=== PATIENT | male | born 1935 | race Caucasian/White ===

== ENCOUNTER → 2016-10-04 | Outpatient (CLI) | payer MEDICARE ==
[~2016-10-04] MED LIST: ALBUAER3 INH; ASPI325T PO; BYST5TAB2 PO; CYAN1000P IM; ISOS30TA3 PO; MOME17I EACH NARE; NEXI20CA PO; NITR1SUB3 SL; OCUVTAB4 PO; PRIM50TA5 PO; RANE1000 PO; ROPI0.5T PO; ROSU20 PO; SYSTSOL EACH EYE; TERA1CAP3 PO; VITA100064 PO
--- NOTE | 2016-10-06 09:20 | RSPPFT ---
DATE OF PROCEDURE: 10/04/16 COMMENTS: VOLUMES DYNAMIC: FVC and FEV1 mildly reduced. STATIC: TLC, RV and FRC normal. FLOWS: FEV1% moderately reduced; FEF 25-75 severely reduced. DIFFUSION: Moderately reduced. FLOW VOLUME LOOP: Pattern of variable intrathoracic airways obstruction. IMPRESSION: Moderately severe obstructive ventilatory defect with reduction in diffusion consistent with emphysema. No significant hyperinflation. Airways resistance is increased. There is minimal change post-bronchodilator.
== END ==
LOC: PHRSP 07:27
PROVIDERS: ATTEND Internal Medicine
DX: J44.9 Chronic obstructive pulmonary disease, unspecified (principal)
CPT/HCPCS: 94060; 94620; 94726; 94729

== ENCOUNTER 2017-02-28 10:17 | Emergency (ER) | payer MEDICARE ==
[~2017-02-28] VITALS: Ht 170.2 cm; Wt 100.0 kg
[~2017-02-28 10:17] MED LIST changes: +UMEC1AER INH
[2017-02-28 10:18] VITALS: BP 171/74; PULSE 87; RESP 12; TEMP 98.4; O2SAT 98
[2017-02-28] MEDS ORDERED: DIPHTH/TETANUS/ACEL PERTUSSIS (BOOSTER) 0.5 ML VIAL/PFS IM ONE (11:00)
--- NOTE | 2017-02-28 11:16 | RADRPT ---
EXAM DATE/TIME: 02/28/2017 11:08 [facility] COMPARISON: CT BRAIN W/O CONTRAST, December 16, 2010, 14:48. INDICATIONS : Trauma. Fall. Head laceration. RADIATION DOSE: 36.42 CTDIvol (mGy) MEDICAL HISTORY : Cardiovascular disease. SURGICAL HISTORY : Pacemaker. Coronary artery stent. ENCOUNTER: Initial ACUITY: 1 day PAIN SCALE: 4/10 LOCATION: cranial TECHNIQUE: Multiple contiguous axial images were obtained of the head. Using automated exposure control and adj ustment of the mA and/or kV according to patient size, radiation dose was kept as low as reasonably a chievable to obtain optimal diagnostic quality images. DICOM format image data is available electro nically for review and comparison. FINDINGS: There is mild line loss. No fractures are seen. Internal carotid artery calcifications and vertebral artery calcifications are noted. No hemorrhage, acute infarct, or mass. 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 CONCLUSION: No acute disease. Chidi Geronimo MD on February 28, 2017 at 11:14 Board Certified Radiologist. This report was verified electronically.
--- NOTE | 2017-02-28 11:19 | PD ---
HPI Chief Complaint: Fall Time Seen by Provider: 11:16 Travel History International Travel<30 days: No Contact w/Intl Traveler<30days: No Traveled to known affect area: No History of Present Illness HPI 81 yo M had a fall, which he attributes to neuropathy. bleeding from occipital scalp on right resolved with bandaging t home. he struggled to get to this feet but denies hip, chest, back and neck pain. no loc, sob, weakness or dizziness. onset sudden. timing resolved. does not rmemeber last tetanus. PFSH Past Medical History Anemia: Yes Arthritis: No Asthma: No Atrial Fibrillation: Yes Heart Rhythm Problems: Yes (PT HAS A DEMAND PACEMAKER) Cardiac Catheterization: Yes Cardiovascular Problems: Yes High Cholesterol: No Chest Pain: Yes Congestive Heart Failure: No COPD: Yes Cerebrovascular Accident: No Genitourinary: No Hypertension: Yes Kidney Stones: No Musculoskeletal: No Neurologic: Yes (NEUROPATHY) Respiratory: No Renal Failure: No ?: Not Past Surgical History Cardiac Surgery: Yes (ON DEMAND PACEMAKER) Pacemaker: Yes Social History Alcohol Use: Yes (1 DRINK DAILY) Tobacco Use: Yes (1 PK Q 2 WEEKS) Substance Use: No Allergies-Medications (Allergen,Severity, Reaction): Coded Allergies: penicillin G (Verified Allergy, Severe, 02/28/17) Reported Meds & Prescriptions Reported Meds & Active Scripts Active Bystolic (Nebivolol) 5 Mg Tab 5 Mg PO DAILY Reported Ranexa ER 12 HR (Ranolazine) 1,000 Mg Tab 1,000 Mg PO DAILY Anoro Ellipta Inh (Umeclidinium/Vilanterol) 62.5-25 Mcg/Act Aero 1 Puff INH DAILY Ranexa ER 12 HR (Ranolazine) 1,000 Mg Tab 1,000 Mg PO BID Ropinirole 0.5 Mg Tab 0.5 Mg PO HS Preservision Areds (Multiple Vitamins W/ Minerals) 1 Tab 1 Tab PO DAILY Systane Opth Drops (Polyethylene Glycol-Propylene Glycol Opth Drp) 0.4-0.3% Soln 1-2 Drop EACH EYE PRN PRN Nitroglycerin SL (Nitroglycerin) 0.4 Mg Subl 0.4 Mg SL DIRECTED PRN ONE TABLET UNDER THE TONGUE NEEDED FOR CHEST PAIN, MAY REPEAT EVERY FIVE MINUTES FOR A TOTAL OF 3 DOSES OR CALL 911 IF NO RELIEF Nasonex Nasal [place] (Mometasone Furoate) 50 Mcg/Act Naspr 2 [place] EACH NARE DAILY Cyanocobalamin Inj (Cyanocobalamin) 1,000 Mcg/Ml Inj 1,000 Mcg IM ONCE PRN Proair Hfa 8.5 GM Inh (Albuterol Sulfate) 90 Mcg/Act Aer 2 Puff INH Q4-6H PRN 108 mcg/actuation Terazosin (Terazosin HCl) 1 Mg Cap 1 Mg PO HS Primidone 50 Mg Tab 50 Mg PO DAILY PRN Nexium (Esomeprazole DR) 20 Mg Capdr 20 Mg PO DAILY Isosorbide Mononitrate ER (Isosorbide Mononitrate) 30 Mg Perfecto 15 Mg PO DAILY Crestor (Rosuvastatin Calcium) 20 Mg Tab 20 Mg PO DAILY Aspirin 325 Mg Tab 325 Mg PO DAILY Vitamin D3 (Cholecalciferol) 1,000 Unit Tab 2,000 Units PO DAILY 90 Days Review of Systems Except as stated in HPI: all other systems reviewed are Neg General / Constitutional: No: Fever Eyes: No: Visual changes Physical Exam Narrative GENERAL: 81 yo M, WNWD, no acute distress SKIN: Warm and dry. HEAD: Atraumatic. Normocephalic. R occipital scalp contusion of approx 3cm x 5cm somewhat oblong with trace abrasion. EYES: Pupils equal and round. No scleral icterus. No injection or drainage. ENT: No nasal bleeding or discharge. Mucous membranes pink and moist. NECK: Trachea midline. No JVD. CARDIOVASCULAR: Regular rate and rhythm. RESPIRATORY: No accessory muscle use. Clear to auscultation. Breath sounds equal bilaterally. GASTROINTESTINAL: Abdomen soft, non-tender, nondistended. Hepatic and splenic margins not palpable. MUSCULOSKELETAL: Extremities without clubbing, cyanosis, or edema. No obvious deformities. NEUROLOGICAL: Awake and alert. No obvious cranial nerve deficits. Motor grossly within normal limits. Five out of 5 muscle strength in the arms and legs. Normal speech. Pt is ambulatory with a cane, PSYCHIATRIC: Appropriate mood and affect; insight and judgment normal. Data Data Last Documented VS Vital Signs Date Time Temp Pulse Resp B/P (MAP) Pulse Ox O2 Delivery O2 Flow Rate FiO2 02/28/17 12:00 02/28/17 10:18 98.4 87 12 98 VS reviewed, 171/74 is bp Orders Orders Ct Brain W/O Iv Contrast(Rout) (02/28/17 ) Yjoz-Esa-Amhwsw (Booster) Inj (Boostrix (02/28/17 11:00) Electrocardiogram (02/28/17 10:33) MDM Medical Decision Making Medical Screen Exam Complete: Yes Emergency Medical Condition: Yes Medical Record Reviewed: Yes Differential Diagnosis ich, scalp contusion, scalp abrasion, skull fracture Narrative Course Last Impressions Head CT 02/28/17 0000 Signed Impressions: Service Date/Time: Tuesday, February 28, 2017 11:08 - CONCLUSION: No acute disease. Chidi Geronimo MD tetanus given return precautions discussed Diagnosis Primary Impression: Fall Qualified Codes: W19.XXXA - Unspecified fall, initial encounter Additional Impressions: Scalp contusion Qualified Codes: S00.03XA - Contusion of scalp, initial encounter Scalp abrasion Qualified Codes: S00.01XA - Abrasion of scalp, initial encounter Referrals: Primary Care Physician 2 days Med/Other Pt SpecificInfo: No Change to Meds Disposition: 01 DISCHARGE HOME Condition: Stable Amrik Wheeler MD Feb 28, 2017 11:19
--- NOTE | 2017-02-28 13:47 | EKG ---
Date Performed: 02/28/2017 Time Performed: 10:33:41 PTAGE: 81 years EKG: Normal Sinus rhythm Low limb lead voltage Ventricular premature complex Atrial and ventricular demand pacing ABNORMAL RH [facility] ECG PREVIOUS TRACING : 12/16/2010 14.03 Besides pacing, no major change from prior tracing. DOCTOR: Brad Sullivan Interpretating Date/Time 02/28/2017 13:52:57
== END 2017-02-28 12:23 | disposition home or self-care (01) ==
LOC: NEPC 10:17
DX: S00.03XA Contusion of scalp, initial encounter (principal); S00.01XA Abrasion of scalp, initial encounter; W19.XXXA Unspecified fall, initial encounter; I48.91 Unspecified atrial fibrillation; I10 Essential (primary) hypertension; J44.9 Chronic obstructive pulmonary disease, unspecified
CPT/HCPCS: 70450; 90715; 93005; 96372

== ENCOUNTER → 2017-03-07 | Outpatient (CLI) | payer MEDICARE ==
[2017-03-07 13:15] LABS: AUTOMATED NEUTROPHIL # 8.3 TH/MM3 (1.8-7.7); BASOPHIL # 0.1 TH/MM3 (0-0.2); BASOPHIL % 0.6 % (0.0-2.0); EOSINOPHIL # 0.2 TH/MM3 (0-0.4); EOSINOPHIL % 1.8 % (0.0-4.0); HEMATOCRIT 42.2 % (39.0-51.0); HEMO FLAGS DIFF FINAL; LYMPH % 20.3 % (9.0-44.0); LYMPHOCYTE # 2.5 TH/MM3 (1.0-4.8); MEAN CELL VOLUME 91.4 FL (80.0-100.0); MEAN CORPUSCULAR HEMOGLOBIN 29.9 PG (27.0-34.0); MEAN CORPUSCULAR HGB CONC 32.7 % (32.0-36.0); MONO % 9.3 % (0.0-8.0); PLATELET COUNT 215 TH/MM3 (150-450); RED BLOOD COUNT 4.62 MIL/MM3 (4.50-5.90); RED CELL DISTRIBUTION WIDTH 14.2 % (11.6-17.2); WHITE BLOOD COUNT 12.2 TH/MM3 (4.0-11.0)
[2017-03-07 13:15] LABS: BACTERIA, URINE RARE /hpf; BLOOD, URINE NEG (NEG); COMMENT (UR) CULT NOT INDICATED; CULTURE IF INDICATED CULT NOT INDICATED; GLUCOSE,URINE NEG (NEG); KETONE, URINE NEG (NEG); NITRITE,URINE NEG (NEG); PH, URINE 5.5 (5.0-8.5); URINE COLOR YELLOW (YELLW/STRAW)
[2017-03-07 13:28] LABS: ANION GAP 8 MEQ/L (5-15); AST (GOT) 20 U/L (15-37); BICARBONATE 26.4 MEQ/L (21.0-32.0); BLOOD UREA NITROGEN 24 MG/DL (7-18); CHLORIDE 104 MEQ/L (98-107); GLOMERULAR FILTRATION RATE 46 ML/MIN (>89); GLUCOSE,FASTING 88 MG/DL (74-99); POTASSIUM 4.8 MEQ/L (3.5-5.1); SODIUM (NA) 138 MEQ/L (136-145)
[2017-03-07 13:29] LABS: ALT (GPT) 28 U/L (12-78)
[2017-03-07 13:32] LABS: ALKALINE PHOSPHATASE 81 U/L (45-117); TOTAL BILIRUBIN ADULT 0.4 MG/DL (0.2-1.0)
== END ==
LOC: PLAB 10:35
PROVIDERS: ATTEND Physician Assistant Medical
DX: R42 Dizziness and giddiness (principal)
CPT/HCPCS: 80053; 81001; 85025

== ENCOUNTER → 2017-07-25 | Outpatient (CLI) | payer MEDICARE ==
[~2017-07-25] MED LIST changes: +ASPI-183 PO; -ASPI325T PO; -BYST5TAB2 PO; +METO25TA3 PO
== END ==
LOC: PLAB 15:26
PROVIDERS: ATTEND Nurse Practitioner Family
DX: R06.09 Other forms of dyspnea (principal)
CPT/HCPCS: 36415; 83880

== ENCOUNTER 2017-07-28 11:30 | Inpatient (IN) | payer MEDICARE ==
[~2017-07-28] VITALS: Ht 170.2 cm; Wt 102.5 kg
[2017-07-28 11:32] VITALS: BP 166/112; PULSE 78; RESP 18; TEMP 97.7; O2SAT 94
[2017-07-28 13:20] VITALS: BP 150/69; PULSE 75; RESP 23; O2SAT 100
--- NOTE | 2017-07-28 13:35 | PD ---
HPI Chief Complaint: Fever Time Seen by Provider: 13:15 Travel History International Travel<30 days: No Contact w/Intl Traveler<30days: No Traveled to known affect area: No History of Present Illness HPI 81-year-old male presents to the emergency department for evaluation of generalized weakness and fever. Patient states he has not been feeling well all week. However, symptoms worsened yesterday morning. He reports generalized weakness since yesterday morning. He states the last night he ran a fever of 101. His states that he did not take anything to bring down his fever, but it came down on its own. He went to see his primary care provider today who did an influenza test which was negative and instruct him to come the emergency department for further evaluation. Patient denies any headache. No sore throat. No shortness of breath or chest pain. He denies any abdominal pain. He does report nausea and states he has not eaten since yesterday morning. He states he has not eaten because he is scared he will vomit. Patient's past mental history of CAD, pacemaker, brought in strums macroglobulinemia, peripheral neuropathy, COPD on O2 at night, stage III kidney disease, BPH, hyperlipidemia, hypertension, CHF. Patient states he has body aches, 7/10, aching without radiation. Moderate severity. PFSH Past Medical History Anemia: Yes Arthritis: No Asthma: No Atrial Fibrillation: Yes Heart Rhythm Problems: Yes (PT HAS A DEMAND PACEMAKER) Cardiac Catheterization: Yes Cardiovascular Problems: Yes High Cholesterol: No Chest Pain: Yes Congestive Heart Failure: No COPD: Yes Cerebrovascular Accident: No Genitourinary: No Hypertension: Yes Kidney Stones: No Musculoskeletal: No Neurologic: Yes (NEUROPATHY) Respiratory: Yes Renal Failure: No Past Surgical History Cardiac Surgery: Yes (ON DEMAND PACEMAKER) Pacemaker: Yes Social History Alcohol Use: Yes (1 DRINK DAILY) Tobacco Use: Yes (1 PK Q 2 WEEKS) Substance Use: No Allergies-Medications (Allergen,Severity, Reaction): Coded Allergies: penicillin G (Verified Allergy, Severe, 06/28/17) Reported Meds & Prescriptions Reported Meds & Active Scripts Active Reported Metoprolol Tartrate 25 Mg Tab 25 Mg PO BID Ranexa ER 12 HR (Ranolazine) 1,000 Mg Tab 1,000 Mg PO DAILY Anoro Ellipta Inh (Umeclidinium/Vilanterol) 62.5-25 Mcg/Act Aero 1 Puff INH DAILY Ranexa ER 12 HR (Ranolazine) 1,000 Mg Tab 1,000 Mg PO BID Ropinirole 0.5 Mg Tab 0.5 Mg PO HS Preservision Areds (Multiple Vitamins W/ Minerals) 1 Tab 1 Tab PO DAILY Systane Opth Drops (Polyethylene Glycol-Propylene Glycol Opth Drp) 0.4-0.3% Soln 1-2 Drop EACH EYE PRN PRN Nitroglycerin SL (Nitroglycerin) 0.4 Mg Subl 0.4 Mg SL DIRECTED PRN ONE TABLET UNDER THE TONGUE NEEDED FOR CHEST PAIN, MAY REPEAT EVERY FIVE MINUTES FOR A TOTAL OF 3 DOSES OR CALL 911 IF NO RELIEF Nasonex Nasal [place] (Mometasone Furoate) 50 Mcg/Act Naspr 2 [place] EACH NARE DAILY Cyanocobalamin Inj (Cyanocobalamin) 1,000 Mcg/Ml Inj 1,000 Mcg IM ONCE PRN Proair Hfa 8.5 GM Inh (Albuterol Sulfate) 90 Mcg/Act Aer 2 Puff INH Q4-6H PRN 108 mcg/actuation Terazosin (Terazosin HCl) 1 Mg Cap 1 Mg PO HS Primidone 50 Mg Tab 50 Mg PO DAILY PRN Nexium (Esomeprazole DR) 20 Mg Capdr 20 Mg PO DAILY Isosorbide Mononitrate ER (Isosorbide Mononitrate) 30 Mg Perfecto 15 Mg PO DAILY Crestor (Rosuvastatin Calcium) 20 Mg Tab 20 Mg PO DAILY Aspirin 325 Mg Tab 325 Mg PO DAILY Vitamin D3 (Cholecalciferol) 1,000 Unit Tab 2,000 Units PO DAILY 90 Days Review of Systems Except as stated in HPI: all other systems reviewed are Neg Physical Exam Narrative GENERAL: Well-nourished, well-developed male patient, afebrile. SKIN: Focused skin assessment warm/dry. HEAD: Normocephalic. Atraumatic. ENT: Mucosa pink and moist. No erythema or exudates. No uvular edema. No uvular , palatal, or tonsillar deviation. Airway patent. Nasal turbinates appear normal without nasal blood, purulent drainage or septal hematoma. EYES: No scleral icterus. No injection or drainage. NECK: Supple, trachea midline. No JVD or lymphadenopathy. CARDIOVASCULAR: Regular rate and rhythm without murmurs, gallops, or rubs. Radial and pedal pulses are 2+. RESPIRATORY: Breath sounds equal bilaterally. No accessory muscle use. Lungs sounds with fine crackles noted in the bases GASTROINTESTINAL: Abdomen soft, non-tender, nondistended. MUSCULOSKELETAL: No cyanosis, or edema. BACK: Nontender without obvious deformity. No CVA tenderness. Data Data Last Documented VS Vital Signs Date Time Temp Pulse Resp B/P (MAP) Pulse Ox O2 Delivery O2 Flow Rate FiO2 07/28/17 17:30 70 15 149/67 (94) 94 Room Air 07/28/17 11:32 97.7 Orders Orders Sepsis Workup Initiated (07/28/17 ) Complete Blood Count With Diff (07/28/17 11:39) Comprehensive Metabolic Panel (07/28/17 11:39) Lactic Acid Sepsis Protocol (07/28/17 11:39) Blood Culture (07/28/17 11:39) Iv Access Insert/Monitor (07/28/17 11:39) Oxygen Administration (07/28/17 11:39) Oximetry (07/28/17 11:39) Blood Glucose (07/28/17 11:39) B-Type Natriuretic Peptide (07/28/17 13:24) Act Partial Throm Time (Ptt) (07/28/17 13:24) Prothrombin Time / Inr (Pt) (07/28/17 13:24) Urinalysis - C+S If Indicated (07/28/17 13:24) Chest, Single Ap (07/28/17 ) Influenzae A/B Antigen (07/28/17 13:24) Electrocardiogram (07/28/17 ) Ondansetron Inj (Zofran Inj) (07/28/17 13:45) Creatine Kinase (Cpk) (07/28/17 13:40) Troponin I (07/28/17 13:40) Sodium Chlor 0.9% 1000 Ml Inj (Ns 1000 M (07/28/17 14:30) Cath For Specimen (07/28/17 14:45) Vancomycin Inj (Vancomycin Inj) (07/28/17 14:45) Aztreonam Inj (Azactam Inj) (07/28/17 14:45) Metronidazole 500 Mg Inj (Flagyl 500 Mg (07/28/17 14:45) Ct Abd/Pel W/O Iv Contrast (07/28/17 ) Admit Order (Ed Use Only) (07/28/17 17:49) Labs Laboratory Tests Test 07/28/17 13:40 07/28/17 15:15 07/28/17 17:08 White Blood Count 12.8 TH/MM3 Red Blood Count 4.61 MIL/MM3 Hemoglobin 14.1 GM/DL Hematocrit 41.3 % Mean Corpuscular Volume 89.5 FL Mean Corpuscular Hemoglobin 30.5 PG Mean Corpuscular Hemoglobin Concent 34.1 % Red Cell Distribution Width 14.2 % Platelet Count 196 TH/MM3 Mean Platelet Volume 7.1 FL Neutrophils (%) (Auto) 86.4 % Lymphocytes (%) (Auto) 5.9 % Monocytes (%) (Auto) 7.3 % Eosinophils (%) (Auto) 0.1 % Basophils (%) (Auto) 0.3 % Neutrophils # (Auto) 11.1 TH/MM3 Lymphocytes # (Auto) 0.8 TH/MM3 Monocytes # (Auto) 0.9 TH/MM3 Eosinophils # (Auto) 0.0 TH/MM3 Basophils # (Auto) 0.0 TH/MM3 CBC Comment DIFF FINAL Differential Comment Prothrombin Time 10.9 SEC Prothromb Time International Ratio 1.1 RATIO Activated Partial Thromboplast Time 22.6 SEC Blood Urea Nitrogen 20 MG/DL Creatinine 1.73 MG/DL Random Glucose 109 MG/DL Total Protein 7.6 GM/DL Albumin 3.5 GM/DL Calcium Level 8.7 MG/DL Alkaline Phosphatase 84 U/L Aspartate Amino Transf (AST/SGOT) 23 U/L Alanine Aminotransferase (ALT/SGPT) 29 U/L Total Bilirubin 0.4 MG/DL Sodium Level 132 MEQ/L Potassium Level 4.5 MEQ/L Chloride Level 99 MEQ/L Carbon Dioxide Level 22.8 MEQ/L Anion Gap 10 MEQ/L Estimat Glomerular Filtration Rate 38 ML/MIN Lactic Acid Level 2.3 mmol/L 1.2 mmol/L Total Creatine Kinase 149 U/L Troponin I LESS THAN 0.02 NG/ML B-Type Natriuretic Peptide 179 PG/ML Urine Color YELLOW Urine Turbidity CLEAR Urine pH 5.5 Urine Specific [place] 1.022 Urine Protein 30 mg/dL Urine Glucose (UA) NEG mg/dL Urine Ketones TRACE mg/dL Urine Occult Blood NEG Urine Nitrite NEG Urine Bilirubin NEG Urine Urobilinogen 2.0 MG/DL Urine Leukocyte Esterase TRACE Urine RBC 1 /hpf Urine WBC 3 /hpf Urine Squamous Epithelial Cells <1 /hpf Urine Hyaline Casts 8 /lpf Urine Mucus FEW /lpf Microscopic Urinalysis Comment CULT NOT INDICATED MDM Medical Decision Making Medical Screen Exam Complete: Yes Emergency Medical Condition: Yes Medical Record Reviewed: Yes Differential Diagnosis Influenza versus viral syndrome versus pneumonia versus UTI versus sepsis versus electrolyte abnormality versus ACS Narrative Course 81-year-old male presents to the emergency department for evaluation of generalized weakness and fever. IV access obtained. EKG, CBC, CMP, lactic acid , CK, troponin, BNP, blood cultures 2, PTT, PT/INR, UA, and influenza are ordered and pending. Chest x-ray is ordered and pending. Patient is given Zofran 4 mg IV for nausea. EKG shows paced rhythm. CBC shows leukocytosis 12.8, neutrophil percentage 86.4. CMP shows elevated BUN 20, creatinine 1.73. Lactic acid is 2.3. BNP is 179. CK is 149. Troponin is less than 0.02. Coags show no acute abnormality. Influenza is negative. UA shows trace leukocyte esterase. Chest x-ray shows patchy infiltrates at the left lung base and possible left pleural effusion. My attending physician, Dr. Mitchell, ordered vancomycin 1 g IV, Azactam 2 g IV, Flagyl 500 mg IV, normal saline 1 L IV bolus. [facility] is paged for admission. Dr. Galarza accepted admission. Sepsis Criteria SIRS Criteria (2 or more): WBC > 93999, < 4000 or > 10% bands Diagnosis Primary Impression: Pneumonia Qualified Codes: J18.1 - Lobar pneumonia, unspecified organism Additional Impression: Lactic acidosis Admitting Information Admitting Physician Requests: Admit Sonia Flynn Jul 28, 2017 13:35
[2017-07-28] MEDS ORDERED: ONDANSETRON HCL 4 MG/2 ML VIAL IV PUSH ONE (13:45)
[2017-07-28 14:01] LABS: AUTOMATED NEUTROPHIL # 11.1 TH/MM3 (1.8-7.7); BASOPHIL % 0.3 % (0.0-2.0); EOSINOPHIL % 0.1 % (0.0-4.0); HEMATOCRIT 41.3 % (39.0-51.0); HEMOGLOBIN 14.1 GM/DL (13.0-17.0); LYMPH % 5.9 % (9.0-44.0); LYMPHOCYTE # 0.8 TH/MM3 (1.0-4.8); MEAN CELL VOLUME 89.5 FL (80.0-100.0); MEAN CORPUSCULAR HEMOGLOBIN 30.5 PG (27.0-34.0); MEAN CORPUSCULAR HGB CONC 34.1 % (32.0-36.0); MEAN PLATELET VOLUME 7.1 FL (7.0-11.0); MONO % 7.3 % (0.0-8.0); MONOCYTE # 0.9 TH/MM3 (0-0.9); NEUT % 86.4 % (16.0-70.0); PLATELET COUNT 196 TH/MM3 (150-450); RED BLOOD COUNT 4.61 MIL/MM3 (4.50-5.90); RED CELL DISTRIBUTION WIDTH 14.2 % (11.6-17.2); WHITE BLOOD COUNT 12.8 TH/MM3 (4.0-11.0)
[2017-07-28 14:13] LABS: INTERNATIONAL NORMALIZED RATIO 1.1 RATIO; PROTHROMBIN TIME - PATIENT 10.9 SEC (9.8-11.6)
[2017-07-28 14:18] LABS: ALBUMIN 3.5 GM/DL (3.4-5.0); ALT (GPT) 29 U/L (12-78); AST (GOT) 23 U/L (15-37); BICARBONATE 22.8 MEQ/L (21.0-32.0); BLOOD UREA NITROGEN 20 MG/DL (7-18); CALCIUM 8.7 MG/DL (8.5-10.1); CHLORIDE 99 MEQ/L (98-107); CREATININE 1.73 MG/DL (0.60-1.30); GLOMERULAR FILTRATION RATE 38 ML/MIN (>89); GLUCOSE,RANDOM 109 MG/DL (74-106); SODIUM (NA) 132 MEQ/L (136-145)
[2017-07-28 14:20] LABS: LACTIC ACID SEPSIS PROTOCOL 2.3 mmol/L (0.4-2.0)
[2017-07-28 14:22] LABS: ALKALINE PHOSPHATASE 84 U/L (45-117); TOTAL BILIRUBIN ADULT 0.4 MG/DL (0.2-1.0); TOTAL PROTEIN 7.6 GM/DL (6.4-8.2)
[2017-07-28 14:25] LABS: TROPONIN I LESS THAN 0.02 NG/ML (0.02-0.05)
[2017-07-28] MEDS ORDERED: SODIUM CHLOR 0.9% 1000 ML INJ 1,000 ML IV ONE (14:30)
[2017-07-28] MEDS ORDERED: VANCOMYCIN INJ 1,000 MG in SODIUM CHLOR 0.9% 250 ML INJ 250 ML IV STA (14:45)
[2017-07-28] MEDS ORDERED: AZTREONAM INJ 2,000 MG in SODIUM CHLORIDE 0.9% INJ 100 ML IV STA (14:45)
[2017-07-28] MEDS ORDERED: metroNIDAZOLE 500 MG INJ 100 ML IV STA (14:45)
--- NOTE | 2017-07-28 14:52 | RADRPT ---
EXAM DATE/TIME: 07/28/2017 14:16 [facility] COMPARISON: No previous studies available for comparison. INDICATIONS : Fever. MEDICAL HISTORY : Cardiovascular disease. Congestive heart failure. 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 SURGICAL HISTORY : Coronary artery stent. Pacemaker. chemotherapy ENCOUNTER: Initial ACUITY: 1 day PAIN SCORE: 0/10 LOCATION: Bilateral chest FINDINGS: There are patchy areas of consolidative infiltrate in the medial left lower lung. Focal opacity with out air bronchograms causing loss of delineation of the left costophrenic angle with meniscal interfa ce. The right lung is clear. The heart is normal in size. Cardiac pacer leads in place. CONCLUSION: Patchy infiltrates at the left lung base and possible left pleural effusion. Live King MD on July 28, 2017 at 14:49 Board Certified Radiologist. This report was verified electronically.
[2017-07-28 15:44] LABS: BILIRUBIN, URINE NEG (NEG); BLOOD, URINE NEG (NEG); GLUCOSE,URINE NEG (NEG); HYALINE CAST, URINE 8 /lpf (RARE); KETONE, URINE TRACE mg/dL (NEG); MUCUS URINE FEW /lpf (OCC); NITRITE,URINE NEG (NEG); PH, URINE 5.5 (5.0-8.5); SQUAMOUS EPITHELIAL CELL URINE <1 /hpf (0-5); URINE COLOR YELLOW (YELLW/STRAW); URINE LEUKOCYTE ESTERASE TRACE (NEG)
--- NOTE | 2017-07-28 16:37 | RADRPT ---
EXAM DATE/TIME: 07/28/2017 16:08 [facility] COMPARISON: No previous studies available for comparison. INDICATIONS : Patient complains of abdominal pain and weakness. Fever. ORAL CONTRAST: No oral contrast ingested. RADIATION DOSE: 16.49 CTDIvol (mGy) MEDICAL HISTORY : Cardiovascular disease. Hypertension. Afib SURGICAL HISTORY : None. ENCOUNTER: Initial ACUITY: 1 day PAIN SCALE: 5/10 LOCATION: Bilateral middle abdomen TECHNIQUE: Volumetric scanning of the abdomen and pelvis was performed. Using automated exposure control and ad justment of the mA and/or kV according to patient size, radiation dose was kept as low as reasonably achievable to obtain optimal diagnostic quality images. DICOM format image data is available electro nically for review and comparison. FINDINGS: LOWER LUNGS: Reticular interstitial thickening in the lung bases. LIVER: Homogeneous density without lesion. There is no dilation of the biliary tree. No calcified gallston es. SPLEEN: Normal size without lesion. PANCREAS: Within normal limits. KIDNEYS: Small exophytic cyst arising from the posterior lower pole cortex of the right kidney. Tiny cyst levi ing in the lateral midpole on the left. No evidence of hydronephrosis. ADRENAL GLANDS: Within normal limits. VASCULAR: There is no aortic aneurysm. BOWEL/MESENTERY: The stomach, small bowel, and colon demonstrate no acute abnormality. There is no free intraperitone al air or fluid. ABDOMINAL WALL: Within normal limits. RETROPERITONEUM: There is no lymphadenopathy. BLADDER: No wall thickening or mass. REPRODUCTIVE: Within normal limits. INGUINAL: Bilateral inguinal hernias are present, on the right containing fat. On the left hernia contains a lo op of sigmoid colon. There is no evidence of incarceration or obstruction. MUSCULOSKELETAL: Within normal limits for patient age. CONCLUSION: Bilateral inguinal hernias. Left hernia contains a loop of sigmoid colon without definite evidence of incarceration or obstruction. Tiny renal cysts. Hipolito Talavera MD on July 28, 2017 at 16:30 Board Certified Radiologist. This report was verified electronically.
[2017-07-28 17:30] VITALS: BP 149/67; PULSE 70; RESP 15; O2SAT 94
--- NOTE | 2017-07-28 18:12 | PD ---
Physical Exam Narrative GENERAL: 81-year-old male who appears in no apparent distress SKIN: Focused skin assessment warm/dry. HEAD: Atraumatic. Normocephalic. EYES: No scleral icterus. No injection or drainage. ENT: No nasal bleeding or discharge. Mucous membranes pink and moist. NECK: Trachea midline. No JVD. CARDIOVASCULAR: Regular rate and rhythm. RESPIRATORY: No accessory muscle use. No increased effort MUSCULOSKELETAL: No obvious deformities. NEUROLOGICAL: Awake and alert. Moves all extremities. Normal speech. PSYCHIATRIC: Appropriate mood and affect; insight and judgment normal. Data Data Last Documented VS Vital Signs Date Time Temp Pulse Resp B/P (MAP) Pulse Ox O2 Delivery O2 Flow Rate FiO2 07/28/17 13:20 75 23 150/69 (96) 100 Room Air 07/28/17 11:32 97.7 Orders Orders Sepsis Workup Initiated (07/28/17 ) Complete Blood Count With Diff (07/28/17 11:39) Comprehensive Metabolic Panel (07/28/17 11:39) Lactic Acid Sepsis Protocol (07/28/17 11:39) Blood Culture (07/28/17 11:39) Iv Access Insert/Monitor (07/28/17 11:39) Oxygen Administration (07/28/17 11:39) Oximetry (07/28/17 11:39) Blood Glucose (07/28/17 11:39) B-Type Natriuretic Peptide (07/28/17 13:24) Act Partial Throm Time (Ptt) (07/28/17 13:24) Prothrombin Time / Inr (Pt) (07/28/17 13:24) Urinalysis - C+S If Indicated (07/28/17 13:24) Chest, Single Ap (07/28/17 ) Influenzae A/B Antigen (07/28/17 13:24) Electrocardiogram (07/28/17 ) Ondansetron Inj (Zofran Inj) (07/28/17 13:45) Creatine Kinase (Cpk) (07/28/17 13:40) Troponin I (07/28/17 13:40) Sodium Chlor 0.9% 1000 Ml Inj (Ns 1000 M (07/28/17 14:30) Cath For Specimen (07/28/17 14:45) Vancomycin Inj (Vancomycin Inj) (07/28/17 14:45) Aztreonam Inj (Azactam Inj) (07/28/17 14:45) Metronidazole 500 Mg Inj (Flagyl 500 Mg (07/28/17 14:45) Ct Abd/Pel W/O Iv Contrast (07/28/17 ) Admit Order (Ed Use Only) (07/28/17 17:49) Labs Laboratory Tests Test 07/28/17 13:40 07/28/17 15:15 07/28/17 17:08 White Blood Count 12.8 TH/MM3 Red Blood Count 4.61 MIL/MM3 Hemoglobin 14.1 GM/DL Hematocrit 41.3 % Mean Corpuscular Volume 89.5 FL Mean Corpuscular Hemoglobin 30.5 PG Mean Corpuscular Hemoglobin Concent 34.1 % Red Cell Distribution Width 14.2 % Platelet Count 196 TH/MM3 Mean Platelet Volume 7.1 FL Neutrophils (%) (Auto) 86.4 % Lymphocytes (%) (Auto) 5.9 % Monocytes (%) (Auto) 7.3 % Eosinophils (%) (Auto) 0.1 % Basophils (%) (Auto) 0.3 % Neutrophils # (Auto) 11.1 TH/MM3 Lymphocytes # (Auto) 0.8 TH/MM3 Monocytes # (Auto) 0.9 TH/MM3 Eosinophils # (Auto) 0.0 TH/MM3 Basophils # (Auto) 0.0 TH/MM3 CBC Comment DIFF FINAL Differential Comment Prothrombin Time 10.9 SEC Prothromb Time International Ratio 1.1 RATIO Activated Partial Thromboplast Time 22.6 SEC Blood Urea Nitrogen 20 MG/DL Creatinine 1.73 MG/DL Random Glucose 109 MG/DL Total Protein 7.6 GM/DL Albumin 3.5 GM/DL Calcium Level 8.7 MG/DL Alkaline Phosphatase 84 U/L Aspartate Amino Transf (AST/SGOT) 23 U/L Alanine Aminotransferase (ALT/SGPT) 29 U/L Total Bilirubin 0.4 MG/DL Sodium Level 132 MEQ/L Potassium Level 4.5 MEQ/L Chloride Level 99 MEQ/L Carbon Dioxide Level 22.8 MEQ/L Anion Gap 10 MEQ/L Estimat Glomerular Filtration Rate 38 ML/MIN Lactic Acid Level 2.3 mmol/L 1.2 mmol/L Total Creatine Kinase 149 U/L Troponin I LESS THAN 0.02 NG/ML B-Type Natriuretic Peptide 179 PG/ML Urine Color YELLOW Urine Turbidity CLEAR Urine pH 5.5 Urine Specific [place] 1.022 Urine Protein 30 mg/dL Urine Glucose (UA) NEG mg/dL Urine Ketones TRACE mg/dL Urine Occult Blood NEG Urine Nitrite NEG Urine Bilirubin NEG Urine Urobilinogen 2.0 MG/DL Urine Leukocyte Esterase TRACE Urine RBC 1 /hpf Urine WBC 3 /hpf Urine Squamous Epithelial Cells <1 /hpf Urine Hyaline Casts 8 /lpf Urine Mucus FEW /lpf Microscopic Urinalysis Comment CULT NOT INDICATED MDM Supervised Visit with RACHELLE: Yes Interpretation(s) CBC & BMP Diagram 07/28/17 13:40 Total Protein 7.6, Albumin 3.5, Calcium Level 8.7, Alkaline Phosphatase 84, Aspartate Amino Transf (AST/SGOT) 23, Alanine Aminotransferase (ALT/SGPT) 29, Total Bilirubin 0.4 Last 24 hours Impressions Chest X-Ray 07/28/17 0000 Signed Impressions: Service Date/Time: Friday, July 28, 2017 14:16 - CONCLUSION: Patchy infiltrates at the left lung base and possible left pleural effusion. Live King MD Abdomen/Pelvis CT 07/28/17 0000 Signed Impressions: Service Date/Time: Friday, July 28, 2017 16:08 - CONCLUSION: Bilateral inguinal hernias. Left hernia contains a loop of sigmoid colon without definite evidence of incarceration or obstruction. Tiny renal cysts. Hipolito Talavera MD Narrative Course I, Dr. mitchell, have reviewed the advance practice practitioner's documentation and am in agreement, met with the patient face to face, made the diagnosis, and the medical decision making was done by me. *My assessment and Findings: 81-year-old male who presents with fever. Chest x- ray shows pneumonia. He was given broad-spectrum coverage. Given elevated lactate and comorbidities he will be admitted to the hospital for further care Sepsis Criteria SIRS Criteria (2 or more): RR > 20 or PaCO2 < 32, WBC > 65427, < 4000 or > 10 % bands Sepsis Criteria (SIRS+source): Infect source susp/known Severe Sepsis (+one): Lactate >2 Criteria Outcome: Meets severe sepsis criteria Diagnosis Primary Impression: Pneumonia Qualified Codes: J18.1 - Lobar pneumonia, unspecified organism Additional Impression: Lactic acidosis Admitting Information Admitting Physician Requests: Admit Елена Mitchell MD Jul 28, 2017 18:12
[2017-07-28] MEDS ORDERED: ACETAMINOPHEN/HYDROcodone 325 MG/5 MG TAB PO PRN (18:15)
[2017-07-28] MEDS ORDERED: ACETAMINOPHEN/HYDROcodone 325 MG/10 MG TAB PO PRN (18:15)
[2017-07-28] MEDS ORDERED: SODIUM CHLORIDE 0.9% FLUSH 10 ML FLUSH IV FLUSH PRN (18:15)
[2017-07-28] MEDS ORDERED: MAGNESIUM HYDROXIDE SUSP 30 ML CUP PO PRN (18:15)
[2017-07-28] MEDS ORDERED: ONDANSETRON HCL 4 MG/2 ML VIAL IVP PRN (18:15)
[2017-07-28] MEDS ORDERED: NALOXONE HCL 0.4 MG/ML AMP IV PUSH PRN (18:15)
[2017-07-28] MEDS ORDERED: Vancomycin Consult Pharmacy 1 EA OTHER SCH (18:30)
[2017-07-28] MEDS ORDERED: VANCOMYCIN INJ 1,000 MG in SODIUM CHLOR 0.9% 250 ML INJ 250 ML IV ONE (20:00)
[2017-07-28] MEDS: SODIUM CHLORIDE 0.9% FLUSH 10 ML FLUSH IV FLUSH SCH (21:00)
[2017-07-28] MEDS: SODIUM CHLOR 0.9% 1000 ML INJ 1,000 ML IV SCH (21:49)
--- NOTE | 2017-07-28 21:53 | HHI.HP ---
HPI Service [facility]ician SHEILA Cisneros Admission Diagnosis pneumonia, sepsis Diagnoses: (1) Sepsis Diagnosis: Principal (2) PNA (pneumonia) Diagnosis: Principal (3) Renal insufficiency Diagnosis: Principal Travel History International Travel<30 Days: No Contact w/Intl Traveler <30 Da: No Traveled to Known Affected Are: No History of Present Illness This is an 81-year-old male with a PMH of A. fib, HTN, Hyperlipidemia, COPD and Peripheral Neuropathy who presented to the ER with complaints of generalized weakness x1wk. States had fever of 101.0 today at home. Seen by PCP and had flu test which was negative, but referred to ER for further evaluation due to fever. Denies nausea, vomiting, chest pain, cough or sick contacts. Also notes myalgias/generalized aches, pain intermittent, 6/10, moderate severity, non-radiating. On arrival, BP 166/112, HR 78, O2 sat 94% on RA, Afebrile. WBC 12.8. Previously 1.47 06/12/17. Lactic Acid 2.3. Troponin negative. INR 1.1. UA negative. Flu negative. CXR patchy infiltrate left lung base, possible left pleural effusion. CT Abdomen/Pelvis bilateral inguinal hernia, left containing loop of sigmoid colon, no incarceration. S/p Vanc/Azactam/Flagyl in ER. Review of Systems Except as stated in HPI: all other systems reviewed are Neg ROS: 14 point review of systems otherwise negative. Past Family Social History Past Medical History PMH: A. fib, HTN, Hyperlipidemia, COPD and Peripheral Neuropathy Past Surgical History PAST SURGICAL HISTORY: Pacemaker Allergies: Coded Allergies: penicillin G (Verified Allergy, Severe, 06/28/17) Family History PAST FAMILY HISTORY: Reviewed. No h/o DM or CAD Social History PAST SOCIAL HISTORY: One drink daily. Occasional tobacco. Negative for drugs. Physical Exam Vital Signs Vital Signs Date Time Temp Pulse Resp B/P (MAP) Pulse Ox O2 Delivery O2 Flow Rate FiO2 07/28/17 17:30 70 15 149/67 (94) 94 Room Air 2/23/18 13:20 75 23 150/69 (96) 100 Room Air 07/28/17 11:32 97.7 78 18 166/112 (130) 94 Room Air Physical Exam PE: GENERAL: Pleasant elderly white male in no acute distress. HEENT: PERRLA, EOMI. No scleral icterus or conjunctival pallor. No lid lag or facial droop. CARDIOVASCULAR: Regular rate and rhythm. No obvious murmurs to auscultation. No chest tenderness to palpation. RESPIRATORY: No obvious rhonchi or wheezing. Clear to auscultation. Breath sounds equal bilaterally. GASTROINTESTINAL: Abdomen soft, non-tender, nondistended. BS normal. MUSCULOSKELETAL: Extremities without clubbing, cyanosis, or edema. No obvious deformities. NEUROLOGICAL: Awake, alert and oriented x4. No focal neurologic deficits. Moving both upper and lower extremities spontaneously. Laboratory Laboratory Tests Test 07/28/17 13:40 07/28/17 15:15 07/28/17 17:08 White Blood Count 12.8 Red Blood Count 4.61 Hemoglobin 14.1 Hematocrit 41.3 Mean Corpuscular Volume 89.5 Mean Corpuscular Hemoglobin 30.5 Mean Corpuscular Hemoglobin Concent 34.1 Red Cell Distribution Width 14.2 Platelet Count 196 Mean Platelet Volume 7.1 Neutrophils (%) (Auto) 86.4 Lymphocytes (%) (Auto) 5.9 Monocytes (%) (Auto) 7.3 Eosinophils (%) (Auto) 0.1 Basophils (%) (Auto) 0.3 Neutrophils # (Auto) 11.1 Lymphocytes # (Auto) 0.8 Monocytes # (Auto) 0.9 Eosinophils # (Auto) 0.0 Basophils # (Auto) 0.0 CBC Comment DIFF FINAL Differential Comment Prothrombin Time 10.9 Prothromb Time International Ratio 1.1 Activated Partial Thromboplast Time 22.6 Blood Urea Nitrogen 20 Creatinine 1.73 Random Glucose 109 Total Protein 7.6 Albumin 3.5 Calcium Level 8.7 Alkaline Phosphatase 84 Aspartate Amino Transf (AST/SGOT) 23 Alanine Aminotransferase (ALT/SGPT) 29 Total Bilirubin 0.4 Sodium Level 132 Potassium Level 4.5 Chloride Level 99 Carbon Dioxide Level 22.8 Anion Gap 10 Estimat Glomerular Filtration Rate 38 Lactic Acid Level 2.3 1.2 Total Creatine Kinase 149 Troponin I LESS THAN 0.02 B-Type Natriuretic Peptide 179 Urine Color YELLOW Urine Turbidity CLEAR Urine pH 5.5 Urine Specific [place] 1.022 Urine Protein 30 Urine Glucose (UA) NEG Urine Ketones TRACE Urine Occult Blood NEG Urine Nitrite NEG Urine Bilirubin NEG Urine Urobilinogen 2.0 Urine Leukocyte Esterase TRACE Urine RBC 1 Urine WBC 3 Urine Squamous Epithelial Cells <1 Urine Hyaline Casts 8 Urine Mucus FEW Microscopic Urinalysis Comment CULT NOT INDICATED Date/Time Source Procedure Growth Status 07/28/17 13:40 Blood Peripheral Aerobic Blood Culture Pending Received 07/28/17 13:40 Blood Peripheral Anaerobic Blood Culture Pending Received 07/28/17 13:40 Nasal Aspirate Influenza Types A,B Antigen (ROLO) - Final NEGATIVE FOR FLU A AND B ANTIGEN.... Complete Result Diagram: 07/28/17 1340 07/28/17 1340 Caprini VTE Risk Assessment Caprini VTE Risk Assessment: No/Low Risk (score <= 1) Caprini Risk Assessment Model Point Value = 1 Point Value = 2 Point Value = 3 Point Value = 5 Age 41-60 Minor surgery BMI > 25 kg/m2 Swollen legs Varicose veins or History of unexplained or recurrent spontaneous Oral contraceptives or hormone replacement Sepsis (< 1 month) Serious lung disease, including pneumonia (< 1 month) Abnormal pulmonary function Acute myocardial infarction Congestive heart failure (< 1 month) History of inflammatory bowel disease Medical patient at bed rest Age 61-74 Arthroscopic surgery Major open surgery (> 45 min) Laparoscopic surgery (> 45 min) Malignancy Confined to bed (> 72 hours) Immobilizing plaster cast Central venous access Age >= 75 History of VTE Family history of VTE Factor V Leiden Prothrombin [id number] Lupus anticoagulant Anticardiolipin antibodies Elevated serum homocysteine Heparin-induced thrombocytopenia Other congenital or acquired thrombophilia Stroke (< 1 month) Elective arthroplasty Hip, pelvis, or leg fracture Acute spinal cord injury (< 1 month) Prophylaxis Regimen Total Risk Factor Score Risk Level Prophylaxis Regimen 0-1 Low Early ambulation 2 Moderate Order ONE of the following: *Sequential Compression Device (SCD) *Heparin 5000 units SQ BID 3-4 Higher Order ONE of the following medications: *Heparin 5000 units SQ TID *Enoxaparin/Lovenox 40 mg SQ daily (WT < 150 kg, CrCl > 30 mL/min) *Enoxaparin/Lovenox 30 mg SQ daily (WT < 150 kg, CrCl > 10-29 mL/min) *Enoxaparin/Lovenox 30 mg SQ BID (WT < 150 kg, CrCl > 30 mL/min) AND/OR *Sequential Compression Device (SCD) 5 or more Highest Order ONE of the following medications: *Heparin 5000 units SQ TID (Preferred with Epidurals) *Enoxaparin/Lovenox 40 mg SQ daily (WT < 150 kg, CrCl > 30 mL/min) *Enoxaparin/Lovenox 30 mg SQ daily (WT < 150 kg, CrCl > 10-29 mL/min) *Enoxaparin/Lovenox 30 mg SQ BID (WT < 150 kg, CrCl > 30 mL/min) AND *Sequential Compression Device (SCD) Assessment and Plan Problem List: (1) Sepsis ICD Code: A41.9 - Sepsis, unspecified organism (2) PNA (pneumonia) ICD Code: J18.9 - Pneumonia, unspecified organism (3) Renal insufficiency ICD Code: N28.9 - Disorder of kidney and ureter, unspecified Assessment and Plan A/P: 1. Sepsis: Temp 101 at home, WBC 12, Lactic Acid 2.3, Source-PNA. S/p Blood Cultures, Vanc/Azactam/Flagyl in ER. Continue IVF-caution w/ h/o CHF. Continue w/ IV Abx. U/a negative for UTI. CT Abd/Pelvis w/ bilateral inguinal hernias, no incarceration, images reviewed by me. 2. PNA: CXR w/ patchy infiltrates left lung base, possible left pleural effusion. Continue IV Abx as above, check Sputum culture, start Mucinex bid, DuoNeb prn. 3. Renal Insufficiency: Acute on Chronic. Creatinine 1.73, previously 1.47 on 06/12/17. U/a negative, IVF-caution w/ h/o CHF as above. Monitor I/O. Repeat labs in am. 4. DVT Prophylaxis: SCD/Teds. 5. Social work for d/c planning as needed. 6. Case discussed w/ ER physician at length, labs/records/imaging reviewed by me. Physician Certification 2 Midnight Certification Type: Admission for Inpatient Services Order for Inpatient Services The services are ordered in accordance with Medicare regulations or non- Medicare payer requirements, as applicable. In the case of services not specified as inpatient-only, they are appropriately provided as inpatient services in accordance with the 2-midnight benchmark. Estimated LOS (days): 2 days is the estimated time the patient will need to remain in the hospital, assuming treatment plan goals are met and no additional complications. Post-Hospital Plan: Not yet determined Margaret Ramirez MD Jul 28, 2017 21:53
[2017-07-28 22:00] VITALS: BP 154/69; PULSE 73; RESP 20; TEMP 97.7; O2SAT 93
[2017-07-28] MEDS ORDERED: PRIMIDONE 50 MG TAB PO PRN (22:15)
[2017-07-28 23:00] VITALS: BP 151/69; PULSE 73; RESP 20; TEMP 98; O2SAT 94
--- NOTE | 2017-07-28 23:17 | EKG ---
Date Performed: 07/28/2017 Time Performed: 15:13:32 PTAGE: 81 years EKG: ELECTRONIC ATRIAL PACEMAKER RIGHT BUNDLE BRANCH BLOCK ABNORMAL ECG PREVIOUS TRACING : 02/28/2017 10.33 Compared to previous tracing, rhythm is now predominantly a trial paced, ventricular demand pacing is no longer evident. DOCTOR: Brian Crews Interpretating Date/Time 07/28/2017 23:16:26
[2017-07-28] MEDS: metroNIDAZOLE 500 MG INJ 100 ML IV SCH (23:28)
[2017-07-29] VITALS (9 sets, daily range): BP systolic 131–159; BP diastolic 65–73; PULSE 69–86; RESP 17–20; TEMP 97.2–98.6; O2SAT 90–98
[2017-07-29] MEDS: AZTREONAM INJ 2,000 MG in SODIUM CHLORIDE 0.9% INJ 100 ML IV SCH ×2 (05:42→16:57)
[2017-07-29] MEDS: SODIUM CHLOR 0.9% 1000 ML INJ 1,000 ML IV SCH ×2 (06:00→16:42)
[2017-07-29] MEDS: metroNIDAZOLE 500 MG INJ 100 ML IV SCH ×3 (06:32→23:08)
[2017-07-29 08:38] LABS: BASOPHIL # 0.1 TH/MM3 (0-0.2); BASOPHIL % 0.5 % (0.0-2.0); EOSINOPHIL # 0.1 TH/MM3 (0-0.4); EOSINOPHIL % 0.7 % (0.0-4.0); HEMATOCRIT 40.4 % (39.0-51.0); HEMOGLOBIN 13.7 GM/DL (13.0-17.0); LYMPH % 12.1 % (9.0-44.0); LYMPHOCYTE # 1.1 TH/MM3 (1.0-4.8); MEAN CELL VOLUME 90.4 FL (80.0-100.0); MEAN CORPUSCULAR HEMOGLOBIN 30.7 PG (27.0-34.0); MEAN CORPUSCULAR HGB CONC 33.9 % (32.0-36.0); MEAN PLATELET VOLUME 7.2 FL (7.0-11.0); MONO % 12.8 % (0.0-8.0); MONOCYTE # 1.2 TH/MM3 (0-0.9); NEUT % 73.9 % (16.0-70.0); PLATELET COUNT 186 TH/MM3 (150-450); RED BLOOD COUNT 4.47 MIL/MM3 (4.50-5.90); RED CELL DISTRIBUTION WIDTH 14.3 % (11.6-17.2); WHITE BLOOD COUNT 9.5 TH/MM3 (4.0-11.0)
[2017-07-29 08:45] LABS: ALT (GPT) 32 U/L (12-78); AST (GOT) 32 U/L (15-37); BICARBONATE 20.8 MEQ/L (21.0-32.0); BLOOD UREA NITROGEN 22 MG/DL (7-18); CHLORIDE 106 MEQ/L (98-107); CREATININE 1.48 MG/DL (0.60-1.30); GLOMERULAR FILTRATION RATE 46 ML/MIN (>89); GLUCOSE,RANDOM 100 MG/DL (74-106); SODIUM (NA) 136 MEQ/L (136-145)
[2017-07-29 08:47] LABS: ALKALINE PHOSPHATASE 69 U/L (45-117); TOTAL BILIRUBIN ADULT 0.3 MG/DL (0.2-1.0); TOTAL PROTEIN 6.6 GM/DL (6.4-8.2)
[2017-07-29] MEDS ORDERED: ASPIRIN 325 MG TAB PO SCH (09:00)
[2017-07-29] MEDS: SODIUM CHLORIDE 0.9% FLUSH 10 ML FLUSH IV FLUSH SCH ×2 (09:00→21:05)
[2017-07-29] MEDS: UMECLIDINIUM 62.5 MCG/VILANTEROL 25 MCG INHALER INH SCH (09:00)
--- NOTE | 2017-07-29 09:41 | HHI.PR ---
Subjective Remarks Follow up for pneumonia, GPC bacteremia. Patient is currently doing well. He denies any chest pain, shortness of breath, fever, chills. Later, I discussed with patient and his again and all questions were answered about his current conditions, kidney condition and our plan. Objective Vitals Vital Signs Date Time Temp Pulse Resp B/P (MAP) Pulse Ox O2 Delivery O2 Flow Rate FiO2 07/29/17 08:00 97.9 74 20 159/72 (101) 93 07/29/17 04:43 98.5 70 20 131/65 (87) 94 07/29/17 03:47 70 07/29/17 00:00 Nasal Cannula 2.00 07/28/17 23:00 98.0 73 20 151/69 (96) 94 07/28/17 22:00 97.7 73 20 154/69 (97) 93 07/28/17 17:30 70 15 149/67 (94) 94 Room Air 07/28/17 13:20 75 23 150/69 (96) 100 Room Air 07/28/17 11:32 97.7 78 18 166/112 (130) 94 Room Air I/O 07/28/17 07/28/17 07/28/17 07/29/17 07/29/17 07/29/17 07:00 15:00 23:00 07:00 15:00 23:00 Intake Total 120 ml Output Total 400 ml Balance -280 ml Intake Oral 120 ml Output Urine Total 400 ml # Bowel Movements 0 Result Diagram: 07/29/17 0730 07/29/17 0730 Imaging Last Impressions Chest X-Ray 07/28/17 0000 Signed Impressions: Service Date/Time: Friday, July 28, 2017 14:16 - CONCLUSION: Patchy infiltrates at the left lung base and possible left pleural effusion. Live King MD Abdomen/Pelvis CT 07/28/17 0000 Signed Impressions: Service Date/Time: Friday, July 28, 2017 16:08 - CONCLUSION: Bilateral inguinal hernias. Left hernia contains a loop of sigmoid colon without definite evidence of incarceration or obstruction. Tiny renal cysts. Hipolito Talavera MD Objective Remarks GENERAL: Alert, Oriented x 3, NAD. SKIN: Warm and dry. HEAD: Normocephalic. EYES: No scleral icterus. No injection or drainage. NECK: Supple, trachea midline. No JVD or lymphadenopathy. CARDIOVASCULAR: Regular rate and rhythm without murmurs, gallops, or rubs. RESPIRATORY: Breath sounds equal bilaterally. No accessory muscle use. GASTROINTESTINAL: Abdomen soft, non-tender, nondistended. MUSCULOSKELETAL: No cyanosis, or edema. BACK: Nontender without obvious deformity. No CVA tenderness. Procedures None A/P Problem List: (1) Sepsis ICD Code: A41.9 - Sepsis, unspecified organism (2) PNA (pneumonia) ICD Code: J18.9 - Pneumonia, unspecified organism (3) Renal insufficiency ICD Code: N28.9 - Disorder of kidney and ureter, unspecified Assessment and Plan This is an 81-year-old male with a PMH of A. fib, HTN, Hyperlipidemia, COPD and Peripheral Neuropathy who presented to the ER with complaints of generalized weakness x1wk. On arrival, BP 166/112, HR 78, O2 sat 94% on RA, Afebrile. WBC 12.8. Previously 1.47 06/12/17. Lactic Acid 2.3. Troponin negative. INR 1.1. UA negative. Flu negative. CXR patchy infiltrate left lung base, possible left pleural effusion. CT Abdomen/Pelvis bilateral inguinal hernia, left containing loop of sigmoid colon, no incarceration. S/p Vanc/Azactam/Flagyl in ER. Sepsis - Temp 101 at home, WBC 12, Lactic Acid 2.3, Source-PNA. S/p Blood Cultures, Vanc/Azactam/Flagyl in ER. Pneumonia CXR w/ patchy infiltrates left lung base, possible left pleural effusion. Currently on Aztreonam and Vancomycin. Will d/c Flagyl. Bacteremia - Cx growing E. Faecalis and GPC. Repeat cx ordered today and pending. Will continue Vancomycin and Aztreonam. Patient is allergic to PCN - Will obtain transthoracic echocardiogram. - Patient may need 1-2 weeks of abx. Short term Linezolid could be an option if bacteremia is transient. - Will obtain an ID consult. Acute kidney injury Chronic Kidney disease stage III - Creatinine 1.73, previously 1.47 on 06/12/17. U/a negative. Will d/c IV fluid. - Creatinine improved to 1.48. Full code. SCDmarcellus. Olayinka Lei DO Jul 29, 2017 09:41
[2017-07-29] MEDS: guaiFENesin E.R. 600 MG TAB PO SCH ×2 (11:31→21:04)
[2017-07-29] MEDS: ATORVASTATIN 40 MG TAB PO SCH (11:32)
[2017-07-29] MEDS: PRIMIDONE 50 MG TAB PO SCH (11:43)
[2017-07-29] MEDS ORDERED: VANCOMYCIN 1,500 MG/NS 500 ML IV ONE ×2 (12:00)
[2017-07-29] MEDS: TERAZOSIN HCL 1 MG CAP PO SCH (21:05)
[2017-07-29] MEDS: RANOLAZINE 500 MG EXTENDED RELEASE TAB PO SCH (21:05)
[2017-07-30] VITALS: BP 158/73; PULSE 73; RESP 17; TEMP 98.1; O2SAT 96
[2017-07-30 04:00] VITALS: BP 154/86; PULSE 53; PULSE 73; RESP 16; TEMP 97.8; O2SAT 95
[2017-07-30] MEDS: AZTREONAM INJ 2,000 MG in SODIUM CHLORIDE 0.9% INJ 100 ML IV SCH ×2 (05:02→17:00)
[2017-07-30 08:00] VITALS: BP 156/69; PULSE 74; PULSE 77; RESP 20; TEMP 97.5; O2SAT 94
[2017-07-30] MEDS: RESP: ALBUTEROL 2.5 MG/IPRATROPIUM 0.5 MG NEB (PRN) NEB (10:07)
[2017-07-30 10:11] VITALS: O2SAT 91
[2017-07-30] MEDS: UMECLIDINIUM 62.5 MCG/VILANTEROL 25 MCG INHALER INH SCH (11:51)
[2017-07-30] MEDS: guaiFENesin E.R. 600 MG TAB PO SCH ×2 (11:51→20:42)
[2017-07-30] MEDS: ASPIRIN 81 MG CHEW TAB PO SCH (11:51)
[2017-07-30] MEDS: ATORVASTATIN 40 MG TAB PO SCH (11:51)
[2017-07-30] MEDS: SODIUM CHLORIDE 0.9% FLUSH 10 ML FLUSH IV FLUSH SCH ×2 (11:51→20:43)
[2017-07-30] MEDS: PRIMIDONE 50 MG TAB PO SCH (11:52)
[2017-07-30] MEDS: RANOLAZINE 500 MG EXTENDED RELEASE TAB PO SCH ×2 (11:52→20:42)
[2017-07-30 12:00] VITALS: BP 182/76; PULSE 71; PULSE 75; RESP 20; TEMP 97.5; O2SAT 96
--- NOTE | 2017-07-30 13:55 | MB ---
cc: ALEXANDER LARRY MD DATE OF CONSULTATION: 07/30/2017 REASON FOR CONSULTATION: Bacteremia. REQUESTING PHYSICIAN Dr. Lei HISTORY OF PRESENT ILLNESS This is an 82 year-old white male who presented to the emergency department with fever on 07/28. The patient's is in the room and she was able to volunteer information on the patient since he started feeling ill. The patient has been weak for a long time but in the past couple of weeks he started feeling even weaker. The reports that two days before he was brought to the emergency department he had some difficulty ambulating because of the weakness. She states the at she took his temperature two days ago and it was 101. He was taken to see his primary care provider, who did an influenza test which was negative and referred him to the emergency department here to be evaluated. The patient states that he was having difficulty urinating. He was having frequent urination and then urinary hesitancy over the past four days. He was also having achiness. He denies chills, nausea or vomiting, abdominal pain or diarrhea. He has multiple medical problems and has had a pacemaker implantation 9 years ago. He noted that he had a cough but no sputum production and also postnasal drip as well. In the emergency department his temperature was normal. His white blood cell count was mildly elevated. Lactic acid was elevated. Urinalysis was performed and it showed three white cells and culture was not taken. Blood cultures were taken on admission and now has Enterococcus faecalis in three of four bottles, and the fourth bottle has yet to be identified. The patient receives monthly B12 injections and he last received that injection five days ago. The patient has been afebrile. CTA chest x-ray was performed and it showed patchy infiltrates in the left lung base and possible left pleural effusion. The patient denies chest pain. PAST MEDICAL HISTORY 1. Non-Hodgkin's lymphoma and Waldenstrom's macroglobulinemia. The patient reported to be in remission. 2. Atrial fibrillation. 3. Hypertension. 4. Hyperlipidemia. 5. COPD. The patient uses oxygen at night at home. 6. Peripheral neuropathy. 7. Pacemaker implantation. 8. Bilateral inguinal hernias. 9. BPH. ALLERGIES PENICILLIN. MEDICATIONS: 1. Vancomycin. 2. Aztreonam. 3. Lopressor. 4. Aspirin 5. Requip. 6. Hytrin. 7. Ranexa. 8. Mucinex. 9. Lipitor. 10. Primidone. 11. Albuterol. SOCIAL HISTORY: The patient is for 59 years. He lives with his . Positive tobacco use. Daily alcohol use, one drink a day. No illicit drug use. FAMILY HISTORY: Noncontributory. REVIEW OF SYSTEMS: Constitutional: Significant for fever. HEAD, EYES, EARS, NOSE, AND THROAT: No visual blurring or diplopia. No nasal bleeding. The patient reports postnasal drip. No difficulty swallowing. No soreness of the throat. No swelling or pain. CARDIOVASCULAR: Denies palpitations or chest pain. RESPIRATORY: Chronic cough. Denies sputum production. Denies shortness of breath. GENITOURINARY: Significant for hesitancy and frequency. MUSCULOSKELETAL: Positive for muscle aches and pains. INTEGUMENT: Denies skin rash. No chronic itching or undisclosed mucositis. NEUROLOGIC: Significant for weakness. PSYCHIATRIC: Denies mood changes. PHYSICAL EXAMINATION This is a moderately obese male who is in no acute distress. She is awake and alert and oriented. Vital signs: Temperature 97.5, BP 156/69, respirations 20, heart rate 77. HEENT: Head is atraumatic. The patient has multiple keratoses on the face. Extraocular movements grossly intact, pupils reactive to light. No icterus. Oropharynx moist mucosa without lesions. Neck: Supple without adenopathy. Lungs: Clear breath sounds without wheezing. Breath sounds are slightly diminished. Heart: Regular S1-S2. No audible murmur. Abdomen: Bowel sounds present, soft, obese, nontender. Rectal: Not performed. Extremities: No clubbing, cyanosis or edema. Skin: Multiple keratoses of the skin on the back and chest. Neck: No diffuse rash. Neuro: No gross focal findings. Psychiatric: The patient is pleasant, calm and cooperative. LABORATORY DATA WBC 9.5, platelets 186, 73% neutrophils, 12% lymphocytes, hemoglobin 13.7, creatinine 1.48, BUN 22, estimated GFR 46, sodium 136. Liver function tests normal. Repeat blood cultures from 07/29 is negative in one day. IMPRESSION 1. Enterococcus faecalis bacteremia. Questionable etiology. The patient has had urinary frequency and hesitancy and possibly could have had a urinary tract infection. Urinalysis which was performed two days ago showed three white cells but the culture was not performed since it was felt not to be indicated. Other source of would be the GI tract but the patient has no symptoms suggesting diverticulitis. 2. Leukocytosis secondary to bacteremia. The patient really does not exhibit much in the way of sepsis signs except for increased lactic acid. 3. Chronic kidney disease, stage III. 4. History of pacemaker implantation. RECOMMENDATIONS 1. Continue vancomycin for Enterococcal bacteremia because of his ALLERGY TO PENICILLIN. 2. Continue aztreonam and follow up the chest x-ray to assess for response of the lung infiltrate. 3. Monitor echocardiogram. We need to make sure he does not have any heart valve lesions. He may need a CINDY to further investigate for valvular involvement. 4. Monitor repeat blood cultures. 5. Monitor clinical response. The patient is known to Dr. Ramos in cardiology and should be followed up as well by cardiology. Thank you this consultation. The patient's progress will be monitored and further recommendations will be given on followup. Alexander Larry MD FD/DEZ /12:40 PM /1:19 PM
[2017-07-30] MEDS ORDERED: VANCOMYCIN INJ 1,750 MG in SODIUM CHLORID 0.9% 500 ML INJ 500 ML IV ONE (14:00)
--- NOTE | 2017-07-30 14:02 | HHI.PR ---
Subjective Remarks Follow up for pneumonia, GPC bacteremia. Patient is currently doing well. No acute concerns. is at bedside. No fever or chills. Objective Vitals Vital Signs Date Time Temp Pulse Resp B/P (MAP) Pulse Ox O2 Delivery O2 Flow Rate FiO2 07/30/17 10:11 91 07/30/17 08:00 77 07/30/17 08:00 97.5 74 20 156/69 (98) 94 07/30/17 04:00 Nasal Cannula 2.00 07/30/17 04:00 53 07/30/17 04:00 97.8 73 16 154/86 (108) 95 07/30/17 00:00 73 07/30/17 00:00 Nasal Cannula 2.00 07/30/17 00:00 98.1 73 17 158/73 (101) 96 07/29/17 21:04 98 Nasal Cannula 2.00 07/29/17 20:00 97.2 86 17 159/69 (99) 97 07/29/17 20:00 75 07/29/17 20:00 Nasal Cannula 2.00 07/29/17 16:25 95 Nasal Cannula 2.00 07/29/17 16:00 69 07/29/17 16:00 98.4 72 20 151/73 (99) 90 07/29/17 16:00 Nasal Cannula 2.00 I/O 07/29/17 07/29/17 07/29/17 07/30/17 07/30/17 07/30/17 07:00 15:00 23:00 07:00 15:00 23:00 Intake Total 120 ml 600 ml 1820 ml Output Total 400 ml 625 ml 1200 ml Balance -280 ml -25 ml 620 ml Intake Oral 120 ml 600 ml 720 ml IV Total 1100 ml Output Urine Total 400 ml 625 ml 1200 ml # Bowel Movements 0 1 Result Diagram: 07/29/17 0730 07/29/17 0730 Objective Remarks GENERAL: Alert, Oriented x 3, NAD. SKIN: Warm and dry. HEAD: Normocephalic. EYES: No scleral icterus. No injection or drainage. NECK: Supple, trachea midline. No JVD or lymphadenopathy. CARDIOVASCULAR: Regular rate and rhythm without murmurs, gallops, or rubs. RESPIRATORY: Breath sounds equal bilaterally. No accessory muscle use. GASTROINTESTINAL: Abdomen soft, non-tender, nondistended. MUSCULOSKELETAL: No cyanosis, or edema. BACK: Nontender without obvious deformity. No CVA tenderness. Procedures None A/P Problem List: (1) Sepsis ICD Code: A41.9 - Sepsis, unspecified organism (2) PNA (pneumonia) ICD Code: J18.9 - Pneumonia, unspecified organism (3) Renal insufficiency ICD Code: N28.9 - Disorder of kidney and ureter, unspecified Assessment and Plan This is an 81-year-old male with a PMH of A. fib, HTN, Hyperlipidemia, COPD and Peripheral Neuropathy who presented to the ER with complaints of generalized weakness x1wk. On arrival, BP 166/112, HR 78, O2 sat 94% on RA, Afebrile. WBC 12.8. Previously 1.47 06/12/17. Lactic Acid 2.3. Troponin negative. INR 1.1. UA negative. Flu negative. CXR patchy infiltrate left lung base, possible left pleural effusion. CT Abdomen/Pelvis bilateral inguinal hernia, left containing loop of sigmoid colon, no incarceration. S/p Vanc/Azactam/Flagyl in ER. Sepsis - Temp 101 at home, WBC 12, Lactic Acid 2.3, Source-PNA. S/p Blood Cultures, Vanc/Azactam/Flagyl in ER. Pneumonia CXR w/ patchy infiltrates left lung base, possible left pleural effusion. Currently on Aztreonam and Vancomycin. Bacteremia - Cx growing E. Faecalis. Repeat culture from 07/29/2017 negative so far. - Will continue Vancomycin and Aztreonam. Patient is allergic to PCN. Infectious disease consulted. - Transthoracic echocardiogram pending today. - Patient has a pacemaker which was placed in 2008. - If TTE is negative, patient may need a CINDY. - We'll consult patient's grocery checker Dr. Ramos regarding possible need for CINDY in near future. Acute kidney injury Chronic Kidney disease stage III - Creatinine 1.73, previously 1.47 on 06/12/17. U/a negative. Will d/c IV fluid. - Creatinine improved to 1.48. Full code. SCDs. Discussed with Dr. Dia (ID). Olayinka Lei DO Jul 30, 2017 14:02
[2017-07-30 20:00] VITALS: BP 170/74; PULSE 74; PULSE 90; RESP 19; TEMP 97.1; O2SAT 96
[2017-07-30] MEDS: TERAZOSIN HCL 1 MG CAP PO SCH (20:42)
[2017-07-30] MEDS: METOPROLOL TARTRATE 25 MG TAB PO SCH (20:42)
[2017-07-31] VITALS (12 sets, daily range): BP systolic 121–169; BP diastolic 61–75; PULSE 65–88; RESP 18–22; TEMP 97.2–98.4; O2SAT 93–98
[2017-07-31] MEDS: AZTREONAM INJ 2,000 MG in SODIUM CHLORIDE 0.9% INJ 100 ML IV SCH ×2 (05:43→17:34)
[2017-07-31] MEDS: RESP: ALBUTEROL 2.5 MG/IPRATROPIUM 0.5 MG NEB (PRN) NEB (06:20)
[2017-07-31] MEDS: UMECLIDINIUM 62.5 MCG/VILANTEROL 25 MCG INHALER INH SCH ×2 (09:00→09:20)
[2017-07-31] MEDS: ATORVASTATIN 40 MG TAB PO SCH (09:19)
[2017-07-31] MEDS: RANOLAZINE 500 MG EXTENDED RELEASE TAB PO SCH ×2 (09:19→21:06)
[2017-07-31] MEDS: METOPROLOL TARTRATE 25 MG TAB PO SCH ×2 (09:19→21:06)
[2017-07-31] MEDS: ASPIRIN 81 MG CHEW TAB PO SCH (09:19)
[2017-07-31] MEDS: SODIUM CHLORIDE 0.9% FLUSH 10 ML FLUSH IV FLUSH SCH ×2 (09:20→21:06)
[2017-07-31] MEDS: guaiFENesin E.R. 600 MG TAB PO SCH ×2 (09:20→21:06)
[2017-07-31] MEDS: PRIMIDONE 50 MG TAB PO SCH (09:20)
[2017-07-31] MEDS ORDERED: VANCOMYCIN INJ 1,500 MG in SODIUM CHLORID 0.9% 500 ML INJ 500 ML IV ONE (13:00)
--- NOTE | 2017-07-31 13:16 | HHI.PR ---
Subjective Remarks Follow up for pneumonia, GPC bacteremia. Patient is currently doing well. No chest pain, shortness of breath, fever or chills. Objective Vitals Vital Signs Date Time Temp Pulse Resp B/P (MAP) Pulse Ox O2 Delivery O2 Flow Rate FiO2 07/31/17 12:02 97.4 72 22 124/61 (82) 95 07/31/17 10:45 95 Nasal Cannula 2.00 07/31/17 08:02 97.9 71 22 158/68 (98) 98 07/31/17 06:27 95 Nasal Cannula 2.00 07/31/17 04:00 Nasal Cannula 2.00 07/31/17 04:00 73 07/31/17 04:00 97.2 75 19 169/75 (106) 95 07/31/17 00:00 97.9 88 21 154/67 (96) 97 07/31/17 00:00 65 07/31/17 00:00 Nasal Cannula 2.00 07/30/17 20:00 97.1 90 19 170/74 (106) 96 07/30/17 20:00 74 07/30/17 20:00 Nasal Cannula 2.00 07/30/17 16:00 Nasal Cannula 2.00 I/O 07/30/17 07/30/17 07/30/17 07/31/17 07/31/17 07/31/17 07:00 15:00 23:00 07:00 15:00 23:00 Intake Total 1820 ml 850 ml 750 ml Output Total 1200 ml 400 ml 675 ml Balance 620 ml 450 ml 75 ml Intake Oral 720 ml 850 ml 750 ml IV Total 1100 ml Output Urine Total 1200 ml 400 ml 675 ml # Bowel Movements 0 0 Result Diagram: 07/29/1730 07/29/17 0730 Imaging Last Impressions Chest X-Ray 07/28/17 0000 Signed Impressions: Service Date/Time: Friday, July 28, 2017 14:16 - CONCLUSION: Patchy infiltrates at the left lung base and possible left pleural effusion. Live King MD Abdomen/Pelvis CT 07/28/17 0000 Signed Impressions: Service Date/Time: Friday, July 28, 2017 16:08 - CONCLUSION: Bilateral inguinal hernias. Left hernia contains a loop of sigmoid colon without definite evidence of incarceration or obstruction. Tiny renal cysts. Hipolito Talavera MD Objective Remarks GENERAL: Alert, Oriented x 3, NAD. SKIN: Warm and dry. HEAD: Normocephalic. EYES: No scleral icterus. No injection or drainage. NECK: Supple, trachea midline. No JVD or lymphadenopathy. CARDIOVASCULAR: Regular rate and rhythm without murmurs, gallops, or rubs. RESPIRATORY: Breath sounds equal bilaterally. No accessory muscle use. GASTROINTESTINAL: Abdomen soft, non-tender, nondistended. MUSCULOSKELETAL: No cyanosis, or edema. BACK: Nontender without obvious deformity. No CVA tenderness. Procedures None A/P Problem List: (1) Sepsis ICD Code: A41.9 - Sepsis, unspecified organism (2) PNA (pneumonia) ICD Code: J18.9 - Pneumonia, unspecified organism (3) Renal insufficiency ICD Code: N28.9 - Disorder of kidney and ureter, unspecified Assessment and Plan This is an 81-year-old male with a PMH of A. fib, HTN, Hyperlipidemia, COPD and Peripheral Neuropathy who presented to the ER with complaints of generalized weakness x1wk. On arrival, BP 166/112, HR 78, O2 sat 94% on RA, Afebrile. WBC 12.8. Previously 1.47 06/12/17. Lactic Acid 2.3. Troponin negative. INR 1.1. UA negative. Flu negative. CXR patchy infiltrate left lung base, possible left pleural effusion. CT Abdomen/Pelvis bilateral inguinal hernia, left containing loop of sigmoid colon, no incarceration. S/p Vanc/Azactam/Flagyl in ER. Sepsis - Temp 101 at home, WBC 12, Lactic Acid 2.3, Source-PNA. S/p Blood Cultures, Vanc/Azactam/Flagyl in ER. Pneumonia CXR w/ patchy infiltrates left lung base, possible left pleural effusion. Currently on Aztreonam and Vancomycin. Bacteremia with E. Faecalis - Cx growing E. Faecalis. Repeat culture from 07/29/2017 negative so far. - Will continue Vancomycin and Aztreonam. Patient is allergic to PCN. Infectious disease following. - Patient has a pacemaker which was placed in 2008. - Apparently echocardiogram was completed. However report is not available on EMR. - If TTE is negative, patient may need a CINDY. - Cardiology consult pending Acute kidney injury Chronic Kidney disease stage III - Creatinine 1.73, previously 1.47 on 06/12/17. U/a negative. - Creatinine improved to 1.48. Full code. SCDs. Discussed with patient's . Olayinka Lei DO Jul 31, 2017 13:16
--- NOTE | 2017-07-31 14:30 | HHI.IDPN ---
Note Infectious Disease Note Patient feels better. Afebrile. No chills. Still feels weak. 82 year-old white male who presented to the emergency department with fever on 07/28. The reports that two days before he was brought to the emergency department he had some difficulty ambulating because weakness. The patient states that he was having difficulty urinating. He was having frequent urination and then urinary hesitancy over the past four days. He was also having achiness. PAST MEDICAL HISTORY 1. Non-Hodgkin's lymphoma and Waldenstrom's macroglobulinemia. The patient reported to be in remission. 2. Atrial fibrillation. 3. Hypertension. 4. Hyperlipidemia. 5. COPD. The patient uses oxygen at night at home. 6. Peripheral neuropathy. 7. Pacemaker implantation. 8. Bilateral inguinal hernias. 9. BPH. ALLERGIES PENICILLIN. ANTIBIOTICS: 1. Vancomycin. 2. Aztreonam. Vital Signs Date Time Temp Pulse Resp B/P (MAP) Pulse Ox O2 Delivery O2 Flow Rate FiO2 07/31/17 12:02 97.4 72 22 124/61 (82) 95 07/31/17 10:45 95 Nasal Cannula 2.00 07/31/17 08:02 97.9 71 22 158/68 (98) 98 07/31/17 06:27 95 Nasal Cannula 2.00 07/31/17 04:00 Nasal Cannula 2.00 07/31/17 04:00 73 07/31/17 04:00 97.2 75 19 169/75 (106) 95 07/31/17 00:00 97.9 88 21 154/67 (96) 97 07/31/17 00:00 65 07/31/17 00:00 Nasal Cannula 2.00 07/30/17 20:00 97.1 90 19 170/74 (106) 96 07/30/17 20:00 74 07/30/17 20:00 Nasal Cannula 2.00 07/30/17 16:00 Nasal Cannula 2.00 Microbiology Date/Time Source Procedure Growth Status 07/29/17 12:55 Blood Peripheral Aerobic Blood Culture - Preliminary NO GROWTH IN 2 DAYS Resulted 07/29/17 12:55 Blood Peripheral Anaerobic Blood Culture - Preliminary NO GROWTH IN 2 DAYS Resulted 07/29/17 12:45 Blood Peripheral Aerobic Blood Culture - Preliminary NO GROWTH IN 2 DAYS Resulted 07/29/17 12:45 Blood Peripheral Anaerobic Blood Culture - Preliminary NO GROWTH IN 2 DAYS Resulted PHYSICAL EXAMINATION GENERAL: No acute distress. She is awake and alert and oriented. HEENT: Extraocular movements grossly intact, pupils reactive to light. No icterus. Oropharynx moist mucosa without lesions. Neck: Supple without adenopathy. Lungs: Decreased breath sounds. Heart: Regular S1-S2. No audible murmur. Abdomen: Bowel sounds present, soft, obese, nontender. Extremities: No clubbing, cyanosis or edema. Skin: Multiple keratoses of the skin on the back and chest. Neck: No diffuse rash. Neuro: No gross focal findings. Psychiatric: Pleasant, calm and cooperative. IMPRESSION 1. Enterococcus faecalis bacteremia. Questionable etiology. 2. Leukocytosis secondary to bacteremia. The patient really does not exhibit much in the way of sepsis signs except for increased lactic acid. 3. Chronic kidney disease, stage III. 4. History of pacemaker implantation. Clinically improving. RECOMMENDATIONS 1. Continue vancomycin for Enterococcal bacteremia because of his ALLERGY TO PENICILLIN. 2. Continue aztreonam and follow up the chest x-ray to assess for response of the lung infiltrate. 3. Repeat CXR in Am. 4. Discussed with Dr Ramos - plans for CINDY to further investigate for valvular involvement. 4. Monitor repeat blood cultures. 5. Monitor clinical response. Alexander Dia MD Jul 31, 2017 14:30
--- NOTE | 2017-07-31 15:49 | PD.CONS ---
HPI Service Cardiology Consult Requested By Reason for Consult Bacteremia, AVR/PPM Primary Care Physician SHEILA Cisneros History of Present Illness The patient is an 81 year old male known to our practice with a cardiac history of a bioprosthetic AV, second degree HB s/p PPM, ASHD and HLD. Other notable history non-hodskins lymphoma. The patient presented at the recommendation of his primary care provider for fevers and concern for critical illness. The patient had progressive generalized weakness, SOB and fever. Work up revealed PNA and enterococcus bacteremia. Since admission, the patient is feeling better with IV antibiotics. Pending transthoracic echocardiogram. Discussed with ZOYA MEDINA , concern for endocarditis. Requesting CINDY (Alana Hall) Review of Systems Consitutional: COMPLAINS OF: Fatigue, Fever, DENIES: Chills, Weight gain, Weight loss Eyes: DENIES: Amaurosis Fugax, Change in vision HEENT: DENIES: Lightheadedness, Change in hearing Respiratory: COMPLAINS OF: Shortness of breath, DENIES: See HPI, Cough, Snoring , Wheezing, Sputum production Cardiovascular: DENIES: See HPI, Chest pain, Palpitations, Syncope, Tachycardia Gastrointestinal: DENIES: Nausea, Vomiting, Change in bowel habits, Reflux, Bloody stools, Melena Genitourinary: DENIES: Urinary incontinence, Difficulty voiding Integumentary: DENIES: Rash Neurologic: DENIES: Tingling or numbness, Memory problems, Poor Balance, Stroke symptoms Musculoskeletal: DENIES: Joint pain, Muscle pain, Limited range of motion, Back pain Psychiatric: DENIES: Anxiety, Depression, Sleep disturbances Hematologic: DENIES: Bruising tendencies, Bleeding tendencies Endocrine: DENIES: Weight gain, Weight loss, Thyroid disease (Alana Hall ) Past Family Social History Allergies: Coded Allergies: penicillin G (Verified Allergy, Severe, 06/28/17) Past Medical History See HPI Past Surgical History Heart cath 2013 PPM 2008 Reported Medications Reported Meds & Active Scripts Active Reported Metoprolol Tartrate 25 Mg Tab 25 Mg PO BID Ranexa ER 12 HR (Ranolazine) 1,000 Mg Tab 1,000 Mg PO DAILY Anoro Ellipta Inh (Umeclidinium/Vilanterol) 62.5-25 Mcg/Act Aero 1 Puff INH DAILY Ranexa ER 12 HR (Ranolazine) 1,000 Mg Tab 1,000 Mg PO BID Ropinirole 0.5 Mg Tab 0.5 Mg PO HS Preservision Areds (Multiple Vitamins W/ Minerals) 1 Tab 1 Tab PO DAILY Systane Opth Drops (Polyethylene Glycol-Propylene Glycol Opth Drp) 0.4-0.3% Soln 1-2 Drop EACH EYE PRN PRN Nitroglycerin SL (Nitroglycerin) 0.4 Mg Subl 0.4 Mg SL DIRECTED PRN ONE TABLET UNDER THE TONGUE NEEDED FOR CHEST PAIN, MAY REPEAT EVERY FIVE MINUTES FOR A TOTAL OF 3 DOSES OR CALL 911 IF NO RELIEF Nasonex Nasal Crystal (Mometasone Furoate) 50 Mcg/Act Naspr 2 Crystal EACH NARE DAILY Cyanocobalamin Inj (Cyanocobalamin) 1,000 Mcg/Ml Inj 1,000 Mcg IM ONCE PRN Proair Hfa 8.5 GM Inh (Albuterol Sulfate) 90 Mcg/Act Aer 2 Puff INH Q4-6H PRN 108 mcg/actuation Terazosin (Terazosin HCl) 1 Mg Cap 1 Mg PO HS Primidone 50 Mg Tab 50 Mg PO DAILY PRN Nexium (Esomeprazole DR) 20 Mg Capdr 20 Mg PO DAILY Isosorbide Mononitrate ER (Isosorbide Mononitrate) 30 Mg Perfecto 15 Mg PO DAILY Crestor (Rosuvastatin Calcium) 20 Mg Tab 20 Mg PO DAILY Aspirin 325 Mg Tab 325 Mg PO DAILY Vitamin D3 (Cholecalciferol) 1,000 Unit Tab 2,000 Units PO DAILY 90 Days Active Ordered Medications Current Medications Medications (Trade) Dose Ordered Sig/Eduardo Route Start Time Stop Time Status Last Admin (NS Flush) 2 ml UNSCH PRN IV FLUSH 07/28/17 18:15 (NS Flush) 2 ml BID IV FLUSH 07/28/17 21:00 07/31/17 09:20 (Zofran Inj) 4 mg Q6H PRN IVP 07/28/17 18:15 ([place] 5-325 Mg) 1 tab Q4H PRN PO 07/28/17 18:15 ([place] 10-325 Mg) 1 tab Q4H PRN PO 07/28/17 18:15 (Narcan Inj) 0.4 mg UNSCH PRN IV PUSH 07/28/17 18:15 (Milk Of Magnesia Liq) 30 ml Q12H PRN PO 07/28/17 18:15 Pharmacy Profile Note 0 ml @ 0 mls/hr UNSCH OTHER 07/28/17 18:30 Aztreonam 2000 mg/ Sodium Chloride 100 ml @ 200 mls/hr Q12H IV 07/29/17 05:00 07/31/17 05:43 (Mucinex Er) 1,200 mg BID PO 07/29/17 09:00 07/31/17 09:20 (Duoneb Neb) 1 ampule Q4HR NEB PRN NEB 07/28/17 22:00 07/31/17 06:20 (Requip) 0.5 mg HS PO 07/29/17 21:00 07/30/17 20:42 (Hytrin) 1 mg HS PO 07/29/17 21:00 07/30/17 20:42 (Lipitor) 40 mg DAILY PO 07/29/17 09:00 07/31/17 09:19 (Mysoline) 50 mg DAILY PO 07/29/17 09:00 07/31/17 09:20 (Ranexa) 1,000 mg Q12HR PO 07/29/17 21:00 07/31/17 09:19 (Aspirin Chew) 81 mg DAILY PO 07/30/17 09:00 07/31/17 09:19 (Lopressor) 25 mg Q12HR PO 07/30/17 21:00 07/31/17 09:19 Family History non contributory Social History , lives with , ETOH +, non smoker (Alana Hall) Physical Exam Vital Signs Vital Signs Date Time Temp Pulse Resp B/P (MAP) Pulse Ox O2 Delivery O2 Flow Rate FiO2 07/31/17 12:02 97.4 72 22 124/61 (82) 95 07/31/17 10:45 95 Nasal Cannula 2.00 07/31/17 08:02 97.9 71 22 158/68 (98) 98 07/31/17 06:27 95 Nasal Cannula 2.00 07/31/17 04:00 Nasal Cannula 2.00 07/31/17 04:00 73 07/31/17 04:00 97.2 75 19 169/75 (106) 95 07/31/17 00:00 97.9 88 21 154/67 (96) 97 07/31/17 00:00 65 07/31/17 00:00 Nasal Cannula 2.00 07/30/17 20:00 97.1 90 19 170/74 (106) 96 07/30/17 20:00 74 07/30/17 20:00 Nasal Cannula 2.00 07/30/17 16:00 Nasal Cannula 2.00 Physical Exam GENERAL: Elderly male, attentive bedside, NAD SKIN: Warm and dry. HEAD: Atraumatic. Normocephalic. EYES: Pupils equal and round. No scleral icterus. No injection or drainage. ENT: No nasal bleeding or discharge. NECK: Trachea midline. CARDIOVASCULAR: Regular rate and rhythm. PPM RESPIRATORY: No accessory muscle use. Breath sounds equal bilaterally. GASTROINTESTINAL: Abdomen soft, non-tender, nondistended. MUSCULOSKELETAL: Extremities without clubbing, cyanosis, or edema. NEUROLOGICAL: Awake and alert. Normal speech. PSYCHIATRIC: Appropriate mood and affect; insight and judgment normal. Laboratory Laboratory Tests Test 07/31/17 04:30 Random Vancomycin Level 13.8 Date/Time Source Procedure Growth Status 07/29/17 12:55 Blood Peripheral Aerobic Blood Culture - Preliminary NO GROWTH IN 2 DAYS Resulted 07/29/17 12:55 Blood Peripheral Anaerobic Blood Culture - Preliminary NO GROWTH IN 2 DAYS Resulted 07/28/17 13:40 Nasal Aspirate Influenza Types A,B Antigen (ROLO) - Final NEGATIVE FOR FLU A AND B ANTIGEN.... Complete (Alana Hall) Result Diagram: 07/29/17 0730 07/29/17 0730 Assessment and Plan Assessment and Plan Sepsis Enterococcus Bacteremia in a patient with a bioprosthetic aortic valve and pacemaker Pneumonia ASHD NSVT Syncope Lacunar infarcts PLAN: Discussed with Dr Dia. We will complete CINDY on Monday at 1300. Hold NPO Monday night. Check to see if the patient is pacemaker dependent Continue IV ABX The patient was seen and evaluated by Dr Ramos who completed face to face encounter and physical exam and participated in evaluation and management. (Alana Hall) Assessment and Plan The exam, history, and the medical decision-making described in the above note were completed with the assistance of the mid-level provider. I reviewed and agree with the findings presented. I attest that I had a [id number] encounter with the patient on the same day, and personally performed and documented my assessment and findings in the medical record. Will exclude obvious pacemaker lead endocarditis with CINDY, discussed with Dr Jenkins (Alejandro Ramos MD) Alana Hall Jul 31, 2017 15:49 Alejandro Ramos MD Jul 31, 2017 18:46
--- NOTE | 2017-07-31 18:04 | ECHRPT ---
Indication: POSS SEPSIS, ENDOCARDITIS CONCLUSIONS Technically difficult study The left ventricular systolic function is rgmnovjn-is-[id number] reduced with an estimated ejection fra ction in the range of 35-40%. Moderate concentric left ventricular hypertrophy. There is global left ventricular dysfunction. Trace mitral valve regurgitation. Mild aortic valve regurgitation. There is mild tricuspid valve regurgitation. BP: 124 / 61 HR: 72 Rhythm: Sinus MEASUREMENTS (Male / Female) Normal Values Technical Quality:Technically difficult study 2D ECHO LV Diastolic Diameter PLAX 5.5 cm 4.2 - 5.9 / 3.9 - 5.3 cm LV Systolic Diameter PLAX 5.0 cm IVS Diastolic Thickness 1.3 cm 0.6 - 1.0 / 0.6 - 0.9 cm LVPW Diastolic Thickness 1.3 cm 0.6 - 1.0 / 0.6 - 0.9 cm LV Relative Wall Thickness 0.5 RV Internal Dim ED PLAX 2.4 cm LVOT Diameter 1.8 cm Aortic Root Diameter 3.2 cm LA Systolic Diameter LX 3.2 cm 3.0 - 4.0 / 2.7 - 3.8 cm DOPPLER AV Peak Velocity 119.0 cm/s AV Peak Gradient 5.7 mmHg AV Mean Gradient 4.0 mmHg AV Velocity Time Integral 24.5 cm LVOT Peak Velocity 97.0 cm/s LVOT Peak Gradient 3.8 mmHg LVOT Velocity Time Integral 18.8 cm AV Area Cont Eq vti 2.0 cm AV Area Cont Eq pk 2.1 cm Mitral E Point Velocity 83.9 cm/s Mitral A Point Velocity 77.5 cm/s Mitral E to A Ratio 1.1 LV E' Lateral Velocity 9.0 cm/s Mitral E to LV E' Lateral Ratio 9.4 LV E' Septal Velocity 5.3 cm/s Mitral E to LV E' Septal Ratio 16.0 TR Peak Velocity 304.0 cm/s TR Peak Gradient 37.0 mmHg Right Atrial Pressure 10.0 mmHg Pulmonary Artery Systolic Pressu 47.0 mmHg Right Ventricular Systolic Press 47.0 mmHg PV Peak Velocity 60.9 cm/s PV Peak Gradient 1.5 mmHg FINDINGS LEFT VENTRICLE Normal left ventricular size. Moderate concentric left ventricular hypertrophy. The left ventricular systolic function is gxznrzng-[id number]-yiapeld reduced with an estimated ejection fra ction in the range of 35-40%. There is global left ventricular dysfunction. There is abnormal septal motion consistent with an intraventricular conduction delay. RIGHT VENTRICLE Normal right ventricular size LEFT ATRIUM The left atrial size is uavi-in-yllyxdlmrm dilated. RIGHT ATRIUM The right atrial size is mildly dilated. ATRIAL SEPTUM The interatrial septum not well visualized. AORTA The aortic root and proximal ascending aorta are not well visualized. MITRAL VALVE Grossly normal mitral valve No mitral valve stenosis. Trace mitral valve regurgitation. AORTIC VALVE Aortic valve sclerosis is present. Mild aortic valve regurgitation. TRICUSPID VALVE Grossly normal tricuspid valve. There is mild tricuspid valve regurgitation. The estimated pulmonary arterial pressure is 47 mmHg. PULMONARY VALVE No pulmonary valve regurgitation or stenosis. VESSELS The inferior vena cava is normal in size. PERICARDIUM No pericardial effusion. Bairon Wheeler DO (Electronically Signed) Final Date:31 July 2017 18:03
[2017-07-31] MEDS: TERAZOSIN HCL 1 MG CAP PO SCH (21:06)
[2017-08-01] VITALS (15 sets, daily range): BP systolic 117–187; BP diastolic 50–81; PULSE 70–78; RESP 16–20; TEMP 97.1–98.4; O2SAT 93–98
[2017-08-01] MEDS: AZTREONAM INJ 2,000 MG in SODIUM CHLORIDE 0.9% INJ 100 ML IV SCH ×2 (04:35→16:38)
[2017-08-01 05:29] LABS: CREATININE 1.26 MG/DL (0.60-1.30)
[2017-08-01 05:31] LABS: RANDOM VANCOMYCIN 14.5 COMMENT
--- NOTE | 2017-08-01 06:50 | RADRPT ---
EXAM DATE/TIME: 08/01/2017 05:52 [facility] COMPARISON: CT ABDOMEN & PELVIS W/O CONTRAST, July 28, 2017, 16:08. CHEST SINGLE AP, July 28, 2017, 14:1 6. INDICATIONS : Short of breath, evaluate pneumonia MEDICAL HISTORY : Congestive heart failure. Cardiovascular disease. Non-Hodgkins lymphoma SURGICAL HISTORY : Pacemaker. Coronary artery stent. ENCOUNTER: Subsequent ACUITY: 4 - 6 days PAIN SCORE: 0/10 LOCATION: Bilateral chest FINDINGS: Minimal patchy left lung base airspace disease. No new focal pleural-parenchymal opacities. Cardiomed iastinal contours are stable. Remainder of the exam is unchanged. CONCLUSION: 1. Stable minimal left lung base patchy airspace disease. 2. No significant interval change. Landon Leyva MD on August 01, 2017 at 6:47 Board Certified Radiologist. This report was verified electronically.
[2017-08-01] MEDS: SODIUM CHLORIDE 0.9% FLUSH 10 ML FLUSH IV FLUSH SCH ×2 (07:26→21:00)
[2017-08-01] MEDS: ATORVASTATIN 40 MG TAB PO SCH (08:05)
[2017-08-01] MEDS: guaiFENesin E.R. 600 MG TAB PO SCH ×2 (08:05→20:59)
[2017-08-01] MEDS: ASPIRIN 81 MG CHEW TAB PO SCH (08:05)
[2017-08-01] MEDS: PRIMIDONE 50 MG TAB PO SCH (08:05)
[2017-08-01] MEDS: RANOLAZINE 500 MG EXTENDED RELEASE TAB PO SCH ×2 (08:05→20:59)
[2017-08-01] MEDS: METOPROLOL TARTRATE 25 MG TAB PO SCH ×2 (08:06→20:59)
[2017-08-01] MEDS: UMECLIDINIUM 62.5 MCG/VILANTEROL 25 MCG INHALER INH SCH (08:06)
[2017-08-01] MEDS: amLODIPine BESYLATE 5 MG TAB PO SCH (10:00)
--- NOTE | 2017-08-01 10:47 | PD.CARD.PN ---
Subjective Subjective Remarks Denies CP, SOB, edema or palpitations. Some cough. (Alana Hall) Objective Medications Current Medications Medications (Trade) Dose Ordered Sig/Eduardo Route Start Time Stop Time Status Last Admin (NS Flush) 2 ml UNSCH PRN IV FLUSH 07/28/17 18:15 (NS Flush) 2 ml BID IV FLUSH 07/28/17 21:00 08/01/17 07:26 (Zofran Inj) 4 mg Q6H PRN IVP 07/28/17 18:15 ([place] 5-325 Mg) 1 tab Q4H PRN PO 07/28/17 18:15 ([place] 10-325 Mg) 1 tab Q4H PRN PO 07/28/17 18:15 (Narcan Inj) 0.4 mg UNSCH PRN IV PUSH 07/28/17 18:15 (Milk Of Magnesia Liq) 30 ml Q12H PRN PO 07/28/17 18:15 Pharmacy Profile Note 0 ml @ 0 mls/hr UNSCH OTHER 07/28/17 18:30 Aztreonam 2000 mg/ Sodium Chloride 100 ml @ 200 mls/hr Q12H IV 07/29/17 05:00 08/01/17 04:35 (Mucinex Er) 1,200 mg BID PO 07/29/17 09:00 08/01/17 08:05 (Duoneb Neb) 1 ampule Q4HR NEB PRN NEB 07/28/17 22:00 07/31/17 06:20 (Requip) 0.5 mg HS PO 07/29/17 21:00 07/31/17 21:06 (Hytrin) 1 mg HS PO 07/29/17 21:00 07/31/17 21:06 (Lipitor) 40 mg DAILY PO 07/29/17 09:00 08/01/17 08:05 (Mysoline) 50 mg DAILY PO 07/29/17 09:00 08/01/17 08:05 (Ranexa) 1,000 mg Q12HR PO 07/29/17 21:00 08/01/17 08:05 (Aspirin Chew) 81 mg DAILY PO 07/30/17 09:00 08/01/17 08:05 (Lopressor) 25 mg Q12HR PO 07/30/17 21:00 08/01/17 08:06 (Norvasc) 5 mg DAILY PO 08/01/17 09:00 08/01/17 10:00 Vital Signs / I&O Vital Signs Date Time Temp Pulse Resp B/P (MAP) Pulse Ox O2 Delivery O2 Flow Rate FiO2 08/01/17 08:00 97.5 74 20 187/79 (115) 95 08/01/17 04:00 97.4 72 16 158/76 (103) 95 08/01/17 04:00 Nasal Cannula 2.00 08/01/17 03:48 72 08/01/17 00:00 Nasal Cannula 2.00 08/01/17 00:00 98.4 72 16 152/81 (104) 93 07/31/17 23:49 73 07/31/17 21:05 Nasal Cannula 2.00 07/31/17 20:20 74 07/31/17 20:00 97.4 76 18 148/67 (94) 95 07/31/17 16:02 98.4 70 20 121/65 (83) 93 07/31/17 16:00 74 07/31/17 12:02 97.4 72 22 124/61 (82) 95 07/31/17 10:45 95 Nasal Cannula 2.00 I/O 07/31/17 07/31/17 07/31/17 08/01/17 08/01/17 08/01/17 06:59 14:59 22:59 06:59 14:59 22:59 Intake Total 750 ml 380 ml 100 ml Output Total 675 ml 2000 ml 400 ml 625 ml Balance 75 ml -1620 ml -300 ml -625 ml Intake Oral 750 ml 380 ml IV Total 100 ml Output Urine Total 675 ml 2000 ml 400 ml 625 ml # Bowel Movements 0 0 Physical Exam GENERAL: Elderly male sitting up in the chair. SKIN: Warm and dry. HEAD: Normocephalic. EYES: No scleral icterus. No injection or drainage. NECK: Supple, trachea midline. CARDIOVASCULAR: Regular rate and rhythm RESPIRATORY: Breath sounds equal bilaterally. No accessory muscle use. GASTROINTESTINAL: Abdomen soft, non-tender, nondistended. MUSCULOSKELETAL: No cyanosis, or edema. BACK: Nontender without obvious deformity. Laboratory Laboratory Tests Test 08/01/17 04:15 Creatinine 1.26 MG/DL Estimat Glomerular Filtration Rate 55 ML/MIN Random Vancomycin Level 14.5 COMMENT Imaging Last 24 hours Impressions Chest X-Ray 08/01/17 0600 Signed Impressions: Service Date/Time: Tuesday, August 01, 2017 05:52 - CONCLUSION: 1. Stable minimal left lung base patchy airspace disease. 2. No significant interval change. 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 Hold NPO Tonight Check to see if the patient is pacemaker dependent Continue IV ABX The patient will need ischemic work up outpatient on basis of decreased LV function The patient was seen and evaluated by Dr Ramos who completed face to face encounter and physical exam and participated in evaluation and management. (Alana Hall) Assessment and Plan The exam, history, and the medical decision-making described in the above note were completed with the assistance of the mid-level provider. I reviewed and agree with the findings presented. I attest that I had a [id number] encounter with the patient on the same day, and personally performed and documented my assessment and findings in the medical record. will do CINDY tomorrow, risks reviewed in detail with pt and (Alejandro Ramos MD) Alana Hall Aug 01, 2017 10:47 Alejandro Ramos MD Aug 01, 2017 14:20
[2017-08-01] MEDS: RESP: ALBUTEROL 2.5 MG/IPRATROPIUM 0.5 MG NEB (PRN) NEB (11:53)
--- NOTE | 2017-08-01 13:38 | HHI.IDPN ---
Note Infectious Disease Note Patient feels tired and weak. Afebrile. No chills. Denies SOB. Repeat blood culture has no growth. 2D ECHO without vegetations. 82 year-old white male who presented to the emergency department with fever on 07/28. The reports that two days before he was brought to the emergency department he had some difficulty ambulating because weakness. PAST MEDICAL HISTORY 1. Non-Hodgkin's lymphoma and Waldenstrom's macroglobulinemia. The patient reported to be in remission. 2. Atrial fibrillation. 3. Hypertension. 4. Hyperlipidemia. 5. COPD. The patient uses oxygen at night at home. 6. Peripheral neuropathy. 7. Pacemaker implantation. 8. Bilateral inguinal hernias. 9. BPH. ALLERGIES PENICILLIN. ANTIBIOTICS: 1. Vancomycin. 2. Aztreonam. OBJECTIVE: Vital Signs Date Time Temp Pulse Resp B/P (MAP) Pulse Ox O2 Delivery O2 Flow Rate FiO2 08/01/17 12:08 97.5 72 20 147/56 (86) 93 08/01/17 11:53 98 Nasal Cannula 2.00 08/01/17 08:00 97.5 74 20 187/79 (115) 95 08/01/17 04:00 97.4 72 16 158/76 (103) 95 08/01/17 04:00 Nasal Cannula 2.00 08/01/17 03:48 72 08/01/17 00:00 Nasal Cannula 2.00 08/01/17 00:00 98.4 72 16 152/81 (104) 93 07/31/17 23:49 73 07/31/17 21:05 Nasal Cannula 2.00 07/31/17 20:20 74 07/31/17 20:00 97.4 76 18 148/67 (94) 95 07/31/17 16:02 98.4 70 20 121/65 (83) 93 07/31/17 16:00 74 Laboratory Tests Test 08/01/17 04:15 Creatinine 1.26 MG/DL Estimat Glomerular Filtration Rate 55 ML/MIN PHYSICAL EXAMINATION GENERAL: No acute distress. She is awake and alert and oriented. HEENT: Extraocular movements grossly intact, pupils reactive to light. No icterus. Oropharynx moist mucosa without lesions. Neck: Supple without adenopathy. Lungs: Decreased breath sounds throughout. Heart: Regular S1-S2. No audible murmur. No wheezing. Abdomen: Bowel sounds present, soft, obese, nontender. Extremities: No clubbing, cyanosis or edema. Skin: Multiple keratoses of the skin on the back and chest. Neck: No diffuse rash. Neuro: No gross focal findings. Psychiatric: Pleasant, calm and cooperative. IMPRESSION 1. Enterococcus faecalis bacteremia. Questionable etiology. 2. Leukocytosis secondary to bacteremia. 3. Chronic kidney disease, stage III. 4. History of pacemaker implantation. Clinically improving. RECOMMENDATIONS 1. Continue vancomycin for Enterococcal bacteremia because of his ALLERGY TO PENICILLIN. 2. Continue Aztreonam for pneumonia. 3. CINDY to further investigate for valvular lesion and pacemaker lead thrombi. 4. Monitor clinical response. 5. Repeat CXR on . If the CINDY shows lesion - pacemaker or cardiac, he will need to be treated for 6 weeks. If no lesions he will need 2 weeks of IV antibiotics outpatient. Alexander Dia MD Aug 01, 2017 13:38
[2017-08-01] MEDS: VANCOMYCIN INJ 1,500 MG in SODIUM CHLORID 0.9% 500 ML INJ 500 ML IV SCH (17:01)
--- NOTE | 2017-08-01 18:26 | HHI.PR ---
Subjective Remarks Follow up for pneumonia, Enterococcus faecalis bacteremia. Patient is currently doing well, on room air. No acute concerns. Denies any chest pain, shortness of breath, fever or chills. Objective Vitals Vital Signs Date Time Temp Pulse Resp B/P (MAP) Pulse Ox O2 Delivery O2 Flow Rate FiO2 08/01/17 17:21 97 Nasal Cannula 2.00 08/01/17 16:30 97.3 78 17 117/56 (76) 97 08/01/17 16:00 98.1 75 18 154/60 (91) 94 08/01/17 12:08 97.5 72 20 147/56 (86) 93 08/01/17 11:53 98 Nasal Cannula 2.00 08/01/17 08:00 97.5 74 20 187/79 (115) 95 08/01/17 04:00 97.4 72 16 158/76 (103) 95 08/01/17 04:00 Nasal Cannula 2.00 08/01/17 03:48 72 08/01/17 00:00 Nasal Cannula 2.00 08/01/17 00:00 98.4 72 16 152/81 (104) 93 07/31/17 23:49 73 07/31/17 21:05 Nasal Cannula 2.00 07/31/17 20:20 74 07/31/17 20:00 97.4 76 18 148/67 (94) 95 I/O 07/31/17 07/31/17 07/31/17 08/01/17 08/01/17 08/01/17 07:00 15:00 23:00 07:00 15:00 23:00 Intake Total 750 ml 380 ml 100 ml 480 ml Output Total 675 ml 2000 ml 400 ml 975 ml 800 ml Balance 75 ml -1620 ml -300 ml -495 ml -800 ml Intake Oral 750 ml 380 ml 480 ml IV Total 100 ml Output Urine Total 675 ml 2000 ml 400 ml 975 ml 800 ml # Voids 1 # Bowel Movements 0 0 Result Diagram: 07/29/17 0730 08/01/17 0415 Imaging Last Impressions Chest X-Ray 08/01/17 0600 Signed Impressions: Service Date/Time: Tuesday, August 01, 2017 05:52 - CONCLUSION: 1. Stable minimal left lung base patchy airspace disease. 2. No significant interval change. Landon Leyva MD Abdomen/Pelvis CT 07/28/17 0000 Signed Impressions: Service Date/Time: Friday, July 28, 2017 16:08 - CONCLUSION: Bilateral inguinal hernias. Left hernia contains a loop of sigmoid colon without definite evidence of incarceration or obstruction. Tiny renal cysts. Hipolito Talavera MD Objective Remarks GENERAL: Alert, Oriented x 3, NAD. SKIN: Warm and dry. HEAD: Normocephalic. EYES: No scleral icterus. No injection or drainage. NECK: Supple, trachea midline. No JVD or lymphadenopathy. CARDIOVASCULAR: Regular rate and rhythm without murmurs, gallops, or rubs. RESPIRATORY: Breath sounds equal bilaterally. No accessory muscle use. GASTROINTESTINAL: Abdomen soft, non-tender, nondistended. MUSCULOSKELETAL: No cyanosis, or edema. BACK: Nontender without obvious deformity. No CVA tenderness. Procedures Transthoracic echocardiogram 07/31/2017 CONCLUSIONS Technically difficult study The left ventricular systolic function is qmoktsvt-si-gznpklv reduced with an estimated ejection fraction in the range of 35-40%. Moderate concentric left ventricular hypertrophy. There is global left ventricular dysfunction. Trace mitral valve regurgitation. Mild aortic valve regurgitation. There is mild tricuspid valve regurgitation. A/P Problem List: (1) Sepsis ICD Code: A41.9 - Sepsis, unspecified organism (2) PNA (pneumonia) ICD Code: J18.9 - Pneumonia, unspecified organism (3) Renal insufficiency ICD Code: N28.9 - Disorder of kidney and ureter, unspecified Assessment and Plan This is an 81-year-old male with a PMH of A. fib, HTN, Hyperlipidemia, COPD and Peripheral Neuropathy who presented to the ER with complaints of generalized weakness x1wk. On arrival, BP 166/112, HR 78, O2 sat 94% on RA, Afebrile. WBC 12.8. Previously 1.47 06/12/17. Lactic Acid 2.3. Troponin negative. INR 1.1. UA negative. Flu negative. CXR patchy infiltrate left lung base, possible left pleural effusion. CT Abdomen/Pelvis bilateral inguinal hernia, left containing loop of sigmoid colon, no incarceration. S/p Vanc/Azactam/Flagyl in ER. Sepsis - Temp 101 at home, WBC 12, Lactic Acid 2.3, Source-PNA. S/p Blood Cultures, Vanc/Azactam/Flagyl in ER. Pneumonia CXR w/ patchy infiltrates left lung base, possible left pleural effusion. Currently on Aztreonam and Vancomycin. Bacteremia with E. Faecalis - Patient has pacemaker as well as bioprosthetic aortic valve - Cx growing E. Faecalis. Repeat culture from 07/29/2017 negative so far. - Will continue Vancomycin and Aztreonam. Patient is allergic to PCN. Infectious disease following. -Transthoracic echo did not show any vegetation. CINDY is scheduled for 2017. -If CINDY is negative, will place a PICC line and likely discharge patient home on 2 weeks of vancomycin. Acute kidney injury Chronic Kidney disease stage III - Creatinine 1.73, previously 1.47 on 06/12/17. U/a negative. - Creatinine improved to 1.48. Full code. SCDs. Discussed with patient's . Olayinka Lei DO Aug 01, 2017 6:26 pm
[2017-08-01] MEDS: TERAZOSIN HCL 1 MG CAP PO SCH (20:59)
[2017-08-02] VITALS (14 sets, daily range): BP systolic 127–167; BP diastolic 65–83; PULSE 16–77; RESP 16–20; TEMP 97.3–98.2; O2SAT 90–95
[2017-08-02] MEDS: AZTREONAM INJ 2,000 MG in SODIUM CHLORIDE 0.9% INJ 100 ML IV SCH (04:16)
[2017-08-02] MEDS: SODIUM CHLORIDE 0.9% FLUSH 10 ML FLUSH IV FLUSH SCH ×2 (07:07→21:44)
[2017-08-02] MEDS: METOPROLOL TARTRATE 25 MG TAB PO SCH ×2 (08:00→21:41)
[2017-08-02] MEDS: RANOLAZINE 500 MG EXTENDED RELEASE TAB PO SCH ×2 (08:00→21:41)
[2017-08-02] MEDS: guaiFENesin E.R. 600 MG TAB PO SCH ×2 (08:00→21:41)
[2017-08-02] MEDS: PRIMIDONE 50 MG TAB PO SCH (08:00)
[2017-08-02] MEDS: ASPIRIN 81 MG CHEW TAB PO SCH (08:01)
[2017-08-02] MEDS: amLODIPine BESYLATE 5 MG TAB PO SCH (08:01)
[2017-08-02] MEDS: ATORVASTATIN 40 MG TAB PO SCH (08:01)
[2017-08-02] MEDS: UMECLIDINIUM 62.5 MCG/VILANTEROL 25 MCG INHALER INH SCH (08:01)
--- NOTE | 2017-08-02 15:06 | HHI.PR ---
Subjective Remarks Follow up for pneumonia, Enterococcus faecalis bacteremia. Patient is currently doing well. He reports difficulty controlling urination. He has had this problem before but ever since he started taking terazosin, he usually experiences no problem. Patient is scheduled for CINDY today. Objective Vitals Vital Signs Date Time Temp Pulse Resp B/P (MAP) Pulse Ox O2 Delivery O2 Flow Rate FiO2 08/02/17 12:16 97.3 16 16 145/65 (91) 90 08/02/17 11:21 Nasal Cannula 2.00 08/02/17 09:35 Nasal Cannula 2.00 08/02/17 08:00 97.8 70 18 167/80 (109) 95 08/02/17 07:42 73 08/02/17 04:00 98.2 73 16 142/68 (92) 93 08/02/17 03:54 Nasal Cannula 2.00 08/02/17 03:51 74 08/02/17 00:30 138/72 (94) 08/02/17 00:00 65 08/02/17 00:00 98.0 77 18 158/83 (108) 95 08/02/17 00:00 Nasal Cannula 2.00 08/01/17 20:01 98.4 70 17 162/70 (100) 94 08/01/17 20:00 97.1 73 18 164/59 (94) 94 08/01/17 20:00 72 08/01/17 20:00 Nasal Cannula 2.00 08/01/17 17:21 97 Nasal Cannula 2.00 08/01/17 16:00 98.1 75 18 154/60 (91) 94 08/01/17 15:38 73 I/O 08/01/17 08/01/17 08/01/17 08/02/17 08/02/17 08/02/17 07:00 15:00 23:00 07:00 15:00 23:00 Intake Total 100 ml 480 ml Output Total 400 ml 975 ml 800 ml 1200 ml Balance -300 ml -495 ml -800 ml -1200 ml Intake Oral 480 ml IV Total 100 ml Output Urine Total 400 ml 975 ml 800 ml 1200 ml # Voids 1 Result Diagram: 07/29/17 0730 08/01/17 0415 Objective Remarks GENERAL: Alert, Oriented x 3, NAD. SKIN: Warm and dry. HEAD: Normocephalic. EYES: No scleral icterus. No injection or drainage. NECK: Supple, trachea midline. No JVD or lymphadenopathy. CARDIOVASCULAR: Regular rate and rhythm without murmurs, gallops, or rubs. RESPIRATORY: Breath sounds equal bilaterally. No accessory muscle use. GASTROINTESTINAL: Abdomen soft, non-tender, nondistended. MUSCULOSKELETAL: No cyanosis, or edema. BACK: Nontender without obvious deformity. No CVA tenderness. Procedures Transthoracic echocardiogram 07/31/2017 CONCLUSIONS Technically difficult study The left ventricular systolic function is cpnhjack-ci-qyspjit reduced with an estimated ejection fraction in the range of 35-40%. Moderate concentric left ventricular hypertrophy. There is global left ventricular dysfunction. Trace mitral valve regurgitation. Mild aortic valve regurgitation. There is mild tricuspid valve regurgitation. A/P Problem List: (1) Sepsis ICD Code: A41.9 - Sepsis, unspecified organism (2) PNA (pneumonia) ICD Code: J18.9 - Pneumonia, unspecified organism (3) Renal insufficiency ICD Code: N28.9 - Disorder of kidney and ureter, unspecified Assessment and Plan This is an 81-year-old male with a PMH of A. fib, HTN, Hyperlipidemia, COPD and Peripheral Neuropathy who presented to the ER with complaints of generalized weakness x1wk. On arrival, BP 166/112, HR 78, O2 sat 94% on RA, Afebrile. WBC 12.8. Previously 1.47 06/12/17. Lactic Acid 2.3. Troponin negative. INR 1.1. UA negative. Flu negative. CXR patchy infiltrate left lung base, possible left pleural effusion. CT Abdomen/Pelvis bilateral inguinal hernia, left containing loop of sigmoid colon, no incarceration. S/p Vanc/Azactam/Flagyl in ER. Sepsis - Temp 101 at home, WBC 12, Lactic Acid 2.3, Source-PNA. S/p Blood Cultures, Vanc/Azactam/Flagyl in ER. Pneumonia CXR w/ patchy infiltrates left lung base, possible left pleural effusion. Currently on Aztreonam and Vancomycin. Bacteremia with E. Faecalis - Patient has pacemaker as well as bioprosthetic aortic valve - Cx growing E. Faecalis. Repeat culture from 07/29/2017 negative so far. - Will continue Vancomycin and Aztreonam. Patient is allergic to PCN. Infectious disease following. -Transthoracic echo did not show any vegetation. CINDY is scheduled for 2/28/ 2018. -If CINDY is negative, will place a PICC line and likely discharge patient home on 2 weeks of vancomycin. Acute kidney injury Chronic Kidney disease stage III - Creatinine 1.73, previously 1.47 on 06/12/17. U/a negative. - Creatinine improved to 1.48. Urinary incontinence -Continue terazosin. will place external catheter. -If continues to be a problem, we can either get in-patient or outpatient Urology eval. Full code. SCDs. Olayinka Lei DO Aug 02, 2017 15:06
--- NOTE | 2017-08-02 16:13 | MP ---
cc: Alejandro Ramos MD, Shahabuddin 0 Alexander Mena MD DATE OF OPERATION: PROCEDURE: Transesophageal echocardiogram. INDICATION: Rule out endocarditis. CONSENT: Full informed consent was obtained for the procedure. Risks of , bleeding, perforation, aspiration, unforeseen complications were reviewed. The patient fully appeared to understand as did the patient's . They wish to proceed. PROCEDURE: The patient was prepped and draped in the usual manner. Anesthesia was given as per the anesthesia department. A full CINDY was performed. FINDINGS: The left atrial appendage is free of thrombus, ejection fraction appeared to be in the 40-45% range. The mitral valve was mildly thickened. There was evidence of a calcification in the septal leaflet in the region of the chordae. 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 The atrial and ventricular leads of the pacemaker were well identified and there was no obvious vegetation seen on them. CONCLUSION: 1. Well preserved ejection fraction. 2. Tricuspid valve free of vegetations. 3. Probable vegetation on the aortic valve. 4. Possible vegetation on the chordae. 5. No obvious vegetations on the atrial or ventricular leads. PLAN: As per Dr. Dia. Discussed with him. 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 Alejandro Ramos MD HAJ/TI , 02:38 PM , 04:11 PM
--- NOTE | 2017-08-02 16:17 | HHI.IDPN ---
Note Infectious Disease Note Patient just came back from CINDY. Findings were discussed with Dr. Ramos. The aortic valve appeared thickened. No definitive vegetation was noted. The pacemaker appeared intact. Afebrile. No chills. She is hungry. Awake and alert. Notes that his throat feels a little sore. Repeat blood culture has no growth. 2D ECHO without vegetations. 82 year-old white male who presented to the emergency department with fever on 07/28. The reports that two days before he was brought to the emergency department he had some difficulty ambulating because weakness. PAST MEDICAL HISTORY 1. Non-Hodgkin's lymphoma and Waldenstrom's macroglobulinemia. The patient reported to be in remission. 2. Atrial fibrillation. 3. Hypertension. 4. Hyperlipidemia. 5. COPD. The patient uses oxygen at night at home. 6. Peripheral neuropathy. 7. Pacemaker implantation. 8. Bilateral inguinal hernias. 9. BPH. ALLERGIES PENICILLIN. ANTIBIOTICS: 1. Vancomycin. 2. Aztreonam. OBJECTIVE: Vital Signs Date Time Temp Pulse Resp B/P (MAP) Pulse Ox O2 Delivery O2 Flow Rate FiO2 08/02/17 12:16 97.3 16 16 145/65 (91) 90 08/02/17 11:21 Nasal Cannula 2.00 08/02/17 09:35 Nasal Cannula 2.00 08/02/17 08:00 97.8 70 18 167/80 (109) 95 08/02/17 07:42 73 08/02/17 04:00 98.2 73 16 142/68 (92) 93 08/02/17 03:54 Nasal Cannula 2.00 08/02/17 03:51 74 08/02/17 00:30 138/72 (94) 08/02/17 00:00 65 08/02/17 00:00 98.0 77 18 158/83 (108) 95 08/02/17 00:00 Nasal Cannula 2.00 08/01/17 20:01 98.4 70 17 162/70 (100) 94 08/01/17 20:00 97.1 73 18 164/59 (94) 94 08/01/17 20:00 72 08/01/17 20:00 Nasal Cannula 2.00 08/01/17 17:21 97 Nasal Cannula 2.00 Laboratory Tests Test 08/01/17 04:15 Creatinine 1.26 MG/DL Estimat Glomerular Filtration Rate 55 ML/MIN IMAGING: Chest X-Ray 08/01/17 0600 Signed Impressions: Service Date/Time: Tuesday, August 01, 2017 05:52 - CONCLUSION: 1. Stable minimal left lung base patchy airspace disease. 2. No significant interval change. Landon Leyva MD Abdomen/Pelvis CT 07/28/17 0000 Signed Impressions: Service Date/Time: Friday, July 28, 2017 16:08 - CONCLUSION: Bilateral inguinal hernias. Left hernia contains a loop of sigmoid colon without definite evidence of incarceration or obstruction. Tiny renal cysts. Hipolito Talavera MD PHYSICAL EXAMINATION GENERAL: No acute distress. Awake and alert and oriented. HEENT: Extraocular movements grossly intact, pupils reactive to light. No icterus. Oropharynx moist mucosa without lesions. Neck: Supple without adenopathy. Lungs: Decreased breath sounds. Heart: Distant S1-S2. No audible murmur. No wheezing. Abdomen: Bowel sounds present, soft, obese, nontender. Extremities: No clubbing, cyanosis or edema. Skin: Multiple keratoses of the skin on the back and chest. Neck: No diffuse rash. Neuro: No gross focal findings. Psychiatric: Pleasant, calm and cooperative. IMPRESSION 1. Enterococcus faecalis bacteremia. Questionable etiology. Thickened mitral valve noted on CINDY. 2. Leukocytosis secondary to bacteremia. 3. Chronic kidney disease, stage III. Appears stable. 4. History of pacemaker implantation. Clinically improving. RECOMMENDATIONS 1. Continue vancomycin plus ceftriaxone 1 g IV every 12 hours for Enterococcal bacteremia because of his ALLERGY TO PENICILLIN. Treatment plan for 6 weeks duration until September 08. 2. Stop Aztreonam. 3. PICC line for intravenous antibiotics outpatient. 4. Monitor clinical response. The plan has been discussed extensively with the patient's . Arrangements for antibiotics to be made by case management. Follow-up arrangements for infectious disease will be made for patient to follow -up with Dr. Torres. Alexander Dia MD Aug 02, 2017 16:17
--- NOTE | 2017-08-02 16:31 | HHI.FF ---
Infusion Therapy Location of Infusion Therapy: Home [facility] IV Infusion Order Patient Information Patient Weight 105.1 kg Diagnosis: (1) Sepsis Diagnosis Aortic valve thickening. Possible endocarditis. Coded Allergies: penicillin G (Verified Allergy, Severe, 06/28/17) Administer Medication Vancomycin 1.5 grams IV q 24 hours Stop Treatment: Sep 08, 2017 Administer Medication Ceftriaxone 1 gram IV q 12 hours Stop Treatment: Sep 08, 2017 Additional Information Venous access: PICC Line Additional Instructions [x] Peripheral flush and dressing changes per protocol [x] Implanted port and central online community manager: * Implanted port: 10 ml Normal Saline followed by 5 ml Heparin 100 units/ml Heparin flush after each use and monthly to maintain. [] May leave port accessed during therapy. [] May leave peripheral site accessed for duration of therapy. [x] If patient has SOB or respiratory distress, check oxygen saturation. If less than 90% or clinical signs of respiratory distress, administer oxygen at 2 L/min. via nasal cannula and notify physician. [x] Anaphylaxis/Reaction orders: * Stop infusion. * Keep IV line open with saline flush. * Notify physician. * Monitor vital signs every 15 minutes until symptoms resolve. * Check Oxygen saturation; Oxygen at 2 L/min. via nasal cannula if less than 90% or clinical signs of respiratory distress. * Administer diphenhydramine (Benadryl) 25 mg IV STAT, (unless patient has received as pre-med). May repeat once, if necessary. * Solu-Cortef 250 mg IVP over 30-60 seconds, use 100 mg vials for each dissolution. * Epinephrine (1mg/1 ml) 0.3 mg subcutaneously or IVP now with any signs of respiratory distress. * Check with physician for new additional pre-med orders if patient is re- challenged or re-treated. [x] May remove PICC line when treatment complete, after confirming with Physician. [x] If the patient is admitted to the hospital, the ED, or transferred via [facility] , complete transfer form including medication reconciliation order sheet. Laboratory Tests Weekly Labs: Vancomycin Trough Additional Information BMP every 3 days while on vancomycin. Call with vancomycin level greater than 20 or creatinine greater than 2.0 Hold vancomycin if creatinine greater than 2.[address] Dia [phone]. Fax number [phone]. Follow up with Dr. Torres in 1 week. Alexander Dia MD Aug 02, 2017 16:31
[2017-08-02] MEDS: VANCOMYCIN INJ 1,500 MG in SODIUM CHLORID 0.9% 500 ML INJ 500 ML IV SCH (18:36)
--- NOTE | 2017-08-02 18:49 | RADRPT ---
EXAM DATE/TIME: 08/02/2017 17:47 [facility] COMPARISON: CHEST SINGLE AP, August 01, 2017, 5:52. INDICATIONS : PICC line placement. MEDICAL HISTORY : Cardiovascular disease. SURGICAL HISTORY : Pacemaker. Coronary artery stent. ENCOUNTER: Subsequent ACUITY: 1 day PAIN SCORE: 0/10 LOCATION: Right chest FINDINGS: The heart is stable. Right-sided PICC line has its tip in the right atrium. Left-sided pacer is stabl e in position. No pulmonary edema is noted. No focal infiltrate is noted CONCLUSION: Right-sided PICC line has its tip in the right atrium in good position. Virgilio Johnson MD on August 02, 2017 at 18:46 Board Certified Radiologist. This report was verified electronically.
[2017-08-02] MEDS: cefTRIAXone INJ 1,000 MG in SODIUM CHLORIDE 0.9% INJ 100 ML IV SCH (19:02)
[2017-08-02] MEDS ORDERED: SODIUM CHLORIDE 0.9% FLUSH 10 ML FLUSH IV FLUSH PRN (21:00)
[2017-08-02] MEDS: TERAZOSIN HCL 1 MG CAP PO SCH (21:42)
[2017-08-03] VITALS (9 sets, daily range): BP systolic 128–157; BP diastolic 60–86; PULSE 71–75; RESP 18–20; TEMP 97.4–98.2; O2SAT 90–96
[2017-08-03] MEDS: cefTRIAXone INJ 1,000 MG in SODIUM CHLORIDE 0.9% INJ 100 ML IV SCH (05:15)
[2017-08-03 06:05] LABS: CREATININE 1.3 MG/DL (0.60-1.30)
[2017-08-03] MEDS: UMECLIDINIUM 62.5 MCG/VILANTEROL 25 MCG INHALER INH SCH (09:00)
[2017-08-03] MEDS ORDERED: SODIUM CHLORIDE 0.9% FLUSH 10 ML FLUSH IV FLUSH SCH (09:00)
[2017-08-03] MEDS: ASPIRIN 81 MG CHEW TAB PO SCH (09:24)
[2017-08-03] MEDS: RANOLAZINE 500 MG EXTENDED RELEASE TAB PO SCH (09:24)
[2017-08-03] MEDS: ATORVASTATIN 40 MG TAB PO SCH (09:25)
[2017-08-03] MEDS: METOPROLOL TARTRATE 25 MG TAB PO SCH (09:25)
[2017-08-03] MEDS: guaiFENesin E.R. 600 MG TAB PO SCH (09:25)
[2017-08-03] MEDS: PRIMIDONE 50 MG TAB PO SCH (09:25)
[2017-08-03] MEDS: amLODIPine BESYLATE 5 MG TAB PO SCH (09:25)
[2017-08-03] MEDS: SODIUM CHLORIDE 0.9% FLUSH 10 ML FLUSH IV FLUSH SCH (09:29)
--- NOTE | 2017-08-03 09:57 | PD.CARD.PN ---
Subjective Subjective Remarks Denies chest pain, SOB or fever Objective Medications Current Medications Medications (Trade) Dose Ordered Sig/Eduardo Route Start Time Stop Time Status Last Admin (NS Flush) 2 ml UNSCH PRN IV FLUSH 07/28/17 18:15 (NS Flush) 2 ml BID IV FLUSH 07/28/17 21:00 08/03/17 09:29 (Zofran Inj) 4 mg Q6H PRN IVP 07/28/17 18:15 ([place] 5-325 Mg) 1 tab Q4H PRN PO 07/28/17 18:15 ([place] 10-325 Mg) 1 tab Q4H PRN PO 07/28/17 18:15 (Narcan Inj) 0.4 mg UNSCH PRN IV PUSH 07/28/17 18:15 (Milk Of Magnesia Liq) 30 ml Q12H PRN PO 07/28/17 18:15 Pharmacy Profile Note 0 ml @ 0 mls/hr UNSCH OTHER 07/28/17 18:30 (Mucinex Er) 1,200 mg BID PO 07/29/17 09:00 08/03/17 09:25 (Duoneb Neb) 1 ampule Q4HR NEB PRN NEB 07/28/17 22:00 08/01/17 11:53 (Requip) 0.5 mg HS PO 07/29/17 21:00 08/02/17 21:45 (Hytrin) 1 mg HS PO 07/29/17 21:00 08/02/17 21:42 (Lipitor) 40 mg DAILY PO 07/29/17 09:00 08/03/17 09:25 (Mysoline) 50 mg DAILY PO 07/29/17 09:00 08/03/17 09:25 (Ranexa) 1,000 mg Q12HR PO 07/29/17 21:00 08/03/17 09:24 (Aspirin Chew) 81 mg DAILY PO 07/30/17 09:00 08/03/17 09:24 (Lopressor) 25 mg Q12HR PO 07/30/17 21:00 08/03/17 09:25 (Norvasc) 5 mg DAILY PO 08/01/17 09:00 08/03/17 09:25 Vancomycin HCl 1500 mg/Sodium Chloride 515 ml @ 257.5 mls/ hr Q24H IV 08/01/17 17:00 08/02/17 18:36 Miscellaneous Information SPECIFIC LAB TO BE DRAWN: VANCO TROUGH DATE... ONCE ONCE .XX 08/04/17 16:45 08/04/17 16:46 Ceftriaxone Sodium 1000 mg/ Sodium Chloride 100 ml @ 200 mls/hr Q12H IV 08/02/17 18:00 08/03/17 05:15 (NS Flush) See Protocol DAILY IV FLUSH 08/03/17 09:00 08/03/17 09:29 (NS Flush) See Protocol UNSCH PRN IV FLUSH 08/02/17 21:00 (Heparin Central Flush) See Protocol DAILY IV FLUSH 08/03/17 09:00 (Heparin Central Flush) See Protocol UNSCH PRN IV FLUSH 08/02/17 21:00 (NS Flush) UNSCH PRN IV FLUSH 08/02/17 21:00 Vital Signs / I&O Vital Signs Date Time Temp Pulse Resp B/P (MAP) Pulse Ox O2 Delivery O2 Flow Rate FiO2 08/03/17 08:15 Nasal Cannula 2.00 08/03/17 08:02 72 08/03/17 04:37 72 08/03/17 04:00 98.2 71 20 142/77 (98) 93 Manual Cuff/Auscultation Automatic Cuff 08/03/17 00:00 74 08/02/17 23:55 97.6 73 18 157/76 (103) 94 08/02/17 23:55 Nasal Cannula 2.00 08/02/17 23:05 Nasal Cannula 2.00 08/02/17 20:59 94 Nasal Cannula 2.00 08/02/17 20:15 97.7 72 20 159/69 (99) 93 08/02/17 20:01 73 08/02/17 20:00 Nasal Cannula 2.00 08/02/17 16:45 97.3 72 20 90 08/02/17 16:00 97.5 70 20 127/74 (91) 93 08/02/17 15:45 70 08/02/17 12:16 97.3 16 16 145/65 (91) 90 08/02/17 11:21 Nasal Cannula 2.00 I/O 08/02/17 08/02/17 08/02/17 08/03/17 08/03/1708/03/18 07:00 15:00 23:00 07:00 15:00 23:00 Intake Total 120 ml Output Total 1200 ml 350 ml 275 ml Balance -1200 ml -350 ml -155 ml Intake Oral 120 ml Output Urine Total 1200 ml 350 ml 275 ml # Voids 1 # Bowel Movements 0 Physical Exam Physical Exam GENERAL: Elderly male sitting on side of bed. SKIN: Warm and dry. HEAD: Normocephalic. EYES: No scleral icterus. No injection or drainage. NECK: Supple, trachea midline. CARDIOVASCULAR: Regular rate and rhythm RESPIRATORY: Breath sounds equal bilaterally. No accessory muscle use. GASTROINTESTINAL: Abdomen soft, non-tender, nondistended. MUSCULOSKELETAL: No cyanosis, or edema. BACK: Nontender without obvious deformity. 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 Will continue IV ABTs. Follow up in office in 3 weeks. The patient was seen and evaluated by Dr Ramos who completed face to face encounter and physical exam and participated in evaluation and management. Assessment and Plan The exam, history, and the medical decision-making described in the above note were completed with the assistance of the mid-level provider. I reviewed and agree with the findings presented. I attest that I had a [id number] encounter with the patient on the same day, and personally performed and documented my assessment and findings in the medical record. will do CINDY tomorrow, risks reviewed in detail with pt and Beth,Ayla URRUTIAP Aug 03, 2017 09:57
[2017-08-03] MEDS ORDERED: TORS10TA2 PO (11:30)
[2017-08-03] MEDS ORDERED: ASPI81 PO (11:30)
--- NOTE | 2017-08-03 11:55 | HHI.FF ---
Face to Face Verification Diagnosis: (1) Endocarditis (2) PNA (pneumonia) (3) Sepsis (4) CKD (chronic kidney disease) Physical Therapy Order: Evaluate and Treat, Improve ambulation, Strength and gait training Home Health Nursing Order: Medical education Signs/symptoms of disease process Oxygen administration education Medication education-adverse effect Nursing assessment with vital signs I have seen patient Live Bae, III on 08/03/17. My clinical findings support the need for the requested home health care services because: Ltd mobility - disease progression Patient has SOB Deconditioned w/ increased weakness Limited ability to care for self Need for psychosocial assistance Impaired cognition/judgement High risk of falls Infection w/ risk of complications I certify that my clinical findings support that this patient is homebound because: Unsteady gait/balance Unsafe to leave home unassisted Need for psychosocial assistance Unable to use public transportation Olayinka Lei DO Aug 03, 2017 11:55
--- NOTE | 2017-08-03 14:54 | HHI.DS ---
Discharge Summary Admission Date Jul 28, 2017 at 5:50 pm Discharge Date: Aug 03, 2017 Admitting Diagnosis pneumonia, sepsis (1) Sepsis ICD Code: A41.9 - Sepsis, unspecified organism (2) PNA (pneumonia) ICD Code: J18.9 - Pneumonia, unspecified organism (3) Renal insufficiency ICD Code: N28.9 - Disorder of kidney and ureter, unspecified Procedures Transthoracic echocardiogram 07/31/2017 CONCLUSIONS Technically difficult study The left ventricular systolic function is [id number] reduced with an estimated ejection fraction in the range of 35-40%. Moderate concentric left ventricular hypertrophy. There is global left ventricular dysfunction. Trace mitral valve regurgitation. Mild aortic valve regurgitation. There is mild tricuspid valve regurgitation. CINDY 08/02/2017 CONCLUSION: 1. Well preserved ejection fraction. 2. Tricuspid valve free of vegetations. 3. Probable vegetation on the aortic valve. 4. Possible vegetation on the chordae. 5. No obvious vegetations on the atrial or ventricular leads. Brief History - From Admission This is an 81-year-old male with a PMH of A. fib, HTN, Hyperlipidemia, COPD and Peripheral Neuropathy who presented to the ER with complaints of generalized weakness x1wk. States had fever of 101.0 today at home. Seen by PCP and had flu test which was negative, but referred to ER for further evaluation due to fever. Denies nausea, vomiting, chest pain, cough or sick contacts. Also notes myalgias/generalized aches, pain intermittent, 6/10, moderate severity, non-radiating. On arrival, BP 166/112, HR 78, O2 sat 94% on RA, Afebrile. WBC 12.8. Previously 1.47 06/12/17. Lactic Acid 2.3. Troponin negative. INR 1.1. UA negative. Flu negative. CXR patchy infiltrate left lung base, possible left pleural effusion. CT Abdomen/Pelvis bilateral inguinal hernia, left containing loop of sigmoid colon, no incarceration. S/p Vanc/Azactam/Flagyl in ER. CBC/BMP: 08/03/17 0525 Significant Findings Laboratory Tests Test 08/01/17 04:15 08/03/17 05:25 Estimat Glomerular Filtration Rate 55 ML/MIN (>89) 53 ML/MIN (>89) Imaging Last Impressions Chest X-Ray 08/02/17 0000 Signed Impressions: Service Date/Time: Wednesday, August 02, 2017 17:47 - CONCLUSION: Right- sided PICC line has its tip in the right atrium in good position. Virgilio Johnson MD Abdomen/Pelvis CT 07/28/17 0000 Signed Impressions: Service Date/Time: Friday, July 28, 2017 16:08 - CONCLUSION: Bilateral inguinal hernias. Left hernia contains a loop of sigmoid colon without definite evidence of incarceration or obstruction. Tiny renal cysts. Hipolito Talavera MD PE at Discharge GENERAL: Alert, Oriented x 3, NAD. SKIN: Warm and dry. HEAD: Normocephalic. EYES: No scleral icterus. No injection or drainage. NECK: Supple, trachea midline. No JVD or lymphadenopathy. CARDIOVASCULAR: Regular rate and rhythm without murmurs, gallops, or rubs. RESPIRATORY: Breath sounds equal bilaterally. No accessory muscle use. GASTROINTESTINAL: Abdomen soft, non-tender, nondistended. MUSCULOSKELETAL: No cyanosis, or edema. BACK: Nontender without obvious deformity. No CVA tenderness. Pt update on day of discharge Patient is currently doing well. Denies any chest pain, shortness of breath, fever or chills. Wants to go home. PICC line was placed. Home health is arranged. Hospital Course This is an 81-year-old male with a PMH of A. fib, HTN, Hyperlipidemia, COPD and Peripheral Neuropathy who presented to the ER with complaints of generalized weakness x1wk. On arrival, BP 166/112, HR 78, O2 sat 94% on RA, Afebrile. WBC 12.8. Previously 1.47 06/12/17. Lactic Acid 2.3. Troponin negative. INR 1.1. UA negative. Flu negative. CXR patchy infiltrate left lung base, possible left pleural effusion. CT Abdomen/Pelvis bilateral inguinal hernia, left containing loop of sigmoid colon, no incarceration. S/p Vanc/Azactam/Flagyl in ER. Sepsis - Temp 101 at home, WBC 12, Lactic Acid 2.3, Source-PNA. S/p Blood Cultures, Vanc/Azactam/Flagyl in ER. Pneumonia CXR w/ patchy infiltrates left lung base, possible left pleural effusion. Currently on Aztreonam and Vancomycin. Bacteremia with E. 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 - Cx growing E. Faecalis. Repeat culture from 07/29/2017 negative so far. - Pt received Vancomycin and Aztreonam. Patient is allergic to PCN. Infectious disease following. -Transthoracic echo did not show any vegetation. CINDY showed endocarditis. - Per ID, patient will receive 6 weeks of Vancomycin as well as Ceftriaxone. - Follow up with outpatient ID Dr. Torres in 1 week. Acute kidney injury Chronic Kidney disease stage III - Creatinine 1.73, previously 1.47 on 06/12/17. U/a negative. - Creatinine improved to 1.48. Urinary incontinence -Continue terazosin. will place external catheter. -If continues to be a problem, we can either get in-patient or outpatient Urology eval. I called patient's in the evening of the discharge. They just arrived home. I gave Dr. Torres's office phone number. Pt Condition on Discharge: Good Discharge Disposition: Disch w/ Home Health Serv Discharge Time: > 30 minutes Discharge Instructions DIET: Follow Instructions for: Heart Healthy Diet Activities you can perform: Regular-No Restrictions Follow up Referrals: Infectious Disease - 1 Week with Nusrat Torres MD SNF/[facility]/ with Nurse Proteomics Scientist ([phone]) New Medications: Torsemide (Torsemide) 10 Mg Tab 10 MG PO DAILY PRN for Fluid, #30 TAB 0 Refills Take one tablet if 3-5 weight gain noticed. Please contact Planting Machine Operator if weight gain noticed or shortness of breath. Aspirin (Tgt Aspirin) 81 Mg Chw 81 MG PO DAILY for Blood Clot Prevention, #90 EA 3 Refills Continued Medications: Albuterol 8.5 GM Inh (Proair Hfa 8.5 GM Inh) 90 Mcg/Act Aer 2 PUFF INH Q4-6H PRN for SHORTNESS OF BREATH, #1 INHALER 0 Refills 108 mcg/actuation Cholecalciferol (Vitamin D3) 1,000 Unit Tab 2000 UNITS PO DAILY for Nutritional Supplement for 90 Days, BOTTLE 0 Refills Cyanocobalamin Inj (Cyanocobalamin Inj) 1,000 Mcg/Ml Inj 1000 MCG IM ONCE PRN for monthly, #1 VIAL [address] (Nexium) 20 Mg Capdr 20 MG PO DAILY, #90 CAP 0 Refills Isosorbide Mononitrate ER (Isosorbide Mononitrate ER) 30 Mg Perfecto 15 MG PO DAILY for Prevent Chest Pain, #90 TAB 0 Refills Metoprolol Tartrate (Metoprolol Tartrate) 25 Mg Tab 25 MG PO BID, #60 TAB 0 Refills Mometasone Nasal [place] (Nasonex Nasal [place]) 50 Mcg/Act Naspr 2 SPRAY EACH NARE DAILY for Allergy Management, #1 BOTTLE 0 Refills Multiple Vitamins W/ Minerals (Preservision Areds) 1 Tab 1 TAB PO DAILY for Nutritional Supplement, #90 TAB 0 Refills Nitroglycerin SL (Nitroglycerin SL) 0.4 Mg Subl 0.4 MG SL DIRECTED PRN for CHEST PAIN, #100 TAB.SL 0 Refills ONE TABLET UNDER THE TONGUE NEEDED FOR CHEST PAIN, MAY REPEAT EVERY FIVE MINUTES FOR A TOTAL OF 3 DOSES OR CALL 911 IF NO RELIEF Polyethylene Glycol-Propylene Glycol Opth Drp (Systane Opth Drops) 0.4-0.3% Soln 1-2 DROP EACH EYE PRN PRN for DRY EYE, #1 BOTTLE 0 Refills Primidone (Primidone) 50 Mg Tab 50 MG PO DAILY PRN for prn, #60 TAB 0 Refills Ranolazine ER 12 HR (Ranexa ER 12 HR) 1,000 Mg Tab 1000 MG PO BID for daily, #180 TAB 0 Refills Ropinirole (Ropinirole) 0.5 Mg Tab 0.5 MG PO HS, #90 TAB 0 Refills Rosuvastatin (Crestor) 20 Mg Tab 20 MG PO DAILY for Cholesterol Management, #90 TAB 1 Refill Terazosin (Terazosin) 1 Mg Cap 1 MG PO HS, #90 CAP 1 Refill Umeclidinium-Vilanterol Inh (Anoro Ellipta Inh) 62.5-25 Mcg/Act Aero 1 PUFF INH DAILY for COPD, #1 INHALER 0 Refills Discontinued Medications: Aspirin (Aspirin) 325 Mg Tab 325 MG PO DAILY, #30 TAB 0 Refills Ranolazine ER 12 HR (Ranexa ER 12 HR) 1,000 Mg Tab 1000 MG PO DAILY for Chest Pain, #60 TAB 0 Refills Olayinka Lei DO Aug 03, 2017 14:54
[2017-08-03] MEDS ORDERED: cefTRIAXone INJ 1,000 MG in SODIUM CHLORIDE 0.9% INJ 100 ML IV SCH (15:00)
[2017-08-03] MEDS: VANCOMYCIN INJ 1,500 MG in SODIUM CHLORID 0.9% 500 ML INJ 500 ML IV SCH (16:31)
[2017-08-04] MEDS ORDERED: PHARMACY ORDERED LAB ONE (16:45)
== END 2017-08-03 19:30 | disposition home health service (06) | DRG 871 ==
LOC: NEPC 11:30 → NEDA 17:50 → N04A 22:30
PROVIDERS: ADMIT Hospitalist; ATTEND Hospitalist
PROC: B246ZZ4 Ultrasonography of Right and Left Heart, Transesophageal (ICD-10-PCS; principal; 2017-08-02)
DX: A41.81 Sepsis due to Enterococcus (principal); J18.9 Pneumonia, unspecified organism; I47.2 Ventricular tachycardia; N17.9 Acute kidney failure, unspecified; N18.3 Chronic kidney disease, stage 3 (moderate); E87.2 Acidosis; I13.0 Hypertensive heart and chronic kidney disease with heart failure and stage 1 through stage 4 chronic kidney disease, or unspecified chronic kidney disease; J44.0 Chronic obstructive pulmonary disease with (acute) lower respiratory infection; I42.9 Cardiomyopathy, unspecified; I50.9 Heart failure, unspecified; Z99.81 Dependence on supplemental oxygen; G62.9 Polyneuropathy, unspecified; I48.91 Unspecified atrial fibrillation; I25.10 Atherosclerotic heart disease of native coronary artery without angina pectoris; E78.5 Hyperlipidemia, unspecified; R65.20 Severe sepsis without septic shock; K40.20 Bilateral inguinal hernia, without obstruction or gangrene, not specified as recurrent; R35.0 Frequency of micturition; R39.11 Hesitancy of micturition; N40.1 Benign prostatic hyperplasia with lower urinary tract symptoms; I08.3 Combined rheumatic disorders of mitral, aortic and tricuspid valves; R32 Unspecified urinary incontinence; Z72.0 Tobacco use; Z85.72 Personal history of non-Hodgkin lymphomas; Z88.0 Allergy status to penicillin; Z95.0 Presence of cardiac pacemaker; Z95.3 Presence of xenogenic heart valve; Z95.5 Presence of coronary angioplasty implant and graft
CPT/HCPCS: 36569; 71045; 74176; 76937; 80053; 80202; 81001; 82550; 82565; 83605; 83880; 84484; 85025; 85610; 85730; 87040; 87186; 87205; 87804; 93005; 93306; 93312; 93320; 93325; 94640; 94664; 96361; 96365; 96366; 96367; 96368; 96375; J0696; J2405; J3370; J7030; J7040; J7050; P9612

== ENCOUNTER 2017-10-13 16:13 | Inpatient (IN) | payer MEDICARE ==
[~2017-10-13] VITALS: Ht 172.7 cm; Wt 102.2 kg
[~2017-10-13 16:13] MED LIST changes: -ASPI-183 PO; +ASPI81 PO; +TORS10TA2 PO
[2017-10-13 16:32] VITALS: BP 132/63; PULSE 77; RESP 18; TEMP 97.4; O2SAT 93
[2017-10-13 17:53] LABS: BASOPHIL % 0.3 % (0.0-2.0); EOSINOPHIL # 0.1 TH/MM3 (0-0.4); EOSINOPHIL % 1.1 % (0.0-4.0); HEMATOCRIT 39.5 % (39.0-51.0); HEMOGLOBIN 13.4 GM/DL (13.0-17.0); LYMPH % 13.3 % (9.0-44.0); LYMPHOCYTE # 1.7 TH/MM3 (1.0-4.8); MEAN CELL VOLUME 88.9 FL (80.0-100.0); MEAN CORPUSCULAR HEMOGLOBIN 30.1 PG (27.0-34.0); MEAN CORPUSCULAR HGB CONC 33.9 % (32.0-36.0); MEAN PLATELET VOLUME 7.5 FL (7.0-11.0); MONO % 8.9 % (0.0-8.0); MONOCYTE # 1.2 TH/MM3 (0-0.9); NEUT % 76.4 % (16.0-70.0); PLATELET COUNT 209 TH/MM3 (150-450); RED BLOOD COUNT 4.44 MIL/MM3 (4.50-5.90); RED CELL DISTRIBUTION WIDTH 14.2 % (11.6-17.2)
[2017-10-13 18:02] LABS: BICARBONATE 24.8 MEQ/L (21.0-32.0); BLOOD UREA NITROGEN 23 MG/DL (7-18); CALCIUM 8.6 MG/DL (8.5-10.1); CHLORIDE 101 MEQ/L (98-107); CREATININE 1.55 MG/DL (0.60-1.30); GLOMERULAR FILTRATION RATE 43 ML/MIN (>89); GLUCOSE,RANDOM 139 MG/DL (74-106); SODIUM (NA) 135 MEQ/L (136-145)
[2017-10-13 18:05] LABS: TROPONIN I LESS THAN 0.02 NG/ML (0.02-0.05)
[2017-10-13] MEDS ORDERED: SODIUM CHLORIDE 0.9% FLUSH 10 ML FLUSH IVF PRN (18:30)
[2017-10-13 18:55] VITALS: BP_SYST 171; BP_DIAS 7; BP_DIAS 71; PULSE 71; RESP 16; O2SAT 96
--- NOTE | 2017-10-13 19:06 | RADRPT ---
EXAM DATE/TIME: 10/13/2017 18:37 [facility] COMPARISON: CHEST SINGLE AP, August 02, 2017, 17:47. INDICATIONS : Shortness of breath. MEDICAL HISTORY : Cardiovascular disease. SURGICAL HISTORY : Pacemaker. Coronary artery stent. ENCOUNTER: Subsequent ACUITY: 1 day PAIN SCORE: 0/10 LOCATION: chest FINDINGS: A single portable frontal view the chest shows minimal linear scarring within the left base. This is stable. The heart is normal in size. No infiltrates or effusions. Left-sided pacing device. CONCLUSION: No acute cardio pulmonary disease. Live Prieto Jr., MD on October 13, 2017 at 19:04 Board Certified Radiologist. This report was verified electronically.
--- NOTE | 2017-10-13 19:11 | PD ---
HPI Chief Complaint: Cardiac Complaint Time Seen by Provider: 18:03 Travel History International Travel<30 days: No Contact w/Intl Traveler<30days: No Traveled to known affect area: No History of Present Illness HPI 82 YO M with PMH of COPD, CKD, hypertension, A. fib, endocarditis, angina, implanted pacemaker presents to the ED for evaluation of 10- day history of progressive weakness, worsening HOLLOWAY. Gradual onset. Patient endorses intermittent epigastric pain that is relieved by Nexium and Nitroglycerin. He endorses chills but has not measured a temperature at home. He denies sinus congestion, productive cough. He denies decreased appetite, nausea, vomiting, changes in bowel habits, melena, hematochezia. Patient was admitted to the hospital in July and diagnosed with endocarditis. EF 35-40%. CINDY showed aortic and chordae vegetation. He received 6 weeks of outpatient vancomycin and ceftriaxone under the care of ZOYA Al, at that time. He saw his PCP today and was urged to come to the emergency room. PFSH Past Medical History Anemia: Yes Arthritis: No Asthma: No Atrial Fibrillation: Yes Heart Rhythm Problems: Yes (PT HAS A DEMAND PACEMAKER) Cancer: Yes Cardiac Catheterization: Yes Cardiovascular Problems: Yes High Cholesterol: Yes Chemotherapy: Yes (NON HODGKINS LYMPHOMA) Chest Pain: Yes Congestive Heart Failure: No COPD: Yes Cerebrovascular Accident: No Endocrine: No Genitourinary: No Hypertension: Yes Immune Disorder: No Implanted Vascular Access Dvce: Yes Kidney Stones: No Musculoskeletal: No Neurologic: Yes (NEUROPATHY) Psychiatric: No Respiratory: Yes Renal Failure: No Past Surgical History Cardiac Surgery: Yes (ON DEMAND PACEMAKER) Pacemaker: Yes Social History Alcohol Use: Yes (1 DRINK DAILY) Tobacco Use: No Substance Use: No Allergies-Medications (Allergen,Severity, Reaction): Coded Allergies: penicillin G (Verified Allergy, Severe, 06/28/17) umeclidinium (Verified Allergy, Mild, Urinary Freq (Inc/Dec), 10/14/17) patient becomes incontinent with administration. Reported Meds & Prescriptions Reported Meds & Active Scripts Active Torsemide 10 Mg Tab 10 Mg PO DAILY PRN Take one tablet if 3-5 weight gain noticed. Please contact Color Shop Helper if weight gain noticed or shortness of breath. Tgt Aspirin (Aspirin) 81 Mg Chw 81 Mg PO DAILY Reported Ranexa ER 12 HR (Ranolazine) 1,000 Mg Tab 1,000 Mg PO BID Ropinirole 0.5 Mg Tab 0.5 Mg PO HS Preservision Areds (Multiple Vitamins W/ Minerals) 1 Tab 1 Tab PO DAILY Systane Opth Drops (Polyethylene Glycol-Propylene Glycol Opth Drp) 0.4-0.3% Soln 1-2 Drop EACH EYE PRN PRN Nitroglycerin SL (Nitroglycerin) 0.4 Mg Subl 0.4 Mg SL DIRECTED PRN ONE TABLET UNDER THE TONGUE NEEDED FOR CHEST PAIN, MAY REPEAT EVERY FIVE MINUTES FOR A TOTAL OF 3 DOSES OR CALL 911 IF NO RELIEF Nasonex Nasal [place] (Mometasone Furoate) 50 Mcg/Act Naspr 2 [place] EACH NARE DAILY Cyanocobalamin Inj (Cyanocobalamin) 1,000 Mcg/Ml Inj 1,000 Mcg IM ONCE PRN Proair Hfa 8.5 GM Inh (Albuterol Sulfate) 90 Mcg/Act Aer 2 Puff INH Q4-6H PRN 108 mcg/actuation Terazosin (Terazosin HCl) 1 Mg Cap 1 Mg PO HS Primidone 50 Mg Tab 50 Mg PO DAILY PRN Nexium (Esomeprazole DR) 20 Mg Capdr 20 Mg PO DAILY Crestor (Rosuvastatin Calcium) 20 Mg Tab 20 Mg PO DAILY Vitamin D3 (Cholecalciferol) 1,000 Unit Tab 2,000 Units PO DAILY 90 Days Review of Systems Except as stated in HPI: all other systems reviewed are Neg Physical Exam Narrative GENERAL: Well-nourished, well-developed pleasant white male no acute distress. Speaking in full sentences. SKIN: Focused skin assessment warm/dry. HEAD: Normocephalic. EYES: No scleral icterus. No injection or drainage. NECK: Supple, trachea midline. No JVD or lymphadenopathy. CARDIOVASCULAR: Regular rate and rhythm without murmurs, gallops, or rubs. RESPIRATORY: Breath sounds clear and equal bilaterally. No accessory muscle use. GASTROINTESTINAL: Abdomen soft, non-tender, nondistended. Active bowel sounds. MUSCULOSKELETAL: No cyanosis, or edema. BACK: Nontender without obvious deformity. No CVA tenderness. Data Data Last Documented VS Orders Orders Electrocardiogram (10/13/17 16:34) Complete Blood Count With Diff (10/13/17 16:34) Basic Metabolic Panel (Bmp) (10/13/17 16:34) Ckmb (Isoenzyme) Profile (10/13/17 16:34) Troponin I (10/13/17 16:34) B-Type Natriuretic Peptide (10/13/17 18:27) Urinalysis - C+S If Indicated (10/13/17 18:27) Blood Culture (10/13/17 18:27) Iv Access Insert/Monitor (10/13/17 18:27) Ecg Monitoring (10/13/17 18:) Oximetry (10/13/17 18:) Chest, Single Ap (10/13/17 18:27) Sodium Chloride 0.9% Flush (Ns Flush) (10/13/17 18:30) Coag Profile (10/13/17 19:37) Lactic Acid (10/13/17 19:37) Ct Pulmonary Angiogram (10/13/17 19:59) Ropinirole Hcl (Requip) (10/13/17 20:15) Ranolazine Sr (Ranexa) (10/13/17 20:15) Primidone (Mysoline) (10/13/17 20:15) Metoprolol Tartrate (Lopressor) (10/13/17 20:15) Terazosin (Hytrin) (10/13/17 20:15) Iohexol 350 Inj (Omnipaque 350 Inj) (10/13/17 22:42) Admit Order (Ed Use Only) (10/13/17 23:02) Labs Laboratory Tests Test 10/13/17 17:20 10/13/17 19:50 10/13/17 19:55 10/13/17 21:50 White Blood Count 13.0 TH/MM3 Red Blood Count 4.44 MIL/MM3 Hemoglobin 13.4 GM/DL Hematocrit 39.5 % Mean Corpuscular Volume 88.9 FL Mean Corpuscular Hemoglobin 30.1 PG Mean Corpuscular Hemoglobin Concent 33.9 % Red Cell Distribution Width 14.2 % Platelet Count 209 TH/MM3 Mean Platelet Volume 7.5 FL Neutrophils (%) (Auto) 76.4 % Lymphocytes (%) (Auto) 13.3 % Monocytes (%) (Auto) 8.9 % Eosinophils (%) (Auto) 1.1 % Basophils (%) (Auto) 0.3 % Neutrophils # (Auto) 10.0 TH/MM3 Lymphocytes # (Auto) 1.7 TH/MM3 Monocytes # (Auto) 1.2 TH/MM3 Eosinophils # (Auto) 0.1 TH/MM3 Basophils # (Auto) 0.0 TH/MM3 CBC Comment DIFF FINAL Differential Comment Anion Gap 9 MEQ/L Estimat Glomerular Filtration Rate 43 ML/MIN Total Creatine Kinase 98 U/L Troponin I LESS THAN 0.02 NG/ML Prothrombin Time 9.8 SEC Prothromb Time International Ratio 1.0 RATIO Activated Partial Thromboplast Time 21.1 SEC B-Type Natriuretic Peptide 75 PG/ML Lactic Acid Level 1.0 mmol/L Urine Color YELLOW Urine Turbidity CLEAR Urine pH 5.5 Urine Specific [place] 1.013 Urine Protein NEG mg/dL Urine Glucose (UA) NEG mg/dL Urine Ketones NEG mg/dL Urine Occult Blood NEG Urine Nitrite NEG Urine Bilirubin NEG Urine Urobilinogen LESS THAN 2.0 MG/DL Urine Leukocyte Esterase NEG Urine RBC LESS THAN 1 /hpf Urine WBC LESS THAN 1 /hpf Microscopic Urinalysis Comment CULT NOT INDICATED MDM Medical Decision Making Medical Screen Exam Complete: Yes Emergency Medical Condition: Yes Differential Diagnosis CHF versus PNA versus endocarditis versus ACS versus Narrative Course 82 YO M with PMH of COPD, CKD, hypertension, A. fib, endocarditis, angina, implanted pacemaker presents to the ED for evaluation of 10- day history of progressive weakness, worsening HOLLOWAY. Gradual onset. Patient endorses intermittent epigastric pain that is relieved by Nexium and Nitroglycerin. Patient is afebrile, pulse 77, respiratory rate 18, O2 sats 93 on room air on presentation. He was administered 2 mg morphine IV. EKG rate 73, paced rhythm. Borderline right axis deviation. IVCD. No acute ST changes. Reviewed by Dr. Wheeler. CBC: Leukocytosis 13.0, neutrophil predominant. Hemoglobin 13.4. CMP: Paper copies reveal BUN of 23, creatinine 1.55. GFR 43. Glucose 39. Sodium 135. Potassium 4.5. Calcium 8.6. Cardiac enzymes: Negative 1. Lactic acid: 1.0. BNP: 75 CTA: No PE. Pronounced emphysematous changes. 6 mm right lower lobe pulmonary nodule without prior studies to document stability. Repeat CT recommended in 3 months. Significant coronary artery atherosclerotic calcifications per radiology read. UA: No culture indicated. Patient continues with intermittent chest pain in the ED I discussed the results of the workup with the patient as well as the recommendation for observation. Patient is are agreeable. Spoke with Dr. Saenz who agrees to accept the patient to the medicine service. Please see medicine, ID and cardiology notes for disposition. Scripts Levothyroxine (Levothyroxine) 50 Mcg Tab 50 MCG PO DAILY for Thyroid, #30 TAB 0 Refills Prov: Tevin Daniel MD 10/17/17 Isosorbide Mononitrate ER (Isosorbide Mononitrate ER) 30 Mg Perfecto 60 MG PO DAILY for angina, #60 TAB Prov: Tevin Daniel MD 10/17/17 Aluminum Hydroxide-Mag Carb Liq (Gaviscon Liq) 95-358 Mg/15 Ml Susp 15-30 ML PO QID Y for HEARTBURN, #1 BOTTLE 0 Refills Maximum 120 mL/24 hrs. Prov: Tevin Daniel MD 10/17/17 Metoprolol Tartrate (Lopressor) 50 Mg Tab 75 MG PO BID for heart health, #60 TAB Prov: Tevin Daniel MD 10/17/17 Sheila Wright October 13, 2017 19:11
[2017-10-13] MEDS ORDERED: TERAZOSIN HCL 1 MG CAP PO ONE (20:15)
[2017-10-13] MEDS ORDERED: METOPROLOL TARTRATE 25 MG TAB PO ONE (20:15)
[2017-10-13] MEDS ORDERED: PRIMIDONE 50 MG TAB PO ONE (20:15)
[2017-10-13] MEDS ORDERED: RANOLAZINE 500 MG EXTENDED RELEASE TAB PO ONE (20:15)
[2017-10-13 20:39] LABS: PROTHROMBIN TIME - PATIENT 9.8 SEC (9.8-11.6)
[2017-10-13 22:12] LABS: BILIRUBIN, URINE NEG (NEG); BLOOD, URINE NEG (NEG); GLUCOSE,URINE NEG (NEG); KETONE, URINE NEG (NEG); NITRITE,URINE NEG (NEG); PH, URINE 5.5 (5.0-8.5); URINE COLOR YELLOW (YELLW/STRAW); URINE LEUKOCYTE ESTERASE NEG (NEG)
[2017-10-13] MEDS ORDERED: IOHEXOL 350 MG/ML 10 ML VIAL (for RAD DIAG) IVCONTRAST ONE (22:42)
--- NOTE | 2017-10-13 22:48 | RADRPT ---
EXAM DATE/TIME: 10/13/2017 22:30 [place] COMPARISON: No previous studies available for comparison. INDICATIONS : Short of breath. IV CONTRAST: 61 cc Omnipaque 350 (iohexol) IV RADIATION DOSE: 10.51 CTDIvol (mGy) MEDICAL HISTORY : Cardiovascular disease. Hypertension. SURGICAL HISTORY : None. ENCOUNTER: Initial ACUITY: 1 day PAIN SCALE: 4/10 LOCATION: chest TECHNIQUE: Volumetric scanning of the chest was performed using a pulmonary embolism protocol MIP images were re constructed. Using automated exposure control and adjustment of the mA and/or kV according to patien t size, radiation dose was kept as low as reasonably achievable to obtain optimal diagnostic quality images. DICOM format image data is available electronically for review and comparison. Follow-up recommendations for detected pulmonary nodules are based at a minimum on nodule size and pa tient risk factors according to Fleischner Society Guidelines. FINDINGS: PULMONARY ARTERIES: No filling defects are seen in the pulmonary arteries through the segmental level. LUNGS: Pronounced emphysematous changes bilaterally. There is a 6 mm nodule within the right lower lobe. Chr onic interstitial changes within both lungs. No acute infiltrate. PLEURAE: Bilateral apical pleural thickening including some linear calcifications associated with this. No eff usions. MEDIASTINUM: The heart is at the upper limits of normal in terms of size with a tiny pericardial effusion. Signifi cant coronary artery atherosclerotic calcifications. Aorta and pulmonary arteries are normal in calib er. No adenopathy. MUSCULOSKELETAL: A degenerative thoracic spine. MISCELLANEOUS: The visualized upper abdominal organs demonstrate no acute abnormality. CONCLUSION: 1. No PE. 2. Pronounced emphysematous changes. 3. 6 mm right lower lobe pulmonary nodule without prior studies to document stability. Current Fleisc hner guidelines suggest a repeat CT of the thorax in 6 months. 4. Significant coronary artery atherosclerotic calcifications. Live Prieto Jr., MD on October 13, 2017 at 22:42 Board Certified Radiologist. This report was verified electronically.
--- NOTE | 2017-10-13 23:06 | PD ---
Data Data Last Documented VS Vital Signs Date Time Temp Pulse Resp B/P (MAP) Pulse Ox O2 Delivery O2 Flow Rate FiO2 10/13/17 18:55 71 16 171/71 (104) 96 Room Air 10/13/17 16:32 97.4 Orders Orders Electrocardiogram (10/13/17 16:34) Complete Blood Count With Diff (10/13/17 16:34) Basic Metabolic Panel (Bmp) (10/13/17 16:34) Ckmb (Isoenzyme) Profile (10/13/17 16:34) Troponin I (10/13/17 16:34) B-Type Natriuretic Peptide (10/13/17 18:27) Urinalysis - C+S If Indicated (10/13/17 18:) Blood Culture (10/13/17 18:) Iv Access Insert/Monitor (10/13/17 18:27) Ecg Monitoring (10/13/17 18:27) Oximetry (10/13/17 18:27) Chest, Single Ap (10/13/17 18:27) Sodium Chloride 0.9% Flush (Ns Flush) (10/13/17 18:30) Coag Profile (10/13/17 19:37) Lactic Acid (10/13/17 19:37) Ct Pulmonary Angiogram (10/13/17 19:59) Ropinirole Hcl (Requip) (10/13/17 20:15) Ranolazine Sr (Ranexa) (10/13/17 20:15) Primidone (Mysoline) (10/13/17 20:15) Metoprolol Tartrate (Lopressor) (10/13/17 20:15) Terazosin (Hytrin) (10/13/17 20:15) Iohexol 350 Inj (Omnipaque 350 Inj) (10/13/17 22:42) Admit Order (Ed Use Only) (10/13/17 23:02) Labs Laboratory Tests Test 10/13/17 17:20 10/13/17 19:50 10/13/17 19:55 10/13/17 21:50 White Blood Count 13.0 TH/MM3 Red Blood Count 4.44 MIL/MM3 Hemoglobin 13.4 GM/DL Hematocrit 39.5 % Mean Corpuscular Volume 88.9 FL Mean Corpuscular Hemoglobin 30.1 PG Mean Corpuscular Hemoglobin Concent 33.9 % Red Cell Distribution Width 14.2 % Platelet Count 209 TH/MM3 Mean Platelet Volume 7.5 FL Neutrophils (%) (Auto) 76.4 % Lymphocytes (%) (Auto) 13.3 % Monocytes (%) (Auto) 8.9 % Eosinophils (%) (Auto) 1.1 % Basophils (%) (Auto) 0.3 % Neutrophils # (Auto) 10.0 TH/MM3 Lymphocytes # (Auto) 1.7 TH/MM3 Monocytes # (Auto) 1.2 TH/MM3 Eosinophils # (Auto) 0.1 TH/MM3 Basophils # (Auto) 0.0 TH/MM3 CBC Comment DIFF FINAL Differential Comment Anion Gap 9 MEQ/L Estimat Glomerular Filtration Rate 43 ML/MIN Total Creatine Kinase 98 U/L Troponin I LESS THAN 0.02 NG/ML Prothrombin Time 9.8 SEC Prothromb Time International Ratio 1.0 RATIO Activated Partial Thromboplast Time 21.1 SEC B-Type Natriuretic Peptide 75 PG/ML Lactic Acid Level 1.0 mmol/L Urine Color YELLOW Urine Turbidity CLEAR Urine pH 5.5 Urine Specific [place] 1.013 Urine Protein NEG mg/dL Urine Glucose (UA) NEG mg/dL Urine Ketones NEG mg/dL Urine Occult Blood NEG Urine Nitrite NEG Urine Bilirubin NEG Urine Urobilinogen LESS THAN 2.0 MG/DL Urine Leukocyte Esterase NEG Urine RBC LESS THAN 1 /hpf Urine WBC LESS THAN 1 /hpf Microscopic Urinalysis Comment CULT NOT INDICATED MDM Medical Record Reviewed: Yes Supervised Visit with RACHELLE: Yes Narrative Course I, Dr. Wheeler, have reviewed the advance practice practitioner's documentation and am in agreement, met with the patient face to face, made the diagnosis, and the medical decision making was done by me. *My assessment and Findings: The patient has had markedly increasing shortness of breath over the past few days. He was recently diagnosed with endocarditis based on transesophageal echocardiogram. Valvular vegetations were observed however I believe there was some uncertainty regarding the diagnosis of endocarditis. The patient did receive 6 weeks of at-home IV antibiotics. In any case he arrives here with shortness of breath of indeterminate etiology. We have a CT scan showing no pleural effusion or pulmonary edema or sign of multifocal infectious process. BNP is normal. The patient will be admitted for further evaluation. Amrik Wheeler MD October 13, 2017 23:06
[2017-10-13] MEDS ORDERED: LACTULOSE SYRUP 20 GM/30 ML CUP PO PRN (23:30)
[2017-10-13] MEDS ORDERED: MORPHINE SULFATE 4 MG/ML INJ IV PUSH PRN (23:30)
[2017-10-13] MEDS ORDERED: SODIUM CHLORIDE 0.9% FLUSH 10 ML FLUSH IV FLUSH PRN (23:30)
[2017-10-13] MEDS ORDERED: BISACODYL 10 MG SUPP RECTAL PRN (23:30)
[2017-10-13] MEDS ORDERED: SENNOSIDES 8.6 MG TAB PO PRN (23:30)
[2017-10-13] MEDS ORDERED: METOCLOPRAMIDE HCL 10 MG/2 ML VIAL IV PUSH PRN (23:30)
[2017-10-13] MEDS ORDERED: MAGNESIUM HYDROXIDE SUSP 30 ML CUP PO PRN (23:30)
[2017-10-13] MEDS ORDERED: Vancomycin Consult Pharmacy 1 EA OTHER SCH (23:30)
[2017-10-13] MEDS ORDERED: ACETAMINOPHEN 325 MG TAB PO PRN (23:30)
[2017-10-13] MEDS ORDERED: ACETAMINOPHEN/HYDROcodone 325 MG/5 MG TAB PO PRN (23:30)
[2017-10-13] MEDS ORDERED: PILL SPLITTER OTHER PRN (23:45)
[2017-10-14] VITALS (9 sets, daily range): BP systolic 141–187; BP diastolic 63–81; PULSE 71–82; RESP 16–20; TEMP 97.4–97.6; O2SAT 74–98
[2017-10-14] MEDS: SODIUM CHLOR 0.9% 1000 ML INJ 1,000 ML IV SCH ×3 (00:11→16:24)
[2017-10-14] MEDS: cefTRIAXone INJ 1,000 MG in SODIUM CHLORIDE 0.9% INJ 100 ML IV SCH ×2 (00:13→23:22)
[2017-10-14] MEDS ORDERED: NITROGLYCERIN 2% OINT 1 GM PACKET TOPICAL PRN (00:15)
[2017-10-14] MEDS ORDERED: RESP: ALBUTEROL 2.5 MG/IPRATROPIUM 0.5 MG NEB (PRN) NEB (00:45)
--- NOTE | 2017-10-14 00:53 | HHI.HP ---
HPI Service [facility] Primary Care Physician Alejandro Ramos MD Admission Diagnosis leukocytosis, pulmonary nodule, hx endocarditis Diagnoses: (1) Chest pain Diagnosis: Principal (2) H/O endocarditis Diagnosis: Principal (3) Generalized weakness Diagnosis: Principal Travel History International Travel<30 Days: No Contact w/Intl Traveler <30 Da: No Traveled to Known Affected Are: No History of Present Illness This is an 82-year-old male with a PMH of A. fib, COPD, CKD, HTN, s/p Pacemaker , CHF (Echo 07/31/17 w/ EF 35-40%), NHL in remission and Endocarditis who presented to the ER w/ complaints of chest pain and profound generalized weakness x1 wk. Previous admit 07/28/17-08/03/17 for similar complaints in addition to fever, B/C +E Faecalis, s/p CINDY by Dr. Ramos 08/02/17 w/ probably vegatation to AV and possible vegetation on the chordae, EF 40-45% at that time. Seen by Dr. Dia w/ ID and completed long-term IV Abx w/ Vanc/ Rocephin on 09/08/17. states they've been following w/ Dr. Torres, Dr. Ramos and w/ PCP on regular basis since last admission. Had repeat B/C as outpatient after completion of antibiotics w/ negative results, however notes "sample not enough". states pt has had significant decline since Monday, w/ progressive weakness and ongoing CP. States Dr. Ramos and PCP aware, told to continue w/ Nexium/NTG as needed. Today, however states pt could barely get out of bed at which time they came to the ER. On arrival, BP 132/63, HR 77, O2 sat 93% on RA, Afebrile. WBC 13.0 with elevated neutrophil count. Chemistry essentially at baseline. Troponin negative. INR 1.0. UA negative for UTI. CXR with no acute findings. CTA with no PE, pronounced emphysematous changes, 6 mm right lower lobe pulmonary nodule with recommendation for repeat CT in 6 months, states they are aware of these findings. S/p Morphine in ER w/ minimal improvement. Review of Systems Except as stated in HPI: all other systems reviewed are Neg ROS: 14 point review of systems otherwise negative. Past Family Social History Past Medical History PMH: A. fib, COPD, CKD, HTN, s/p Pacemaker, CHF (Echo 07/31/17 w/ EF 35-40%), NHL in remission and Endocarditis Past Surgical History PAST SURGICAL HISTORY: Pacemaker Allergies: Coded Allergies: penicillin G (Verified Allergy, Severe, 06/28/17) Family History PAST FAMILY HISTORY: Reviewed. No h/o DM or CAD Social History PAST SOCIAL HISTORY: Occasional alcohol. Negative for tobacco or drugs. Physical Exam Vital Signs Vital Signs Date Time Temp Pulse Resp B/P (MAP) Pulse Ox O2 Delivery O2 Flow Rate FiO2 10/14/17 00:25 98 Room Air 10/14/17 00:24 82 16 147/79 (101) 98 Room Air 10/13/17 18:55 71 16 171/71 (104) 96 Room Air 10/13/17 16:32 97.4 77 18 132/63 (86) 93 Physical Exam PE: GENERAL: Extremely pleasant elderly white male in no acute distress. at bedside. HEENT: PERRLA, EOMI. No scleral icterus or conjunctival pallor. No lid lag or facial droop. CARDIOVASCULAR: Regular rate and rhythm. No obvious murmurs to auscultation. No chest tenderness to palpation. RESPIRATORY: No obvious rhonchi or wheezing. Clear to auscultation. Breath sounds equal bilaterally. GASTROINTESTINAL: Abdomen soft, non-tender, nondistended. BS normal. MUSCULOSKELETAL: Extremities without clubbing, cyanosis, or edema. No obvious deformities. NEUROLOGICAL: Awake, alert and oriented x4. No focal neurologic deficits. Moving both upper and lower extremities spontaneously. Laboratory Laboratory Tests Test 10/13/17 17:20 10/13/17 19:50 10/13/17 19:55 10/13/17 21:50 White Blood Count 13.0 Red Blood Count 4.44 Hemoglobin 13.4 Hematocrit 39.5 Mean Corpuscular Volume 88.9 Mean Corpuscular Hemoglobin 30.1 Mean Corpuscular Hemoglobin Concent 33.9 Red Cell Distribution Width 14.2 Platelet Count 209 Mean Platelet Volume 7.5 Neutrophils (%) (Auto) 76.4 Lymphocytes (%) (Auto) 13.3 Monocytes (%) (Auto) 8.9 Eosinophils (%) (Auto) 1.1 Basophils (%) (Auto) 0.3 Neutrophils # (Auto) 10.0 Lymphocytes # (Auto) 1.7 Monocytes # (Auto) 1.2 Eosinophils # (Auto) 0.1 Basophils # (Auto) 0.0 CBC Comment DIFF FINAL Differential Comment Anion Gap 9 Estimat Glomerular Filtration Rate 43 Total Creatine Kinase 98 Troponin I LESS THAN 0.02 Prothrombin Time 9.8 Prothromb Time International Ratio 1.0 Activated Partial Thromboplast Time 21.1 B-Type Natriuretic Peptide 75 Lactic Acid Level 1.0 Urine Color YELLOW Urine Turbidity CLEAR Urine pH 5.5 Urine Specific [place] 1.013 Urine Protein NEG Urine Glucose (UA) NEG Urine Ketones NEG Urine Occult Blood NEG Urine Nitrite NEG Urine Bilirubin NEG Urine Urobilinogen LESS THAN 2.0 Urine Leukocyte Esterase NEG Urine RBC LESS THAN 1 Urine WBC LESS THAN 1 Microscopic Urinalysis Comment CULT NOT INDICATED Test 10/14/17 00:15 Result Diagram: 10/13/17 1720 Caprini VTE Risk Assessment Caprini VTE Risk Assessment: No/Low Risk (score <= 1) Caprini Risk Assessment Model Point Value = 1 Point Value = 2 Point Value = 3 Point Value = 5 Age 41-60 Minor surgery BMI > 25 kg/m2 Swollen legs Varicose veins or History of unexplained or recurrent spontaneous Oral contraceptives or hormone replacement Sepsis (< 1 month) Serious lung disease, including pneumonia (< 1 month) Abnormal pulmonary function Acute myocardial infarction Congestive heart failure (< 1 month) History of inflammatory bowel disease Medical patient at bed rest Age 61-74 Arthroscopic surgery Major open surgery (> 45 min) Laparoscopic surgery (> 45 min) Malignancy Confined to bed (> 72 hours) Immobilizing plaster cast Central venous access Age >= 75 History of VTE Family history of VTE Factor V Leiden Prothrombin [id number] Lupus anticoagulant Anticardiolipin antibodies Elevated serum homocysteine Heparin-induced thrombocytopenia Other congenital or acquired thrombophilia Stroke (< 1 month) Elective arthroplasty Hip, pelvis, or leg fracture Acute spinal cord injury (< 1 month) Prophylaxis Regimen Total Risk Factor Score Risk Level Prophylaxis Regimen 0-1 Low Early ambulation 2 Moderate Order ONE of the following: *Sequential Compression Device (SCD) *Heparin 5000 units SQ BID 3-4 Higher Order ONE of the following medications: *Heparin 5000 units SQ TID *Enoxaparin/Lovenox 40 mg SQ daily (WT < 150 kg, CrCl > 30 mL/min) *Enoxaparin/Lovenox 30 mg SQ daily (WT < 150 kg, CrCl > 10-29 mL/min) *Enoxaparin/Lovenox 30 mg SQ BID (WT < 150 kg, CrCl > 30 mL/min) AND/OR *Sequential Compression Device (SCD) 5 or more Highest Order ONE of the following medications: *Heparin 5000 units SQ TID (Preferred with Epidurals) *Enoxaparin/Lovenox 40 mg SQ daily (WT < 150 kg, CrCl > 30 mL/min) *Enoxaparin/Lovenox 30 mg SQ daily (WT < 150 kg, CrCl > 10-29 mL/min) *Enoxaparin/Lovenox 30 mg SQ BID (WT < 150 kg, CrCl > 30 mL/min) AND *Sequential Compression Device (SCD) Assessment and Plan Problem List: (1) Chest pain ICD Code: R07.9 - Chest pain, unspecified (2) H/O endocarditis ICD Code: Z86.79 - Personal history of other diseases of the circulatory system (3) Generalized weakness ICD Code: R53.1 - Weakness Assessment and Plan A/P: 1. Chest Pain: progressive x1 wk, s/p NTG/Morphine w/ minimal relief. Initial trop negative, EKG w/ no acute ischemia, admit for Observation, telemetry, check serial cardiac enzymes, resume home medications. Follows w/ Dr. Ramos as outpatient, will consult for further evaluation. 2. H/o Endocarditis: previous admit 07/28-08/03/17 w/ +B/C for E Faecalis, CINDY w/ probable vegetation AV and possible vegetation on chordae, s/p Vanc/ Rocephin via PICC for 6wks, completed antibiotics on 09/08/17, repeat B/C negative per , PICC line removed 09/14/17, now w/ chest pain, leukocytosis and profound weakness concerning for recurrent endocarditis. Check repeat B/C, start on Vanc/Rocephin, Consult ID for further evaluation/recommendations, check Echo to eval for possible vegetation. 3. Generalized Weakness: reports pt w/ progressive weakness x1 wk, unable to dress himself or stand. PT for eval/tx. 4. DVT Prophylaxis: SCD/Teds 5. Social work for d/c planning as needed. 6. Case discussed w/ ER physician at length, labs/records/imaging reviewed by me. Margaret Ramirez MD October 14, 2017 00:53
[2017-10-14] MEDS ORDERED: VANCOMYCIN INJ 2,000 MG in SODIUM CHLORID 0.9% 500 ML INJ 500 ML IV ONE (02:00)
[2017-10-14 08:24] LABS: AUTOMATED NEUTROPHIL # 8.5 TH/MM3 (1.8-7.7); BASOPHIL % 0.3 % (0.0-2.0); EOSINOPHIL # 0.1 TH/MM3 (0-0.4); EOSINOPHIL % 1.1 % (0.0-4.0); HEMATOCRIT 39.7 % (39.0-51.0); HEMOGLOBIN 13.2 GM/DL (13.0-17.0); LYMPH % 16.3 % (9.0-44.0); LYMPHOCYTE # 1.9 TH/MM3 (1.0-4.8); MEAN CELL VOLUME 90.1 FL (80.0-100.0); MEAN CORPUSCULAR HEMOGLOBIN 29.9 PG (27.0-34.0); MEAN CORPUSCULAR HGB CONC 33.1 % (32.0-36.0); MEAN PLATELET VOLUME 7.5 FL (7.0-11.0); MONO % 9.1 % (0.0-8.0); MONOCYTE # 1.1 TH/MM3 (0-0.9); NEUT % 73.2 % (16.0-70.0); PLATELET COUNT 202 TH/MM3 (150-450); RED BLOOD COUNT 4.41 MIL/MM3 (4.50-5.90); RED CELL DISTRIBUTION WIDTH 14.4 % (11.6-17.2); WHITE BLOOD COUNT 11.6 TH/MM3 (4.0-11.0)
[2017-10-14] MEDS ORDERED: DOCUSATE SODIUM 50 MG/SENNA 8.6 MG TAB PO SCH (09:00)
[2017-10-14 09:16] LABS: ALBUMIN 3.1 GM/DL (3.4-5.0); AST (GOT) 19 U/L (15-37); BICARBONATE 23.5 MEQ/L (21.0-32.0); BLOOD UREA NITROGEN 22 MG/DL (7-18); CALCIUM 8.7 MG/DL (8.5-10.1); CHLORIDE 103 MEQ/L (98-107); CREATININE 1.34 MG/DL (0.60-1.30); GLOMERULAR FILTRATION RATE 51 ML/MIN (>89); GLUCOSE,RANDOM 92 MG/DL (74-106); SODIUM (NA) 135 MEQ/L (136-145)
[2017-10-14 09:23] LABS: ALKALINE PHOSPHATASE 68 U/L (45-117); ALT (GPT) 23 U/L (12-78); TOTAL BILIRUBIN ADULT 0.4 MG/DL (0.2-1.0); TOTAL PROTEIN 6.6 GM/DL (6.4-8.2); TROPONIN I 0.13 NG/ML (0.02-0.05)
--- NOTE | 2017-10-14 09:28 | HHI.PR ---
Subjective Remarks Follow-up chest pain October 14, 2017-patient seen and examined, still complaining of generalized fatigue. Denies any chest pain currently afebrile. by the bedside Objective Vitals Vital Signs Date Time Temp Pulse Resp B/P (MAP) Pulse Ox O2 Delivery O2 Flow Rate FiO2 10/14/17 08:10 97.6 72 18 144/69 (94) 96 10/14/17 03:19 97.5 72 16 159/72 (101) 95 10/14/17 03:05 72 10/14/17 00:33 97.6 77 18 187/81 (116) 93 10/14/17 00:25 98 Room Air 10/14/17 00:24 82 16 147/79 (101) 98 Room Air 10/13/17 18:55 71 16 171/71 (104) 96 Room Air 10/13/17 16:32 97.4 77 18 132/63 (86) 93 Result Diagram: 10/14/17 0657 10/14/17 [address] Angiography 10/13/171958 Signed Impressions: Service Date/Time: Friday, October 13, 2017 22:30 - CONCLUSION: 1. No PE. 2. Pronounced emphysematous changes. 3. 6 mm right lower lobe pulmonary nodule without prior studies to document stability. Current Fleischner guidelines suggest a repeat CT of the thorax in 6 months. 4. Significant coronary artery atherosclerotic calcifications. Live Prieto Jr., MD Chest X-Ray 10/13/171826 Signed Impressions: Service Date/Time: Friday, October 13, 2017 18:37 - CONCLUSION: No acute cardio pulmonary disease. Live Prieto Jr., MD Objective Remarks GENERAL: NAD SKIN: Warm and dry. HEAD: Normocephalic. EYES: No scleral icterus. No injection or drainage. NECK: Supple, trachea midline. No JVD or lymphadenopathy. CARDIOVASCULAR: Regular rate and rhythm without murmurs, gallops, or rubs. RESPIRATORY: Breath sounds equal bilaterally. No accessory muscle use. GASTROINTESTINAL: Abdomen soft, non-tender, nondistended. MUSCULOSKELETAL: No cyanosis, or edema. BACK: Nontender without obvious deformity. No CVA tenderness. A/P Problem List: (1) Chest pain ICD Code: R07.9 - Chest pain, unspecified (2) H/O endocarditis ICD Code: Z86.79 - Personal history of other diseases of the circulatory system (3) Generalized weakness ICD Code: R53.1 - Weakness Assessment and Plan 82-year-old man with 1. Chest Pain: progressive x1 wk, s/p NTG/Morphine w/ minimal relief. ACS thus far ruled out per protocol with serial cardiac enzyme and EKGs, continue home medications. Follows w/ Dr. Ramos as outpatient, consultation cardiology pending. 2. H/o Endocarditis: previous admit 07/28-08/03/17 w/ +B/C for E Faecalis, CINDY w/ probable vegetation AV and possible vegetation on chordae, s/p Vanc/ Rocephin via PICC for 6wks, completed antibiotics on 09/08/17, repeat B/C negative per , PICC line removed 09/14/17. Now on Vanc/Rocephin pending further evaluation from infectious disease specialist. 2D echo pending to rule out possible vegetation 3. Generalized Weakness: reports pt w/ progressive weakness x1 wk, unable to dress himself or stand. PT for eval/tx. 4. DVT Prophylaxis: SCD/Lazarus Donovan MD October 14, 2017 09:28
[2017-10-14] MEDS: SODIUM CHLORIDE 0.9% FLUSH 10 ML FLUSH IV FLUSH SCH ×2 (10:20→21:11)
[2017-10-14] MEDS: ATORVASTATIN 40 MG TAB PO SCH (10:20)
[2017-10-14] MEDS: METOPROLOL TARTRATE 25 MG TAB PO SCH ×2 (10:20→21:11)
[2017-10-14] MEDS: ASPIRIN 81 MG CHEW TAB PO SCH (10:21)
[2017-10-14] MEDS: PANTOPRAZOLE SOD 20 MG DELAYED RELEASE TAB PO SCH (10:22)
[2017-10-14] MEDS: ISOSORBIDE MONONITRATE 30 MG CR TAB (IMDUR) PO SCH (10:23)
[2017-10-14] MEDS: RANOLAZINE 500 MG EXTENDED RELEASE TAB PO SCH ×2 (10:24→21:12)
[2017-10-14] MEDS: MULTIVITAMIN-OPHTHALMIC 1 TAB PO SCH (10:24)
[2017-10-14] MEDS: UMECLIDINIUM 62.5 MCG/VILANTEROL 25 MCG INHALER INH SCH ×2 (10:28→10:37)
--- NOTE | 2017-10-14 18:20 | EKG ---
Date Performed: 10/13/2017 Time Performed: 23:28:29 PTAGE: 82 years EKG: ELECTRONIC ATRIAL PACEMAKER ELECTRONIC VENTRICULAR PACEMAKER ABNORMAL RHYTHM ECG PREVIOUS TRACING : 10/13/2017 18.10 Since the previous tracing, no significant change noted DOCTOR: Vivian Alejandre Interpretating Date/Time 10/14/2017 18:20:02
--- NOTE | 2017-10-14 18:28 | EKG ---
Date Performed: 10/13/2017 Time Performed: 18:10:57 PTAGE: 82 years EKG: ELECTRONIC ATRIAL PACEMAKER BORDERLINE RIGHT AXIS DEVIATION INTRAVENTRICULAR CONDUCTION DEL AY INFERIOR MYOCARDIAL INFARCTION ABNORMAL ECG PREVIOUS TRACING : 07/28/2017 15.13 Since the previous tracing, no significant change noted DOCTOR: Vivian Alejandre Interpretating Date/Time 10/14/2017 18:27:10
--- NOTE | 2017-10-14 18:45 | MB ---
cc: Alexander Dia MD, Franklyn F MD DATE: 10/14/2017 REQUESTING PHYSICIAN: Dr. Ramirez. REASON FOR VISIT: Leukocytosis. History of endocarditis. HISTORY OF PRESENT ILLNESS: This is an 82-year-old white male who came to the Emergency Department because of chest pain. The patient describes epigastric discomfort. He was referred to the Emergency Department for evaluation. The patient was treated for endocarditis back in August and he received 6 weeks total treatment duration. He was diagnosed with bacteremia due to Enterococcus faecalis and the CINDY showed changes of the aortic valve suggesting endocarditis. After he finished the IV course of antibiotics, he was still having some fatigue. He had completed the antibiotics in September. The patient has rehab at home and does exercises with rehab. His states that he was having worsening fatigue and got short of breath when he would ambulate. He states that he was also having some shortness of breath in addition to the fatigue and he felt that his legs were not functioning like usual and that he just had generalized weakness and the discomfort in the chest. He was taking Tums and sublingual nitroglycerin and that was leading to some improvement in the chest pain. There was concern that he may have recurrent infection as well. He denies chills, nausea or vomiting, but the notes that he was having some diaphoresis. He was followed by the infectious disease physician last week and lab tests were done. I am not sure whether that included blood cultures. The results were not available as of yesterday. Blood cultures were taken today. Yesterday's white blood cell count was 13.0 and today it is 11.6. Urinalysis was unremarkable. A chest x-ray showed no acute cardiopulmonary disease. CT angiogram showed pronounced emphysematous change. Significant coronary artery atherosclerotic calcification was noted. A 6 mm right lower lobe pulmonary nodule was also noted. The patient denies coughing or sputum production. His is at bedside and she was able to give me information on him. She administered the IV antibiotics at home back in August. Troponin levels were done and seem to indicate negative values. The patient denies burning on urination. He has been afebrile. 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 ALLERGIES: PENICILLIN, UMECLIDINIUM (caused urinary retention). MEDICATIONS: 1. Hytrin. 2. Requip. 3. Aspirin. 4. Imdur. 5. Lopressor. 6. Protonix. 7. Ranexa. 8. Lipitor. 9. Vancomycin, 10. Ceftriaxone, 11. Albuterol inhaler. SOCIAL HISTORY: The patient is . No tobacco. One alcoholic drink a day. No illicit drugs. FAMILY HISTORY: Noncontributory. REVIEW OF SYSTEMS: CONSTITUTIONAL: No fever or chills. Significant for diaphoresis. HEENT: No visual blurring or diplopia. No difficulty swallowing or soreness of the throat. No problems with nasal drainage. NECK: No swelling. CARDIOVASCULAR: No palpitation. Chest discomfort noted. RESPIRATORY: Positive for shortness of breath. GASTROINTESTINAL: Denies nausea, vomiting, abdominal pain or diarrhea. GENITOURINARY: Denies urgency, frequency or dysuria. HEMATOPOIETIC: Denies easy bruising or bleeding. ENDOCRINE: No polyuria, polydipsia. MUSCULOSKELETAL: Significant for muscle weakness. INTEGUMENTARY: Denies skin rash or itching. NEUROLOGIC: Denies problems with coordination. PSYCHIATRIC: Denies mood changes. PHYSICAL EXAMINATION: GENERAL: This is a well-developed male who is in no acute distress. He looks chronically ill. VITAL SIGNS: Temperature 97.4, BP 141/63, respirations 20, heart rate 73. HEENT: The head is atraumatic. Extraocular movements are grossly intact. Pupils reactive to light. No icterus. No conjunctival erythema. Oropharynx moist mucosa. No visible lesions. NECK: Supple. No adenopathy or swelling. LUNGS: Decreased breath sounds bilaterally. HEART: Regular S1 and S2. No audible murmurs. The heart sounds are distant. ABDOMEN: Bowel sounds present. Soft, no tenderness appreciated. RECTAL: Not performed. EXTREMITIES: No clubbing, cyanosis or edema. SKIN: No rash. Chronic skin keratoses at the face. No diffuse rash. NEUROLOGIC: No gross focal finding. PSYCHIATRIC: The patient calm and cooperative. LABORATORY DATA: WBC 11.6, platelet count 202, hemoglobin 13.2, creatinine 1.34, BUN 22, estimated GFR 51. Sodium 135. Liver function test normal. IMPRESSION: 1. Leukocytosis. 2. Chest discomfort along with diaphoresis and fatigue in patient who has history of aortic valve replacement and history of recent treatment for endocarditis. Rule out infection. 3. Chronic fatigue and weakness. Rule out other noninfectious cause. 4. The patient does have underlying coronary artery disease and has had ejection fraction of less than 50%. 5. Chronic kidney disease. RECOMMENDATIONS: 1. Follow his 2-Dimensional echocardiogram. 2. Continue treatment with ceftriaxone. 3. Continue vancomycin, but needs to have monitoring of the renal function for dosing. 4. Attempt to obtain results of outpatient labs. 4. Obtain TAJ, rheumatoid factor, sedimentation rates and TSH. 5. Monitor the 2-Dimensional echocardiogram results. The patient also has a pacemaker, but the pacemaker site appears intact and does not appear to be infected. Thank you for this consultation. I will follow the patient's progress and make further recommendations on followup if necessary. MD ANUJA Sanchez/ , 04:42 PM , 06:44 PM
--- NOTE | 2017-10-14 19:17 | MB ---
cc: Vivian Alejandre MD, [place] MD DATE: 10/14/2017 HISTORY OF PRESENT ILLNESS: Mr. Bae is an 82-year-old white male with a history of atrial fibrillation, COPD, chronic kidney disease, hypertension, pacemaker placement and congestive heart failure with moderate left ventricular dysfunction, ejection fraction of 35-40% by echo in July. He was diagnosed with aortic valve vegetation in July. He was started on antibiotics. He saw Dr. Torres as outpatient. His blood culture at the beginning of September was nonconclusive. The patient has been getting progressively weaker over the last week. He has had elevated white blood count. He saw Dr. Ramos in the office yesterday and eventually later in the afternoon presented to the emergency room. He was seen by Dr. Dia for ID and cultures are pending at this time. He has complaints of generalized weakness. He does have epigastric and lower substernal discomfort, especially in the evening and night. He is taking her Nexium and nitroglycerin as needed. PAST MEDICAL HISTORY: Positive for atrial fibrillation, COPD, chronic kidney disease, hypertension, pacemaker, chronic heart failure, cardiomyopathy, history of endocarditis as above, pacemaker placement. MEDICATIONS: 1. Requip. 2. Hytrin. 3. Aspirin. 4. Imdur. 5. Lopressor. 6. Protonix. 7. Ocuvite. 8. Ranexa. 9. Lipitor. ALLERGIES: UMECLIDINIUM, PENICILLIN G SOCIAL HISTORY: The patient does not smoke. He drinks alcohol occasionally. He is accompanied by his . FAMILY HISTORY: Negative for heart disease. REVIEW OF SYSTEMS: Otherwise negative. PHYSICAL EXAMINATION: VITAL SIGNS: Blood pressure 141/53, pulse 73 and regular. HEENT: Negative. 2+ carotid upstrokes. No bruits. LUNGS: Clear. HEART: Regular with no murmur, gallop or rub. ABDOMEN: Soft. No bruits. EXTREMITIES: Trace edema, 1+ distal pulses. NEUROLOGIC: Grossly nonfocal. CARDIOLOGY STUDIES: EKG was reviewed and showed AV pacing. LABORATORY DATA: Hemoglobin 13.2, white blood cells 13.0 and 11.6, neutrophils 10.0 and 8.5, potassium 4.6, creatinine 1.3, troponin less than 0.02, less than 0.12, less than 0.13. AST 19, ALT 23. BNP 75. DIAGNOSES: 1. Chest pain. 2. Generalized weakness. 3. History of endocarditis. 4. Chronic obstructive pulmonary disease. 5. Chronic kidney disease. 6. Hypertension. 7. History of pacemaker placement. DISPOSITION: Mr. Bae will be monitored on telemetry. He has renal insufficiency and slightly elevated troponin. He is undergoing evaluation by Infectious Disease. His cultures are pending. He may benefit from a gastrointestinal evaluation as well. I will follow him for cardiology during his hospitalization in Dr. Ramos's absence. MD RAVINDER Wang/ , 05:06 PM , 07:16 PM MTDLara
[2017-10-14] MEDS: TERAZOSIN HCL 1 MG CAP PO SCH (21:11)
[2017-10-15] VITALS (8 sets, daily range): BP systolic 133–182; BP diastolic 62–80; PULSE 71–73; RESP 16–20; TEMP 97.4–97.9; O2SAT 92–96
[2017-10-15 05:33] LABS: AUTOMATED NEUTROPHIL # 7.7 TH/MM3 (1.8-7.7); BASOPHIL % 0.5 % (0.0-2.0); EOSINOPHIL # 0.2 TH/MM3 (0-0.4); EOSINOPHIL % 1.9 % (0.0-4.0); HEMATOCRIT 38.7 % (39.0-51.0); HEMOGLOBIN 13.1 GM/DL (13.0-17.0); LYMPH % 15.9 % (9.0-44.0); LYMPHOCYTE # 1.7 TH/MM3 (1.0-4.8); MEAN CELL VOLUME 89.3 FL (80.0-100.0); MEAN CORPUSCULAR HEMOGLOBIN 30.2 PG (27.0-34.0); MEAN CORPUSCULAR HGB CONC 33.8 % (32.0-36.0); MEAN PLATELET VOLUME 7.7 FL (7.0-11.0); MONO % 9.1 % (0.0-8.0); NEUT % 72.6 % (16.0-70.0); PLATELET COUNT 202 TH/MM3 (150-450); RED BLOOD COUNT 4.34 MIL/MM3 (4.50-5.90); RED CELL DISTRIBUTION WIDTH 14.7 % (11.6-17.2); WHITE BLOOD COUNT 10.7 TH/MM3 (4.0-11.0)
[2017-10-15 06:00] LABS: BICARBONATE 24.2 MEQ/L (21.0-32.0); CALCIUM 8.6 MG/DL (8.5-10.1); CREATININE 1.27 MG/DL (0.60-1.30)
[2017-10-15 06:03] LABS: RHEUMATOID FACTOR SCREEN NEGATIVE (NEGATIVE)
[2017-10-15 06:09] LABS: C-REACTIVE PROTEIN 0.98 MG/DL (0.00-0.30)
--- NOTE | 2017-10-15 07:47 | HHI.PR ---
Subjective Remarks Follow-up chest pain October 14, 2017-patient seen and examined, still complaining of generalized fatigue. Denies any chest pain currently afebrile. by the bedside October 15, 2017-patient seen and examined, states, he had episode of chest pain 2- 3 overnights. BP up Objective Vitals Vital Signs Date Time Temp Pulse Resp B/P (MAP) Pulse Ox O2 Delivery O2 Flow Rate FiO2 10/15/17 07:28 97.5 72 20 176/80 (112) 94 10/15/17 03:38 97.4 71 16 175/78 (110) 96 10/15/17 00:12 97.6 72 16 182/79 (113) 95 10/14/17 19:40 97.5 73 18 182/72 (108) 74 10/14/17 15:39 97.4 73 20 141/63 (89) 93 10/14/17 12:07 97.4 71 20 145/65 (91) 94 10/14/17 08:10 72 10/14/17 08:10 97.6 72 18 144/69 (94) 96 I/O 10/14/17 10/14/17 10/14/17 10/15/17 10/15/17 10/15/17 07:00 15:00 23:00 07:00 15:00 23:00 Intake Total 360 ml Balance 360 ml Intake Oral 360 ml # Voids 2 2 # Bowel Movements 1 Result Diagram: 10/15/179 10/15/17 [address] Angiography 10/13/171958 Signed Impressions: Service Date/Time: Friday, October 13, 2017 22:30 - CONCLUSION: 1. No PE. 2. Pronounced emphysematous changes. 3. 6 mm right lower lobe pulmonary nodule without prior studies to document stability. Current Fleischner guidelines suggest a repeat CT of the thorax in 6 months. 4. Significant coronary artery atherosclerotic calcifications. Live Prieto Jr., MD Chest X-Ray 10/13/171826 Signed Impressions: Service Date/Time: Friday, October 13, 2017 18:37 - CONCLUSION: No acute cardio pulmonary disease. Live Prieto Jr., MD Objective Remarks GENERAL: NAD SKIN: Warm and dry. HEAD: Normocephalic. EYES: No scleral icterus. No injection or drainage. NECK: Supple, trachea midline. No JVD or lymphadenopathy. CARDIOVASCULAR: Regular rate and rhythm without murmurs, gallops, or rubs. RESPIRATORY: Breath sounds equal bilaterally. No accessory muscle use. GASTROINTESTINAL: Abdomen soft, non-tender, nondistended. MUSCULOSKELETAL: No cyanosis, or edema. BACK: Nontender without obvious deformity. No CVA tenderness. A/P Problem List: (1) Chest pain ICD Code: R07.9 - Chest pain, unspecified (2) H/O endocarditis ICD Code: Z86.79 - Personal history of other diseases of the circulatory system (3) Generalized weakness ICD Code: R53.1 - Weakness Assessment and Plan 82-year-old man with 1. Chest Pain: progressive x1 wk, s/p NTG/Morphine w/ minimal relief. ACS thus far ruled out per protocol with serial cardiac enzyme and EKGs, continue home medications. Appreciate input from cardiology 2. H/o Endocarditis: previous admit 07/28-08/03/17 w/ +B/C for E Faecalis, CINDY w/ probable vegetation AV and possible vegetation on chordae, s/p Vanc/ Rocephin via PICC for 6wks, completed antibiotics on 09/08/17, repeat B/C negative per , PICC line removed 09/14/17. Now on Vanc/Rocephin. Appreciate input from infectious disease specialist. 2D echo pending to rule out possible vegetation 3. Generalized Weakness: reports pt w/ progressive weakness x1 wk, unable to dress himself or stand. PT for eval/tx. 4. Benign labile hypertension: Increase Lopressor to 50 mg twice, Hep-Lock IV fluid 5. DVT Prophylaxis: SCD/Lazarus Donovan MD October 15, 2017 07:47
[2017-10-15] MEDS: UMECLIDINIUM 62.5 MCG/VILANTEROL 25 MCG INHALER INH SCH (08:39)
[2017-10-15] MEDS: RANOLAZINE 500 MG EXTENDED RELEASE TAB PO SCH ×2 (08:40→22:12)
[2017-10-15] MEDS: SODIUM CHLORIDE 0.9% FLUSH 10 ML FLUSH IV FLUSH SCH ×2 (08:40→21:00)
[2017-10-15] MEDS: ASPIRIN 81 MG CHEW TAB PO SCH (08:40)
[2017-10-15] MEDS: ISOSORBIDE MONONITRATE 30 MG CR TAB (IMDUR) PO SCH (08:41)
[2017-10-15] MEDS: ATORVASTATIN 40 MG TAB PO SCH (08:41)
[2017-10-15] MEDS: MULTIVITAMIN-OPHTHALMIC 1 TAB PO SCH (08:41)
[2017-10-15] MEDS: PANTOPRAZOLE SOD 20 MG DELAYED RELEASE TAB PO SCH (08:41)
[2017-10-15] MEDS ORDERED: METOPROLOL TARTRATE 50 MG TAB PO SCH (09:00)
[2017-10-15] MEDS ORDERED: NITROGLYCERIN 0.4 MG SL 25 TABS/BTL SL PRN (10:00)
[2017-10-15] MEDS ORDERED: VANCOMYCIN 1,500 MG/NS 500 ML IV ONE ×2 (15:00)
--- NOTE | 2017-10-15 16:02 | PD.CARD.PN ---
Subjective Subjective Remarks CP radiating into the L arm last night, no SOB, cxs pending Objective Medications Current Medications Medications (Trade) Dose Ordered Sig/Eduardo Route Start Time Stop Time Status Last Admin (NS Flush) 2 ml UNSCH PRN IV FLUSH 10/13/17 23:30 (NS Flush) 2 ml BID IV FLUSH 10/14/17 09:00 10/15/17 08:40 (Reglan Inj) 5 mg Q6H PRN IV PUSH 10/13/17 23:30 (Tylenol) 650 mg Q6H PRN PO 10/13/17 23:30 ([place] 5-325 Mg) 1 tab Q4H PRN PO 10/13/17 23:30 (Morphine Inj) 2 mg Q3H PRN IV PUSH 10/13/17 23:30 (Milk Of Magnesia Liq) 30 ml Q12H PRN PO 10/13/17 23:30 (Aspirin Chew) 81 mg DAILY PO 10/14/17 09:00 10/15/17 08:40 (Imdur) 15 mg DAILY PO 10/14/17 09:00 10/15/17 08:41 (Requip) 0.5 mg HS PO 10/14/17 21:00 10/14/17 21:11 (Hytrin) 1 mg HS PO 10/14/17 21:00 10/14/17 21:11 (Protonix) 20 mg DAILY PO 10/14/17 09:00 10/15/17 08:41 (Ocuvite) 1 tab DAILY PO 10/14/17 09:00 10/15/17 08:41 (Ranexa) 1,000 mg BID PO 10/14/17 09:00 10/15/17 08:40 (Lipitor) 40 mg DAILY PO 10/14/17 09:00 10/15/17 08:41 Ceftriaxone Sodium 1000 mg/ Sodium Chloride 100 ml @ 200 mls/hr Q24H IV 10/14/17 00:00 10/14/17 23:22 Pharmacy Profile Note 0 ml @ 0 mls/hr UNSCH OTHER 10/13/17 23:30 (Pill Splitter) 1 ea UNSCH PRN OTHER 10/13/17 23:45 (Nitroglycerin 2% Oint) 0.5 inch Q6HR PRN TOPICAL 5/12/18 00:15 10/14/17 00:26 (Duoneb Neb) 1 ampule Q4HR NEB PRN NEB 10/14/17 00:45 (Lopressor) 50 mg BID PO 10/15/17 09:00 10/15/17 08:45 (Nitrostat Sl) 0.4 mg Q5M PRN SL 10/15/17 10:00 Vancomycin HCl 1500 mg/Sodium Chloride 515 ml @ 257.5 mls/ hr ONCE ONCE IV 10/15/17 15:00 10/15/17 16:59 10/15/17 14:36 Vital Signs / I&O Vital Signs Date Time Temp Pulse Resp B/P (MAP) Pulse Ox O2 Delivery O2 Flow Rate FiO2 10/15/17 11:34 97.4 73 20 141/65 (90) 95 10/15/17 10:00 149/62 (91) 10/15/17 07:41 72 10/15/17 07:28 97.5 72 20 176/80 (112) 94 10/15/17 03:38 97.4 71 16 175/78 (110) 96 10/15/17 00:12 97.6 72 16 182/79 (113) 95 10/14/17 19:40 97.5 73 18 182/72 (108) 74 I/O 10/14/17 10/14/17 10/14/17 10/15/17 10/15/17 10/15/17 07:00 15:00 23:00 07:00 15:00 23:00 Intake Total 360 ml Balance 360 ml Intake Oral 360 ml # Voids 2 2 # Bowel Movements 1 Physical Exam GENERAL: In NAD. SKIN: Warm and dry. HEAD: Normocephalic. EYES: No scleral icterus. No injection or drainage. NECK: Supple, trachea midline. No JVD or lymphadenopathy. CARDIOVASCULAR: Regular rate and rhythm without murmurs, gallops, or rubs. RESPIRATORY: Breath sounds equal bilaterally. No accessory muscle use. GASTROINTESTINAL: Abdomen soft, non-tender, nondistended. MUSCULOSKELETAL: No cyanosis, or edema. Laboratory Laboratory Tests Test 10/15/17 04:29 White Blood Count 10.7 TH/MM3 Red Blood Count 4.34 MIL/MM3 Hemoglobin 13.1 GM/DL Hematocrit 38.7 % Mean Corpuscular Volume 89.3 FL Mean Corpuscular Hemoglobin 30.2 PG Mean Corpuscular Hemoglobin Concent 33.8 % Red Cell Distribution Width 14.7 % Platelet Count 202 TH/MM3 Mean Platelet Volume 7.7 FL Neutrophils (%) (Auto) 72.6 % Lymphocytes (%) (Auto) 15.9 % Monocytes (%) (Auto) 9.1 % Eosinophils (%) (Auto) 1.9 % Basophils (%) (Auto) 0.5 % Neutrophils # (Auto) 7.7 TH/MM3 Lymphocytes # (Auto) 1.7 TH/MM3 Monocytes # (Auto) 1.0 TH/MM3 Eosinophils # (Auto) 0.2 TH/MM3 Basophils # (Auto) 0.0 TH/MM3 CBC Comment DIFF FINAL Differential Comment Blood Urea Nitrogen 18 MG/DL Creatinine 1.27 MG/DL Random Glucose 95 MG/DL Calcium Level 8.6 MG/DL Sodium Level 139 MEQ/L Potassium Level 4.8 MEQ/L Chloride Level 106 MEQ/L Carbon Dioxide Level 24.2 MEQ/L Anion Gap 9 MEQ/L Estimat Glomerular Filtration Rate 54 ML/MIN C-Reactive Protein 0.98 MG/DL Free Thyroxine 1.09 NG/DL Thyroid Stimulating Hormone 3rd Gen 5.160 uIU/ML Rheumatoid Factor Screen NEGATIVE Rheumatoid Factor Titer IU/ML Assessment and Plan Problem List: (1) Chest pain ICD Codes: R07.9 - Chest pain, unspecified (2) CAD (coronary artery disease) ICD Codes: I25.10 - Atherosclerotic heart disease of [place] coronary artery without angina pectoris (3) H/O endocarditis ICD Codes: Z86.79 - Personal history of other diseases of the circulatory system (4) HTN (hypertension) ICD Codes: I10 - Essential (primary) hypertension (5) CKD (chronic kidney disease) ICD Codes: N18.9 - Chronic kidney disease, unspecified Status: Acute (6) History of permanent cardiac pacemaker placement ICD Codes: Z95.0 - Presence of cardiac pacemaker Status: Acute Assessment and Plan Intermittent CP. Cath in the past showed significant CAD not amenable to coronary intervention. Schedule adenosine nuc ST to reevaluate. Adjust tx for angina. Aggressive risk factor modification. Check echo. ID eval in progress. Increase activity, PT. D/w pt and . Vivian Alejandre MD October 15, 2017 16:02
--- NOTE | 2017-10-15 20:02 | HHI.IDPN ---
Note Infectious Disease Note Delayed entry. Patient seen earlier this afternoon. Seen in presence of his . Patient reports that he had chest pain radiating to his left arm and earlier morning hours. No dizziness. Denies chills. Blood cultures has no growth in 24 hours. 82-year-old white male who came to the Emergency Department because of chest pain. The patient describes epigastric discomfort. The patient was treated for endocarditis back in August and he received 6 weeks total treatment duration. He was diagnosed with bacteremia due to Enterococcus faecalis and the CINDY showed changes of the aortic valve suggesting endocarditis. After he finished the IV course of antibiotics, he was still having some fatigue. He had completed the antibiotics in September. His states that he was having worsening fatigue and got short of breath when he would ambulate. He states that he was also having some shortness of breath in addition to the fatigue and he felt that his legs were not functioning like usual and that he just had generalized weakness and the discomfort in the chest. 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 ALLERGIES: PENICILLIN, UMECLIDINIUM (caused urinary retention). MEDICATIONS: Current Medications Medications (Trade) Dose Ordered Sig/Eduardo Route PRN Reason Start Time Stop Time Status Last Admin Dose Admin Sodium Chloride (NS Flush) 2 ml UNSCH PRN IV FLUSH FLUSH AFTER USING IV ACCESS 10/13/17 23:30 Sodium Chloride (NS Flush) 2 ml BID IV FLUSH 10/14/17 09:00 10/15/17 08:40 Metoclopramide HCl (Reglan Inj) 5 mg Q6H PRN IV PUSH NAUSEA OR VOMITING 10/13/17 23:30 Acetaminophen (Tylenol) 650 mg Q6H PRN PO FEVER/PAIN SCALE 1 TO 2 10/13/17 23:30 Acetaminophen/ Hydrocodone Bitart ([place] 5-325 Mg) 1 tab Q4H PRN PO PAIN SCALE 3 TO 5 10/13/17 23:30 Morphine Sulfate (Morphine Inj) 2 mg Q3H PRN IV PUSH Pain 6-10 10/13/17 23:30 Magnesium Hydroxide (Milk Of Magnesia Liq) 30 ml Q12H PRN PO Mild constipation 10/13/17 23:30 Aspirin (Aspirin Chew) 81 mg DAILY PO 10/14/17 09:00 10/15/17 08:40 Ropinirole HCl (Requip) 0.5 mg HS PO 10/14/17 21:00 10/14/17 21:11 Terazosin HCl (Hytrin) 1 mg HS PO 10/14/17 21:00 10/14/17 21:11 Pantoprazole Sodium (Protonix) 20 mg DAILY PO 10/14/17 09:00 10/15/17 08:41 Vit C/Vit E/Zinc/ Copper/Lutein (Ocuvite) 1 tab DAILY PO 10/14/17 09:00 10/15/17 08:41 Ranolazine (Ranexa) 1,000 mg BID PO 10/14/17 09:00 10/15/17 08:40 Ceftriaxone Sodium 1000 mg/ Sodium Chloride 100 ml @ 200 mls/hr Q24H IV 10/14/17 00:00 10/14/17 23:22 Pharmacy Profile Note 0 ml @ 0 mls/hr UNSCH OTHER 10/13/17 23:30 Miscellaneous (Pill Splitter) 1 ea UNSCH PRN OTHER SEE LABEL COMMENTS 10/13/17 23:45 Nitroglycerin (Nitroglycerin 2% Oint) 0.5 inch Q6HR PRN TOPICAL CHEST PAIN 10/14/17 00:15 10/16/17 07:00 10/14/17 00:26 Albuterol/ Ipratropium (Duoneb Neb) 1 ampule Q4HR NEB PRN NEB SOB/WHEEZING 10/14/17 00:45 Nitroglycerin (Nitrostat Sl) 0.4 mg Q5M PRN SL CHEST PAIN 10/15/17 10:00 Atorvastatin Calcium (Lipitor) 80 mg DAILY PO 10/16/17 09:00 Isosorbide Mononitrate (Imdur) 60 mg DAILY PO 10/16/17 09:00 Metoprolol Tartrate (Lopressor) 75 mg BID PO 10/15/17 21:00 Objective: Vital Signs Date Time Temp Pulse Resp B/P (MAP) Pulse Ox O2 Delivery O2 Flow Rate FiO2 10/15/17 16:33 97.4 73 20 133/62 (85) 96 10/15/17 11:34 97.4 73 20 141/65 (90) 95 10/15/17 10:00 149/62 (91) 10/15/17 07:41 72 10/15/17 07:28 97.5 72 20 176/80 (112) 94 10/15/17 03:38 97.4 71 16 175/78 (110) 96 10/15/17 00:12 97.6 72 16 182/79 (113) 95 Laboratory Tests Test 10/14/17 06:57 10/15/17 04:29 White Blood Count 11.6 TH/MM3 10.7 TH/MM3 Red Blood Count 4.41 MIL/MM3 4.34 MIL/MM3 Hemoglobin 13.2 GM/DL 13.1 GM/DL Hematocrit 39.7 % 38.7 % Mean Corpuscular Volume 90.1 FL 89.3 FL Mean Corpuscular Hemoglobin 29.9 PG 30.2 PG Mean Corpuscular Hemoglobin Concent 33.1 % 33.8 % Red Cell Distribution Width 14.4 % 14.7 % Platelet Count 202 TH/MM3 202 TH/MM3 Mean Platelet Volume 7.5 FL 7.7 FL Neutrophils (%) (Auto) 73.2 % 72.6 % Lymphocytes (%) (Auto) 16.3 % 15.9 % Monocytes (%) (Auto) 9.1 % 9.1 % Eosinophils (%) (Auto) 1.1 % 1.9 % Basophils (%) (Auto) 0.3 % 0.5 % Neutrophils # (Auto) 8.5 TH/MM3 7.7 TH/MM3 Lymphocytes # (Auto) 1.9 TH/MM3 1.7 TH/MM3 Monocytes # (Auto) 1.1 TH/MM3 1.0 TH/MM3 Eosinophils # (Auto) 0.1 TH/MM3 0.2 TH/MM3 Basophils # (Auto) 0.0 TH/MM3 0.0 TH/MM3 CBC Comment DIFF FINAL DIFF FINAL Differential Comment Laboratory Tests Test 10/14/17 00:15 10/14/17 06:57 10/15/17 04:29 Troponin I LESS THAN 0.02 NG/ML 0.13 NG/ML Blood Urea Nitrogen 22 MG/DL 18 MG/DL Creatinine 1.34 MG/DL 1.27 MG/DL Random Glucose 92 MG/DL 95 MG/DL Total Protein 6.6 GM/DL Albumin 3.1 GM/DL Calcium Level 8.7 MG/DL 8.6 MG/DL Alkaline Phosphatase 68 U/L Aspartate Amino Transf (AST/SGOT) 19 U/L Alanine Aminotransferase (ALT/SGPT) 23 U/L Total Bilirubin 0.4 MG/DL Sodium Level 135 MEQ/L 139 MEQ/L Potassium Level 4.6 MEQ/L 4.8 MEQ/L Chloride Level 103 MEQ/L 106 MEQ/L Carbon Dioxide Level 23.5 MEQ/L 24.2 MEQ/L Anion Gap 9 MEQ/L 9 MEQ/L Estimat Glomerular Filtration Rate 51 ML/MIN 54 ML/MIN C-Reactive Protein 0.98 MG/DL Free Thyroxine 1.09 NG/DL Thyroid Stimulating Hormone 3rd Gen 5.160 uIU/ML Microbiology Date/Time Source Procedure Growth Status 10/14/17 06:37 Blood Line Aerobic Blood Culture - Preliminary NO GROWTH IN 1 DAY Resulted 10/14/17 06:37 Blood Line Anaerobic Blood Culture - Preliminary NO GROWTH IN 1 DAY Resulted 10/14/17 06:30 Blood Line Aerobic Blood Culture - Preliminary NO GROWTH IN 1 DAY Resulted 10/14/17 06:30 Blood Line Anaerobic Blood Culture - Preliminary NO GROWTH IN 1 DAY Resulted PHYSICAL EXAMINATION: GENERAL: Awake, alert. Looks chronically ill. HEENT: The head is atraumatic. Extraocular movements are grossly intact. Pupils reactive to light. No icterus. No conjunctival erythema. Oropharynx moist mucosa. No visible lesions. NECK: Supple. No adenopathy or swelling. LUNGS: Breath sounds are decreased. HEART: Regular S1 and S2. No audible murmurs. The heart sounds are distant. ABDOMEN: Bowel sounds present. Soft. EXTREMITIES: No clubbing, cyanosis or edema. SKIN: No rash. Chronic skin keratoses at the face. No diffuse rash. NEUROLOGIC: No gross focal finding. PSYCHIATRIC: Calm and cooperative. IMPRESSION: 1. Leukocytosis. 2. Chest discomfort along with diaphoresis and fatigue in patient who has history of aortic valve replacement and history of recent treatment for endocarditis. Rule out infection. 3. Chronic fatigue and weakness. Rule out other noninfectious cause. 4. The patient does have underlying coronary artery disease and has had ejection fraction of less than 50%. 5. Chronic kidney disease. RECOMMENDATIONS: 1. Follow his 2-Dimensional echocardiogram. 2. Continue treatment with ceftriaxone. 3. Monitor blood cultures. Alexander Dia MD October 15, 2017 20:02
[2017-10-15] MEDS: METOPROLOL TARTRATE 50 MG TAB PO SCH (22:12)
[2017-10-15] MEDS: TERAZOSIN HCL 1 MG CAP PO SCH (22:12)
[2017-10-15] MEDS: cefTRIAXone INJ 1,000 MG in SODIUM CHLORIDE 0.9% INJ 100 ML IV SCH (22:13)
[2017-10-16] VITALS (10 sets, daily range): BP systolic 139–192; BP diastolic 65–81; PULSE 71–74; RESP 17–24; TEMP 96.5–98.2; O2SAT 93–95
[2017-10-16] MEDS: SODIUM CHLORIDE 0.9% FLUSH 10 ML FLUSH IV FLUSH SCH ×2 (08:30→20:12)
[2017-10-16] MEDS: ASPIRIN 81 MG CHEW TAB PO SCH (08:31)
[2017-10-16] MEDS: ISOSORBIDE MONONITRATE 30 MG CR TAB (IMDUR) PO SCH (08:31)
[2017-10-16] MEDS: PANTOPRAZOLE SOD 20 MG DELAYED RELEASE TAB PO SCH (08:32)
[2017-10-16] MEDS: ATORVASTATIN 40 MG TAB PO SCH (08:32)
[2017-10-16] MEDS: METOPROLOL TARTRATE 50 MG TAB PO SCH ×2 (08:32→20:11)
[2017-10-16] MEDS: RANOLAZINE 500 MG EXTENDED RELEASE TAB PO SCH ×2 (08:32→23:09)
[2017-10-16] MEDS: MULTIVITAMIN-OPHTHALMIC 1 TAB PO SCH (08:32)
[2017-10-16] MEDS: UMECLIDINIUM 62.5 MCG/VILANTEROL 25 MCG INHALER INH SCH (08:33)
--- NOTE | 2017-10-16 09:21 | HHI.PR ---
Subjective Remarks Follow-up chest pain October 14, 2017-patient seen and examined, still complaining of generalized fatigue. Denies any chest pain currently afebrile. by the bedside October 15, 2017-patient seen and examined, states, he had episode of chest pain 2- 3 overnights. BP up October 16, 2017-patient seen and examined, hats couple episode of chest pain this morning. However symptoms resolved when patient stands up. Currently n.p.o. pending Lexiscan stress test Objective Vitals Vital Signs Date Time Temp Pulse Resp B/P (MAP) Pulse Ox O2 Delivery O2 Flow Rate FiO2 10/16/17 07:47 97.5 72 24 155/72 (99) 95 10/16/17 03:53 98.2 73 17 150/70 (96) 94 10/16/17 00:18 98.0 72 17 177/78 (111) 94 10/15/17 20:27 97.9 71 18 150/66 (94) 92 10/15/17 16:33 97.4 73 20 133/62 (85) 96 10/15/17 11:34 97.4 73 20 141/65 (90) 95 10/15/17 10:00 149/62 (91) I/O 10/15/17 10/15/17 10/15/17 10/16/17 10/16/17 10/16/17 07:00 15:00 23:00 07:00 15:00 23:00 Intake Total 200 ml Balance 200 ml Intake Oral 200 ml Result Diagram: 10/15/17 0429 10/15/17 0429 Objective Remarks GENERAL: NAD SKIN: Warm and dry. HEAD: Normocephalic. EYES: No scleral icterus. No injection or drainage. NECK: Supple, trachea midline. No JVD or lymphadenopathy. CARDIOVASCULAR: Regular rate and rhythm without murmurs, gallops, or rubs. RESPIRATORY: Breath sounds equal bilaterally. No accessory muscle use. GASTROINTESTINAL: Abdomen soft, non-tender, nondistended. MUSCULOSKELETAL: No cyanosis, or edema. BACK: Nontender without obvious deformity. No CVA tenderness. A/P Problem List: (1) Chest pain ICD Code: R07.9 - Chest pain, unspecified (2) H/O endocarditis ICD Code: Z86.79 - Personal history of other diseases of the circulatory system (3) Generalized weakness ICD Code: R53.1 - Weakness Assessment and Plan 82-year-old man with 1. Chest Pain: progressive x1 wk, s/p NTG/Morphine w/ minimal relief. ACS thus far ruled out per protocol with serial cardiac enzyme and EKGs, continue home medications. Appreciate input from cardiology pending Lexiscan stress today October 16, 2017 2. H/o Endocarditis: previous admit 07/28-08/03/17 w/ +B/C for E Faecalis, CINDY w/ probable vegetation AV and possible vegetation on chordae, s/p Vanc/ Rocephin via PICC for 6wks, completed antibiotics on 09/08/17, repeat B/C negative per , PICC line removed 09/14/17. Now on Vanc/Rocephin. Appreciate input from infectious disease specialist. 2D echo pending to rule out possible vegetation 3. Generalized Weakness: PT for eval/tx. 4. Benign labile hypertension: continue Lopressor 50 mg twice, Hep-Lock IV fluid 5. GERD: Continue PPI 6. DVT Prophylaxis: ZIYAD/Lazarus Donovan MD October 16, 2017 09:21
[2017-10-16] MEDS ORDERED: REGADENOSON INJ 0.4 MG/5 ML SYR ONE (10:05)
[2017-10-16] MEDS ORDERED: REGADENOSON INJ 0.4 MG/5 ML SYR IV ONE (10:10)
--- NOTE | 2017-10-16 11:30 | RADRPT ---
EXAM DATE/TIME: 10/16/2017 09:29 [facility] COMPARISON: No previous studies available for comparison. INDICATIONS : Substernal chest pain radiating to left arm with dyspnea. Atrial fibrillation. Coronary artery disea se. DOSE: 35 mCi Tc99m Myoview at stress. 10.1 mCi Tc99m Myoview at rest. 0.4 mg Lexiscan STRESS SYMPTOMS: Nausea. EJECTION FRACTION: 45% MEDICAL HISTORY : Hypertension. Chronic obstructive pulmonary disease. Renal failure, chronic. SURGICAL HISTORY : Pacemaker. ENCOUNTER: Initial ACUITY: 1 week PAIN SCALE: 3/10 LOCATION: Bilateral chest TECHNIQUE: The patient underwent pharmacologic stress with infusion of prescribed dose. Continuous ECG tracing was monitored during stress. Gated SPECT imaging was performed after stress and conventional SPECT i maging was performed at rest. The examination was performed on a SPECT/CT scanner, both attenuation and non-corrected datasets were reviewed. FINDINGS: The best perfused myocardium at stress is the anterior lateral wall. The small fixed defect in the a nterior apical region. There is minimal redistribution in the inferior wall wall involving the small segment extending towards the base borderline significant. Ejection fraction of 45% with minimal inferior wall hypokinesis. CONCLUSION: Minimal redistribution inferior wall towards the base with minimal hypokinesis. Significant correlation suggested. RISK CATEGORY: Low (<1% Annual Mortality Rate) Jensen Rodriguez MD FACR on October 16, 2017 at 11:25 Board Certified Radiologist. This report was verified electronically.
[2017-10-16] MEDS ORDERED: VANCOMYCIN INJ 2,000 MG in SODIUM CHLORID 0.9% 500 ML INJ 500 ML IV ONE (15:00)
[2017-10-16] MEDS ORDERED: ALBUTEROL SULFATE 90 MCG/ACT HFA 8 GM INHALER INH PRN (17:15)
--- NOTE | 2017-10-16 17:40 | ECHRPT ---
Indication: CHEST PAIN CONCLUSIONS Normal left ventricular size. Mild concentric left ventricular hypertrophy. The left ventricular systolic function is hyperdynamic with an estimated ejection fraction in the ra nge of 60%. Mild mitral valve regurgitation. Mild aortic valve regurgitation. There is trace tricuspid valve regurgitation. The estimated pulmonary arterial pressure is 28.3 mmHg. Trivial pulmonary valve regurgitation. BP: 155 / 72 HR: 72 Rhythm: Sinus MEASUREMENTS (Male / Female) Normal Values Technical Quality:Fair 2D ECHO LVOT Diameter 2.0 cm Aortic Root Diameter 3.4 cm DOPPLER AV Peak Velocity 109.5 cm/s AV Peak Gradient 4.8 mmHg AV Mean Gradient 2.5 mmHg AV Velocity Time Integral 17.3 cm AI Peak Velocity 380.0 cm/s AI Peak Gradient 57.8 mmHg AI Pressure Half Time 539.5 ms LVOT Peak Velocity 69.5 cm/s LVOT Peak Gradient 1.9 mmHg LVOT Velocity Time Integral 10.1 cm AV Area Cont Eq vti 1.8 cm AV Area Cont Eq pk 2.0 cm Mitral E Point Velocity 31.6 cm/s Mitral A Point Velocity 76.5 cm/s Mitral E to A Ratio 0.4 LV E' Lateral Velocity 5.6 cm/s Mitral E to LV E' Lateral Ratio 5.6 LV E' Septal Velocity 4.6 cm/s Mitral E to LV E' Septal Ratio 6.9 TR Peak Velocity 214.0 cm/s TR Peak Gradient 18.0 mmHg Right Atrial Pressure 10.0 mmHg Pulmonary Artery Systolic Pressu 28.3 mmHg Right Ventricular Systolic Press 28.3 mmHg PV Peak Velocity 72.9 cm/s PV Peak Gradient 2.1 mmHg FINDINGS LEFT VENTRICLE Normal left ventricular size. Mild concentric left ventricular hypertrophy. The left ventricular systolic function is hyperdynamic with an estimated ejection fraction in the ra nge of 65- 70%. RIGHT VENTRICLE Normal right ventricular size and systolic function. LEFT ATRIUM The left atrial size is normal. RIGHT ATRIUM The right atrial size is normal. ATRIAL SEPTUM No atrial level shunt is demonstrated by color flow Doppler interrogation. AORTA The aortic root and proximal ascending aorta are normal in size on limited imaging. MITRAL VALVE Mild mitral valve regurgitation. AORTIC VALVE Mild aortic valve regurgitation. TRICUSPID VALVE There is trace tricuspid valve regurgitation. The estimated pulmonary arterial pressure is 28.3 mmHg. PULMONARY VALVE Trivial pulmonary valve regurgitation. VESSELS The inferior vena cava is normal in size. PERICARDIUM No pericardial effusion. Tal Woodson MD, FACC, FSCAI (Electronically Signed) Final Date:16 Oct 2017 17:40
--- NOTE | 2017-10-16 18:03 | PD.CARD.PN ---
Subjective Subjective Remarks No CP or SOB, very weak Objective Medications Current Medications Medications (Trade) Dose Ordered Sig/Eduardo Route Start Time Stop Time Status Last Admin (NS Flush) 2 ml UNSCH PRN IV FLUSH 10/13/17 23:30 (NS Flush) 2 ml BID IV FLUSH 10/14/17 09:00 10/16/17 08:30 (Reglan Inj) 5 mg Q6H PRN IV PUSH 10/13/17 23:30 (Tylenol) 650 mg Q6H PRN PO 10/13/17 23:30 (Rozel 5-325 Mg) 1 tab Q4H PRN PO 10/13/17 23:30 (Morphine Inj) 2 mg Q3H PRN IV PUSH 10/13/17 23:30 (Milk Of Magnesia Liq) 30 ml Q12H PRN PO 10/13/17 23:30 (Aspirin Chew) 81 mg DAILY PO 10/14/17 09:00 10/16/17 08:31 (Requip) 0.5 mg HS PO 10/14/17 21:00 10/15/17 22:12 (Hytrin) 1 mg HS PO 10/14/17 21:00 10/15/17 22:12 (Protonix) 20 mg DAILY PO 10/14/17 09:00 10/16/17 08:32 (Ocuvite) 1 tab DAILY PO 10/14/17 09:00 10/16/17 08:32 (Ranexa) 1,000 mg BID PO 10/14/17 09:00 10/16/17 08:32 Ceftriaxone Sodium 1000 mg/ Sodium Chloride 100 ml @ 200 mls/hr Q24H IV 10/14/17 00:00 10/15/17 22:13 Pharmacy Profile Note 0 ml @ 0 mls/hr UNSCH OTHER 10/13/17 23:30 (Pill Splitter) 1 ea UNSCH PRN OTHER 10/13/17 23:45 (Duoneb Neb) 1 ampule Q4HR NEB PRN NEB 10/14/17 00:45 10/16/17 17:25 (Nitrostat Sl) 0.4 mg Q5M PRN SL 10/15/17 10:00 10/16/17 07:27 (Lipitor) 80 mg DAILY PO 10/16/17 09:00 10/16/17 08:32 (Imdur) 60 mg DAILY PO 10/16/17 09:00 10/16/17 08:31 (Lopressor) 75 mg BID PO 10/15/17 21:00 10/16/17 08:32 (Proair Hfa Inh) 2 puff Q6H PRN INH 10/16/17 17:15 Vital Signs / I&O Vital Signs Date Time Temp Pulse Resp B/P (MAP) Pulse Ox O2 Delivery O2 Flow Rate FiO2 10/16/17 15:18 97.1 73 20 139/65 (89) 95 10/16/17 15:00 74 10/16/17 07:47 97.5 72 24 155/72 (99) 95 10/16/17 07:15 74 10/16/17 03:53 98.2 73 17 150/70 (96) 94 10/16/17 00:18 98.0 72 17 177/78 (111) 94 10/15/17 20:27 97.9 71 18 150/66 (94) 92 I/O 10/15/17 10/15/17 10/15/17 10/16/17 10/16/17 10/16/17 07:00 15:00 23:00 07:00 15:00 23:00 Intake Total 200 ml 240 ml Balance 200 ml 240 ml Intake Oral 200 ml 240 ml Physical Exam GENERAL: In NAD. SKIN: Warm and dry. HEAD: Normocephalic. EYES: No scleral icterus. No injection or drainage. NECK: Supple, trachea midline. No JVD or lymphadenopathy. CARDIOVASCULAR: Regular rate and rhythm without murmurs, gallops, or rubs. RESPIRATORY: Breath sounds equal bilaterally. No accessory muscle use. GASTROINTESTINAL: Abdomen soft, non-tender, nondistended. MUSCULOSKELETAL: No cyanosis, or edema. Laboratory Laboratory Tests Test 10/16/17 06:30 Random Vancomycin Level 13.7 COMMENT Imaging Last 24 hours Impressions Myocardial Perfusion Scan Nuc Med 10/16/17 0900 Signed Impressions: Service Date/Time: Monday, October 16, 2017 09:29 - CONCLUSION: Minimal redistribution inferior wall towards the base with minimal hypokinesis. Significant correlation suggested. RISK CATEGORY: Low (<1%% Annual Mortality Rate) Jensen Rodriguez MD FACR Assessment and Plan Problem List: (1) Chest pain ICD Codes: R07.9 - Chest pain, unspecified (2) CAD (coronary artery disease) ICD Codes: I25.10 - Atherosclerotic heart disease of [place] coronary artery without angina pectoris (3) H/O endocarditis ICD Codes: Z86.79 - Personal history of other diseases of the circulatory system (4) HTN (hypertension) ICD Codes: I10 - Essential (primary) hypertension (5) CKD (chronic kidney disease) ICD Codes: N18.9 - Chronic kidney disease, unspecified Status: Acute (6) History of permanent cardiac pacemaker placement ICD Codes: Z95.0 - Presence of cardiac pacemaker Status: Acute Assessment and Plan Nuclear stress test low risk. Echo with preserved LV fx and no valvular vegetations. Continue aggressive risk factor modification. ID eval and mgmt in progress. Increase activity, PT. D/w pt and . Vivian Alejandre MD October 16, 2017 18:03
--- NOTE | 2017-10-16 19:15 | HHI.IDPN ---
Note Infectious Disease Note Patient says he continues to feel weak. Reports he was having wheezing earlier today. Given breathing treatment. Feels his breathing is better now. No nausea vomiting. Blood cultures no growth in 48 hours. Patient underwent echocardiogram which did not show any vegetation. Also underwent stress test which was unremarkable. 82-year-old white male who came to the Emergency Department because of chest pain. The patient describes epigastric discomfort. He also reports feeling weak and had difficulty ambulating because of weakness. 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 ALLERGIES: PENICILLIN, UMECLIDINIUM (caused urinary retention). MEDICATIONS: Current Medications Medications (Trade) Dose Ordered Sig/Eduardo Route PRN Reason Start Time Stop Time Status Last Admin Dose Admin Sodium Chloride (NS Flush) 2 ml UNSCH PRN IV FLUSH FLUSH AFTER USING IV ACCESS 10/13/17 23:30 Sodium Chloride (NS Flush) 2 ml BID IV FLUSH 10/14/17 09:00 10/16/17 08:30 Metoclopramide HCl (Reglan Inj) 5 mg Q6H PRN IV PUSH NAUSEA OR VOMITING 10/13/17 23:30 Acetaminophen (Tylenol) 650 mg Q6H PRN PO FEVER/PAIN SCALE 1 TO 2 10/13/17 23:30 Acetaminophen/ Hydrocodone Bitart ([place] 5-325 Mg) 1 tab Q4H PRN PO PAIN SCALE 3 TO 5 10/13/17 23:30 Morphine Sulfate (Morphine Inj) 2 mg Q3H PRN IV PUSH Pain 6-10 10/13/17 23:30 Magnesium Hydroxide (Milk Of Magnesia Liq) 30 ml Q12H PRN PO Mild constipation 10/13/17 23:30 Aspirin (Aspirin Chew) 81 mg DAILY PO 10/14/17 09:00 10/16/17 08:31 Ropinirole HCl (Requip) 0.5 mg HS PO 10/14/17 21:00 10/15/17 22:12 Terazosin HCl (Hytrin) 1 mg HS PO 10/14/17 21:00 10/15/17 22:12 Pantoprazole Sodium (Protonix) 20 mg DAILY PO 10/14/17 09:00 10/16/17 08:32 Vit C/Vit E/Zinc/ Copper/Lutein (Ocuvite) 1 tab DAILY PO 10/14/17 09:00 10/16/17 08:32 Ranolazine (Ranexa) 1,000 mg BID PO 10/14/17 09:00 10/16/17 08:32 Ceftriaxone Sodium 1000 mg/ Sodium Chloride 100 ml @ 200 mls/hr Q24H IV 10/14/17 00:00 10/15/17 22:13 Pharmacy Profile Note 0 ml @ 0 mls/hr UNSCH OTHER 10/13/17 23:30 Miscellaneous (Pill Splitter) 1 ea UNSCH PRN OTHER SEE LABEL COMMENTS 10/13/17 23:45 Albuterol/ Ipratropium (Duoneb Neb) 1 ampule Q4HR NEB PRN NEB SOB/WHEEZING 10/14/17 00:45 10/16/17 17:25 Nitroglycerin (Nitrostat Sl) 0.4 mg Q5M PRN SL CHEST PAIN 10/15/17 10:00 10/16/17 07:27 Atorvastatin Calcium (Lipitor) 80 mg DAILY PO 10/16/17 09:00 10/16/17 08:32 Isosorbide Mononitrate (Imdur) 60 mg DAILY PO 10/16/17 09:00 10/16/17 08:31 Metoprolol Tartrate (Lopressor) 75 mg BID PO 10/15/17 21:00 10/16/17 08:32 Albuterol Sulfate (Proair Hfa Inh) 2 puff Q6H PRN INH DYSPNEA 10/16/17 17:15 Objective: Vital Signs Date Time Temp Pulse Resp B/P (MAP) Pulse Ox O2 Delivery O2 Flow Rate FiO2 10/16/17 15:18 97.1 73 20 139/65 (89) 95 10/16/17 15:00 74 10/16/17 07:47 97.5 72 24 155/72 (99) 95 10/16/17 07:15 74 10/16/17 03:53 98.2 73 17 150/70 (96) 94 10/16/17 00:18 98.0 72 17 177/78 (111) 94 10/15/17 20:27 97.9 71 18 150/66 (94) 92 Laboratory Tests Test 10/15/17 04:29 White Blood Count 10.7 TH/MM3 Red Blood Count 4.34 MIL/MM3 Hemoglobin 13.1 GM/DL Hematocrit 38.7 % Mean Corpuscular Volume 89.3 FL Mean Corpuscular Hemoglobin 30.2 PG Mean Corpuscular Hemoglobin Concent 33.8 % Red Cell Distribution Width 14.7 % Platelet Count 202 TH/MM3 Mean Platelet Volume 7.7 FL Neutrophils (%) (Auto) 72.6 % Lymphocytes (%) (Auto) 15.9 % Monocytes (%) (Auto) 9.1 % Eosinophils (%) (Auto) 1.9 % Basophils (%) (Auto) 0.5 % Neutrophils # (Auto) 7.7 TH/MM3 Lymphocytes # (Auto) 1.7 TH/MM3 Monocytes # (Auto) 1.0 TH/MM3 Eosinophils # (Auto) 0.2 TH/MM3 Basophils # (Auto) 0.0 TH/MM3 CBC Comment DIFF FINAL Differential Comment Laboratory Tests Test 10/15/17 04:29 Blood Urea Nitrogen 18 MG/DL Creatinine 1.27 MG/DL Random Glucose 95 MG/DL Calcium Level 8.6 MG/DL Sodium Level 139 MEQ/L Potassium Level 4.8 MEQ/L Chloride Level 106 MEQ/L Carbon Dioxide Level 24.2 MEQ/L Anion Gap 9 MEQ/L Estimat Glomerular Filtration Rate 54 ML/MIN C-Reactive Protein 0.98 MG/DL Free Thyroxine 1.09 NG/DL Thyroid Stimulating Hormone 3rd Gen 5.160 uIU/ML Microbiology Date/Time Source Procedure Growth Status 10/14/17 06:37 Blood Line Aerobic Blood Culture - Preliminary NO GROWTH IN 2 DAYS Resulted 10/14/17 06:37 Blood Line Anaerobic Blood Culture - Preliminary NO GROWTH IN 2 DAYS Resulted 10/14/17 06:30 Blood Line Aerobic Blood Culture - Preliminary NO GROWTH IN 2 DAYS Resulted 10/14/17 06:30 Blood Line Anaerobic Blood Culture - Preliminary NO GROWTH IN 2 DAYS Resulted PHYSICAL EXAMINATION: GENERAL: Awake, alert. Looks chronically ill. HEENT: The head is atraumatic. Extraocular movements are grossly intact. Pupils reactive to light. No icterus. No conjunctival erythema. Oropharynx moist mucosa. No visible lesions. NECK: Supple. No adenopathy or swelling. LUNGS: Breath sounds are clear. HEART: Regular S1 and S2. No audible murmurs. The heart sounds are distant. ABDOMEN: Bowel sounds present. Soft. EXTREMITIES: No clubbing, cyanosis or edema. SKIN: No rash. Chronic skin keratoses at the face. No diffuse rash. NEUROLOGIC: No gross focal finding. PSYCHIATRIC: Calm and cooperative. IMPRESSION: 1. Leukocytosis. WBC mildly elevated now. 2. Chest discomfort along with diaphoresis and fatigue in patient who has history of aortic valve replacement and history of recent treatment for endocarditis. So far without evidence of infection. 3. Chronic fatigue and weakness. Rule out other noninfectious cause. 4. The patient does have underlying coronary artery disease and has had ejection fraction of less than 50%. 5. Chronic kidney disease. RECOMMENDATIONS: 1. Continue to monitor blood cultures. If the blood cultures negative tomorrow morning the patient can be discharged from infection standpoint. He has an appointment for follow-up with infectious disease on October 24 already set up.. 2. Stop the ceftriaxone until cultures are negative tomorrow. Discharge home without antibiotics if the blood cultures are negative. Discussed with patient's and patient. He can also follow-up with his primary physician. Alexander Dia MD October 16, 2017 19:15
[2017-10-16] MEDS: TERAZOSIN HCL 1 MG CAP PO SCH (20:11)
[2017-10-16] MEDS: cefTRIAXone INJ 1,000 MG in SODIUM CHLORIDE 0.9% INJ 100 ML IV SCH (23:14)
[2017-10-17] VITALS: PULSE 63
[2017-10-17 04:00] VITALS: PULSE 71
[2017-10-17 06:00] VITALS: BP 171/70; PULSE 71; RESP 18; TEMP 97.3; O2SAT 96
[2017-10-17 08:00] VITALS: BP 171/84; PULSE 64; PULSE 74; RESP 18; TEMP 97.8; O2SAT 94
[2017-10-17] MEDS: MULTIVITAMIN-OPHTHALMIC 1 TAB PO SCH (09:00)
[2017-10-17] MEDS: ATORVASTATIN 40 MG TAB PO SCH (09:28)
[2017-10-17] MEDS: PANTOPRAZOLE SOD 20 MG DELAYED RELEASE TAB PO SCH (09:28)
[2017-10-17] MEDS: METOPROLOL TARTRATE 50 MG TAB PO SCH (09:28)
[2017-10-17] MEDS: ASPIRIN 81 MG CHEW TAB PO SCH (09:28)
[2017-10-17] MEDS: ISOSORBIDE MONONITRATE 30 MG CR TAB (IMDUR) PO SCH (09:28)
[2017-10-17] MEDS: RANOLAZINE 500 MG EXTENDED RELEASE TAB PO SCH (09:28)
[2017-10-17] MEDS: SODIUM CHLORIDE 0.9% FLUSH 10 ML FLUSH IV FLUSH SCH (09:29)
[2017-10-17] MEDS ORDERED: METO-309 PO (10:25)
[2017-10-17] MEDS ORDERED: GAVISUS PO (10:51)
[2017-10-17] MEDS ORDERED: ISOS30TA3 PO ×2 (10:51→10:55)
--- NOTE | 2017-10-17 10:53 | HHI.DCPOC ---
Discharge Care Plan Diagnosis: (1) Acid reflux disease (2) CAD (coronary artery disease) (3) Chest pain (4) COPD (chronic obstructive pulmonary disease) Goals to Promote Your Health * To prevent worsening of your condition and complications * To maintain your health at the optimal level Directions to Meet Your Goals Take your medications as prescribed Follow your dietary instruction Follow activity as directed Keep your appointments as scheduled Take your immunizations and boosters as scheduled If your symptoms worsen call your PCP, if no PCP go to Urgent Care Center or Emergency Room Smoking is Dangerous to Your Health. Avoid second hand smoke Call the 24-hour hour crisis hotline for domestic abuse at Tevin Daniel MD October 17, 2017 10:53
[2017-10-17] MEDS ORDERED: LEVO50TA4 PO (10:57)
--- NOTE | 2017-10-17 11:00 | HHI.DS ---
Discharge Summary Admission Date October 13, 2017 at 23:03 Discharge Date: October 17, 2017 Admitting Diagnosis leukocytosis, pulmonary nodule, hx endocarditis (1) Chest pain ICD Code: R07.9 - Chest pain, unspecified (2) H/O endocarditis ICD Code: Z86.79 - Personal history of other diseases of the circulatory system Procedures none Brief History - From Admission This is an 82-year-old male with a PMH of A. fib, COPD, CKD, HTN, s/p Pacemaker , CHF (Echo 07/31/17 w/ EF 35-40%), NHL in remission and Endocarditis who presented to the ER w/ complaints of chest pain and profound generalized weakness x1 wk. Previous admit 07/28/17-08/03/17 for similar complaints in addition to fever, B/C +E Faecalis, s/p CINDY by Dr. Ramos 08/02/17 w/ probably vegatation to AV and possible vegetation on the chordae, EF 40-45% at that time. Seen by Dr. Dia w/ ID and completed long-term IV Abx w/ Vanc/ Rocephin on 09/08/17. states they've been following w/ Dr. Torres, Dr. Ramos and w/ PCP on regular basis since last admission. Had repeat B/C as outpatient after completion of antibiotics w/ negative results, however notes "sample not enough". states pt has had significant decline since Monday, w/ progressive weakness and ongoing CP. States Dr. Ramos and PCP aware, told to continue w/ Nexium/NTG as needed. Today, however states pt could barely get out of bed at which time they came to the ER. On arrival, BP 132/63, HR 77, O2 sat 93% on RA, Afebrile. WBC 13.0 with elevated neutrophil count. Chemistry essentially at baseline. Troponin negative. INR 1.0. UA negative for UTI. CXR with no acute findings. CTA with no PE, pronounced emphysematous changes, 6 mm right lower lobe pulmonary nodule with recommendation for repeat CT in 6 months, states they are aware of these findings. S/p Morphine in ER w/ minimal improvement. CBC/BMP: 10/15/17 0429 10/15/17 0429 Significant Findings Laboratory Tests Test 10/15/17 04:29 10/16/17 06:30 10/17/17 04:20 Red Blood Count 4.34 MIL/MM3 (4.50-5.90) Hematocrit 38.7 % (39.0-51.0) Neutrophils (%) (Auto) 72.6 % (16.0-70.0) Monocytes (%) (Auto) 9.1 % (0.0-8.0) Monocytes # (Auto) 1.0 TH/MM3 (0-0.9) Estimat Glomerular Filtration Rate 54 ML/MIN (>89) C-Reactive Protein 0.98 MG/DL (0.00-0.30) Thyroid Stimulating Hormone 3rd Gen 5.160 uIU/ML (0.358-3.740) Imaging Last Impressions Myocardial Perfusion Scan Nuc Med 10/16/17 0900 Signed Impressions: Service Date/Time: Monday, October 16, 2017 09:29 - CONCLUSION: Minimal redistribution inferior wall towards the base with minimal hypokinesis. Significant correlation suggested. RISK CATEGORY: Low (<1%% Annual Mortality Rate) Jensen Rodriguez MD FACR CT Angiography [id number]/13/[id number] Signed Impressions: Service Date/Time: Friday, October 13, 2017 22:30 - CONCLUSION: 1. No PE. 2. Pronounced emphysematous changes. 3. 6 mm right lower lobe pulmonary nodule without prior studies to document stability. Current Fleischner guidelines suggest a repeat CT of the thorax in 6 months. 4. Significant coronary artery atherosclerotic calcifications. Live Prieto Jr., MD Chest X-Ray [id number]/13/[id number] Signed Impressions: Service Date/Time: Friday, October 13, 2017 18:37 - CONCLUSION: No acute cardio pulmonary disease. Live Prieto Jr., MD PE at Discharge Heart sounds regular rate rhythm, no murmurs Unlabored breathing, clear lungs bilaterally Awake alert, no acute distress 5 out of 5 proximal upper extremity strength bilaterally 4 out of 5 proximal lower extremity strength bilaterally Hospital Course Patient was admitted. Place on telemetry. Cardiology was consulted, patient ultimately underwent stress test which was negative. Echocardiogram showed preserved ejection fraction with no vegetations. Patient remained afebrile throughout his entire stay and his blood cultures were negative. Infectious disease was consulted and ultimately signed off deeming the patient appropriate to be discharged without antibiotics. Patient's chest pain had improved but was mildly persistent and intermittent. Patient and are both advised to follow-up with his PCP and see steersman for possible endoscopy. I instructed them to increase their antireflux regimen by adding on either Maalox or Gaviscon on top of his current PPI at home. Patient was also advised to follow-up with his drug and alcohol treatment specialist on his right lung nodule. The patient's "weakness" was confined to the lower limbs and was very mild, he was also noted to be very mildly hypothyroid. Patient was started on low-dose Synthroid and was advised to follow-up with his neurologist for possible lumbar spine imaging to evaluate for any compressive pathology that may be causing his lower extremity symptoms. Patient has met maximal benefit from hospitalization is clinically stable for discharge home with home PT. Pt Condition on Discharge: Stable Discharge Disposition: Disch w/ Home Health Serv Discharge Time: <= 30 minutes Discharge Instructions DIET: Follow Instructions for: Heart Healthy Diet, Gastroesophageal Reflux Activities you can perform: Weight Bearing as Darcy Follow up Referrals: Cardiology - 1 Week Gastroenterology - 1 Week Infectious Disease - 10 Days Neurology - 1 Week PCP Follow-up - 1 Week New Medications: Aluminum Hydroxide-Mag Carb Liq (Gaviscon Liq) 95-358 Mg/15 Ml Susp 15-30 ML PO QID PRN for HEARTBURN, #1 BOTTLE 0 Refills Maximum 120 mL/24 hrs. Levothyroxine (Levothyroxine) 50 Mcg Tab 50 MCG PO DAILY for Thyroid, #30 TAB 0 Refills Isosorbide Mononitrate ER (Isosorbide Mononitrate ER) 30 Mg Perfecto 60 MG PO DAILY for angina, #60 TAB Metoprolol Tartrate (Lopressor) 50 Mg Tab 75 MG PO BID for heart health, #60 TAB Continued Medications: Albuterol 8.5 GM Inh (Proair Hfa 8.5 GM Inh) 90 Mcg/Act Aer 2 PUFF INH Q4-6H PRN for SHORTNESS OF BREATH, #1 INHALER 0 Refills 108 mcg/actuation Aspirin (Tgt Aspirin) 81 Mg Chw 81 MG PO DAILY for Blood Clot Prevention, #90 EA 3 Refills Cholecalciferol (Vitamin D3) 1,000 Unit Tab 2000 UNITS PO DAILY for Nutritional Supplement for 90 Days, BOTTLE 0 Refills Cyanocobalamin Inj (Cyanocobalamin Inj) 1,000 Mcg/Ml Inj 1000 MCG IM ONCE PRN for monthly, #1 VIAL [address] (Nexium) 20 Mg Capdr 20 MG PO DAILY, #90 CAP 0 Refills Mometasone Nasal [place] (Nasonex Nasal [place]) 50 Mcg/Act Naspr 2 SPRAY EACH NARE DAILY for Allergy Management, #1 BOTTLE 0 Refills Multiple Vitamins W/ Minerals (Preservision Areds) 1 Tab 1 TAB PO DAILY for Nutritional Supplement, #90 TAB 0 Refills Nitroglycerin SL (Nitroglycerin SL) 0.4 Mg Subl 0.4 MG SL DIRECTED PRN for CHEST PAIN, #100 TAB.SL 0 Refills ONE TABLET UNDER THE TONGUE NEEDED FOR CHEST PAIN, MAY REPEAT EVERY FIVE MINUTES FOR A TOTAL OF 3 DOSES OR CALL 911 IF NO RELIEF Polyethylene Glycol-Propylene Glycol Opth Drp (Systane Opth Drops) 0.4-0.3% Soln 1-2 DROP EACH EYE PRN PRN for DRY EYE, #1 BOTTLE 0 Refills Primidone (Primidone) 50 Mg Tab 50 MG PO DAILY PRN for prn, #60 TAB 0 Refills Ranolazine ER 12 HR (Ranexa ER 12 HR) 1,000 Mg Tab 1000 MG PO BID for daily, #180 TAB 0 Refills Ropinirole (Ropinirole) 0.5 Mg Tab 0.5 MG PO HS, #90 TAB 0 Refills Rosuvastatin (Crestor) 20 Mg Tab 20 MG PO DAILY for Cholesterol Management, #90 TAB 1 Refill Terazosin (Terazosin) 1 Mg Cap 1 MG PO HS, #90 CAP 1 Refill Torsemide (Torsemide) 10 Mg Tab 10 MG PO DAILY PRN for Fluid, #30 TAB 0 Refills Take one tablet if 3-5 weight gain noticed. Please contact Label Maker if weight gain noticed or shortness of breath. Discontinued Medications: Isosorbide Mononitrate ER (Isosorbide Mononitrate ER) 30 Mg Perfecto 15 MG PO DAILY for Prevent Chest Pain, #90 TAB 0 Refills Metoprolol Tartrate (Metoprolol Tartrate) 25 Mg Tab 25 MG PO BID, #60 TAB 0 Refills Tevin Daniel MD October 17, 2017 11:00
--- NOTE | 2017-10-17 11:15 | HHI.FF ---
Face to Face Verification Diagnosis: (1) Lower extremity weakness Physical Therapy Order: Evaluate and Treat Occupational Therapy Order: Evaluate and Treat Home Health Nursing Order: Signs/symptoms of disease process Nursing assessment with vital signs I have seen patient Live Bae, III on 10/17/17. My clinical findings support the need for the requested home health care services because: Limited ability to care for self I certify that my clinical findings support that this patient is homebound because: Unsafe to leave home unassisted Tevin Daniel MD October 17, 2017 11:15
[2017-10-17 12:00] VITALS: PULSE 64
[2017-10-17] MEDS ORDERED: PHARMACY ORDERED LAB ONE (12:00)
== END 2017-10-17 12:15 | disposition home health service (06) | DRG 313 ==
LOC: NEPC 16:13 → OBSVTOIN 23:03 → NEDA 23:03 → NEPHCDU 10-14 00:24 → N04A 10-16 19:55
PROVIDERS: ADMIT Hospitalist; ATTEND Hospitalist
DX: R07.9 Chest pain, unspecified (principal); I25.10 Atherosclerotic heart disease of native coronary artery without angina pectoris; I13.0 Hypertensive heart and chronic kidney disease with heart failure and stage 1 through stage 4 chronic kidney disease, or unspecified chronic kidney disease; I48.91 Unspecified atrial fibrillation; I50.9 Heart failure, unspecified; J44.9 Chronic obstructive pulmonary disease, unspecified; R53.1 Weakness; K21.9 Gastro-esophageal reflux disease without esophagitis; N18.9 Chronic kidney disease, unspecified; R91.1 Solitary pulmonary nodule; D72.829 Elevated white blood cell count, unspecified; E03.9 Hypothyroidism, unspecified; Z95.0 Presence of cardiac pacemaker; Z86.79 Personal history of other diseases of the circulatory system; Z79.899 Other long term (current) drug therapy
CPT/HCPCS: 71045; 71275; 76937; 78452; 80048; 80053; 80202; 81001; 82550; 83605; 83880; 84439; 84443; 84484; 85025; 85610; 85730; 86038; 86140; 86430; 87040; 93005; 93017; 93306; 94664; A9502; G8987-GP; G8988-GP; J0696; J2785; J3370; J7030; J7040; Q9967

== ENCOUNTER 2017-12-14 10:13 | Inpatient (IN) ==
[2017-12-14] MEDS ORDERED: Iohexol 350 MG/ML 50 ML Vial (for Cath Lab) IVCONTRAST ONE (10:14)
[2017-12-14 11:27] LABS: Baso # (Auto) 0.1 th/mm3 (0.0-0.2); Baso % (Auto) 0.5 % (0.0-2.0); Eos # (Auto) 0.1 th/mm3 (0.0-0.4); Eos % (Auto) 0.6 % (0.0-4.0); Hemoglobin 12.1 gm/dL (13.0-17.0); Lymph # (Auto) 1.2 th/mm3 (1.0-4.8); Lymph % (Auto) 9.9 % (9.0-44.0); Mean Corpuscular HGB Conc 32.8 % (32.0-36.0); Mean Corpuscular Volume 91.4 fL (80.0-100.0); Mean Platelet Volume 7.4 fL (7.0-11.0); Mono # (Auto) 1.1 th/mm3 (0.0-0.9); Mono % (Auto) 8.9 % (0.0-8.0); Neut # (Auto) 9.9 th/mm3 (1.8-7.7); Neut % (Auto) 80.1 % (16.0-70.0); Platelet Count 231 th/mm3 (150-450); Red Blood Count 4.05 mil/mm3 (4.50-5.90); Red Cell Distribution Width 15.2 % (11.6-17.2); White Blood Count 12.3 th/mm3 (4.0-11.0)
[2017-12-14 11:40] LABS: INR 1.1 Ratio; Prothrombin Time 10.7 sec (9.8-11.6)
[2017-12-14 11:41] LABS: Activated Partial Thrombo Time 23.5 sec (24.3-30.1)
[2017-12-14 11:43] LABS: Carbon Dioxide 22.8 meq/L (21.0-32.0); Potassium 4.5 meq/L (3.5-5.1)
[2017-12-14] MEDS ORDERED: Heparin/NS PF Inj 500 ML ONE ×2 (12:40→13:07)
[2017-12-14] MEDS ORDERED: fentaNYL Citrate Inj 100 MCG/2 ML Ampul ONE (12:45)
--- NOTE | 2017-12-14 14:20 | CATHPROC ---
[employer] HIS Report Study Information Study Number Admission Scheduled Start Study Start [id number] Dec 14 2017 10:13AM 12/14/2017 Dec 14 2017 12:24PM [place] Service Electrophysiology Study Admit Source Facility Department Other [facility] Specialist Physician and Clinical Staff Initial MD Ramos, Alejandro Database Programmer Rudolph PatelRN Recorder Madhav Veliz,RT(R) Scrub Malina Ontiveros,RT(R) Procedures Performed Procedure Location (Site) Vessel Name Coronary Angiograms LCA Left Coronary Coronary Angiograms RCA Right Coronary LV Gram-hand inj. 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 FR 5 [id number] *[id number] Used MICROPUNCTURE STIFF [phone] *[id number] 538-420 *[id number] 538-422 *[id number] 538-453S *[id number] 12:27 [employer] BLANKET,WARM AIR CCL * Used *[id number] 12:27 [employer] PACK, CCL CUSTOM * Used *[id number] 12:27 [employer] PACER PEN, SKIN DUAL W/ RULER * Used *[id number] 12:27 [employer] [place] MEDICAL WIRE, 3MMJ .035 180CM 180CM Used *[id number] 13:44 [employer] [place] MEDICAL WIRE, 3MMJ .035 180CM 180CM Used *[id number] PROBE COVER, STERILE [id number] 12:27 [employer] MEDICAL * Used ULTRASOUND W/ GEL *[id number] 12:27 NAMIC MANIFOLD, 2 PORT * Used *[id number] 12:27 NAMIC MANIFOLD, 4 PORT * Used *[id number] 12:27 [employer] OMNIPAQUE, 350 MG, 150ML 150ML [id number] Used [id number] 12:27 TERUMO MEDICAL SHEATH, FR4 TERUMO (10CM) FR 4 Used *[id number] 12:27 [employer] MEDICAL SHEATH, FR7 TERUMO (10CM) FR 7 Used *[id number] History: Current Medications Medication Dosage/Unit Route Frequency Last Date/Time Taken ASA Statins (any) Albuterol Nexium Synthroid History: Allergies Allergy Reaction Penicillin penicillin G Anaphylaxis umeclidinium Urinary Freq (Inc/Dec) History: Risk Factors Family History of Hypertension Dyslipidemia Previous PA Previous Heart Failure Premature CAD Yes Yes Yes Yes No Prior Valve Prior PCI Prior CABG Surgery No No No Cerebrovascular Peripheral Artery Chronic Lung On Dialysis Diabetes Disease Disease Disease No Yes Yes No No History: Stress Tests Stress or Imaging Studies Performed Yes Standard Exercise Stress Test No Stress Echo No Stress Test SPECT Stress Test SPECT Result Stress Test SPECT Ischemia Risk/Extent Yes Positive Low Stress Test CMR No Cardiac CTA Coronary Calcium Score No No History: Other Current Smoker Method Quit Packs a Day Years Used Pack Years Yes Cigarettes 5 Years Ago 1 50 50 Labs Hgb (g/dl) Hct (%) WBC (l/cumm) Platelets (thousands) 11.60-17.00 35.00-51.00 4.00-11.00 150.00-450.00 12.1 37 12.3 231 Glucose (mg/dl) BUN (mg/dl) Creatinine (mg/dl) BUN:Creatinine (1:x) 74.00-106.00 7.00-18.00 0.50-1.30 10.00-20.00 97 23 1.4 16.4 Na (meq/l) K (meq/l) 136.00-145.00 3.50-5.10 135 4.5 INR (PTT:PT) 0.90-1.10 1.1 CPK-MB (ng/ML) 0.50-3.60 Not Drawn Medication Medication Total Dose (Bolus/Oral) Medication Total Dosage/Unit 1% XYLOCAINE 20 mL FENTANYL 50 mcg OXYGEN 3 l/min VERSED 2 mg Medications (Bolus/Oral) Medication Time Given Dosage/Unit Administered By Reason OXYGEN 12/14/2017 1:06:43 PM 3 l/min Rudolph Patel 3 l/min OXYGEN given in lab by Rudolph Patel RN via Nasal. Ordered by Alejandro Ramos. VERSED 12/14/2017 1:14:43 PM 2 mg Rudolph Patel 2 mg VERSED given in lab by Rudolph Patel RN via Peripheral IV. Ordered by Alejandro Ramos. FENTANYL 12/14/2017 1:15:49 PM 50 mcg Rudolph Patel 50 mcg FENTANYL given in lab by Rudolph Patel RN via Peripheral IV. Ordered by Alejandro Ramos. 1% XYLOCAINE 12/14/2017 1:19:51 PM 20 mL Alejandro Ramos 20 mL 1% XYLOCAINE given in lab by Alejandro Ramos in Right Groin via Subcutaneous. Ordered by Alejandro Rapp. Medication (Drip) Medication Time Given Dosage/Unit Concentration/Unit Diluent (ml) Solution IV Solutions 12/14/2017 12:47:07 PM 0 mL (IV) 500 NaCl .9 Patient arrived on IV Solutions given by Alejandro Ramos in Left Wrist via Peripheral IV. Pump/Drip Flow = 20 ml/hr using NaCl .9. Ordered by Alejandro Ramos. Initial Case Assessment Cardiovascular HR Rhythm NIBP Chest Pain 72 sr 163/129 0 Edema Present Skin color Skin None Normal Warm Dry Circulatory - Right Pulses Dorsalis Pedis Femoral 2 2 Scale (0,1,2,3,4,d) Circulatory - Left Pulses Dorsalis Pedis Femoral 2 2 Scale (0,1,2,3,4,d) Neurological State Oriented to time-place- Alert Moves all extremities person Respiration - General Respiration Rate SpO2 (%) O2 (lpm) (B/min) 18 96 2 Final Case Assessment Cardiovascular HR Rhythm NIBP Chest Pain 72 sr 163/129 0 Edema Present Skin color Skin None Normal Warm Dry Circulatory - Right Pulses Dorsalis Pedis Femoral 2 2 Scale (0,1,2,3,4,d) Circulatory - Left Pulses Dorsalis Pedis Femoral 2 2 Scale (0,1,2,3,4,d) Neurological State Oriented to time-place- Alert Moves all extremities person Respiration - General Respiration Rate SpO2 (%) O2 (lpm) (B/min) 18 96 2 Chronological Log Time Study Chronological Log 12:34:32 Patient arrived via Bed. 12:34:33 Patient Name, D.O.B, / Armband Verified By R.N. 12:46:06 Consent signed by the physician and the patient and verified by the [facility] staff. 12:46:10 Pre-op and post- op instructions given; patient acknowledges understanding of instructions. 12:46:15 Verbal Stimulation=2 Physical Stimulation=2 Airway=2 Respiration=2 TOTAL=8. (0=absent, 1=li mited, 2=present) 12:46:36 Presedation assessment performed by [facility]ist RN. 12:46:38 Patient has been NPO for More than 6Hrs. 12:46:39 Skin Breakdown-none present per patient. 12:46:56 A # 20 IV was noted in the Wrist (left). Grade = 0 Patient arrived on IV Solutions given by Alejandro Ramos in Left Wrist via Peripheral IV. Pump /Drip Flow = 20 ml/hr 12:47:07 using NaCl .9. Ordered by Alejandro Ramos. 12:47:24 History and physical on the chart or being dictated. Assessment: Initial Case, HR=72 BPM, Rhythm=sr, HOZC=283/129 mmhg, Chest Pain=0, Edema=None, Co nita=Normal, Skin = Warm, Dry Right Pulses: Neno Ped=2, Femoral=2 12:47:28 Left Pulses: Neno Ped=2, Femoral=2 Neurological: State=Alert, Ox3, QUINN Respiration: Resp=18 B/min, SpO2=96 %, O2=2 lpm 12:48:36 Bilateral groins prepped with 2% chlorhexidine, and draped after a 3 minute waiting time. Vitals capture started with the following parameters, Patient=Adult, Interval=5 min, Initial Pr ojzmoj=503 mmHg, 12:48:41 Deflation Rate=5 mmHg, Cuff placed on Right Arm 12:49:28 HR=71 bpm, VQSD=874/90 mmhg, SpO2=92.0 %, Resp=12 B/min, Mann=2 12:51:36 Bilateral groins prepped with 2% chlorhexidine, and draped after a 3 minute waiting time. 12:52:20 Reference ECG taken 12:54:31 HR=75 bpm, KUAZ=114/90 mmhg, SpO2=93.0 %, Resp=16 B/min, Mann=2 12:58:07 Pressure channel 2 zeroed. 12:59:28 HR=71 bpm, PLUU=088/93 mmhg, SpO2=92.0 %, Resp=20 B/min 12:59:47 Pressure channel 1 zeroed. 13:02:43 paged 13:04:29 HR=73 bpm, LCHD=314/91 mmhg, SpO2=92.0 %, Resp=15 B/min, Amnn=2 13:06:43 3 l/min OXYGEN given in lab by Rudolph Patel RN via Nasal. Ordered by Alejandro Ramos. 13:09:30 HR=74 bpm, KADM=388/87 mmhg, SpO2=97.0 %, Resp=14 B/min, Mann=2 13:13:16 MD arrived. 13:14:30 HR=71 bpm, KXIB=558/91 mmhg, SpO2=94.0 %, Resp=26 B/min 13:14:43 2 mg VERSED given in lab by Rudolph Patel RN via Peripheral IV. Ordered by Alejandro Ramos . 13:15:49 50 mcg FENTANYL given in lab by Rudolph Patel RN via Peripheral IV. Ordered by Virgie Ramos. Time Out. Correct patient, correct procedure, correct physician, labs, allergies, and equipment verified with labor mediator 13:18:41 team present. Fire risk assesment completed (see hard stop sheet for coding). Time Out Conc urred by and individual staff in procedure. 13:18:49 Case Start 13:18:51 Verbal Stimulation=2 Physical Stimulation=2 Airway=2 Respiration=2 TOTAL=8. (0=absent, 1=li mited, 2=present) 13:19:29 HR=73 bpm, NJFC=196/88 mmhg, SpO2=89.0 %, Resp=17 B/min, Mann=2 20 mL 1% XYLOCAINE given in lab by Alejandro Ramos in Right Groin via Subcutaneous. Ordered by Rachel 13:19:51 Alejandro. 13:22:19 Access site was Right Femoral Artery. A INTRODUCER SET, MICROPUNCTURE STIFF FR 5 was advanced into the Fem Art (right) using the Perc utaneous 13:22:37 technique. A SHEATH, FR4 TERUMO (10CM) FR 4 was exchanged in the Fem Art (right). This was necessary in or mello to 13:22:48 accomodate a larger catheter. 13:24:01 Access site was Right Femoral Vein. 13:24:17 A SHEATH, FR7 TERUMO (10CM) FR 7 was advanced into the Fem Vein (right) using the Percutane ous technique. 13:24:30 HR=71 bpm, PAOG=401/76 mmhg, SpO2=92.0 %, Resp=13 B/min, Mann=2 13:24:54 A SWAN ABBIE CATHETER FR 7 was inserted via Fem Vein (right) Recorded Pressure: PCW, HR=73, Condition=Condition 1 13:26:43 (Pulmonary Capillary Wedge) PCW 28/23/15 Recorded Pressure: MPA, HR=58, Condition=Condition 1 13:27:06 (Main Pulmonary Artery) MPA 59/20/38 Thermo CO: CO=4.0 l/m, HR=72 bpm, Condition=Condition 1. Used in calculation. 13:29:09 Equipment: Description and Size=SWAN ABBIE CATHETER FR 7, Type=Bath Probe, CC=0.579 Injectant: Temp=19.0 - 22.0 Celsius, Volume=10.0 ml 13:29:31 HR=73 bpm, DSPY=410/77 mmhg, SpO2=95.0 %, Resp=20 B/min, Mann=2 Thermo CO: CO=3.8 l/m, HR=70 bpm, Condition=Condition 1. Used in calculation. 13:29:46 Equipment: Description and Size=SWAN ABBIE CATHETER FR 7, Type=Bath Probe, CC=0.579 Injectant: Temp=19.0 - 22.0 Celsius, Volume=10.0 ml Recorded Pressure: RV, HR=74, Condition=Condition 1 13:30:27 (Right Ventricle) RV 64/4/18 Recorded Pressure: RA, HR=72, Condition=Condition 1 13:30:40 (Right Atrium) RA 1512/10 13:30:57 [place] Abbie Catheter Removed A JL 5.0 INFINITI CATHETER FR 4 was advanced over a wire. OMNIPAQUE, 350 MG, 150ML 150ML was us ed for 13:31:56 injections. Recorded Pressure: Ao, HR=75, Condition=Condition 1 13:33:08 (Aorta) Ao 157/65/108 13:33:39 The LCA was injected and visualized at various angles. OMNIPAQUE, 350 MG, 150ML 150ML used . 13:34:18 Saturation: Site=FA (Femoral Artery) , O2=93.7 %, Hgb=12.1 gm/dl, Condition=Condition 1. Us ed in calculation. 13:34:30 HR=73 bpm, LNYS=370/80 mmhg, SpO2=93.0 %, Resp=22 B/min, Mann=2 13:34:36 Saturation: Site=PA (Pulmonary Artery) , O2=59.7 %, Hgb=12.1 gm/dl, Condition=Condition 1. Used in calculation. 13:34:51 Saturation: Site=RA (Right Atrium) , O2=58.5 %, Hgb=12.1 gm/dl, Condition=Condition 1. Used in calculation. 13:36:41 Catheter was removed A 3DRC INFINITI CATHETER FR 4 was advanced over a wire. OMNIPAQUE, 350 MG, 150ML 150ML was used for 13:37:43 injections. 13:39:17 The RCA was injected and visualized at various angles. OMNIPAQUE, 350 MG, 150ML 150ML used . 13:39:31 HR=70 bpm, UYKN=106/77 mmhg, SpO2=89.0 %, Resp=15 B/min, Mann=2 13:43:24 Catheter was removed A PIGTAIL ANG. INFINITI CATHETER FR 4 was advanced over a wire. OMNIPAQUE, 350 MG, 150ML 150ML was used 13:43:26 for injections. 13:44:30 HR=74 bpm, RMOK=218/91 mmhg, SpO2=93.0 %, Resp=18 B/min, Mann=2 Recorded Pressure: LV, HR=74, Condition=Condition 1 13:45:28 (Left Ventricle) LV 168/11/39 13:45:38 The LV was manually injected with 10 cc's and visualized. OMNIPAQUE, 350 MG, 150ML 150ML us ed. Recorded Pressure: LV, Ao, HR=75, Condition=Condition 1 13:46:03 (Left Ventricle) LV 161/19/23, (Aorta) Ao 163/71/115 13:47:10 Case End (Physician broke scrub) Assessment: Final Case, HR=72 BPM, Rhythm=sr, SSDV=506/129 mmhg, Chest Pain=0, Edema=None, Mullan r=Normal, Skin = Warm, Dry Right Pulses: Neno Ped=2, Femoral=2 13:47:26 Left Pulses: Neno Ped=2, Femoral=2 Neurological: State=Alert, Ox3, QUINN Respiration: Resp=18 B/min, SpO2=96 %, O2=2 lpm 13:47:37 Catheter(s) removed without difficulty 13:47:41 Sheath(s) left in place, will be removed in Holding Area 13:47:44 Sterile dressing applied to site 13:47:45 No case complications noted. 13:47:51 Cine recording checked. 13:47:52 Bedside Report will be given. 13:47:56 A Left and Right Heart Cath was performed. 13:49:31 HR=68 bpm, QHLO=648/99 mmhg, SpO2=89.0 %, Resp=36 B/min, Mann=2 13:54:32 HR=72 bpm, PIET=805/88 mmhg, SpO2=94.0 %, Resp=19 B/min 13:59:42 Patient moved to carrier clinic End Study - Contrast Media Used In Study Contrast Total Opened (mL) Total Used (mL) Total Wasted (mL) Omnipaque 43 43 0 End Study - Maximum Contrast Load Max Contrast Load (mL) 362.8 End Study - Radiation Exposure Fluoro Time (minutes) 3.9 End Study - Patient Disposition Complications Transferred To Interventional Outcome No Telemetry Bed No attempt made
--- NOTE | 2017-12-14 15:24 | MA ---
cc: Alejandro Ramos MD,Dali Lay,Marian De Luna,Shakeel Styles MD DATE: 12/14/2017 INDICATIONS FOR CATHETERIZATION: 1. Shortness of breath on exertion despite negative stress tests. 2. Prior history of atherosclerotic heart disease which was moderate. CONSENT: Fully informed consent was obtained prior to the procedure. The risks of , bleeding, myocardial infarction, perforation, aspiration, foreseen and unforeseen complications were reviewed. The patient appeared to fully understand. PROCEDURES: 1. Left heart catheterization. 2. Right heart catheterization. 3. Bilateral coronaries. 4. LV gram. 5. Sedation. PROCEDURAL STATEMENTS: The patient was draped and prepped in usual manner. Right femoral artery and vein were entered using a micropuncture technique using ultrasound. Via the 6-Niuean sheath, a full right heart catheterization was carried out. Via the 4-Niuean sheath, left heart and right coronary catheters were used to intubate the left and right coronary arteries, pigtail catheter to intubate the left ventricle. Multiple angiographic views were carried out. Care was taken to spare dye with hand-held LV gram being performed and minimal shots being taken. Creatinine was elevated at 1.5, but had been higher previously. FINDINGS: I. HEMODYNAMICS: The wedge pressure was 28/23 with a mean of 15. The pulmonary artery pressure was 59/20 with a mean of 38. RV pressure was 64 with a right ventricular end-diastolic pressure of 18. The RA pressure was 15/12 with a mean of 10. The left ventricular pressure was 161 with left ventricular end-diastolic pressure of 23. The aortic pressure was 163/71 with a mean aortic pressure of 115. II. LEFT VENTRICULOGRAM The overall left ventricular ejection fraction was estimated at 50%. This was a hand-held injection because of dye sparing with an elevated creatinine. III. CORONARIES: The left main was large and free of significant disease. The LAD was a large vessel that was diffusely diseased proximally with a diffuse long 75% stenosis. Distal to this it came up to a trifurcation with evidence of a large diagonal branch that bifurcated into 2 sub-branches. The upper branch was totally occluded at 100%. The lower branch was a medium-sized vessel. The LAD itself had some diffuse disease further in the vessel. The ramus/obtuse marginal-1 vessel had a 50% stenosis proximal. The distal circumflex was a small vessel. The right coronary artery was a large, dominant vessel with a large posterior descending artery and posterolateral branch. There was diffuse disease throughout the right coronary. In the proximal to mid-right was a 99% stenosis. In the distal right there was diffuse 50% disease. CONCLUSION: Severe three-vessel coronary artery disease with well preserved ejection fraction. Unfortunately, the patient's creatinine is elevated. PLAN: Bypass surgery to do the LAD, the diagonal, and the right coronary. One could consider also high risk angioplasty to the right coronary if the patient is not a candidate for surgery because of pulmonary reasons. Discussed with Dr Lay and pt and . Will consult Dr Jensen De Luna. MD YANG Hanley/JESSICA , 02:24 PM , 03:22 PM [place]
[2017-12-14] MEDS ORDERED: Morphine Sulfate Inj 2 MG/ML Vial IV.PUSH PRN (15:26)
[2017-12-14] MEDS ORDERED: Naloxone Inj 0.4 MG/ML Vial IV.PUSH PRN (15:26)
[2017-12-14] MEDS ORDERED: Morphine Inj 4 MG/ML Vial IV.PUSH PRN (15:26)
[2017-12-14] MEDS ORDERED: Acetaminophen 325 MG Tablet PO PRN (15:26)
--- NOTE | 2017-12-14 15:55 | P.HPIM ---
History of Present Illness Service: [facility] Primary Care Physician: Dali Elias MD Chief Complaint: Increasing shortness of breath status post cardiac catheterization History of Present Illness: Patient is a 82-year-old gentleman. Who underwent a cardiac catheterization today with Dr. CUEVAS today. Patient underwent cardiac catheterization which showed severe three-vessel coronary artery disease with well-preserved ejection fraction and an elevated creatinine. Cardiology suggested coronary artery bypass and graft to do to the LAD, the diagonal and the right coronary artery. Cardiovascular surgery has been consulted as well as pulmonary medicine due to his severe pulmonary status Patient will be admitted and will await cardiovascular surgery's opinion. Patient's past medical history is significant for COPD severe angina, atherosclerotic heart disease, pacemaker in 2008, valvular heart disease, hyperlipidemia, chronic kidney disease, COPD, non-Hodgkin's lymphoma with Waldenstrm's macroglobulinemia followed by Dr. ANTOINE. Patient is also followed by Dr. De Luna of pulmonary medicine for his severe COPD. 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 This includes certification that hospital inpatient services are reasonable and necessary and in the case of services not specified as inpatient-only under 42 CFR 419.22(n), that they are appropriately provided as inpatient services in accordance to with the 2-midnight benchmark under 43 CFR 412.3(e) Estimated Total Length of Stay (Days): 5 Plans for Post Hospital Care: Not yet determined Review of Systems All other systems reviewed negative except as stated in HPI Constitutional: Reports fatigue, Reports lack of energy, Reports malaise, Reports weakness, Denies anorexia, Denies body ache(s) Eyes: Denies blind spots, Denies discharge, Denies requires corrective lenses Ears, Nose, Mouth, and Throat: Denies abnormal hearing, Denies difficulty swallowing, Denies facial pain, Denies mouth lesions, Denies nasal obstruction, Denies pain with swallowing Cardiovascular: Reports shortness of breath with activity, Reports shortness of breath when lying down, Reports shortness of breath causing sudden awakening, Denies chest pain, Denies fainting Respiratory: Reports cough, Reports shortness of breath, Reports shortness of breath with activity Gastrointestinal: Denies abdominal pain, Denies bright, red blood in stools, Denies change in stools, Denies difficulty swallowing, Denies incontinent of stools, Denies vomiting blood Genitourinary: Reports urinary frequency, Denies painful urination Musculoskeletal: Reports joint pain, Denies abnormal walking, Denies muscle cramps, Denies radiating pain into limb Skin/Breast: Denies breast pain, Denies change in skin color, Denies hair loss, Denies non-healing lesions, Denies sores Neurologic: Reports weakness, Denies abnormal hearing, Denies behavioral changes , Denies frequent falls, Denies loss of vision, Denies radiating pain, Denies tingling Psychiatric: Denies abnormal sleep pattern, Denies change in sex drive, Denies hearing things others do not hear, Denies memory loss, Denies seeing things others do not see, Denies tactile hallucinations, Denies thoughts of hurting/ killing yourself Endocrine: Denies cold intolerance, Denies increased hunger, Denies rapid, pounding, or irregular heartbeat Hematologic/Lymphatic: Denies easy bleeding, Denies easy bruising, Denies enlarged lymph nodes Allergic/Immunologic: Denies GI upset with certain foods, Denies seasonal runny nose, Denies throat swelling PMFSH - History History Provided By: Patient - Medical History Medical History: Medical History (Last Updated 12/14/17 @ 11:09 by Uzma Sanderson) 2nd degree atrioventricular block BPH (benign prostatic hyperplasia) CKD (chronic kidney disease) stage 3, GFR 30-59 ml/min COPD (chronic obstructive pulmonary disease) CVA (cerebral vascular accident) GERD (gastroesophageal reflux disease) HTN (hypertension) Hyperlipidemia Neuropathy Non-Hodgkin lymphoma in remission PAD (peripheral artery disease) PVD (peripheral vascular disease) Pacemaker - Tobacco History Smoking Status: Former smoker - Alcohol History How Often Do You Have a Drink Containing Alcohol: 4 or more times a week - Travel History History of Recent Travel: No Recent Travel in the [place] Within the Last 8 Weeks: No Recent Travel Out of the Country Within the Last 8 Weeks: No Medications and Allergies Active Medications: Active Medications Acetaminophen (Tylenol) 650 mg PO Q6HR PRN PRN Reason: PAIN SCALE 1 TO 2 Albuterol (*Albuterol Neb Periprocedure Only) 2.5 mg NEB Q4H PRN PRN Reason: SHORTNESS OF BREATH Aspirin (Ecotrin) 81 mg PO DAILY [facility] Heparin Sodium/Dextrose (Heparin/D5w 25,000 U/250 Ml) 25,000 unit in 250 mls @ 0 mls/hr IV.CONT TITRATE PRN; Protocol PRN Reason: Per Protocol Isosorbide Mononitrate (Imdur) 60 mg PO DAILY [facility] Metoprolol Tartrate (Lopressor) 25 mg PO DAILY PRN PRN Reason: Hypertension Mometasone Furoate (Nasonex Nasal [place]) 2 spray EACH NARE DAILY [facility] Morphine Sulfate (Morphine Inj) 2 mg IV.PUSH Q3H PRN PRN Reason: PAIN 3-5; IF UABLE TO TAKE PO Morphine Sulfate (Morphine Inj) 4 mg IV.PUSH Q3H PRN PRN Reason: PAIN 6-10;IF UNABLE TO TAKE PO Naloxone HCl (Narcan Inj) 0.4 mg IV.PUSH UNSCH PRN PRN Reason: SEE LABEL COMMENTS Non-Formulary Medication (Esomeprazole Magnesium [Nexium]) 20 mg PO DAILY [facility] Non-Formulary Medication (Levothyroxine [Levothyroxine]) 50 mcg PO DAILY NICOLE Non-Formulary Medication (Ranolazine [Ranexa]) 1,000 mg PO Q12H NICOLE Non-Formulary Medication (Torsemide [Torsemide]) 10 mg PO DIRECTED PRN PRN Reason: Urinary Retention Non-Formulary Medication (Vitamins A,C,T-Usfr-Gboaws [Preservision Areds]) 1 tab PO DAILY NICOLE Non-Formulary Medication (Rosuvastatin [Rosuvastatin]) 20 mg PO DAILY NICOLE Oxycodone/Acetaminophen (Percocet 10/325 Mg) 1 tab PO Q6H PRN PRN Reason: PAIN SCALE 6 TO 10 Oxycodone/Acetaminophen (Percocet 5/325 Mg) 1 tab PO Q6H PRN PRN Reason: PAIN SCALE 3 TO 5 Ropinirole HCl (Requip) 0.5 mg PO HS INCOLE Sodium Chloride (Ns Flush) 2 ml IV.FLUSH BID NICOLE Sodium Chloride (Ns Flush) 2 ml IV.FLUSH PRN PRN PRN Reason: FLUSH AFTER USING IV ACCESS Terazosin HCl (Hytrin) 1 mg PO DAILY NICOLE Allergies Allergy/AdvReac Type Severity Reaction Status Date / Time penicillin G Allergy Severe Anaphylaxis Verified 12/14/17 10:38 umeclidinium Allergy Mild Urinary Verified 10/14/17 10:39 Freq (Inc/Dec) Home Medications Medication Instructions Recorded Confirmed Type albuterol sulfate 2.5 mg INHALATION Q4H PRN 12/14/17 12/14/17 History albuterol sulfate [ProAir HFA] 2 puff INHALATION Q4H PRN 12/14/17 12/14/17 History aspirin [Aspir-81] 81 mg PO DAILY 12/14/17 12/14/17 History esomeprazole magnesium [Nexium] 20 mg PO DAILY 12/14/17 12/14/17 History isosorbide mononitrate 60 mg PO DAILY 12/14/17 12/14/17 History levothyroxine 50 mcg PO DAILY 12/14/17 12/14/17 History metoprolol tartrate 25 mg PO DAILY PRN 12/14/17 12/14/17 History mometasone [Nasonex] 2 spray INTRANASAL DAILY 12/14/17 12/14/17 History nitroglycerin [Nitrostat] 0.4 mg SUBLINGUAL Q5-15M PRN 12/14/17 12/14/17 History ranolazine [Ranexa] 1,000 mg PO Q12H 12/14/17 12/14/17 History ropinirole 0.5 mg PO HS 12/14/17 12/14/17 History rosuvastatin 20 mg PO DAILY 12/14/17 12/14/17 History terazosin 1 mg PO DAILY 12/14/17 12/14/17 History torsemide 10 mg PO DIRECTED PRN 12/14/17 12/14/17 History vitamins A,C,S-[id number]-[id number] 1 tab PO DAILY 12/14/17 12/14/17 History [PreserVision AREDS] Exam Vital signs: Vital Signs 12/14/17 11:00 12/14/17 14:16 Pulse Rate 74 Respiratory Rate 18 Blood Pressure 156/79 H Pulse Oximetry 91 L 95 Intake & Output 12/13/17 12/14/17 12/14/17 18:59 06:59 18:59 Weight 101.6 kg Other: Weight On Admission 101.6 kg Narrative: GENERAL: Awake alert and oriented 3 talkative and cooperative SKIN: Warm and dry. HEAD: Atraumatic. Normocephalic. EYES: Pupils equal and round. No scleral icterus. No injection or drainage. Extraocular muscles intact wears glasses ENT: No nasal bleeding or discharge. Mucous membranes pink and moist. Tongue is midline NECK: Trachea midline. No JVD. Supple CARDIOVASCULAR: Regular rate and rhythm. S1-S2 no S3 or S4 RESPIRATORY: No accessory muscle use. Coarse breath sounds. Breath sounds equal bilaterally. Scattered rhonchi GASTROINTESTINAL: Abdomen soft, non-tender, nondistended. Hepatic and splenic margins not palpable. Obese MUSCULOSKELETAL: Extremities without clubbing, cyanosis, or edema. No obvious deformities. Right groin is stable from proceed NEUROLOGICAL: Awake and alert. No obvious cranial nerve deficits. Motor grossly within normal limits. 4 out of 5 muscle strength in the arms and legs. Normal speech. PSYCHIATRIC: Appropriate mood and affect; insight and judgment normal. Results - Labs CBC & Chem 7: 12/14/17 10:51 12/14/17 10:51 Labs: Short CBC 12/14/17 Range/Units 10:51 WBC 12.3 H (4.0-11.0) th/mm3 Hgb 12.1 L (13.0-17.0) gm/dL Hct 37.0 L (39.0-51.0) % Plt Count 231 (150-450) th/mm3 BMP 12/14/17 10:51 Sodium 135 L Potassium 4.5 Chloride 100 Carbon Dioxide 22.8 BUN 23 H Creatinine 1.44 H Calcium 9.0 Caprini VTE Risk Assessment Caprini VTE Risk Assessment: Moderate/High Risk (score >= 2) Caprini Risk Assessment Model: Point Value = 1 Point Value = 2 Point Value = 3 Point Value = 5 Age 41-60 Minor surgery BMI > 25 kg/m2 Swollen legs Varicose veins or History of unexplained or recurrent spontaneous Oral contraceptives or hormone replacement Sepsis (< 1 month) Serious lung disease, including pneumonia (< 1 month) Abnormal pulmonary function Acute myocardial infarction Congestive heart failure (< 1 month) History of inflammatory bowel disease Medical patient at bed rest Age 61-74 Arthroscopic surgery Major open surgery (> 45 min) Laparoscopic surgery (> 45 min) Malignancy Confined to bed (> 72 hours) Immobilizing plaster cast Central venous access Age >= 75 History of VTE Family history of VTE Factor V Leiden Prothrombin [id number] Lupus anticoagulant Anticardiolipin antibodies Elevated serum homocysteine Heparin-induced thrombocytopenia Other congenital or acquired thrombophilia Stroke (< 1 month) Elective arthroplasty Hip, pelvis, or leg fracture Acute spinal cord injury (< 1 month) Prophylaxis Regimen: Total Risk Factor Score Risk Level Prophylaxis Regimen 0-1 Low Early ambulation 2 Moderate Order ONE of the following: *Sequential Compression Device (SCD) *Heparin 5000 units SQ BID 3-4 Higher Order ONE of the following medications: *Heparin 5000 units SQ TID *Enoxaparin/Lovenox 40 mg SQ daily (WT < 150 kg, CrCl > 30 mL/min) *Enoxaparin/Lovenox 30 mg SQ daily (WT < 150 kg, CrCl > 10-29 mL/min) *Enoxaparin/Lovenox 30 mg SQ BID (WT < 150 kg, CrCl > 30 mL/min) AND/OR *Sequential Compression Device (SCD) 5 or more Highest Order ONE of the following medications: *Heparin 5000 units SQ TID (Preferred with Epidurals) *Enoxaparin/Lovenox 40 mg SQ daily (WT < 150 kg, CrCl > 30 mL/min) *Enoxaparin/Lovenox 30 mg SQ daily (WT < 150 kg, CrCl > 10-29 mL/min) *Enoxaparin/Lovenox 30 mg SQ BID (WT < 150 kg, CrCl > 30 mL/min) AND *Sequential Compression Device (SCD) Assessment and Plan - Plan Coronary artery disease to be evaluated by cardiovascular surgery and at hopes of having coronary artery bypass graft involving the LAD, diagonal, and the right coronary artery Continue on an aspirin and Imdur and Ranexa If no surgery will need high risk angioplasty to the right coronary artery COPD on 2.5 L continuously Continue nebulized treatments We will add Mucinex Duo nebs Incentive spirometry Pulmonary consultation with Dr. White History of endocarditis Second-degree heart block status post pacemaker Carotid stenosis we will check carotid Dopplers Hypertension resume home medications Hyperlipidemia will need treatment with statin if not on one already GERD continue on PPI versus H2 catia Chronic kidney disease stage III continue to monitor kidney with labs History of Waldenstrm's macroglobulinemia History of CVAs continue on aspirin Tremor continue on primidone Restless leg syndrome continue on permanent We will ask physical therapy and occupational therapy to eval and treat Discussed with RN and patient and Kristian mathew as needed A.m. labs Code Status: Full code Discussed Condition With: RN and patient and Discharge Planning: Pending clearance by cardiology and cardiovascular surgery
[2017-12-14] MEDS ORDERED: Bisacodyl 10 MG Supp RECTAL PRN (15:57)
[2017-12-14] MEDS: Ranolazine 500 MG 12HR ER Tablet PO SCH (18:27)
[2017-12-14] MEDS: Vitamins A,C,E/Lutein/Minerals Tablet PO SCH (18:28)
--- NOTE | 2017-12-14 18:41 | US ---
EXAM DATE: 12/14/2017 6:27 PM EDT AGE/SEX: 82 years / Male INDICATIONS: Syncope. CLINICAL DATA: This is the patient's initial encounter. Patient reports that signs and symptoms have been present for 1 day and indicates a pain score of 0/10. MEDICAL/SURGICAL HISTORY: Cardiovascular disease. Pacemaker. Coronary artery stent. Cardiac Ca theterization. COMPARISON: [facility] [place] CAROTID ARTERIES, 12/16/2010. . VELOCITY PARAMETERS: ICA/CCA Ratio: Right 1.42 , Left 2.27 ICA: Right 103 cm/sec, Left 205 cm/sec CCA: Right 73 cm/sec, Left 90 cm/sec ECA: Right 162 cm/sec, Left 149 cm/sec Vertebral: Right 13 cm/sec antegrade, Left 59 cm/sec antegrade FINDINGS: Right Carotid: There is mild atherosclerotic plaque in the common carotid arteries and in the caroti d bulb.The waveforms are within normal limits. Left Carotid: There is intimal thickening with mild noncalcified plaque throughout the mid and dista l common carotid artery. There is mild atherosclerotic plaque in the carotid bulb. Waveforms demonstr ate spectral broadening. Other: None. CONCLUSION: 1. Right Internal Carotid Artery: Findings indicate <50% stenosis. 2. Left Internal Carotid Artery: Findings indicate 50-69% stenosis. Electronically signed by: Hipolito Serrano MD 12/14/2017 6:40 PM EDT
[2017-12-14] MEDS: guaiFENesin 600 MG ER Tablet PO SCH (20:11)
[2017-12-14] MEDS: Senna/Docusate Sodium 8.6/50 MG Tablet PO SCH (20:11)
[2017-12-14] MEDS ORDERED: Temazepam 15 MG Capsule PO PRN (21:00)
[2017-12-15] MEDS: Ranolazine 500 MG 12HR ER Tablet PO SCH (04:42)
[2017-12-15] MEDS: Levothyroxine 50 MCG Tablet PO SCH ×2 (04:44→17:34)
[2017-12-15 05:31] LABS: Baso % (Auto) 0.4 % (0.0-2.0); Eos # (Auto) 0.1 th/mm3 (0.0-0.4); Eos % (Auto) 0.8 % (0.0-4.0); Hematocrit 35.8 % (39.0-51.0); Hemoglobin 11.7 gm/dL (13.0-17.0); Lymph # (Auto) 1.5 th/mm3 (1.0-4.8); Lymph % (Auto) 14.5 % (9.0-44.0); Mean Corpuscular HGB Conc 32.8 % (32.0-36.0); Mean Corpuscular Hemoglobin 30.3 pg (27.0-34.0); Mean Corpuscular Volume 92.4 fL (80.0-100.0); Mean Platelet Volume 7.6 fL (7.0-11.0); Mono % (Auto) 9.5 % (0.0-8.0); Neut # (Auto) 7.7 th/mm3 (1.8-7.7); Neut % (Auto) 74.8 % (16.0-70.0); Platelet Count 210 th/mm3 (150-450); Red Blood Count 3.87 mil/mm3 (4.50-5.90); Red Cell Distribution Width 14.9 % (11.6-17.2); White Blood Count 10.3 th/mm3 (4.0-11.0)
[2017-12-15 05:43] LABS: Alanine Aminotransferase 29 U/L (12-78); Albumin 3.1 g/dL (3.4-5.0); Anion Gap 8 meq/L (5-15); Aspartate Aminotransferase 16 U/L (15-37); Blood Urea Nitrogen 24 mg/dL (7-18); Calcium 8.7 mg/dL (8.5-10.1); Carbon Dioxide 27.2 meq/L (21.0-32.0); Chloride 104 meq/L (98-107); Cholesterol 92 mg/dL (120-200); Glomerular Filtration Rate 52 mL/min (>89); Glucose,Random 85 mg/dL (74-106); Magnesium 2.2 mg/dL (1.5-2.5); Sodium 139 meq/L (136-145); Triglycerides 76 mg/dL (42-150)
[2017-12-15 05:52] LABS: Alkaline Phosphatase 72 U/L (45-117); Chol/HDL Ratio 1.86 Ratio; Free T4 (Free Thyroxine) 1.35 ng/dL (0.76-1.46); HDL Cholesterol 49.4 mg/dL (40.0-60.0); LDL Cholesterol,Calculated 27 mg/dL (0-99); Total Protein 6.4 g/dL (6.4-8.2)
[2017-12-15 05:57] LABS: INR 1.1 Ratio; Prothrombin Time 10.7 sec (9.8-11.6)
[2017-12-15] MEDS: Senna/Docusate Sodium 8.6/50 MG Tablet PO SCH ×2 (08:38→20:50)
[2017-12-15] MEDS: guaiFENesin 600 MG ER Tablet PO SCH ×2 (08:38→20:54)
[2017-12-15] MEDS: Vitamins A,C,E/Lutein/Minerals Tablet PO SCH (08:40)
[2017-12-15] MEDS: Pantoprazole Sodium 20 MG DR Tablet PO SCH (08:40)
[2017-12-15] MEDS: Isosorbide Mononitrate 60 MG ER 24HR Tablet (Imdur) PO SCH (08:40)
[2017-12-15] MEDS ORDERED: Metoprolol Tartrate 25 MG Tablet PO PRN (09:00)
[2017-12-15] MEDS: Heparin Drip 25,000 UNIT/250 ML BAG IV.CONT PRN (09:17)
--- NOTE | 2017-12-15 09:22 | P.PNCA ---
<Shadeed,September - Last Filed: 12/15/17 09:27> Subjective Interval history: Patient resting in bed this AM. He denies chest pain. Groin healing well, no sings of bleeding or infection. Reports he did not sleep well overnight. He is concerned about increasing tremors, due to not receiving his Primidone last night, will resume today. Physical Exam Vital signs: Vital Signs 12/14/17 11:00 12/14/17 14:16 12/14/17 16:00 Temperature 97.5 F L Pulse Rate 74 72 Respiratory Rate 18 18 Blood Pressure 156/79 H 149/73 H Pulse Oximetry 91 L 95 96 12/14/17 17:17 12/14/17 20:00 12/14/17 20:51 Temperature 97.8 F Pulse Rate 72 74 74 Respiratory Rate 20 Blood Pressure 137/63 Pulse Oximetry 95 12/14/17 21:00 12/14/17 21:06 12/14/17 21:07 Temperature Pulse Rate 72 72 Respiratory Rate 18 Blood Pressure Pulse Oximetry 95 12/14/17 22:00 12/14/17 23:00 12/15/17 00:00 Temperature 97.8 F Pulse Rate 72 72 72 Respiratory Rate 20 Blood Pressure 147/74 H Pulse Oximetry 96 12/15/17 01:00 12/15/17 02:00 12/15/17 03:00 Temperature Pulse Rate 72 72 72 Respiratory Rate Blood Pressure Pulse Oximetry 12/15/17 03:52 12/15/17 04:00 12/15/17 05:00 Temperature 97.6 F Pulse Rate 72 74 72 Respiratory Rate 18 20 Blood Pressure 149/76 H Pulse Oximetry 94 L 12/15/17 06:00 12/15/17 07:00 Temperature 97.5 F L Pulse Rate 72 74 Respiratory Rate 20 Blood Pressure 159/78 H Pulse Oximetry Intake & Output 12/14/17 12/15/17 12/15/17 18:59 06:59 18:59 Intake Total 480 / 480 Output Total 125 / 125 Balance 480 / 480 -125 / -125 Weight 101.6 kg Intake: Oral 480 / 480 Output: Urine 125 / 125 Other: Date of Last Bowel Movement 12/14/17 12/14/17 Weight On Admission 101.6 kg - Constitutional no acute distress - Routine HEENT Exam Head: Present: normocephalic, atraumatic Eye: Present: PERRL, normal accommodation ENT: Present: mucous membranes moist - Routine Neck Exam Present: supple - Routine Respiratory Exam Present: CTA bilaterally - Routine Cardiovascular Exam Present: RRR Comments: tachycardia over night, [place] [employer] pacemaker left upper chest - Routine Abdominal Exam Present: soft - Routine Extremities Exam Comments: no edema - Routine Skin Exam Present: intact Comments: right groin dressing removed, no signs of bleeding or infection - Routine Neurological Exam Present: alert, oriented X3 - Detailed Neurological Exam: Coma Scale Eye Opening: Spontaneous Verbal Response: Oriented Motor Response: Obey commands Arrey Coma Scale Total: 15 - Routine Psychiatric Exam Present: normal affect, normal thought process Assessment and Plan - Plan ASHD Endocarditis COPD NSVT Second degree AV Block Carotid stenosis HTN Hyperlipidemia CKD Lung nodule Tremors Prior Lacunar infarct -Status post left heart catheterization-groin shows no signs of bleeding or infection. Patient is pending bypass surgery with Dr. Lay. Heparin Drip initiated. -History of endocarditis, followed with Dr. Torres in the past. Patient had CINDY 10/2017 that was negative for vegetation. No known re-occurrence. -Chronic SOB-Hx of COPD. Followed by Dr. De Luna. Pt had CTA chest 10/2017 that showed a stable RLL 6mm lung nodule. Dr. De Luna has been consulted. -Dual chamber [employer] Pacemaker in place. -Last carotid ultrasound was 03/2017, revealed moderate left sided carotid stenosis 50% -BP elevated, will change metoprolol from PRN, to scheduled daily. -Primidone resumed for tremors. -Head CT 02/2017 revealed remote left basal ganglia and left cerebellar lacunar infarcts. The patient was seen and evaluated by Dr. Ramos who participated in care, management, and decision making. Code Status: Full Code Discussed Condition With: Nurse and patient <Alejandro Ramos - Last Filed: 12/15/17 14:27> Physical Exam Vital signs: Vital Signs 12/14/17 16:00 12/14/17 17:17 12/14/17 20:00 Temperature 97.5 F L 97.8 F Pulse Rate 72 72 74 Respiratory Rate 18 20 Blood Pressure 149/73 H 137/63 Pulse Oximetry 96 95 12/14/17 20:51 12/14/17 21:00 12/14/17 21:06 Temperature Pulse Rate 74 72 72 Respiratory Rate 18 Blood Pressure Pulse Oximetry 12/14/17 21:07 12/14/17 22:00 12/14/17 23:00 Temperature Pulse Rate 72 72 Respiratory Rate Blood Pressure Pulse Oximetry 95 12/15/17 00:00 12/15/17 01:00 12/15/17 02:00 Temperature 97.8 F Pulse Rate 72 72 72 Respiratory Rate 20 Blood Pressure 147/74 H Pulse Oximetry 96 12/15/17 03:00 12/15/17 03:52 12/15/17 04:00 Temperature 97.6 F Pulse Rate 72 72 74 Respiratory Rate 18 20 Blood Pressure 149/76 H Pulse Oximetry 94 L 12/15/17 05:00 12/15/17 06:00 12/15/17 07:00 Temperature 97.5 F L Pulse Rate 72 72 74 Respiratory Rate 20 Blood Pressure 159/78 H Pulse Oximetry 95 12/15/17 08:00 12/15/17 09:00 12/15/17 09:10 Temperature Pulse Rate 72 74 73 Respiratory Rate 18 Blood Pressure Pulse Oximetry 93 L 12/15/17 10:00 12/15/17 11:00 12/15/17 11:43 Temperature Pulse Rate 80 74 Respiratory Rate Blood Pressure Pulse Oximetry 92 L 12/15/17 11:48 12/15/17 12:00 12/15/17 13:08 Temperature 97.6 F Pulse Rate 77 74 80 Respiratory Rate 16 Blood Pressure 114/77 Pulse Oximetry 92 L Intake & Output 12/14/17 12/15/17 12/15/17 18:59 06:59 18:59 Intake Total 480 / 480 Output Total 125 / 125 Balance 480 / 480 -125 / -125 Weight 101.6 kg Intake: Oral 480 / 480 Output: Urine 125 / 125 Other: Date of Last Bowel Movement 12/14/17 12/14/17 Weight On Admission 101.6 kg Assessment and Plan - Plan O[place]all doing better awaiting cath.
[2017-12-15] MEDS: Primidone 50 MG Tablet PO SCH (10:06)
[2017-12-15] MEDS: Metoprolol Tartrate 25 MG Tablet PO SCH (11:36)
--- NOTE | 2017-12-15 12:04 | P.PNCA ---
- Note Subjective/Hospital Course: pt seen and evaluated / full consult to follow sts data discussed with pt RISK SCORES About the STS Risk Calculator Procedure: CAB Only Risk of Mortality: 8.527% Morbidity or Mortality: 35.95% Long Length of Stay: 21.725% Short Length of Stay: 14.69% Permanent Stroke: 3.556% Prolonged Ventilation: 25.94% DSW Infection: 1.061% Renal Failure: 12.648% Reoperation: 12.054% Objective: Vital Signs - 24 hr 12/14/17 14:16 12/14/17 16:00 12/14/17 17:17 Temperature 97.5 F L Pulse Rate 72 72 Respiratory Rate 18 Blood Pressure 149/73 H Pulse Oximetry 95 96 12/14/17 20:00 12/14/17 20:51 12/14/17 21:00 Temperature 97.8 F Pulse Rate 74 74 72 Respiratory Rate 20 Blood Pressure 137/63 Pulse Oximetry 95 12/14/17 21:06 12/14/17 21:07 12/14/17 22:00 Temperature Pulse Rate 72 72 Respiratory Rate 18 Blood Pressure Pulse Oximetry 95 12/14/17 23:00 12/15/17 00:00 12/15/17 01:00 Temperature 97.8 F Pulse Rate 72 72 72 Respiratory Rate 20 Blood Pressure 147/74 H Pulse Oximetry 96 12/15/17 02:00 12/15/17 03:00 12/15/17 03:52 Temperature Pulse Rate 72 72 72 Respiratory Rate 18 Blood Pressure Pulse Oximetry 12/15/17 04:00 12/15/17 05:00 12/15/17 06:00 Temperature 97.6 F Pulse Rate 74 72 72 Respiratory Rate 20 Blood Pressure 149/76 H Pulse Oximetry 94 L 12/15/17 07:00 12/15/17 09:10 12/15/17 11:43 Temperature 97.5 F L Pulse Rate 74 73 Respiratory Rate 20 18 Blood Pressure 159/78 H Pulse Oximetry 95 93 L 92 L 12/15/17 11:48 Temperature 97.6 F Pulse Rate 77 Respiratory Rate 16 Blood Pressure 114/77 Pulse Oximetry 92 L Labs: Laboratory Results - last 12 hr 12/15/17 12/15/17 12/15/17 04:06 04:57 04:57 WBC 10.3 RBC 3.87 L Hgb 11.7 L Hct 35.8 L MCV 92.4 MCH 30.3 MCHC 32.8 RDW 14.9 Plt Count 210 MPV 7.6 Neut % (Auto) 74.8 H Lymph % (Auto) 14.5 Irion % (Auto) 9.5 H Eos % (Auto) 0.8 Baso % (Auto) 0.4 Neut # (Auto) 7.7 Lymph # (Auto) 1.5 Irion # (Auto) 1.0 H Eos # (Auto) 0.1 Baso # (Auto) 0.0 WBC Differential . Differential Comment Auto diff final PT 10.7 INR 1.1 APTT 24.0 L Sodium 139 Potassium 5.0 Chloride 104 Carbon Dioxide 27.2 Anion Gap 8 BUN 24 H Creatinine 1.31 H Estimated GFR 52 L Random Glucose 85 Calcium 8.7 Phosphorus 3.0 Magnesium 2.2 Total Bilirubin 0.5 AST 16 ALT 29 Alkaline Phosphatase 72 Total Protein 6.4 Albumin 3.1 L Triglycerides 76 Cholesterol 92 L LDL Cholesterol, Calc 27 HDL Cholesterol 49.4 Cholesterol/HDL Ratio 1.86 TSH 1.410 Free T4 1.35 Result Diagrams: 12/15/17 04:06 12/15/17 04:57
--- NOTE | 2017-12-15 12:09 | US ---
EXAM DATE: 12/15/2017 12:07 PM EDT AGE/SEX: 82 years / Male INDICATIONS: PreOp cardiac surgery. CLINICAL DATA: This is the patient's initial encounter. Patient reports that signs and symptoms have been present for 1 day and indicates a pain score of 0/10. MEDICAL/SURGICAL HISTORY: . Cardiovascular disease. . Pacemaker. Coronary artery stent. Cardia c Catheterization. COMPARISON: No prior exams available for comparison. TECHNIQUE: Venous ultrasound of both lower extremities was performed from the inguinal ligament to t he proximal calf. Real-time, color Doppler and spectral tracing, compression and augmentation techni ques were used. FINDINGS: Right Leg: Normal compression of the deep venous system from the inguinal region to the proximal anthony f. No echogenic clot is seen. Normal response of the venous system to augmentation and respiration. Left Leg: Normal compression of the deep venous system from the inguinal region to the proximal calf . No echogenic clot is seen. Normal response of the venous system to augmentation and respiration. Other: CONCLUSION: 1. The study is negative for bilateral lower extremity deep venous thrombosis. Electronically signed by: Monroe Galo MD 12/15/2017 12:08 PM EDT
--- NOTE | 2017-12-15 12:17 | US ---
EXAM DATE: 12/15/2017 12:08 PM EDT AGE/SEX: 82 years / Male INDICATIONS: PreOp cardiac surgery. CLINICAL DATA: This is the patient's initial encounter. Patient reports that signs and symptoms have been present for 1 day and indicates a pain score of 0/10. MEDICAL/SURGICAL HISTORY: . Cardiovascular disease. . Pacemaker. Coronary artery stent. Cardia c Catheterization. COMPARISON: No prior exams available for comparison. MEASUREMENTS: RIGHT THIGH: Proximal:__6 mm Mid:__ 3 mm Distal:__4 mm LEFT THIGH: Proximal:__8 mm Mid:__4 mm Distal:__4 mm RIGHT CALF: Proximal:__3 mm Mid:__2 mm Distal:__2 mm LEFT CALF: Proximal:__3 mm Mid:__3 mm Distal:__3 mm FINDINGS: The venous system of the lower extremities are patent by color Doppler imaging. Measurements of the leg veins (in mm) are listed above. CONCLUSION: 1. Normal venous mapping study with measurements given above. Electronically signed by: Monroe Galo MD 12/15/2017 12:16 PM EDT
--- NOTE | 2017-12-15 12:35 | MB ---
cc: Lucretia De Luna MD DATE: 12/15/2017 HISTORY OF PRESENT ILLNESS: Mr. Bae is an 82-year-old white male whom I have followed intermittently since 2009 with COPD. Most recently, he had a bad episode of septicemia with Enterococcus and pneumonia in 07/2017, and he has been complaining of shortness of breath, chest pain and just general debility since then. At that time, he was found as well to have a vegetation on his aortic valve. Dr. Ramos and Dr. Nusrat Torres followed that, treated him with IV antibiotics until they felt that had cleared. However, over the course of the last month, the breathing and chest discomfort has persisted, so he was admitted yesterday by Dr. Ramos and catheterization revealed significant coronary disease. He is being considered for bypass surgery. He was a former smoker of 50-60 pack years, quit smoking in 2006. His COPD regimen at home has included a nebulizer with albuterol, oxygen at night, and Mucinex as needed for congestion. He also has a significant prior history, including coronary artery disease, atrial fibrillation, peripheral arterial disease, chronic neuropathy, chronic renal insufficiency, pacemaker inserted in 2008, a history of macroglobulinemia followed by Dr. Graves, reflux disease and a recent CT revealed a small lung nodule only 6 mm with the intention of following that up. The most immediate problem has been the recurring chest pain and dyspnea that appears to be due now to coronary artery disease. ALLERGIES: PENICILLIN. MEDICATIONS: Reviewed in the EMR. SOCIAL HISTORY: , living with his . Former smoker of about 50 pack years, quit 10 years ago. No excessive alcohol use. REVIEW OF SYSTEMS: Breathing is comfortable today. He has had no unusual cough or congestion. No hemoptysis. No increased edema. No abdominal complaints. Reflux, currently controlled. PHYSICAL EXAMINATION: VITAL SIGNS: Temperature 97 degrees, blood pressure 130/70, pulse is 90, respirations 18, O2 saturations 90-94% on room air. HEENT: Sclerae are anicteric. NECK: Neck veins are flat. CHEST: Somewhat diminished, but clear. No congestion or wheezing. HEART: No harsh murmur. No audible S3. ABDOMEN: Soft. EXTREMITIES: No pitting edema. IMPRESSION AND RECOMMENDATIONS: Mr. Bae has moderate chronic obstructive pulmonary disease with pulmonary functions in the range of 60-65%. Pulmonary status has been fairly stable. This is complicated by a documented history of obstructive sleep apnea, but he has not tolerated CPAP therapy and has not been on that. He now has coronary disease and may need bypass surgery. Cardiovascular surgery is seeing him to assess him. We will obtain a spirometry to be sure his lung function has been stable. R. MD JOEL Guerra/JUAN , 12:13 PM , 12:34 PM
--- NOTE | 2017-12-15 12:49 | MB ---
cc: Anamaria Ha Cary H MD DATE: 12/14/2017 HISTORY OF PRESENT ILLNESS: An 82-year-old male patient of Dr. Dali Elias and Dr. Ramos. Other physicians Include Dr. Jensen De Luna, Dr. Graves. This patient has been complaining of some shortness of breath with some chest discomfort off and on for the past couple of months. He has been taking 2-3 nitro per day. He had a recent positive stress test for ischemia in October. Some anterior perfusion defects suggesting ischemia. Some abnormal septal motion. Apparently, he was to be worked up at [facility] in [place] 01/04/2018; however, due to the persistent chest discomfort, he underwent a cardiac catheterization which showed a 75% stenosis in the proximal LAD, 75%, mid distal LAD. The diagonal was 100% stenosed. The RCA 99% and the ramus 50%. We were consulted to evaluate for coronary artery bypass grafting. The patient has an extensive medical history including a recent admission in October from the to the where he was having some generalized weakness. Prior to that, he was admitted in July for similar complaints. In addition to the fever, he had positive blood cultures for Enterococcus faecalis. They did a CINDY in July with probable vegetation to the aortic valve and possible vegetation to the chordee. EF at the time was 40%. He was seen by infectious disease and had completed the long-term IV antibiotics with vancomycin and Rocephin. She followed up with Dr. Herndon for outpatient antibiotic therapy and then was placed on oral medication and had again a decline in his symptoms. They did a CTA in October which showed no pulmonary emboli, some emphysemic changes. There was a 6 mm right lower lobe lung nodule with recommendations to repeat in 6 months. PAST MEDICAL HISTORY: 1. Arteriosclerotic heart disease where supposedly he had a heart catheterization in 2013 in [place]. 2. 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 3. Hyperlipidemia. 4. COPD. He uses O2 at night only and now has been using 2 liters around the clock. 5. Gastroesophageal reflux disease. 6. Chronic kidney disease stage III. 7. Neuropathy. 8. Peripheral arterial disease. 9. Peripheral vascular disease. 10. Degenerative arthritis. 11. Benign prostatic hypertrophy. 12. History of non-Hodgkin's lymphoma with Waldenstrom's macroglobulinemia. He follows with Dr. Graves and has been in remission. 13. History of viral meningitis. 14. History of shingles. 15. B12 deficiency. 16. 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 17. Lacunar infarcts. 18. Essential tremors. 19. Recent sepsis. 20. Recent endocarditis. PAST SURGICAL HISTORY: 1. Pacemaker in situ. 2. Heart catheterization in the past. ALLERGIES: PENICILLIN. HOME MEDICATIONS: Include: 1. Aspirin. 2. Crestor. 3. Albuterol. 4. Nexium. 5. Primidone. 6. Ranexa. 7. Requip. 8. Terazosin. 9. ProAir. 10. Oxygen at 2 liters. 11. Demodex. 12. Nitro. 13. Levothyroxine. 14. Imdur. 15. Metoprolol. FAMILY HISTORY: Father . Mother . SOCIAL HISTORY: The patient is . Drinks 5 beers a week. Smoked for 50 years, quit 5 years ago. Uses a walker to ambulate because he has this chronic weakness. REVIEW OF SYSTEMS: As above in the HPI. The 12-systems unremarkable. PHYSICAL EXAMINATION: VITAL SIGNS: Blood pressure 114/70, heart rate of 77, afebrile, on 4 liters O2 saturation 92 percent. GENERAL: The patient is awake and alert in no acute distress. HEENT: Head is normocephalic, atraumatic. Pupils equal and reactive. Oral mucosa pink and moist. NECK: Supple. No JVD. HEART: Sounds S1, S2. Regular rate and rhythm. No audible rubs or gallops. LUNGS: Diminished in the bases with faint basilar crackles. ABDOMEN: Obese, soft, nontender. No masses or organomegaly. EXTREMITIES: Reveal trace edema. LABORATORY DATA: Shows hemoglobin 11, hematocrit of 36, white cell count of 10, platelet count of 210. Sodium 139, potassium 5.0, BUN 24, creatinine 1.31, AST 16, ALT 29, TSH 1.4. INR 1.1. Hemoglobin A1c is pending. RADIOLOGICAL: Carotid ultrasound. The left has a 50-69% stenosis. The internal carotid negative for bilateral lower extremity thrombosis. On the Doppler's. His pulmonary function test shows an FEV1 of 1.06, severe obstruction. IMPRESSION: This is an 82-year-old male with multi-vessel coronary artery disease, multiple comorbidities with an STS risks mortality of 8.5. The cardiac films will be evaluated by Dr. Marian Lay. Evaluation for candidacy for bypass surgery as per his recommendation. In the meantime, he is to continue the heparin drip. Continue the aspirin, beta catia, long-term nitrate and will follow accordingly with further plans per Dr. Lay. Anamaria Ha [facility] MD REBECCA Verma/DL , 12:14 PM , 12:46 PM
[2017-12-15] MEDS ORDERED: Insulin Regular (For Infusion) 100 UNIT in Sodium Chlor 0.9% Inj 99 ML IV.CONT PRN (15:12)
[2017-12-15] MEDS ORDERED: Dextrose 50% in Water 50 ML Vial IV.PUSH PRN (15:12)
[2017-12-15] MEDS ORDERED: Sodium Chloride 0.9% Irr Bot 1,000 ML, Vancomycin Inj 1,000 MG IRRIGATION SCH ×2 (15:15)
[2017-12-15] MEDS ORDERED: Chlorhexidine 4% Topical 120 APPLIC/120 ML Bottle TOPICAL SCH (15:15)
[2017-12-15] MEDS ORDERED: Sodium Chlor 0.9% Inj 77.5 ML, Papaverine Inj 60 MG, Nitroglycerin Inj 100 MCG, dilTIAZ... IRRIGATION SCH ×3 (15:15)
[2017-12-15] MEDS ORDERED: Vancomycin Inj 1,250 MG in Sodium Chlor 0.9% Inj 250 ML IV.SIG SCH (16:00)
--- NOTE | 2017-12-15 16:24 | P.PNIM ---
Subjective Interval history: Patient is a 82-year-old gentleman. Who underwent a cardiac catheterization today with Dr. RAMOS today. Patient underwent cardiac catheterization which showed severe three-vessel coronary artery disease with well-preserved ejection fraction and an elevated creatinine. Cardiology suggested coronary artery bypass and graft to do to the LAD, the diagonal and the right coronary artery. Cardiovascular surgery has been consulted as well as pulmonary medicine due to his severe pulmonary status Patient will be admitted and will await cardiovascular surgery's opinion. Patient's past medical history is significant for COPD severe angina, atherosclerotic heart disease, pacemaker in 2008, valvular heart disease, hyperlipidemia, chronic kidney disease, COPD, non-Hodgkin's lymphoma with Waldenstrm's macroglobulinemia followed by Dr. ANTOINE. Patient is also followed by Dr. De Luna of pulmonary medicine for his severe COPD. Patient is chronically on oxygen 2.5 L [id number] 12-15 DW PATIENT AND RN AND AND CARDIOLOGY AND CVS AND CM TO HOPEFULLY HAVE CABGX3 ON Monday LABS CONTINUES TO HAVE TESTING DUE TO COPD AND PERFORMANCE STATUS SEE CHART FOR MORE DETAILS Physical Exam Vital signs: Vital Signs 12/14/17 17:17 12/14/17 20:00 12/14/17 20:51 Temperature 97.8 F Pulse Rate 72 74 74 Respiratory Rate 20 Blood Pressure 137/63 Pulse Oximetry 95 12/14/17 21:00 12/14/17 21:06 12/14/17 21:07 Temperature Pulse Rate 72 72 Respiratory Rate 18 Blood Pressure Pulse Oximetry 95 12/14/17 22:00 12/14/17 23:00 12/15/17 00:00 Temperature 97.8 F Pulse Rate 72 72 72 Respiratory Rate 20 Blood Pressure 147/74 H Pulse Oximetry 96 12/15/17 01:00 12/15/17 02:00 12/15/17 03:00 Temperature Pulse Rate 72 72 72 Respiratory Rate Blood Pressure Pulse Oximetry 12/15/17 03:52 12/15/17 04:00 12/15/17 05:00 Temperature 97.6 F Pulse Rate 72 74 72 Respiratory Rate 18 20 Blood Pressure 149/76 H Pulse Oximetry 94 L 12/15/17 06:00 12/15/17 07:00 12/15/17 08:00 Temperature 97.5 F L Pulse Rate 72 74 72 Respiratory Rate 20 Blood Pressure 159/78 H Pulse Oximetry 95 12/15/17 09:00 12/15/17 09:10 12/15/17 10:00 Temperature Pulse Rate 74 73 80 Respiratory Rate 18 Blood Pressure Pulse Oximetry 93 L 12/15/17 11:00 12/15/17 11:43 12/15/17 11:48 Temperature 97.6 F Pulse Rate 74 77 Respiratory Rate 16 Blood Pressure 114/77 Pulse Oximetry 92 L 92 L 12/15/17 12:00 12/15/17 13:08 12/15/17 14:00 Temperature Pulse Rate 74 80 74 Respiratory Rate Blood Pressure Pulse Oximetry 12/15/17 15:00 Temperature Pulse Rate 74 Respiratory Rate Blood Pressure Pulse Oximetry Intake & Output 12/14/17 12/15/17 12/15/17 18:59 06:59 18:59 Intake Total 480 / 480 Output Total 125 / 125 Balance 480 / 480 -125 / -125 Weight 101.6 kg Intake: Oral 480 / 480 Output: Urine 125 / 125 Other: Date of Last Bowel Movement 12/14/17 12/14/17 Weight On Admission 101.6 kg Narrative: GENERAL: Awake alert and oriented 3 talkative and cooperative SKIN: Warm and dry. HEAD: Atraumatic. Normocephalic. EYES: Pupils equal and round. No scleral icterus. No injection or drainage. Extraocular muscles intact wears glasses ENT: No nasal bleeding or discharge. Mucous membranes pink and moist. Tongue is midline NECK: Trachea midline. No JVD. Supple CARDIOVASCULAR: Regular rate and rhythm. S1-S2 no S3 or S4 RESPIRATORY: No accessory muscle use. Coarse breath sounds. Breath sounds equal bilaterally. Scattered rhonchi GASTROINTESTINAL: Abdomen soft, non-tender, nondistended. Hepatic and splenic margins not palpable. Obese MUSCULOSKELETAL: Extremities without clubbing, cyanosis, or edema. No obvious deformities. Right groin is stable from proceed NEUROLOGICAL: Awake and alert. No obvious cranial nerve deficits. Motor grossly within normal limits. 4 out of 5 muscle strength in the arms and legs. Normal speech. PSYCHIATRIC: Appropriate mood and affect; insight and judgment normal. Results - Labs CBC & Chem 7: 12/15/17 04:06 12/15/17 04:57 Laboratory Results - last 24 hr 12/15/17 12/15/17 12/15/17 04:06 04:57 04:57 WBC 10.3 RBC 3.87 L Hgb 11.7 L Hct 35.8 L MCV 92.4 MCH 30.3 MCHC 32.8 RDW 14.9 Plt Count 210 MPV 7.6 Neut % (Auto) 74.8 H Lymph % (Auto) 14.5 [place] % (Auto) 9.5 H Eos % (Auto) 0.8 Baso % (Auto) 0.4 Neut # (Auto) 7.7 Lymph # (Auto) 1.5 [place] # (Auto) 1.0 H Eos # (Auto) 0.1 Baso # (Auto) 0.0 WBC Differential . Differential Comment Auto diff final PT 10.7 INR 1.1 APTT 24.0 L Sodium 139 Potassium 5.0 Chloride 104 Carbon Dioxide 27.2 Anion Gap 8 BUN 24 H Creatinine 1.31 H Estimated GFR 52 L Random Glucose 85 Calcium 8.7 Phosphorus 3.0 Magnesium 2.2 Total Bilirubin 0.5 AST 16 ALT 29 Alkaline Phosphatase 72 Total Protein 6.4 Albumin 3.1 L Triglycerides 76 Cholesterol 92 L LDL Cholesterol, Calc 27 HDL Cholesterol 49.4 Cholesterol/HDL Ratio 1.86 TSH 1.410 Free T4 1.35 - Imaging Impressions Carotid Doppler Study 12/14/17 15:59 CONCLUSION: 1. Right Internal Carotid Artery: Findings indicate <50% stenosis. 2. Left Internal Carotid Artery: Findings indicate 50-69% stenosis. Lower Extremity Ultrasound 12/15/17 08:25 CONCLUSION: 1. Normal venous mapping study with measurements given above. Venous Doppler Study 12/15/17 08:25 CONCLUSION: 1. The study is negative for bilateral lower extremity deep venous thrombosis. - Procedures 12/14/2017 INDICATIONS FOR CATHETERIZATION: 1. Shortness of breath on exertion despite negative stress tests. 2. Prior history of atherosclerotic heart disease which was moderate. CONSENT: Fully informed consent was obtained prior to the procedure. The risks of , bleeding, myocardial infarction, perforation, aspiration, foreseen and unforeseen complications were reviewed. The patient appeared to fully understand. PROCEDURES: 1. Left heart catheterization. 2. Right heart catheterization. 3. Bilateral coronaries. 4. LV gram. 5. Sedation. PROCEDURAL STATEMENTS: The patient was draped and prepped in usual manner. Right femoral artery and vein were entered using a micropuncture technique using ultrasound. Via the 6-Vietnamese sheath, a full right heart catheterization was carried out. Via the 4-Vietnamese sheath, left heart and right coronary catheters were used to intubate the left and right coronary arteries, pigtail catheter to intubate the left ventricle. Multiple angiographic views were carried out. Care was taken to spare dye with hand-held LV gram being performed and minimal shots being taken. Creatinine was elevated at 1.5, but had been higher previously. FINDINGS: I. HEMODYNAMICS: The wedge pressure was 28/23 with a mean of 15. The pulmonary artery pressure was 59/20 with a mean of 38. RV pressure was 64 with a right ventricular end-diastolic pressure of 18. The RA pressure was 15/12 with a mean of 10. The left ventricular pressure was 161 with left ventricular end-diastolic pressure of 23. The aortic pressure was 163/71 with a mean aortic pressure of 115. II. LEFT VENTRICULOGRAM The overall left ventricular ejection fraction was estimated at 50%. This was a hand-held injection because of dye sparing with an elevated creatinine. III. CORONARIES: The left main was large and free of significant disease. The LAD was a large vessel that was diffusely diseased proximally with a diffuse long 75% stenosis. Distal to this it came up to a trifurcation with evidence of a large diagonal branch that bifurcated into 2 sub-branches. The upper branch was totally occluded at 100%. The lower branch was a medium-sized vessel. The LAD itself had some diffuse disease further in the vessel. The ramus/obtuse marginal-1 vessel had a 50% stenosis proximal. The distal circumflex was a small vessel. The right coronary artery was a large, dominant vessel with a large posterior descending artery and posterolateral branch. There was diffuse disease throughout the right coronary. In the proximal to mid-right was a 99% stenosis. In the distal right there was diffuse 50% disease. CONCLUSION: Severe three-vessel coronary artery disease with well preserved ejection fraction. Unfortunately, the patient's creatinine is elevated. PLAN: Bypass surgery to do the LAD, the diagonal, and the right coronary. One could consider also high risk angioplasty to the right coronary if the patient is not a candidate for surgery because of pulmonary reasons. Discussed with Dr Lay and pt and . Will consult Dr Jensen De Luna. Alejandro Ramos MD Assessment and Plan - Plan Coronary artery disease to be evaluated by cardiovascular surgery and at hopes of having coronary artery bypass graft involving the LAD, diagonal, and the right coronary artery Continue on an aspirin and Imdur and Ranexa If no surgery will need high risk angioplasty to the right coronary artery COPD on 2.5 L continuously Continue nebulized treatments We will add Mucinex Duo nebs Incentive spirometry Pulmonary consultation with Dr. De Luna History of endocarditis Second-degree heart block status post pacemaker Carotid stenosis we will check carotid Dopplers Hypertension resume home medications Hyperlipidemia will need treatment with statin if not on one already GERD continue on PPI versus H2 catia Chronic kidney disease stage III continue to monitor kidney with labs History of Waldenstrm's macroglobulinemia History of CVAs continue on aspirin Tremor continue on primidone Restless leg syndrome continue on permanent We will ask physical therapy and occupational therapy to eval and treat Discussed with RN and patient and Duo quincy as needed A.m. labs Code Status: FULL CODE Discussed Condition With: RN AND PT AND CM AND AND CVS AND CARDIOLOGY Discharge Planning: Pending clearance by cardiology and cardiovascular surgery HOPEFULLY CABG x3 ON MONDAY
--- NOTE | 2017-12-15 16:44 | ECHRPT ---
Indication: pre op monday- chest pain CONCLUSIONS Mild dilated left ventricle. Wall thickness is normal. The left ventricular systolic function is moderately reduced with an estimated ejection fraction in the range of 40-45%. The right ventricular systoilc function is mildly decreased. Mitral annular calcification is present. Llmxp-or-yltz mitral valve regurgitation. Aortic valve sclerosis is present. Trace aortic valve regurgitation. There is estimated moderate pulmonary hypertension present (50mmHg). BP: / HR: Rhythm: MEASUREMENTS (Male / Female) Normal Values Technical Quality: 2D ECHO LV Diastolic Diameter PLAX 5.9 cm 4.2 - 5.9 / 3.9 - 5.3 cm LV Systolic Diameter PLAX 5.1 cm IVS Diastolic Thickness 1.1 cm 0.6 - 1.0 / 0.6 - 0.9 cm LVPW Diastolic Thickness 0.6 cm 0.6 - 1.0 / 0.6 - 0.9 cm LV Relative Wall Thickness 0.3 RV Internal Dim ED PLAX 2.2 cm LA Systolic Diameter LX 4.0 cm 3.0 - 4.0 / 2.7 - 3.8 cm DOPPLER Mitral E Point Velocity 75.5 cm/s Mitral A Point Velocity 78.5 cm/s Mitral E to A Ratio 1.0 TR Peak Velocity 316.0 cm/s TR Peak Gradient 39.9 mmHg Right Atrial Pressure 10.0 mmHg Pulmonary Artery Systolic Pressu 49.9 mmHg Right Ventricular Systolic Press 49.9 mmHg FINDINGS LEFT VENTRICLE Mild dilated left ventricle. Wall thickness is normal. The left ventricular systolic function is moderately reduced with an estimated ejection fraction in the range of 40-45%. RIGHT VENTRICLE The right ventricular systoilc function is mildly decreased. LEFT ATRIUM The left atrial size is normal. RIGHT ATRIUM The right atrial size is normal. ATRIAL SEPTUM Normal atrial septal thickness without atrial level shunting by limited color doppler interrogation. AORTA The aortic root and proximal ascending aorta are normal in size on limited imaging. MITRAL VALVE Mitral annular calcification is present. Liixq-br-fzhz mitral valve regurgitation. AORTIC VALVE Aortic valve sclerosis is present. Trace aortic valve regurgitation. TRICUSPID VALVE There is estimated moderate pulmonary hypertension present (50mmHg). PULMONARY VALVE No pulmonary valve regurgitation or stenosis. VESSELS The inferior vena cava is normal in size. PERICARDIUM No pericardial effusion. Brad Sullivan MD (Electronically Signed) Final Date:15 December 2017 16:42
[2017-12-15 17:28] LABS: Hemoglobin A1c 6.2 % (4.3-6.0)
[2017-12-15 18:03] LABS: Calcium 8.6 mg/dL (8.5-10.1); Carbon Dioxide 25.4 meq/L (21.0-32.0); Potassium 4.4 meq/L (3.5-5.1)
--- NOTE | 2017-12-15 18:10 | ECG ---
Date Performed: 12/14/2017 Time Performed: 10:44:00 PTAGE: 82 years EKG: Sinus arrhythmia. Rightward axis IV conduction defect Abnormal ECG PREVIOUS TRACING : 10/13/2017 23.28 COMPARED WITH PREVIOUS TRACING NO SIGNIFICANT CHANGE DOCTOR: Poncho Bean Interpretating Date/Time 12/15/2017 18:09:11
[2017-12-15] MEDS: Mupirocin 2% Nasal Oint Topical Syringe EACH NARE SCH (20:50)
[2017-12-16] MEDS: Heparin Drip 25,000 UNIT/250 ML BAG IV.CONT PRN ×2 (02:33→23:43)
[2017-12-16 03:53] LABS: Alanine Aminotransferase 23 U/L (12-78); Albumin 2.8 g/dL (3.4-5.0); Alkaline Phosphatase 68 U/L (45-117); Anion Gap 12 meq/L (5-15); Aspartate Aminotransferase 11 U/L (15-37); Blood Urea Nitrogen 22 mg/dL (7-18); Calcium 8.6 mg/dL (8.5-10.1); Carbon Dioxide 23.1 meq/L (21.0-32.0); Chloride 102 meq/L (98-107); Glomerular Filtration Rate 54 mL/min (>89); Glucose,Random 101 mg/dL (74-106); Magnesium 2.2 mg/dL (1.5-2.5); Phosphorus 4.1 mg/dL (2.5-4.9); Potassium 3.9 meq/L (3.5-5.1); Sodium 137 meq/L (136-145); Total Protein 6.2 g/dL (6.4-8.2)
[2017-12-16] MEDS: Levothyroxine 50 MCG Tablet PO SCH (05:37)
[2017-12-16 06:03] LABS: Baso % (Auto) 0.4 % (0.0-2.0); Eos # (Auto) 0.1 th/mm3 (0.0-0.4); Hematocrit 37.8 % (39.0-51.0); Hemoglobin 12.5 gm/dL (13.0-17.0); Lymph % (Auto) 19.9 % (9.0-44.0); Mean Corpuscular HGB Conc 33.1 % (32.0-36.0); Mean Corpuscular Hemoglobin 30.5 pg (27.0-34.0); Mean Platelet Volume 7.1 fL (7.0-11.0); Mono # (Auto) 0.9 th/mm3 (0.0-0.9); Mono % (Auto) 9.4 % (0.0-8.0); Neut % (Auto) 69.3 % (16.0-70.0); Platelet Count 216 th/mm3 (150-450); Red Blood Count 4.11 mil/mm3 (4.50-5.90); Red Cell Distribution Width 14.9 % (11.6-17.2); White Blood Count 10.1 th/mm3 (4.0-11.0)
[2017-12-16] MEDS: Vitamins A,C,E/Lutein/Minerals Tablet PO SCH (09:27)
[2017-12-16] MEDS: Isosorbide Mononitrate 60 MG ER 24HR Tablet (Imdur) PO SCH (09:27)
[2017-12-16] MEDS: guaiFENesin 600 MG ER Tablet PO SCH ×2 (09:27→21:15)
[2017-12-16] MEDS: Senna/Docusate Sodium 8.6/50 MG Tablet PO SCH ×2 (09:28→21:13)
[2017-12-16] MEDS: Primidone 50 MG Tablet PO SCH (09:28)
[2017-12-16] MEDS: Pantoprazole Sodium 20 MG DR Tablet PO SCH (09:29)
[2017-12-16] MEDS: Metoprolol Tartrate 25 MG Tablet PO SCH (09:33)
--- NOTE | 2017-12-16 10:56 | P.PNFP ---
Subjective Interval history: Pt seen and examined. AFVSS. No acute events overnight. Reports he is feeling well. Denies CP, palpitations, SOB, abdominal pain, N/V. Working with PT to help him get up and moving a little more. Aware of anticipate CABG on Monday. Results - Labs Result diagrams: 12/16/17 05:40 12/16/17 02:23 Abnormal lab results 12/15/17 12/15/17 12/15/17 Range/Units 04:57 17:09 17:25 RBC (4.50-5.90) mil/mm3 Hgb (13.0-17.0) gm/dL Hct (39.0-51.0) % [place] % (Auto) (0.0-8.0) % APTT 39.0 H D (24.3-30.1) sec BUN 23 H (7-18) mg/dL Estimated GFR 54 L (>89) mL/min Hemoglobin A1c 6.2 H (4.3-6.0) % AST (15-37) U/L Total Protein (6.4-8.2) g/dL Albumin (3.4-5.0) g/dL 12/16/17 12/16/17 12/16/17 Range/Units 02:23 02:23 05:40 RBC 4.11 L (4.50-5.90) mil/mm3 Hgb 12.5 L (13.0-17.0) gm/dL Hct 37.8 L (39.0-51.0) % [place] % (Auto) 9.4 H (0.0-8.0) % APTT 63.4 H D (24.3-30.1) sec BUN 22 H (7-18) mg/dL Estimated GFR 54 L (>89) mL/min Hemoglobin A1c (4.3-6.0) % AST 11 L (15-37) U/L Total Protein 6.2 L (6.4-8.2) g/dL Albumin 2.8 L (3.4-5.0) g/dL 12/16/17 Range/Units 08:15 RBC (4.50-5.90) mil/mm3 Hgb (13.0-17.0) gm/dL Hct (39.0-51.0) % [place] % (Auto) (0.0-8.0) % APTT 48.6 H D (24.3-30.1) sec BUN (7-18) mg/dL Estimated GFR (>89) mL/min Hemoglobin A1c (4.3-6.0) % AST (15-37) U/L Total Protein (6.4-8.2) g/dL Albumin (3.4-5.0) g/dL Short CBC 12/16/17 Range/Units 05:40 WBC 10.1 (4.0-11.0) th/mm3 Hgb 12.5 L (13.0-17.0) gm/dL Hct 37.8 L (39.0-51.0) % Plt Count 216 (150-450) th/mm3 BMP 12/15/17 12/16/17 17:25 02:23 Sodium 136 137 Potassium 4.4 3.9 Chloride 101 102 Carbon Dioxide 25.4 23.1 BUN 23 H 22 H Creatinine 1.27 1.27 Calcium 8.6 8.6 Liver Function 12/16/17 Range/Units 02:23 Total Bilirubin 0.4 (0.2-1.0) mg/dL AST 11 L (15-37) U/L ALT 23 (12-78) U/L Alkaline Phosphatase 68 (45-117) U/L Albumin 2.8 L (3.4-5.0) g/dL - Imaging Impressions Lower Extremity Ultrasound 12/15/17 08:25 CONCLUSION: 1. Normal venous mapping study with measurements given above. Venous Doppler Study 12/15/17 08:25 CONCLUSION: 1. The study is negative for bilateral lower extremity deep venous thrombosis. Physical Exam Vital signs: Vital Signs 12/15/17 11:00 12/15/17 11:43 12/15/17 11:48 Temperature 97.6 F Pulse Rate 74 77 Respiratory Rate 16 Blood Pressure 114/77 Pulse Oximetry 92 L 92 L 12/15/17 12:00 12/15/17 13:08 12/15/17 14:00 Temperature Pulse Rate 74 80 74 Respiratory Rate Blood Pressure Pulse Oximetry 12/15/17 15:00 12/15/17 16:00 12/15/17 17:00 Temperature 97.6 F Pulse Rate 74 72 74 Respiratory Rate 16 Blood Pressure 136/70 Pulse Oximetry 96 12/15/17 18:00 12/15/17 20:00 12/15/17 21:00 Temperature 97.4 F L Pulse Rate 74 75 74 Respiratory Rate 18 Blood Pressure 122/60 Pulse Oximetry 96 12/15/17 22:00 12/15/17 22:04 12/15/17 23:00 Temperature Pulse Rate 70 72 78 Respiratory Rate 16 Blood Pressure Pulse Oximetry 97 12/16/17 00:00 12/16/17 01:00 12/16/17 02:00 Temperature 97.8 F Pulse Rate 78 70 70 Respiratory Rate 18 Blood Pressure 149/70 H Pulse Oximetry 96 12/16/17 03:00 12/16/17 03:49 12/16/17 04:00 Temperature 98 F Pulse Rate 70 70 70 Respiratory Rate 16 18 Blood Pressure 141/73 H Pulse Oximetry 95 12/16/17 05:00 12/16/17 06:00 12/16/17 07:45 Temperature Pulse Rate 70 70 71 Respiratory Rate 16 Blood Pressure Pulse Oximetry 95 Intake & Output 12/15/17 12/16/17 12/16/17 18:59 06:59 18:59 Intake Total 250 / 250 Output Total 675 / 675 Balance -675 / -675 250 / 250 Weight 100 kg 99.5 kg Intake: IV 250 / 250 Heparin/D5W 25,000 U/250 mL 25, 250 / 250 000 unit In 250 ml @ Per Protocol IV.CONT TITRATE PRN Rx #:[id number] Output: Urine 675 / 675 Other: Date of Last Bowel Movement 12/14/17 12/14/17 Narrative: GENERAL: WN, WD elderly male resting in bed in [facility]. SKIN: Warm and dry. HEENT: AT/NC. Pupils equal and round. MMM. NECK: Supple no tender LAD or JVD. HEART: RRR no m/r/g. LUNGS: CTAB without wheezes or crackles. ABDOMEN: +BS, soft, NT, ND. EXTREMITIES: No LE edema. NEURO: Awake and alert. Nonfocal. PSYCH: Appropriate mood and affect. Assessment and Plan - Assessment (1) Coronary artery disease Code(s): I25.10 - Atherosclerotic heart disease of [place] coronary artery without angina pectoris Status: Chronic (2) COPD (chronic obstructive pulmonary disease) Code(s): J44.9 - Chronic obstructive pulmonary disease, unspecified Status: Chronic - Assessment and Plan 82 YOWM with COPD, CAD, HTN, HLD, AFIB, PAD, CKD, pacemaker, macroglobulinemia, and history of endocarditis admitted on 12/14 for severe three-vessel CAD seen on cardiac catheterization by Dr. Ramos the same day. 1. Three-vessel CAD - Cardiac cath done 12/14 showing - CT surgery consulted for evaluation of CABG - Pre-CABG eval initiated - Bilateral LE venous doppler WNL - Venous mapping done of LE - Carotid dopplers show <50% stenosis of DEXTER and 50-69% stenosis of LICA - Echo showing mildly dilated left ventricle with normal wall thickness, reduced EF of 40-45%, mitral annular calcification, aortic valve sclerosis, and moderate pulmonary hypertension - Pulm consulted for lung capacity eval - Planning for CABG Monday - Continue heparin drip - Continue ASA, Imdur, and Ranexa 2. COPD - On 2.5L continuous O2 - Pulm consulted for pre-op eval, planning to do PFTs - Continue bronchodilators and Mucinex - Incentive spirometry 3. HTN - BPs stable - Resume home metoprolol, terazosin, and Imdur 4. HLD - Resume home statin 5. CKD - Avoid nephrotoxic agents and renally dose meds 6. History of CVA - Continue ASA 7. Essential tremor - Continue home primidone 8. Restless leg syndrome - Continue home Requip 9. Hypothyroidism - Continue home Synthroid DVT prophylaxis: On heparin gtt Discharge Planning: CABG tentatively planned for 12/18
[2017-12-16] MEDS: Mupirocin 2% Nasal Oint Topical Syringe EACH NARE SCH ×2 (12:37→21:22)
--- NOTE | 2017-12-16 17:27 | CT ---
EXAM DATE: 12/16/2017 4:51 PM EDT AGE/SEX: 82 years / Male INDICATIONS: Chest pain. CLINICAL DATA: This is the patient's initial encounter. Patient reports that signs and symptoms have been present for 1 day and indicates a pain score of 3/10. MEDICAL/SURGICAL HISTORY: Cardiovascular disease. Chronic obstructive pulmonary disease. Peripher al vascular disease. Hypertension, Non-Hodgkin's Lymphoma, stroke. Pacemaker. RADIATION DOSE: 16.96 CTDI (mGy) COMPARISON: [facility] – [place], CT PULMONARY ANGIOGRAM, 10/13/2017. . TECHNIQUE: Multiple contiguous axial images were obtained through the chest without contrast. Image s were obtained in suspended respiration using multiple row detector helical technique. Using automa doc exposure control and adjustment of the mA and/or kV according to patient size, radiation dose was kept as low as reasonably achievable to obtain optimal diagnostic quality images. DICOM format imag e data is available electronically for review and comparison. FINDINGS: Examination of the mediastinum demonstrates no abnormally enlarged lymph nodes by CT criteria. No axi llary or hilar abnormalities are identified. Coronary artery calcifications are present. The right ad renal gland is unremarkable. There is a nodule in the left adrenal gland likely reflecting adenoma m easuring 10 mm. A bipolar pacemaker is in place via a left sided approach. There is extensive biapical pleural thickening. There has been no significant change when compared to the prior exam. There are severe emphysematous changes in both upper lobes. The 6 mm nodule in the r ight lower lobe is unchanged. Followup CT scan in 6 months is recommended. Small bilateral pleural e ffusions are identified. There is honeycombing in both lower lobes. CONCLUSION: No evidence of acute thoracic abnormality. No masses are identified. Small bilateral effusions Severe emphysema Stable 6 mm nodule right lower lobe. Followup CT scan in 6 months is recommended. Electronically signed by: Bright Doshi MD 12/16/2017 5:26 PM EDT
[2017-12-17 05:25] LABS: Hemoglobin 12.5 gm/dL (13.0-17.0); Mean Corpuscular HGB Conc 33.1 % (32.0-36.0); Mean Corpuscular Hemoglobin 30.4 pg (27.0-34.0); Mean Corpuscular Volume 91.9 fL (80.0-100.0); Platelet Count 219 th/mm3 (150-450); Red Blood Count 4.13 mil/mm3 (4.50-5.90); White Blood Count 10.8 th/mm3 (4.0-11.0)
[2017-12-17 05:51] LABS: Calcium 9.1 mg/dL (8.5-10.1); Carbon Dioxide 24.9 meq/L (21.0-32.0)
[2017-12-17] MEDS: Levothyroxine 50 MCG Tablet PO SCH (07:30)
[2017-12-17] MEDS ORDERED: Metoprolol Tartrate 25 MG Tablet PO SCH (09:00)
--- NOTE | 2017-12-17 09:37 | P.PNCA ---
- Note Subjective/Hospital Course: pt seen and evaluated / full consult to follow sts data discussed with pt RISK SCORES About the STS Risk Calculator Procedure: CAB Only Risk of Mortality: 8.527% Morbidity or Mortality: 35.95% Long Length of Stay: 21.725% Short Length of Stay: 14.69% Permanent Stroke: 3.556% Prolonged Ventilation: 25.94% DSW Infection: 1.061% Renal Failure: 12.648% Reoperation: 12.054% 12/17/17 Patient scheduled for CABG tomorrow. Non-contrast chest CT reviewed and there does not appear to be significant calcification in the ascending aorta. Creatinine is higher today Objective: Vital Signs - 24 hr 12/16/17 10:00 12/16/17 11:00 12/16/17 12:00 Temperature 98 F Pulse Rate 72 87 78 Respiratory Rate 17 Blood Pressure 99/51 L Pulse Oximetry 12/16/17 13:00 12/16/17 14:00 12/16/17 15:00 Temperature Pulse Rate 80 80 70 Respiratory Rate Blood Pressure Pulse Oximetry 12/16/17 16:00 12/16/17 17:00 12/16/17 18:00 Temperature 97.8 F Pulse Rate 80 70 70 Respiratory Rate 16 Blood Pressure 119/42 L Pulse Oximetry 12/16/17 19:00 12/16/17 19:34 12/16/17 20:00 Temperature 97.6 F Pulse Rate 71 71 68 Respiratory Rate 20 Blood Pressure 122/66 Pulse Oximetry 97 12/16/17 21:00 12/16/17 22:00 12/16/17 22:05 Temperature Pulse Rate 68 72 72 Respiratory Rate 18 Blood Pressure Pulse Oximetry 97 12/16/17 23:00 12/16/17 23:17 12/17/17 00:00 Temperature 97.6 F Pulse Rate 72 72 70 Respiratory Rate 18 Blood Pressure 135/70 Pulse Oximetry 95 12/17/17 01:00 12/17/17 02:00 12/17/17 03:00 Temperature Pulse Rate 70 70 70 Respiratory Rate Blood Pressure Pulse Oximetry 12/17/17 04:00 12/17/17 04:31 12/17/17 04:57 Temperature 98.5 F Pulse Rate 68 71 72 Respiratory Rate 17 14 Blood Pressure 157/75 H Pulse Oximetry 96 12/17/17 05:00 12/17/17 06:00 12/17/17 09:23 Temperature Pulse Rate 72 72 76 Respiratory Rate 16 Blood Pressure Pulse Oximetry 95 Labs: Laboratory Results - last 12 hr 12/17/17 12/17/17 12/17/17 05:01 05:01 05:01 WBC 10.8 RBC 4.13 L Hgb 12.5 L Hct 38.0 L MCV 91.9 MCH 30.4 MCHC 33.1 RDW 15.0 Plt Count 219 MPV 7.0 APTT 97.3 H* D Sodium Potassium Chloride Carbon Dioxide Anion Gap BUN Creatinine Estimated GFR Random Glucose Calcium Blood Type A Positive Antibody Screen Negative MTS Gel Crossmatch See Detail 12/17/17 05:01 WBC RBC Hgb Hct MCV MCH MCHC RDW Plt Count MPV APTT Sodium 139 Potassium 4.0 Chloride 101 Carbon Dioxide 24.9 Anion Gap 13 BUN 26 H Creatinine 1.61 H Estimated GFR 41 L Random Glucose 101 Calcium 9.1 Blood Type Antibody Screen MTS Gel Crossmatch Result Diagrams: 12/17/17 05:01 12/17/17 16:06 - Plan (1) Chronic kidney disease (2) COPD (chronic obstructive pulmonary disease) Creatinine higher this morning. D/C Bumex Will repeat BMP. If creatinine is trending higher, he may benefit from postponing surgery until renal function is stable. Creatinine 1.5 on repeat BMP. Will proceed with CABG. (1) Chronic kidney disease Qualifiers: Chronic kidney disease stage: stage 3 (moderate) Qualified Code(s): N18.3 - Chronic kidney disease, stage 3 (moderate) (2) COPD (chronic obstructive pulmonary disease) Qualifiers: COPD type: emphysema Emphysema type: unspecified Qualified Code(s): J43.9 - Emphysema, unspecified
--- NOTE | 2017-12-17 09:54 | P.PNFP ---
Subjective Interval history: Patient seen and examined for follow-up of CAD. The plan is for CABG tomorrow morning. The patient reports he is ready. He had about a 20 minute episode of chest pain yesterday that was relieved with sublingual nitroglycerin. He denies any recurrent episodes of chest pain. Endorses a dry cough from postnasal drip. Denies shortness of breath, dizziness, palpitations, or significant edema. Tolerating p.o. Results - Labs Result diagrams: 12/17/17 05:01 12/17/17 05:01 Abnormal lab results 12/16/17 12/17/17 12/17/17 Range/Units : 05:01 05:01 RBC (4.50-5.90) mil/mm3 Hgb (13.0-17.0) gm/dL Hct (39.0-51.0) % APTT 61.1 H D 97.3 H* D (24.3-30.1) sec BUN (7-18) mg/dL Creatinine (0.60-1.30) mg/dL Estimated GFR (>89) mL/min MTS Gel Crossmatch See Detail 12/17/17 12/17/17 12/17/17 Range/Units 05:01 05:01 09:00 RBC 4.13 L (4.50-5.90) mil/mm3 Hgb 12.5 L (13.0-17.0) gm/dL Hct 38.0 L (39.0-51.0) % APTT 74.6 H D (24.3-30.1) sec BUN 26 H (7-18) mg/dL Creatinine 1.61 H (0.60-1.30) mg/dL Estimated GFR 41 L (>89) mL/min MTS Gel Crossmatch Short CBC 12/17/17 Range/Units 05:01 WBC 10.8 (4.0-11.0) th/mm3 Hgb 12.5 L (13.0-17.0) gm/dL Hct 38.0 L (39.0-51.0) % Plt Count 219 (150-450) th/mm3 BMP 12/17/17 05:01 Sodium 139 Potassium 4.0 Chloride 101 Carbon Dioxide 24.9 BUN 26 H Creatinine 1.61 H Calcium 9.1 - Imaging Impressions Chest CT 12/16/17 00:00 CONCLUSION: No evidence of acute thoracic abnormality. No masses are identified. Small bilateral effusions Severe emphysema Stable 6 mm nodule right lower lobe. Followup CT scan in 6 months is recommended. Physical Exam Vital signs: Vital Signs 12/16/17 10:00 12/16/17 11:00 12/16/17 12:00 Temperature 98 F Pulse Rate 72 87 78 Respiratory Rate 17 Blood Pressure 99/51 L Pulse Oximetry 12/16/17 13:00 12/16/17 14:00 12/16/17 15:00 Temperature Pulse Rate 80 80 70 Respiratory Rate Blood Pressure Pulse Oximetry 12/16/17 16:00 12/16/17 17:00 12/16/17 18:00 Temperature 97.8 F Pulse Rate 80 70 70 Respiratory Rate 16 Blood Pressure 119/42 L Pulse Oximetry 12/16/17 19:00 12/16/17 19:34 12/16/17 20:00 Temperature 97.6 F Pulse Rate 71 71 68 Respiratory Rate 20 Blood Pressure 122/66 Pulse Oximetry 97 12/16/17 21:00 12/16/17 22:00 12/16/17 22:05 Temperature Pulse Rate 68 72 72 Respiratory Rate 18 Blood Pressure Pulse Oximetry 97 12/16/17 23:00 12/16/17 23:17 12/17/17 00:00 Temperature 97.6 F Pulse Rate 72 72 70 Respiratory Rate 18 Blood Pressure 135/70 Pulse Oximetry 95 12/17/17 01:00 12/17/17 02:00 12/17/17 03:00 Temperature Pulse Rate 70 70 70 Respiratory Rate Blood Pressure Pulse Oximetry 12/17/17 04:00 12/17/17 04:31 12/17/17 04:57 Temperature 98.5 F Pulse Rate 68 71 72 Respiratory Rate 17 14 Blood Pressure 157/75 H Pulse Oximetry 96 12/17/17 05:00 12/17/17 06:00 12/17/17 09:23 Temperature Pulse Rate 72 72 76 Respiratory Rate 16 Blood Pressure Pulse Oximetry 95 Intake & Output 12/16/17 12/17/17 12/17/17 18:59 06:59 18:59 Intake Total 480 / 480 590 / 590 Output Total 475 / 475 Balance 480 / 480 115 / 115 Weight 101 kg Intake: IV 250 / 250 Heparin/D5W 25,000 U/250 mL 25, 250 / 250 000 unit In 250 ml @ Per Protocol IV.CONT TITRATE PRN Rx #:[id number] Oral 480 / 480 340 / 340 Output: Urine 475 / 475 Other: Date of Last Bowel Movement 12/14/17 12/13/17 Narrative: GENERAL: WN, WD elderly male sitting up in chair in [place]. SKIN: Warm and dry. HEENT: AT/NC. Pupils equal and round. MMM. NECK: Supple no tender LAD or JVD. HEART: RRR no m/r/g. LUNGS: Diminished breath sounds but otherwise clear without wheezing or crackles. ABDOMEN: +BS, soft, NT, ND. EXTREMITIES: Trace LE edema. NEURO: Awake and alert. Nonfocal. PSYCH: Appropriate mood and affect. Assessment and Plan - Assessment (1) Coronary artery disease Code(s): I25.10 - Atherosclerotic heart disease of [place] coronary artery without angina pectoris Status: Chronic (2) COPD (chronic obstructive pulmonary disease) Code(s): J44.9 - Chronic obstructive pulmonary disease, unspecified Status: Chronic - Assessment and Plan 82 YOWM with COPD, CAD, HTN, HLD, AFIB, PAD, CKD, pacemaker, macroglobulinemia, and history of endocarditis admitted on 12/14 for severe three-vessel CAD seen on cardiac catheterization by Dr. Ramos the same day. 1. Three-vessel CAD - Cardiac cath done 12/14 showing severe three-vessel coronary artery disease with well-preserved ejection fraction; Dr. Abraham and are recommending bypass surgery to do the LAD, the diagonal, and the right coronary - CT surgery consulted, planning on CABG tomorrow - Bilateral LE venous doppler WNL - Venous mapping done of LE - Carotid dopplers show <50% stenosis of DEXTER and 50-69% stenosis of LICA - Echo showing mildly dilated left ventricle with normal wall thickness, reduced EF of 40-45%, mitral annular calcification, aortic valve sclerosis, and moderate pulmonary hypertension - Pulm consulted for lung capacity eval - Planning for CABG Monday - Continue heparin drip - Continue ASA, Imdur, and Ranexa 2. COPD - On 2.5L continuous O2 - Pulm consulted for pre-op eval, planning to do PFTs - Continue bronchodilators and Mucinex - Incentive spirometry 3. HTN - BPs stable - Resume home metoprolol, terazosin, and Imdur 4. HLD - Resume home statin 5. Acute on CKD - Creatinine bumped to 1.61 today from 1.27 yesterday - Check urinalysis - Discontinue Bumex since edema has significantly improved - Continue to monitor renal function closely - Avoid nephrotoxic agents and renally dose meds 6. History of CVA - Continue ASA 7. Essential tremor - Continue home primidone 8. Restless leg syndrome - Continue home Requip 9. Hypothyroidism - Continue home Synthroid DVT prophylaxis: On heparin gtt Discharge Planning: CABG planned for 12/18 (2) COPD (chronic obstructive pulmonary disease) Qualifiers: COPD type: emphysema Emphysema type: unspecified Qualified Code(s): J43.9 - Emphysema, unspecified
[2017-12-17] MEDS: Pantoprazole Sodium 20 MG DR Tablet PO SCH (10:04)
[2017-12-17] MEDS: Isosorbide Mononitrate 30 MG ER 24HR Tablet (Imdur) PO SCH (10:05)
[2017-12-17] MEDS: Primidone 50 MG Tablet PO SCH (10:06)
[2017-12-17] MEDS: Vitamins A,C,E/Lutein/Minerals Tablet PO SCH (10:06)
[2017-12-17] MEDS: guaiFENesin 600 MG ER Tablet PO SCH ×2 (10:06→22:46)
[2017-12-17] MEDS: Senna/Docusate Sodium 8.6/50 MG Tablet PO SCH ×2 (10:06→22:47)
[2017-12-17] MEDS: Mupirocin 2% Nasal Oint Topical Syringe EACH NARE SCH ×2 (10:08→22:45)
[2017-12-17 12:16] LABS: Bacteria,Urine Rare /hpf; Bilirubin,Urine Negative (Negative); Clarity,Urine Clear (Clear); Color,Urine Amber (Yellw/Straw); Glucose,Urine (UA) Negative (Negative); Leukocyte Esterase,Urine Negative (Negative); Mucus,Urine Few /lpf (Occasional); Nitrite,Urine Negative (Negative); Specific Gravity,Urine 1.024 (1.002-1.035); Squamous Epithelial Cell,Urine <1 /hpf (0-5)
[2017-12-17] MEDS ORDERED: Sodium Chlor 0.9% Inj 57.5 ML, Papaverine Inj 60 MG, Nitroglycerin Inj 100 MCG, Verapam... IRRIGATION SCH ×3 (14:45)
[2017-12-17 17:00] LABS: Calcium 8.7 mg/dL (8.5-10.1); Carbon Dioxide 26.5 meq/L (21.0-32.0); Potassium 3.7 meq/L (3.5-5.1)
--- NOTE | 2017-12-17 22:31 | XR ---
EXAM DATE: 12/17/2017 10:28 PM EDT AGE/SEX: 82 years / Male INDICATIONS: Evaluate for pneumonia, pneumothorax or communicable disease Pre surgery CABG CLINICAL DATA: This is the patient's initial encounter. Patient reports that signs and symptoms have been present for 3 days and indicates a pain score of 0/10. MEDICAL/SURGICAL HISTORY: . Cardiovascular disease. Chronic obstructive pulmonary disease. Per ipheral vascular disease. Hypertension, Non-Hodgkin's Lymphoma, stroke.. . Pacemaker COMPARISON: [facility] – [place], CHEST SINGLE AP, 10/13/2017. . FINDINGS: There is a pacing device seen in the left chest. The heart size is upper limits of normal. The lungs are grossly clear. CONCLUSION: No acute cardiopulmonary process. Electronically signed by: Hipolito Davis MD 12/17/2017 10:30 PM EDT
[2017-12-17] MEDS: Metoprolol Tartrate 25 MG Tablet PO SCH (22:45)
[2017-12-17] MEDS ORDERED: Sodium Chlor 0.9% Inj 500 ML IV.SIG SCH (23:00)
[2017-12-18] MEDS: Levothyroxine 50 MCG Tablet PO SCH (05:41)
[2017-12-18] MEDS: Metoprolol Tartrate 25 MG Tablet PO SCH ×2 (05:41→10:37)
[2017-12-18] MEDS ORDERED: Heparin - SQ 10,000 UNITS/ML Vial SQ ONE ×2 (06:27→16:47)
[2017-12-18] MEDS ORDERED: MethylPREDNISolone Sod Succinate Inj 125 MG/2 ML Vial ONE (06:27)
[2017-12-18] MEDS ORDERED: Cardioplegic Irr Soln 2,000 ML IRRIGATION ONE (07:20)
[2017-12-18] MEDS ORDERED: Albumin Human 25% Inj 50 ML IV.SIG ONE (07:21)
[2017-12-18] MEDS ORDERED: Heparin 10,000 UNITS/10 ML Vial (for IV use) ONE (07:22)
[2017-12-18] MEDS ORDERED: Sugammadex Inj 200 MG/2 ML Vial IV.PUSH ONE (08:37)
[2017-12-18] MEDS: Isosorbide Mononitrate 30 MG ER 24HR Tablet (Imdur) PO SCH (10:36)
[2017-12-18] MEDS: Mupirocin 2% Nasal Oint Topical Syringe EACH NARE SCH ×2 (10:36→21:35)
[2017-12-18] MEDS: guaiFENesin 600 MG ER Tablet PO SCH ×2 (10:37→20:26)
[2017-12-18] MEDS: Primidone 50 MG Tablet PO SCH ×2 (10:37→20:30)
[2017-12-18] MEDS: Vitamins A,C,E/Lutein/Minerals Tablet PO SCH (10:38)
[2017-12-18] MEDS: Pantoprazole Sodium 20 MG DR Tablet PO SCH (10:38)
[2017-12-18] MEDS: Senna/Docusate Sodium 8.6/50 MG Tablet PO SCH ×2 (10:38→20:26)
[2017-12-18] MEDS ORDERED: Calcium Chloride Inj 1 GM in Sodium Chlor 0.9% Inj 100 ML IV.SIG PRN ×2 (11:13→20:15)
[2017-12-18] MEDS ORDERED: Insulin Regular (For Infusion) 100 UNIT in Sodium Chlor 0.9% Inj 99 ML IV.CONT PRN (11:13)
[2017-12-18] MEDS ORDERED: Albumin Human 5% Inj 250 ML IV.SIG PRN (11:13)
[2017-12-18] MEDS ORDERED: DOPamine 800 MG/500 ML Premix 800 MG/500 ML PLAST..BAG IV.CONT PRN (11:13)
[2017-12-18] MEDS ORDERED: Potassium Chlor 20 mEq Premix 20 MEQ/100 ML PIGGYBACK IV.SIG PRN ×3 (11:13→20:21)
[2017-12-18] MEDS ORDERED: Dexmedetomidine Inj 200 MCG in Sodium Chlor 0.9% Inj 48 ML IV.CONT PRN (11:13)
[2017-12-18] MEDS ORDERED: Clevidipine Inj 25 MG/50 ML VIAL IV.CONT PRN (11:13)
[2017-12-18] MEDS ORDERED: Dextrose 50% in Water 50 ML Vial IV.PUSH PRN (11:13)
[2017-12-18] MEDS ORDERED: Calcium Chloride Inj 1 GM/10 ML Syringe IV.PUSH PRN (11:13)
[2017-12-18] MEDS ORDERED: Post-op Orders (for Pharmacy) OTHER STA (11:13)
[2017-12-18] MEDS ORDERED: hydrALAZINE HCl Inj 20 MG/ML Vial IV.PUSH PRN (11:13)
[2017-12-18] MEDS ORDERED: RESP: Racemic Epinephrine 2.25% 0.5 ML Neb NEB PRN (11:13)
[2017-12-18] MEDS ORDERED: Magnesium Sulfate Inj 2 GM in Sodium Chlor 0.9% Inj 96 ML IV.SIG PRN ×4 (11:13)
--- NOTE | 2017-12-18 11:41 | P.OP ---
Date of procedure: 12/18/17 Procedure: CABG x 3 BATISTA to LAD - fair SVG to D1 - poor SVG to PDA - fair EVH Anesthesia: BELEN Surgeon: Marian Lay MD Restaurant Assistant Manager: Hipolito Bowman Pathology: none sent Operation and Findings: The risks, benefits, complications, treatment options, and expected outcomes were discussed with the patient. The possibilities of reaction to medication, pulmonary aspiration, perforation of viscus, bleeding, recurrent infection, the need for additional procedures, failure to diagnose a condition, and creating a complication requiring transfusion or operation were discussed with the patient. The patient concurred with the proposed plan, giving informed consent. The site of surgery properly noted/marked. The patient was taken to Operating Room, identified as Live [facility]ae and the procedure verified as CABG, EVH, CINDY. A Time Out was held and the above information confirmed. Standard monitoring lines and Blackman catheter were placed. General anesthesia was induced. The patient was prepped and draped in a sterile fashion. A median sternotomy was performed and electrocautery was used to obtain hemostasis. The left internal mammary artery was procured as a pedicle from the 7th rib to the 1st rib in the usual manner. Simultaneously left greater saphenous vein was procured from the left leg using a minimally invasive endoscopic technique. The vein was prepared for anastomosis and the leg wound was irrigated and closed in 2 layers. The pericardium was opened and a pericardial sling was created using interrupted 0 silk sutures. The patient was heparinized for cardiopulmonary bypass and the distal mammary pedicle was instrumented for anastomosis. The heart was instrumented for cardiopulmonary bypass in the usual manner. Antegrade blood cardioplegia was employed. The patient was placed on cardiopulmonary bypass. An aortic cross-clamp was applied and the heart was arrested using cold blood cardioplegia. Antegrade cardioplegia was administered after he each anastomosis. After adequate arrest, the distal right coronary circulation was investigated and the PDA was opened with a [place] blade and found to be a 1 millimeter fair target. Saphenous vein was approximated to the PDA artery using a running 7 0 Prolene suture. The graft was measured for length and orientation and the proximal anastomosis was constructed to the ascending aorta using a running 5 0 Prolene suture after creating an aortotomy with a 5 millimeter punch. The 1st diagonal artery was then opened with a [place] blade and found to be a 1 millimeter poor target. The D1 artery was intramyocardial. Saphenous vein was approximated to the D1 artery using a running 7 0 Prolene suture. The graft was measured for length and orientation and was suspended from the pericardium. The distal LAD was opened with a [place] blade and found to be a 1 millimeter fair target. The left internal mammary artery was approximated to the LAD using a running 7 0 Prolene suture. The pedicle was attached to the epicardium using interrupted 5 0 silk suture. The patient was systemically rewarmed and received a hotshot dose of warm blood cardioplegia. The aorta was vented and the proximal anastomosis to the D1 graft was accomplished using a running 5 0 Prolene suture after creating an aortotomy was a 5 millimeter punch. The cross-clamp was removed and all proximal and distal anastomoses were examined for hemostasis. The patient was weaned from cardiopulmonary bypass. Protamine was given. There was no adverse reaction. Decannulation was carried out without incident. Wound was checked for hemostasis which was obtained using electrocautery. A 36 [place] mediastinal and 32 [place] left pleural chest tubes were placed and secured to the skin with 0 silk suture. The sternum was closed with stainless steel wire. The fascia was closed with 1. PDS. The subcutaneous tissue was closed using a running 2-0 Vicryl suture. The skin was closed with 4-0 Monocryl. Sterile dressings were placed. At the end of the operation, all sponge, instruments, and needle counts were correct. The patient was transferred to the CVICU in stable condition. Findings: Diffuse CAD with fair to poor targets. CINDY shows mild to moderate AI and MR. XC: 64 min CPB: 77 min Drains: mediastinal x 1 pleural x 1 Complications: none Disposition: CVICU in stable condition
[2017-12-18] MEDS ORDERED: fentaNYL Citrate Inj 250 MCG/5 ML Ampul ONE (12:05)
--- NOTE | 2017-12-18 12:18 | XR ---
EXAM DATE: 12/18/2017 12:15 PM EDT AGE/SEX: 82 years / Male INDICATIONS: . Post op Open heart CLINICAL DATA: This is the patient's initial encounter. Patient reports that signs and symptoms have been present for 4 - 6 days and indicates a pain score of Nonresponsive. MEDICAL/SURGICAL HISTORY: . Cardiovascular disease. Chronic obstructive pulmonary disease. Debra pheral vascular disease. Hypertension, Non-Hodgkin's Lymphoma, stroke.. . Pacemaker COMPARISON: [facility] – [place], CHEST 1V SINGLE AP, 12/17/2017. . FINDINGS: A single AP view of the chest demonstrates recent CABG. Endotracheal tube approximately 3.5 cm above the lucian. Nasogastric tube with tip in stomach. Right jugular line with tip in the SVC. Mediastinal and left-sided chest tubes. No pneumothorax.. Bibasilar densities. Left-sided pacemaker with 2 intac t leads. The cardiomediastinal contours are unremarkable. Osseous structures are intact. CONCLUSION: Status post CABG. Bibasilar densities likely atelectasis. Electronically signed by: Lazarus Carpenter MD 12/18/2017 12:17 PM EDT
--- NOTE | 2017-12-18 13:25 | P.PNFP ---
Subjective Interval history: Patient seen and examined following CABG. He is drowsy and still intubated. Operation without complications. AFVSS. Results - Labs Result diagrams: 12/17/17 05:01 12/18/17 14:00 Abnormal lab results 12/17/17 12/17/17 12/17/17 Range/Units 05:01 16:06 16:06 APTT 50.6 H D (24.3-30.1) sec BUN 24 H (7-18) mg/dL Creatinine 1.52 H (0.60-1.30) mg/dL Estimated GFR 44 L (>89) mL/min POC Glucose (68-110) mg/dl MTS Gel Crossmatch See Detail 12/18/17 Range/Units 13:21 APTT (24.3-30.1) sec BUN (7-18) mg/dL Creatinine (0.60-1.30) mg/dL Estimated GFR (>89) mL/min POC Glucose 148 H (68-110) mg/dl MTS Gel Crossmatch BMP 12/17/17 16:06 Sodium 137 Potassium 3.7 Chloride 100 Carbon Dioxide 26.5 BUN 24 H Creatinine 1.52 H Calcium 8.7 - Imaging Impressions Chest X-Ray 12/17/17 00:00 CONCLUSION: No acute cardiopulmonary process. Chest X-Ray 12/18/17 11:14 CONCLUSION: Status post CABG. Bibasilar densities likely atelectasis. Physical Exam Vital signs: Vital Signs 12/17/17 14:00 12/17/17 14:50 12/17/17 15:00 Temperature Pulse Rate 70 72 70 Respiratory Rate 16 Blood Pressure Pulse Oximetry 12/17/17 18:17 12/17/17 18:18 12/17/17 20:00 Temperature 98.2 F 98.4 F Pulse Rate 70 70 72 Respiratory Rate 18 19 Blood Pressure 143/73 H 128/60 Pulse Oximetry 12/17/17 20:29 12/17/17 21:00 12/17/17 22:00 Temperature Pulse Rate 74 72 72 Respiratory Rate 18 Blood Pressure Pulse Oximetry 95 12/17/17 23:00 12/18/17 00:00 12/18/17 01:00 Temperature 98.1 F Pulse Rate 72 70 70 Respiratory Rate 18 Blood Pressure 143/63 H Pulse Oximetry 12/18/17 02:00 12/18/17 03:00 12/18/17 04:00 Temperature Pulse Rate 71 72 72 Respiratory Rate Blood Pressure Pulse Oximetry 12/18/17 04:07 12/18/17 04:37 12/18/17 05:00 Temperature 97.6 F Pulse Rate 76 73 72 Respiratory Rate 16 19 Blood Pressure 151/67 H Pulse Oximetry 12/18/17 06:01 12/18/17 12:03 12/18/17 12:34 Temperature 97.3 F L Pulse Rate 69 69 Respiratory Rate 16 18 Blood Pressure 105/45 L Pulse Oximetry 95 94 L Intake & Output 12/17/17 12/18/17 12/18/17 18:59 06:59 18:59 Intake Total 720 / 720 450 / 450 2262.5 / 2262.5 Output Total 600 / 600 600 / 600 1850 / 1850 Balance 120 / 120 -150 / -150 412.5 / 412.5 Weight 97.5 kg Intake: IV 250 / 250 262.5 / 262.5 Heparin/D5W 25,000 U/250 mL 25, 250 / 250 000 unit In 250 ml @ Per Protocol IV.CONT TITRATE PRN Rx #:[id number] Vancomycin Inj 1,250 MG In NS 262.5 / 262.5 Inj 250 ML @ 250 mls/hr IV.SIG DIESEL PILE HAMMER OPERATOR NICOLE Rx#:[id number] Oral 720 / 720 200 / 200 Anesthesia Amount 2000 / 2000 Output: Urine 600 / 600 600 / 600 Estimated Blood Loss 1000 / 1000 Urine Amount (Catheter) 850 / 850 Indwelling Temp Sensing 850 / 850 Catheter Other: Date of Last Bowel Movement 12/17/17 12/17/17 # Bowel Movements 2 Narrative: GENERAL: WN, WD elderly male seen post-op, intubated and drowsy. SKIN: Warm and dry. HEART: RRR with LUNGS: Intubated. Anterior breath sounds CTAB. ABDOMEN: +BS, soft, NT, ND. EXTREMITIES: No LE edema. 2+ pedal pulses. - Urinary Catheter Management Indwelling Temp Sensing Catheter Cath placed during this visit: yes Reason for continuing: Hourly intake/output Insertion date: 12/18/17 Insertion time: 07:34 Assessment and Plan - Assessment (1) Coronary artery disease Code(s): I25.10 - Atherosclerotic heart disease of [place] coronary artery without angina pectoris Status: Chronic (2) COPD (chronic obstructive pulmonary disease) Code(s): J44.9 - Chronic obstructive pulmonary disease, unspecified Status: Chronic - Assessment and Plan 82 YOWM with COPD, CAD, HTN, HLD, AFIB, PAD, CKD, pacemaker, macroglobulinemia, and history of endocarditis admitted on 12/14 for severe three-vessel CAD seen on cardiac catheterization by Dr. Ramos the same day. 1. Three-vessel CAD - Cardiac cath done 12/14 showing severe three-vessel coronary artery disease with well-preserved ejection fraction; Dr. Abraham and are recommending bypass surgery to do the LAD, the diagonal, and the right coronary - CT surgery consulted, s/p CABGx3 earlier today (BATISTA to LAD [fair], SVG to D1 [poor], and SVG to PDA [fair]) - Echo showing mildly dilated left ventricle with normal wall thickness, reduced EF of 40-45%, mitral annular calcification, aortic valve sclerosis, and moderate pulmonary hypertension - Post-op management per CT surgery - Continue heparin drip - Continue ASA, Imdur, and Ranexa 2. COPD - On 2.5L continuous O2 - Continue bronchodilators and Mucinex - Incentive spirometry 3. HTN - BPs stable - Resume home metoprolol, terazosin, and Imdur 4. HLD - Resume home statin 5. Acute on CKD - Creatinine improving - Continue to monitor renal function closely - Avoid nephrotoxic agents and renally dose meds 6. History of CVA - Continue ASA 7. Essential tremor - Continue home primidone 8. Restless leg syndrome - Continue home Requip 9. Hypothyroidism - Continue home Synthroid DVT prophylaxis: On heparin gtt Discharge Planning: CABG planned for 12/18 (2) COPD (chronic obstructive pulmonary disease) Qualifiers: COPD type: emphysema Emphysema type: unspecified Qualified Code(s): J43.9 - Emphysema, unspecified
[2017-12-18] MEDS: fentaNYL Citrate Inj 100 MCG/2 ML Ampul IV.PUSH PRN ×6 (13:31→23:14)
[2017-12-18] MEDS: Potassium Chlor 20 mEq Premix 20 MEQ/100 ML PIGGYBACK IV.SIG PRN ×2 (14:15→17:31)
[2017-12-18] MEDS: Metoprolol Inj 5 MG/5 ML Vial IV.PUSH PRN ×4 (15:00→23:15)
[2017-12-18 15:01] LABS: Carbon Dioxide 22.6 meq/L (21.0-32.0); Potassium 4.2 meq/L (3.5-5.1)
[2017-12-18] MEDS: Amiodarone 200 MG Tablet PO SCH ×2 (16:02→21:22)
[2017-12-18] MEDS ORDERED: Normosol-R pH 7.4 Inj 1,000 ML IV.CONT ONE (16:47)
[2017-12-18] MEDS ORDERED: Phenylephrine/NS 1000 MCG/10ML Syringe IV.PUSH ONE (16:47)
[2017-12-18] MEDS ORDERED: Protamine Sulfate Inj 250 MG/25 ML Vial IV.CONT ONE (16:47)
[2017-12-18] MEDS ORDERED: Dexmedetomidine Inj 200 MCG/2 ML Vial IV.CONT ONE (16:47)
[2017-12-18] MEDS ORDERED: DOPamine 800 MG/500 ML Premix 800 MG/500 ML PLAST..BAG IV.CONT ONE (16:47)
[2017-12-18] MEDS ORDERED: Sodium Bicarbonate 8.4% Inj 50 MEQ/50 ML Syringe IV.CONT ONE (16:47)
[2017-12-18] MEDS ORDERED: Dextrose 5% in Water Inj 100 ML IV.SIG ONE (16:47)
[2017-12-18] MEDS ORDERED: Sodium Chlor 0.9% Inj 500 ML IV.SIG ONE (16:47)
[2017-12-18] MEDS ORDERED: Calcium Chloride Inj 1 GM/10 ML Syringe IV.CONT ONE (16:47)
[2017-12-18 17:29] LABS: Hematocrit 36.2 % (39.0-51.0); Hemoglobin 11.6 gm/dL (13.0-17.0); Mean Corpuscular HGB Conc 32.1 % (32.0-36.0); Mean Corpuscular Hemoglobin 29.4 pg (27.0-34.0); Mean Corpuscular Volume 91.7 fL (80.0-100.0); Mean Platelet Volume 7.7 fL (7.0-11.0); Platelet Count 175 th/mm3 (150-450); Red Blood Count 3.94 mil/mm3 (4.50-5.90); Red Cell Distribution Width 14.8 % (11.6-17.2); White Blood Count 18.3 th/mm3 (4.0-11.0)
[2017-12-18] MEDS: Vancomycin Inj 1,000 MG in Sodium Chlor 0.9% Inj 250 ML IV.SIG SCH (19:46)
[2017-12-18] MEDS: oxyCODONE/Acetaminophen 10/325 Tablet PO PRN (19:49)
[2017-12-19] MEDS: fentaNYL Citrate Inj 100 MCG/2 ML Ampul IV.PUSH PRN ×3 (01:14→06:01)
[2017-12-19] MEDS: oxyCODONE/Acetaminophen 10/325 Tablet PO PRN ×5 (01:43→21:40)
--- NOTE | 2017-12-19 04:58 | XR ---
EXAM DATE: 12/19/2017 4:16 AM EDT AGE/SEX: 82 years / Male INDICATIONS: . Short of breath. CLINICAL DATA: This is the patient's subsequent encounter. Patient reports that signs and symptoms h ave been present for 1 week and indicates a pain score of 0/10. MEDICAL/SURGICAL HISTORY: Cardiovascular disease. Chronic obstructive pulmonary disease. Debra pheral vascular disease. Hypertension, Non-Hodgkin's Lymphoma, stroke. Pacemaker. COMPARISON: [facility], CHEST 1V SINGLE AP, 12/18/2017. . FINDINGS: Postop sternotomy and pacer placement. Previous endotracheal tube and nasogastric tube have been leila jordan. Left chest tube. Bilateral mostly basilar airspace disease and left effusion. Right central line in superior vena cava. CONCLUSION: Basilar airspace disease and left effusion. Extubation and removal of NG tube. Electronically signed by: Monroe Galo MD 12/19/2017 4:57 AM EDT
[2017-12-19 05:43] LABS: Hematocrit 33.7 % (39.0-51.0); Hemoglobin 11.1 gm/dL (13.0-17.0); Mean Corpuscular HGB Conc 32.9 % (32.0-36.0); Mean Corpuscular Hemoglobin 30.3 pg (27.0-34.0); Mean Platelet Volume 7.3 fL (7.0-11.0); Platelet Count 196 th/mm3 (150-450); Red Blood Count 3.66 mil/mm3 (4.50-5.90); White Blood Count 20.5 th/mm3 (4.0-11.0)
[2017-12-19] MEDS: Levothyroxine 50 MCG Tablet PO SCH (06:00)
[2017-12-19] MEDS: Amiodarone 200 MG Tablet PO SCH ×3 (06:00→21:40)
[2017-12-19] MEDS: Metoprolol Inj 5 MG/5 ML Vial IV.PUSH PRN ×2 (06:02→08:12)
[2017-12-19 06:07] LABS: Calcium 8.9 mg/dL (8.5-10.1); Carbon Dioxide 22.4 meq/L (21.0-32.0); Potassium 5.2 meq/L (3.5-5.1)
[2017-12-19] MEDS: Vancomycin Inj 1,000 MG in Sodium Chlor 0.9% Inj 250 ML IV.SIG SCH ×2 (07:59→20:48)
[2017-12-19] MEDS ORDERED: Sod Phosphate/Sod Biphosphate (Adult) Enema 133 ML Bottle RECTAL PRN (08:51)
[2017-12-19] MEDS ORDERED: Dextrose 50% in Water 50 ML Vial IV.PUSH PRN (08:51)
[2017-12-19] MEDS ORDERED: Bisacodyl 10 MG Supp RECTAL PRN (08:51)
[2017-12-19] MEDS: Mupirocin 2% Nasal Oint Topical Syringe EACH NARE SCH (09:41)
[2017-12-19] MEDS: Senna/Docusate Sodium 8.6/50 MG Tablet PO SCH (09:42)
[2017-12-19] MEDS: Vitamins A,C,E/Lutein/Minerals Tablet PO SCH (09:42)
[2017-12-19] MEDS: Multivitamin/Minerals Therapeutic Tablet PO SCH (09:42)
[2017-12-19] MEDS: Primidone 50 MG Tablet PO SCH (09:42)
[2017-12-19] MEDS: guaiFENesin 600 MG ER Tablet PO SCH ×2 (09:42→21:39)
[2017-12-19] MEDS: Metoprolol Tartrate 25 MG Tablet PO SCH ×2 (09:42→21:39)
[2017-12-19] MEDS: Insulin NovoLOG Aspart Correctional Sugar Inj SQ SCH ×4 (10:00→22:27)
[2017-12-19] MEDS ORDERED: Insulin NovoLOG Aspart Correctional Sugar Inj SQ SCH (10:00)
--- NOTE | 2017-12-19 10:09 | P.PN ---
Physical Exam Vital signs: Vital Signs 12/18/17 12:03 12/18/17 12:34 12/18/17 14:36 Temperature 97.3 F L 96.7 F L Pulse Rate 69 Respiratory Rate 16 18 Blood Pressure 105/45 L Pulse Oximetry 95 94 L 12/18/17 15:00 12/18/17 15:10 12/18/17 15:21 Temperature 96.8 F L Pulse Rate 69 71 Respiratory Rate 16 20 Blood Pressure 158/61 H Pulse Oximetry 91 L 94 L 12/18/17 16:35 12/18/17 17:00 12/18/17 17:57 Temperature 97.7 F Pulse Rate Respiratory Rate 16 Blood Pressure Pulse Oximetry 96 12/18/17 19:00 12/18/17 19:21 12/18/17 20:19 Temperature 97.9 F Pulse Rate 70 70 Respiratory Rate 16 14 Blood Pressure 139/60 Pulse Oximetry 99 99 12/18/17 21:06 12/18/17 23:29 12/19/17 03:12 Temperature 97.6 F 97.9 F Pulse Rate 69 75 69 Respiratory Rate 18 16 15 Blood Pressure 152/54 H 131/58 L Pulse Oximetry 95 96 95 12/19/17 04:14 12/19/17 07:00 12/19/17 09:40 Temperature 98.1 F Pulse Rate 79 86 Respiratory Rate 18 18 18 Blood Pressure 151/57 H Pulse Oximetry Intake & Output 12/18/17 12/19/17 12/19/17 18:59 06:59 18:59 Intake Total 3491.5 / 3491.5 1216 / 1216 Output Total 3070 / 3070 450 / 450 Balance 421.5 / 421.5 766 / 766 Weight 104 kg Intake: IV 751.5 / 751.5 516 / 516 DOPamine 800 MG/500 ML Premix 55 / 55 88 / 88 800 mg In 500 ml @ 2 MCG/KG/MIN 7.313 mls/hr IV.CONT CONT PRN Rx#:[id number] NovoLIN R (IV Infusion) 100 24 / 24 78 / 78 UNIT In NS Inj 99 ML @ 3 UNITS/ HR 3 mls/hr IV.CONT TITRATE PRN Rx#:[id number] Ofirmev Inj 1,000 mg In 100 ml 200 / 200 @ 400 mls/hr IV.SIG Q6H NICOLE Rx# :[id number] Calcium Chloride Inj 1 GM In NS 110 / 110 Inj 100 ML @ 100 mls/hr IV.SIG UNSCH PRN Rx#:[id number] KCl 20 mEq Premix Inj 20 meq In 100 / 100 100 / 100 100 ml @ 50 mls/hr IV.SIG UNSCH PRN Rx#:[id number] Vancomycin Inj 1,000 MG In NS 250 / 250 Inj 250 ML @ 250 mls/hr IV.SIG Q12H NICOLE Rx#:[id number] Vancomycin Inj 1,250 MG In NS 262.5 / 262.5 Inj 250 ML @ 250 mls/hr IV.SIG COREMAKER SUPERVISOR NICOLE Rx#:[id number] Oral 240 / 240 700 / 700 Anesthesia Amount 1999 / 1999 Other 500 / 500 Output: Estimated Blood Loss 1000 / 1000 Urine Amount (Catheter) 1830 / 1830 300 / 300 Indwelling Temp Sensing 1830 / 1830 300 / 300 Catheter Chest Tube Drainage 240 / 240 150 / 150 #1 Pleural/Mediastinal 240 / 240 150 / 150 Other: Other Intake Source Saline Solution Narrative: Subjective Interval history: Follow up s/p CABG. Sleepy. In nad. No events overnight Physical Exam GENERAL: Elderly male chronically ill. SKIN: Warm and dry. HEART: RRR , normal S2/s2 LUNGS: CTAB ABDOMEN: +BS, soft, NT, ND. EXTREMITIES: No LE edema. 2+ pedal pulses. Assessment and Plan 82 YOWM with COPD, CAD, HTN, HLD, AFIB, PAD, CKD, pacemaker, macroglobulinemia, and history of endocarditis admitted on 12/14 for severe three-vessel CAD seen on cardiac catheterization by Dr. Ramos the same day. 1. Three-vessel CAD - Cardiac cath done 12/14 showing severe three-vessel coronary artery disease with well-preserved ejection fraction; Dr. Abraham and are recommending bypass surgery to do the LAD, the diagonal, and the right coronary - CT surgery consulted, s/p CABGx3 earlier today (BATISTA to LAD [fair], SVG to D1 [poor], and SVG to PDA [fair]) - Echo showing mildly dilated left ventricle with normal wall thickness, reduced EF of 40-45%, mitral annular calcification, aortic valve sclerosis, and moderate pulmonary hypertension - Post-op management per CT surgery - Continue heparin drip - Continue ASA, Imdur, and Ranexa 2. COPD - On 2.5L continuous O2 - Continue bronchodilators and Mucinex - Incentive spirometry 3. HTN - BPs stable - Resume home metoprolol, terazosin, and Imdur 4. HLD - Resume home statin 5. Acute on CKD - Creatinine improving - Continue to monitor renal function closely - Avoid nephrotoxic agents and renally dose meds 6. History of CVA - Continue ASA 7. Essential tremor - Continue home primidone 8. Restless leg syndrome - Continue home Requip 9. Hypothyroidism - Continue home Synthroid DVT prophylaxis: On heparin gtt Discharge Planning: CABG 12/18 - Urinary Catheter Management Indwelling Temp Sensing Catheter Cath placed during this visit: yes Reason for continuing: Hourly intake/output Insertion date: 12/18/17 Insertion time: 07:34 Results - Labs CBC & Chem 7: 12/19/17 05:08 12/20/17 11:50 Laboratory Results - last 24 hr 12/17/17 12/18/17 12/18/17 05:01 13:21 14:00 WBC RBC Hgb Hct MCV MCH MCHC RDW Plt Count MPV Sodium 140 Potassium 4.2 Chloride 106 Carbon Dioxide 22.6 Anion Gap 11 BUN 16 Creatinine 1.02 Estimated GFR 70 L POC Glucose 148 H Random Glucose 139 H Calcium 9.0 Magnesium Blood Type A Positive Antibody Screen Negative MTS Gel Crossmatch See Detail 12/18/17 12/18/17 12/18/17 14:00 14:20 15:22 WBC 18.3 H RBC 3.94 L Hgb 11.6 L Hct 36.2 L MCV 91.7 MCH 29.4 MCHC 32.1 RDW 14.8 Plt Count 175 MPV 7.7 Sodium Potassium Chloride Carbon Dioxide Anion Gap BUN Creatinine Estimated GFR POC Glucose 121 H Random Glucose Calcium Magnesium 3.6 H Blood Type Antibody Screen MTS Gel Crossmatch 12/18/17 12/18/17 12/18/17 16:11 18:13 19:28 WBC RBC Hgb Hct MCV MCH MCHC RDW Plt Count MPV Sodium Potassium Chloride Carbon Dioxide Anion Gap BUN Creatinine Estimated GFR POC Glucose 113 H 100 123 H Random Glucose Calcium Magnesium Blood Type Antibody Screen MTS Gel Crossmatch 12/18/17 12/18/17 12/18/17 20:21 21:20 22:03 WBC RBC Hgb Hct MCV MCH MCHC RDW Plt Count MPV Sodium Potassium Chloride Carbon Dioxide Anion Gap BUN Creatinine Estimated GFR POC Glucose 173 H 209 H 174 H Random Glucose Calcium Magnesium Blood Type Antibody Screen MTS Gel Crossmatch 12/18/17 12/19/17 12/19/17 23:13 00:16 01:17 WBC RBC Hgb Hct MCV MCH MCHC RDW Plt Count MPV Sodium Potassium Chloride Carbon Dioxide Anion Gap BUN Creatinine Estimated GFR POC Glucose 154 H 125 H 93 Random Glucose Calcium Magnesium Blood Type Antibody Screen MTS Gel Crossmatch 12/19/17 12/19/17 12/19/17 02:55 05:08 05:08 WBC 20.5 H RBC 3.66 L Hgb 11.1 L Hct 33.7 L MCV 92.0 MCH 30.3 MCHC 32.9 RDW 15.0 Plt Count 196 MPV 7.3 Sodium 140 Potassium 5.2 H D Chloride 107 Carbon Dioxide 22.4 Anion Gap 11 BUN 19 H Creatinine 1.34 H Estimated GFR 51 L POC Glucose 94 Random Glucose 107 H Calcium 8.9 Magnesium Blood Type Antibody Screen MTS Gel Crossmatch 12/19/17 12/19/17 05:08 07:17 WBC RBC Hgb Hct MCV MCH MCHC RDW Plt Count MPV Sodium Potassium Chloride Carbon Dioxide Anion Gap BUN Creatinine Estimated GFR POC Glucose 117 H Random Glucose Calcium Magnesium 3.1 H Blood Type Antibody Screen MTS Gel Crossmatch - Imaging Impressions Chest X-Ray 12/18/17 11:14 CONCLUSION: Status post CABG. Bibasilar densities likely atelectasis. Chest X-Ray 12/19/17 05:00 CONCLUSION: Basilar airspace disease and left effusion. Extubation and removal of NG tube. - Procedures 12/14/2017 INDICATIONS FOR CATHETERIZATION: 1. Shortness of breath on exertion despite negative stress tests. 2. Prior history of atherosclerotic heart disease which was moderate. CONSENT: Fully informed consent was obtained prior to the procedure. The risks of , bleeding, myocardial infarction, perforation, aspiration, foreseen and unforeseen complications were reviewed. The patient appeared to fully understand. PROCEDURES: 1. Left heart catheterization. 2. Right heart catheterization. 3. Bilateral coronaries. 4. LV gram. 5. Sedation. PROCEDURAL STATEMENTS: The patient was draped and prepped in usual manner. Right femoral artery and vein were entered using a micropuncture technique using ultrasound. Via the 6-[place] sheath, a full right heart catheterization was carried out. Via the 4-[place] sheath, left heart and right coronary catheters were used to intubate the left and right coronary arteries, pigtail catheter to intubate the left ventricle. Multiple angiographic views were carried out. Care was taken to spare dye with hand-held LV gram being performed and minimal shots being taken. Creatinine was elevated at 1.5, but had been higher previously. FINDINGS: I. HEMODYNAMICS: The wedge pressure was 28/23 with a mean of 15. The pulmonary artery pressure was 59/20 with a mean of 38. RV pressure was 64 with a right ventricular end-diastolic pressure of 18. The RA pressure was 15/12 with a mean of 10. The left ventricular pressure was 161 with left ventricular end-diastolic pressure of 23. The aortic pressure was 163/71 with a mean aortic pressure of 115. II. LEFT VENTRICULOGRAM The overall left ventricular ejection fraction was estimated at 50%. This was a hand-held injection because of dye sparing with an elevated creatinine. III. CORONARIES: The left main was large and free of significant disease. The LAD was a large vessel that was diffusely diseased proximally with a diffuse long 75% stenosis. Distal to this it came up to a trifurcation with evidence of a large diagonal branch that bifurcated into 2 sub-branches. The upper branch was totally occluded at 100%. The lower branch was a medium-sized vessel. The LAD itself had some diffuse disease further in the vessel. The ramus/obtuse marginal-1 vessel had a 50% stenosis proximal. The distal circumflex was a small vessel. The right coronary artery was a large, dominant vessel with a large posterior descending artery and posterolateral branch. There was diffuse disease throughout the right coronary. In the proximal to mid-right was a 99% stenosis. In the distal right there was diffuse 50% disease. CONCLUSION: Severe three-vessel coronary artery disease with well preserved ejection fraction. Unfortunately, the patient's creatinine is elevated. PLAN: Bypass surgery to do the LAD, the diagonal, and the right coronary. One could consider also high risk angioplasty to the right coronary if the patient is not a candidate for surgery because of pulmonary reasons. Discussed with Dr Lay and pt and . Will consult Dr Jensen De Luna. Alejandro Ramos MD Assessment and Plan - Assessment (1) Coronary artery disease Code(s): I25.10 - Atherosclerotic heart disease of [place] coronary artery without angina pectoris Status: Chronic (2) COPD (chronic obstructive pulmonary disease) Code(s): J44.9 - Chronic obstructive pulmonary disease, unspecified Status: Chronic (2) COPD (chronic obstructive pulmonary disease) Qualifiers: COPD type: emphysema Emphysema type: unspecified Qualified Code(s): J43.9 - Emphysema, unspecified
--- NOTE | 2017-12-19 10:41 | P.DIET ---
Nutritional Evaluation Screening comments: MDC for diet education received s/p CABG x3 on 12/18. Patient Navigator to provide education. Consult RD if complexities with diet education arise.
--- NOTE | 2017-12-19 13:15 | P.PNCA ---
- Note Subjective/Hospital Course: An 82-year-old male patient of Dr. Dali Elias and Dr. Ramos. Other physicians Include Dr. Jensen De Luna, Dr. Graves. This patient has been complaining of some shortness of breath with some chest discomfort off and on for the past couple of months. He has been taking 2-3 nitro per day. He had a recent positive stress test for ischemia in October. Some anterior perfusion defects suggesting ischemia. Some abnormal septal motion. Apparently, he was to be worked up at [facility] in [place] 01/04/2018; however, due to the persistent chest discomfort, he underwent a cardiac catheterization which showed a 75% stenosis in the proximal LAD, 75%, mid distal LAD. The diagonal was 100% stenosed. The RCA 99% and the ramus 50%. We were consulted to evaluate for coronary artery bypass grafting. The patient has an extensive medical history including a recent admission in October from the to the where he was having some generalized weakness. Prior to that, he was admitted in July for similar complaints. In addition to the fever, he had positive blood cultures for Enterococcus faecalis. They did a CINDY in July with probable vegetation to the aortic valve and possible vegetation to the chordee. EF at the time was 40%. He was seen by infectious disease and had completed the long-term IV antibiotics with vancomycin and Rocephin. She followed up with Dr. Herndon for outpatient antibiotic therapy and then was placed on oral medication and had again a decline in his symptoms. They did a CTA in October which showed no pulmonary emboli, some emphysemic changes. There was a 6 mm right lower lobe lung nodule with recommendations to repeat in 6 months. PAST MEDICAL HISTORY: 1. Arteriosclerotic heart disease where supposedly he had a heart catheterization in 2013 in [place]. 2. 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 3. Hyperlipidemia. 4. COPD. He uses O2 at night only and now has been using 2 liters around the clock. 5. Gastroesophageal reflux disease. 6. Chronic kidney disease stage III. 7. Neuropathy. 8. Peripheral arterial disease. 9. Peripheral vascular disease. 10. Degenerative arthritis. 11. Benign prostatic hypertrophy. 12. History of non-Hodgkin's lymphoma with Waldenstrom's macroglobulinemia. He follows with Dr. Graves and has been in remission. 13. History of viral meningitis. 14. History of shingles. 15. B12 deficiency. 16. 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 17. Lacunar infarcts. 18. Essential tremors. 19. Recent sepsis. 20. Recent endocarditis. 12/17/17 Patient scheduled for CABG tomorrow. Non-contrast chest CT reviewed and there does not appear to be significant calcification in the ascending aorta. Creatinine is higher today 12/18 surgery: CABG x 3, BATISTA to LAD - fair, SVG to D1 - poor, SVG to PDA - fair , L EVH CPB time 77min, crystalloid 2000cc, 460cc cell saver extubated after surgery 12/19 up in chair, on nasal cannula weaned off insulin and dopamine gtt gentle diuresis started on BB, on statin and asa TRANSFER TO STEPDOWN UNIT Objective: Vital Signs - 24 hr 12/18/17 14:36 12/18/17 15:00 12/18/17 15:10 Temperature 96.7 F L 96.8 F L Pulse Rate 69 Respiratory Rate 16 Blood Pressure 158/61 H Pulse Oximetry 91 L 94 L 12/18/17 15:21 12/18/17 16:35 12/18/17 17:00 Temperature 97.7 F Pulse Rate 71 Respiratory Rate 20 Blood Pressure Pulse Oximetry 96 12/18/17 17:57 12/18/17 19:00 12/18/17 19:21 Temperature 97.9 F Pulse Rate 70 70 Respiratory Rate 16 16 Blood Pressure 139/60 Pulse Oximetry 99 99 12/18/17 20:19 12/18/17 21:06 12/18/17 23:29 Temperature 97.6 F Pulse Rate 69 75 Respiratory Rate 14 18 16 Blood Pressure 152/54 H Pulse Oximetry 95 96 12/19/17 03:12 12/19/17 04:14 12/19/17 07:00 Temperature 97.9 F 98.1 F Pulse Rate 69 79 86 Respiratory Rate 15 18 18 Blood Pressure 131/58 L 151/57 H Pulse Oximetry 95 12/19/17 09:40 12/19/17 11:00 12/19/17 12:00 Temperature 98.0 F 98.0 F Pulse Rate 70 70 Respiratory Rate 18 18 20 Blood Pressure 133/57 L 118/60 Pulse Oximetry 93 L GENERAL: a&o X 3 SKIN: Warm and dry. prevena dressing to chest, jennifer wrap to left leg HEAD: Normocephalic. EYES: No scleral icterus. No injection or drainage. NECK: Supple, trachea midline. No JVD or lymphadenopathy. CARDIOVASCULAR: Regular rate and rhythm without murmurs, gallops, or rubs. RESPIRATORY: Breath sounds equal bilaterally. No accessory muscle use. few basilar crackles, chest tube to wall suction / drained 150cc/12hrs GASTROINTESTINAL: Abdomen soft, non-tender, nondistended. MUSCULOSKELETAL: No cyanosis, or edema. BACK: Nontender without obvious deformity. No CVA tenderness. Labs: Laboratory Results - last 12 hr 12/19/17 12/19/17 12/19/17 01:17 02:55 05:08 WBC 20.5 H RBC 3.66 L Hgb 11.1 L Hct 33.7 L MCV 92.0 MCH 30.3 MCHC 32.9 RDW 15.0 Plt Count 196 MPV 7.3 Sodium Potassium Chloride Carbon Dioxide Anion Gap BUN Creatinine Estimated GFR POC Glucose 93 94 Random Glucose Calcium Magnesium 12/19/17 12/19/17 12/19/17 05:08 05:08 07:17 WBC RBC Hgb Hct MCV MCH MCHC RDW Plt Count MPV Sodium 140 Potassium 5.2 H D Chloride 107 Carbon Dioxide 22.4 Anion Gap 11 BUN 19 H Creatinine 1.34 H Estimated GFR 51 L POC Glucose 117 H Random Glucose 107 H Calcium 8.9 Magnesium 3.1 H 12/19/17 10:08 WBC RBC Hgb Hct MCV MCH MCHC RDW Plt Count MPV Sodium Potassium Chloride Carbon Dioxide Anion Gap BUN Creatinine Estimated GFR POC Glucose 139 H Random Glucose Calcium Magnesium Result Diagrams: 12/19/17 05:08 12/19/17 05:08 Cardiovascular: intermittent V paced - Plan (1) Chronic kidney disease Plan: no Toradol, no NSAIDS, creatinine stable at 1.34 (2) COPD (chronic obstructive pulmonary disease) Plan: nebs/ ezpap acapella (3) S/P CABG x 3 Plan: ASA, stain , BB OOB, ambulate pulm toileting eval for rehab vs C at DC (1) Chronic kidney disease Qualifiers: Chronic kidney disease stage: stage 3 (moderate) Qualified Code(s): N18.3 - Chronic kidney disease, stage 3 (moderate) (2) COPD (chronic obstructive pulmonary disease) Qualifiers: COPD type: emphysema Emphysema type: unspecified Qualified Code(s): J43.9 - Emphysema, unspecified
--- NOTE | 2017-12-19 14:07 | P.PNCA ---
Subjective Interval history: Patient doing well. Sitting up in chair. at side. Patient ambulated in hallway this AM, tolerated well. Denies any acute cardiac complaints. Pending transfer to step down unit. Physical Exam Vital signs: Vital Signs 12/18/17 14:36 12/18/17 15:00 12/18/17 15:10 Temperature 96.7 F L 96.8 F L Pulse Rate 69 Respiratory Rate 16 Blood Pressure 158/61 H Pulse Oximetry 91 L 94 L 12/18/17 15:21 12/18/17 16:35 12/18/17 17:00 Temperature 97.7 F Pulse Rate 71 Respiratory Rate 20 Blood Pressure Pulse Oximetry 96 12/18/17 17:57 12/18/17 19:00 12/18/17 19:21 Temperature 97.9 F Pulse Rate 70 70 Respiratory Rate 16 16 Blood Pressure 139/60 Pulse Oximetry 99 99 12/18/17 20:19 12/18/17 21:06 12/18/17 23:29 Temperature 97.6 F Pulse Rate 69 75 Respiratory Rate 14 18 16 Blood Pressure 152/54 H Pulse Oximetry 95 96 12/19/17 03:12 12/19/17 04:14 12/19/17 07:00 Temperature 97.9 F 98.1 F Pulse Rate 69 79 86 Respiratory Rate 15 18 18 Blood Pressure 131/58 L 151/57 H Pulse Oximetry 95 12/19/17 09:40 12/19/17 11:00 12/19/17 12:00 Temperature 98.0 F 98.0 F Pulse Rate 70 70 Respiratory Rate 18 18 20 Blood Pressure 133/57 L 118/60 Pulse Oximetry 93 L Intake & Output 12/18/17 12/19/17 12/19/17 18:59 06:59 18:59 Intake Total 3491.5 / 3491.5 1216 / 1216 Output Total 3070 / 3070 450 / 450 Balance 421.5 / 421.5 766 / 766 Weight 104 kg Intake: IV 751.5 / 751.5 516 / 516 DOPamine 800 MG/500 ML Premix 55 / 55 88 / 88 800 mg In 500 ml @ 2 MCG/KG/MIN 7.313 mls/hr IV.CONT CONT PRN Rx#:[id number] NovoLIN R (IV Infusion) 100 24 / 24 78 / 78 UNIT In NS Inj 99 ML @ 3 UNITS/ HR 3 mls/hr IV.CONT TITRATE PRN Rx#:[id number] Ofirmev Inj 1,000 mg In 100 ml 200 / 200 @ 400 mls/hr IV.SIG Q6H [facility] Rx# :[id number] Calcium Chloride Inj 1 GM In NS 110 / 110 Inj 100 ML @ 100 mls/hr IV.SIG UNSCH PRN Rx#:[id number] KCl 20 mEq Premix Inj 20 meq In 100 / 100 100 / 100 100 ml @ 50 mls/hr IV.SIG UNSCH PRN Rx#:[id number] Vancomycin Inj 1,000 MG In NS 250 / 250 Inj 250 ML @ 250 mls/hr IV.SIG Q12H [facility] Rx#:[id number] Vancomycin Inj 1,250 MG In NS 262.5 / 262.5 Inj 250 ML @ 250 mls/hr IV.SIG SOLUTION COORDINATOR [facility] Rx#:[id number] Oral 240 / 240 700 / 700 Anesthesia Amount 2000 / 2000 Other 500 / 500 Output: Estimated Blood Loss 1000 / 1000 Urine Amount (Catheter) 1830 / 1830 300 / 300 Indwelling Temp Sensing 1830 / 1830 300 / 300 Catheter Chest Tube Drainage 240 / 240 150 / 150 #1 Pleural/Mediastinal 240 / 240 150 / 150 Other: Other Intake Source Saline Solution - Constitutional no acute distress - Routine HEENT Exam Head: Present: normocephalic, atraumatic Eye: Present: PERRL ENT: Present: mucous membranes moist - Routine Neck Exam Present: supple - Routine Respiratory Exam Present: diminished air movement Comments: chest tube in place - Routine Cardiovascular Exam Present: RRR - Routine Abdominal Exam Present: soft - Routine Skin Exam Present: intact Comments: midline chest incision - Routine Neurological Exam Present: alert, oriented X3 - Detailed Neurological Exam: Coma Scale Eye Opening: Spontaneous Verbal Response: Oriented Motor Response: Obey commands [place] Coma Scale Total: 15 - Routine Psychiatric Exam Present: normal affect, cooperative, good insight - Urinary Catheter Management Indwelling Temp Sensing Catheter Cath placed during this visit: yes, but has since been removed by the nurse Urethral indwelling: Yes Reason for continuing: Decision to DC catheter Insertion date: 12/18/17 Insertion time: 07:34 Removal date: 12/19/17 Removal time: 13:20 Assessment and Plan - Plan ASHD COPD HTN Hyperlipidemia Renal insufficiency Essential tremor - Cardiac cath done 12/14 showing severe three-vessel coronary artery disease with well-preserved ejection fraction; - S/P CABGx3 12/18/2017 (BATISTA to LAD [fair], SVG to D1 [poor], and SVG to PDA [ fair]) with Dr. Lay. Recovering well. Pending transfer to step down unit. - Echo showing mildly dilated left ventricle with normal wall thickness, reduced EF of 40-45%, mitral annular calcification, aortic valve sclerosis, and moderate pulmonary hypertension - Post-op management per CT surgery - On 2.5L continuous O2 - Continue bronchodilators and Mucinex - Incentive spirometry - BPs stable - Resume home statin - Creatinine improving - Continue to monitor renal function closely - Avoid nephrotoxic agents and renally dose meds - Continue home primidone The patient was seen and evaluated by Dr. Ramos who participated in care, management and decision making. Code Status: Full code Discussed Condition With: Dr. Lay, Nurse and
--- NOTE | 2017-12-19 20:40 | ECG ---
Date Performed: 12/19/2017 Time Performed: 05:20:30 PTAGE: 82 years EKG: Demand pacing Pacemaker rhythm - no further analysis Abnormal ECG PREVIOUS TRACING : 12/14/2017 10.44 No significant change DOCTOR: Alejandro Ramos Interpretating Date/Time 12/19/2017 20:39:40
[2017-12-19] MEDS: Docusate Sodium 100 MG Capsule PO SCH (21:39)
[2017-12-20] MEDS: Insulin NovoLOG Aspart Correctional Sugar Inj SQ SCH ×6 (02:18→23:38)
[2017-12-20] MEDS: Levothyroxine 50 MCG Tablet PO SCH (05:18)
[2017-12-20] MEDS: Amiodarone 200 MG Tablet PO SCH ×2 (05:19→20:57)
[2017-12-20] MEDS: oxyCODONE/Acetaminophen 10/325 Tablet PO PRN (05:19)
--- NOTE | 2017-12-20 09:01 | P.PNCA ---
Subjective Interval history: Patient transferred to step down unit. Sitting up in chair this AM. Admits to pain from chest tube incision site. Chest incision site clean, dry and intact. Physical Exam Vital signs: Vital Signs 12/19/17 09:40 12/19/17 11:00 12/19/17 12:00 Temperature 98.0 F 98.0 F Pulse Rate 70 70 Respiratory Rate 18 18 20 Blood Pressure 133/57 L 118/60 Pulse Oximetry 93 L 12/19/17 13:45 12/19/17 14:15 12/19/17 15:00 Temperature 97.2 F L Pulse Rate 78 78 Respiratory Rate 18 18 Blood Pressure 135/60 Pulse Oximetry 97 12/19/17 17:30 12/19/17 18:32 12/19/17 19:00 Temperature 98.1 F Pulse Rate 82 74 Respiratory Rate 16 18 Blood Pressure 123/59 L Pulse Oximetry 93 L 12/19/17 20:00 12/19/17 20:29 12/19/17 21:00 Temperature 97.5 F L Pulse Rate 91 H 76 94 H Respiratory Rate 18 20 Blood Pressure 127/70 Pulse Oximetry 95 97 12/19/17 22:00 12/19/17 22:28 12/19/17 23:00 Temperature Pulse Rate 84 88 Respiratory Rate 18 Blood Pressure Pulse Oximetry 12/20/17 00:00 12/20/17 01:00 12/20/17 02:00 Temperature 97.9 F Pulse Rate 84 88 84 Respiratory Rate 18 Blood Pressure 154/68 H Pulse Oximetry 96 12/20/17 03:00 12/20/17 04:00 12/20/17 05:00 Temperature 98.6 F Pulse Rate 86 86 90 Respiratory Rate 18 Blood Pressure 143/62 H Pulse Oximetry 95 12/20/17 06:00 12/20/17 08:00 Temperature Pulse Rate 92 H Respiratory Rate 20 Blood Pressure Pulse Oximetry Intake & Output 12/19/17 12/20/17 12/20/17 18:59 06:59 18:59 Intake Total 490 / 490 480 / 480 0 / 0 Output Total 150 / 150 535 / 535 Balance 340 / 340 -55 / -55 0 / 0 Intake: IV 250 / 250 0 / 0 Vancomycin Inj 1,000 MG In NS 250 / 250 Inj 250 ML @ 250 mls/hr IV.SIG Q12H [facility] Rx#:[id number] Oral 240 / 240 480 / 480 Output: Urine 150 / 150 405 / 405 Chest Tube Drainage 130 / 130 #1 Pleural/Mediastinal 130 / 130 Other: # Bowel Movements 0 - Constitutional no acute distress - Routine HEENT Exam Head: Present: normocephalic, atraumatic Eye: Present: PERRL ENT: Present: mucous membranes moist - Routine Neck Exam Present: supple - Routine Respiratory Exam Present: wheezes, diminished air movement - Routine Cardiovascular Exam Comments: paced - Routine Abdominal Exam Present: soft - Routine Extremities Exam Comments: 1+ BLE edema - Routine Skin Exam Present: intact - Routine Neurological Exam Present: alert, oriented X3 - Detailed Neurological Exam: Coma Scale Eye Opening: Spontaneous Verbal Response: Oriented Motor Response: Obey commands [place] Coma Scale Total: 15 - Routine Psychiatric Exam Present: normal affect, good insight - Urinary Catheter Management Indwelling Temp Sensing Catheter Cath placed during this visit: yes, but has since been removed by the nurse Urethral indwelling: No Reason for continuing: Decision to DC catheter Insertion date: 12/18/17 Insertion time: 07:34 Removal date: 12/19/17 Removal time: 13:20 Assessment and Plan - Plan ASHD COPD HTN Hyperlipidemia Renal insufficiency Essential tremor Plan - Cardiac cath done 12/14 showing severe three-vessel coronary artery disease with well-preserved ejection fraction; - S/P CABGx3 12/18/2017 (BATISTA to LAD [fair], SVG to D1 [poor], and SVG to PDA [ fair]) with Dr. Lay. Recovering well. - Echo showing mildly dilated left ventricle with normal wall thickness, reduced EF of 40-45%, mitral annular calcification, aortic valve sclerosis, and moderate pulmonary hypertension - Post-op management per CT surgery - On 2.5L continuous O2 - Continue bronchodilators and Mucinex - Incentive spirometry encouraged - BPs stable - Resume home statin - Creatinine improving. Will repeat labs tomorrow AM. - Continue to monitor renal function closely - Avoid nephrotoxic agents and renally dose meds - Continue home primidone The patient was seen and evaluated by Dr. Ramos who participated in care, management and decision making. Discussed Condition With: Nurse and patient
[2017-12-20] MEDS: Metoprolol Tartrate 25 MG Tablet PO SCH ×3 (09:15→20:54)
[2017-12-20] MEDS: Polyethylene Glycol 3350 17 GM Packet PO SCH (09:15)
[2017-12-20] MEDS: guaiFENesin 600 MG ER Tablet PO SCH (09:16)
[2017-12-20] MEDS: Primidone 50 MG Tablet PO SCH (09:16)
[2017-12-20] MEDS: Vitamins A,C,E/Lutein/Minerals Tablet PO SCH (09:16)
[2017-12-20] MEDS: Docusate Sodium 100 MG Capsule PO SCH ×2 (09:16→20:57)
[2017-12-20] MEDS: Multivitamin/Minerals Therapeutic Tablet PO SCH (09:16)
--- NOTE | 2017-12-20 11:03 | P.PNCA ---
- Note CVT: Post Op Day #: 2 Subjective/Hospital Course: An 82-year-old male patient of Dr. Dali Elias and Dr. Ramos. Other physicians Include Dr. Jensen De Luna, Dr. Graves. This patient has been complaining of some shortness of breath with some chest discomfort off and on for the past couple of months. He has been taking 2-3 nitro per day. He had a recent positive stress test for ischemia in October. Some anterior perfusion defects suggesting ischemia. Some abnormal septal motion. Apparently, he was to be worked up at [facility] in [place] 01/04/2018; however, due to the persistent chest discomfort, he underwent a cardiac catheterization which showed a 75% stenosis in the proximal LAD, 75%, mid distal LAD. The diagonal was 100% stenosed. The RCA 99% and the ramus 50%. We were consulted to evaluate for coronary artery bypass grafting. The patient has an extensive medical history including a recent admission in October from the to the where he was having some generalized weakness. Prior to that, he was admitted in July for similar complaints. In addition to the fever, he had positive blood cultures for Enterococcus faecalis. They did a CINDY in July with probable vegetation to the aortic valve and possible vegetation to the chordee. EF at the time was 40%. He was seen by infectious disease and had completed the long-term IV antibiotics with vancomycin and Rocephin. She followed up with Dr. Herndon for outpatient antibiotic therapy and then was placed on oral medication and had again a decline in his symptoms. They did a CTA in October which showed no pulmonary emboli, some emphysemic changes. There was a 6 mm right lower lobe lung nodule with recommendations to repeat in 6 months. PAST MEDICAL HISTORY: 1. Arteriosclerotic heart disease where supposedly he had a heart catheterization in 2013 in [place]. 2. 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 3. Hyperlipidemia. 4. COPD. He uses O2 at night only and now has been using 2 liters around the clock. 5. Gastroesophageal reflux disease. 6. Chronic kidney disease stage III. 7. Neuropathy. 8. Peripheral arterial disease. 9. Peripheral vascular disease. 10. Degenerative arthritis. 11. Benign prostatic hypertrophy. 12. History of non-Hodgkin's lymphoma with Waldenstrom's macroglobulinemia. He follows with Dr. Graves and has been in remission. 13. History of viral meningitis. 14. History of shingles. 15. B12 deficiency. 16. 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 17. Lacunar infarcts. 18. Essential tremors. 19. Recent sepsis. 20. Recent endocarditis. 12/17/17 Patient scheduled for CABG tomorrow. Non-contrast chest CT reviewed and there does not appear to be significant calcification in the ascending aorta. Creatinine is higher today 12/18 surgery: CABG x 3, BATISTA to LAD - fair, SVG to D1 - poor, SVG to PDA - fair , L EVH CPB time 77min, crystalloid 2000cc, 460cc cell saver extubated after surgery 12/19 up in chair, on nasal cannula weaned off insulin and dopamine gtt gentle diuresis started on BB, on statin and asa TRANSFER TO STEPDOWN UNIT 12/20 chest tubes dc without difficulty wean 02, gentle diuresis on BB , eval for rehab at discharge f/u labs today Objective: Vital Signs - 24 hr 12/19/17 11:00 12/19/17 12:00 12/19/17 13:45 Temperature 98.0 F 98.0 F Pulse Rate 70 70 78 Respiratory Rate 18 20 18 Blood Pressure 133/57 L 118/60 Pulse Oximetry 93 L 12/19/17 14:15 12/19/17 15:00 12/19/17 17:30 Temperature 97.2 F L 98.1 F Pulse Rate 78 82 Respiratory Rate 18 16 Blood Pressure 135/60 123/59 L Pulse Oximetry 97 93 L 12/19/17 18:32 12/19/17 19:00 12/19/17 20:00 Temperature 97.5 F L Pulse Rate 74 91 H Respiratory Rate 18 18 Blood Pressure 127/70 Pulse Oximetry 95 12/19/17 20:29 12/19/17 21:00 12/19/17 22:00 Temperature Pulse Rate 76 94 H 84 Respiratory Rate 20 Blood Pressure Pulse Oximetry 97 12/19/17 22:28 12/19/17 23:00 12/20/17 00:00 Temperature 97.9 F Pulse Rate 88 84 Respiratory Rate 18 18 Blood Pressure 154/68 H Pulse Oximetry 96 12/20/17 01:00 12/20/17 02:00 12/20/17 03:00 Temperature Pulse Rate 88 84 86 Respiratory Rate Blood Pressure Pulse Oximetry 12/20/17 04:00 12/20/17 05:00 12/20/17 06:00 Temperature 98.6 F Pulse Rate 86 90 92 H Respiratory Rate 18 Blood Pressure 143/62 H Pulse Oximetry 95 12/20/17 08:00 12/20/17 09:00 12/20/17 10:00 Temperature 98.0 F Pulse Rate 81 72 72 Respiratory Rate 16 Blood Pressure 138/74 Pulse Oximetry 97 GENERAL: A&O X3 SKIN: Warm and dry. Prevena dressing to chest, incision intact to leg HEAD: Normocephalic. EYES: No scleral icterus. No injection or drainage. NECK: Supple, trachea midline. No JVD or lymphadenopathy. CARDIOVASCULAR: Regular rate and rhythm without murmurs, gallops, or rubs. RESPIRATORY: Breath sounds equal bilaterally. No accessory muscle use. diminished in bases GASTROINTESTINAL: Abdomen soft, non-tender, nondistended. MUSCULOSKELETAL: No cyanosis, or edema. BACK: Nontender without obvious deformity. No CVA tenderness. Labs: Laboratory Results - last 12 hr 12/17/17 12/20/17 12/20/17 05:01 02:14 05:55 POC Glucose 132 H 121 H MTS Gel Crossmatch See Detail 12/20/17 10:05 POC Glucose 135 H MTS Gel Crossmatch Result Diagrams: 12/19/17 05:08 12/19/17 05:08 Telemetry: NSR - Plan (1) Chronic kidney disease Plan: no Toradol, no NSAIDS, creatinine stable at 1.34 f/u labs today (2) COPD (chronic obstructive pulmonary disease) Plan: nebs/ ezpap acapella ambulate (3) S/P CABG x 3 Plan: ASA, stain , BB OOB, ambulate pulm toileting eval for rehab vs HHC at DC OT/PT (1) Chronic kidney disease Qualifiers: Chronic kidney disease stage: stage 3 (moderate) Qualified Code(s): N18.3 - Chronic kidney disease, stage 3 (moderate) (2) COPD (chronic obstructive pulmonary disease) Qualifiers: COPD type: emphysema Emphysema type: unspecified Qualified Code(s): J43.9 - Emphysema, unspecified
[2017-12-20 12:55] LABS: Calcium 8.9 mg/dL (8.5-10.1); Carbon Dioxide 24.1 meq/L (21.0-32.0); Magnesium 2.7 mg/dL (1.5-2.5); Potassium 5.1 meq/L (3.5-5.1)
--- NOTE | 2017-12-20 15:10 | P.PN ---
Physical Exam Vital signs: Vital Signs 12/19/17 17:30 12/19/17 18:32 12/19/17 19:00 Temperature 98.1 F Pulse Rate 82 74 Respiratory Rate 16 18 Blood Pressure 123/59 L Pulse Oximetry 93 L 12/19/17 20:00 12/19/17 20:29 12/19/17 21:00 Temperature 97.5 F L Pulse Rate 91 H 76 94 H Respiratory Rate 18 20 Blood Pressure 127/70 Pulse Oximetry 95 97 12/19/17 22:00 12/19/17 22:28 12/19/17 23:00 Temperature Pulse Rate 84 88 Respiratory Rate 18 Blood Pressure Pulse Oximetry 12/20/17 00:00 12/20/17 01:00 12/20/17 02:00 Temperature 97.9 F Pulse Rate 84 88 84 Respiratory Rate 18 Blood Pressure 154/68 H Pulse Oximetry 96 12/20/17 03:00 12/20/17 04:00 12/20/17 05:00 Temperature 98.6 F Pulse Rate 86 86 90 Respiratory Rate 18 Blood Pressure 143/62 H Pulse Oximetry 95 12/20/17 06:00 12/20/17 08:00 12/20/17 09:00 Temperature 98.0 F Pulse Rate 92 H 81 72 Respiratory Rate 16 Blood Pressure 138/74 Pulse Oximetry 97 12/20/17 09:30 12/20/17 10:00 12/20/17 11:00 Temperature Pulse Rate 88 72 77 Respiratory Rate 20 Blood Pressure Pulse Oximetry 93 L 12/20/17 12:00 12/20/17 12:40 12/20/17 13:00 Temperature 97.7 F Pulse Rate 81 84 86 Respiratory Rate 18 18 Blood Pressure 123/58 L Pulse Oximetry 97 12/20/17 14:00 12/20/17 15:00 Temperature Pulse Rate 84 88 Respiratory Rate Blood Pressure Pulse Oximetry Intake & Output 12/19/17 12/20/17 12/20/17 18:59 06:59 18:59 Intake Total 490 / 490 480 / 480 0 / 0 Output Total 150 / 150 535 / 535 Balance 340 / 340 -55 / -55 0 / 0 Intake: IV 250 / 250 0 / 0 Vancomycin Inj 1,000 MG In NS 250 / 250 Inj 250 ML @ 250 mls/hr IV.SIG Q12H [facility] Rx#:[id number] Oral 240 / 240 480 / 480 Output: Urine 150 / 150 405 / 405 Chest Tube Drainage 130 / 130 #1 Pleural/Mediastinal 130 / 130 Other: Date of Last Bowel Movement 12/17/17 # Bowel Movements 0 Narrative: Subjective Interval history: Follow up s/p CABG. In the chair, appears in nad. No n/v/d/c. Has chest pain at the surgical site. No fever ro chills. Some sob. No lightheadedness No fever or chills. No cough Physical Exam GENERAL: Elderly male chronically ill. SKIN: Warm and dry. HEART: surgical site with dressing c/d/i. RRR , normal S2/s2 LUNGS: CTAB ABDOMEN: +BS, soft, NT, ND. EXTREMITIES: No LE edema. 2+ pedal pulses. Assessment and Plan 82 YOWM with COPD, CAD, HTN, HLD, AFIB, PAD, CKD, pacemaker, macroglobulinemia, and history of endocarditis admitted on 12/14 for severe three-vessel CAD seen on cardiac catheterization by Dr. Ramos the same day. 1. Three-vessel CAD - Cardiac cath done 12/14 showing severe three-vessel coronary artery disease with well-preserved ejection fraction; Dr. Abraham and are recommending bypass surgery to do the LAD, the diagonal, and the right coronary - CT surgery consulted, s/p CABGx3 earlier today (BATISTA to LAD [fair], SVG to D1 [poor], and SVG to PDA [fair]) - Echo showing mildly dilated left ventricle with normal wall thickness, reduced EF of 40-45%, mitral annular calcification, aortic valve sclerosis, and moderate pulmonary hypertension - Post-op management per CT surgery - Continue heparin drip - Continue ASA, Imdur, and Ranexa 2. COPD - On 2.5L continuous O2 - Continue bronchodilators and Mucinex - Incentive spirometry 3. HTN - BPs stable - Resume home metoprolol, terazosin, and Imdur 4. HLD - Resume home statin 5. Acute on CKD - Creatinine improving - Continue to monitor renal function closely - Avoid nephrotoxic agents and renally dose meds 6. History of CVA - Continue ASA 7. Essential tremor - Continue home primidone 8. Restless leg syndrome - Continue home Requip 9. Hypothyroidism - Continue home Synthroid DVT prophylaxis: On heparin gtt Discharge Planning: CABG 7/16 - Urinary Catheter Management Indwelling Temp Sensing Catheter Cath placed during this visit: yes, but has since been removed by the nurse Urethral indwelling: No Reason for continuing: Hourly intake/output Insertion date: 12/18/17 Insertion time: 07:34 Removal date: 12/19/17 Removal time: 13:20 Results - Labs CBC & Chem 7: 12/19/17 05:08 12/20/17 11:50 Laboratory Results - last 24 hr 12/17/17 12/19/17 12/19/17 05:01 15:14 17:44 Sodium Potassium Chloride Carbon Dioxide Anion Gap BUN Creatinine Estimated GFR POC Glucose 110 161 H Random Glucose Calcium Magnesium MTS Gel Crossmatch See Detail 12/19/17 12/20/17 12/20/17 22:23 02:14 05:55 Sodium Potassium Chloride Carbon Dioxide Anion Gap BUN Creatinine Estimated GFR POC Glucose 145 H 132 H 121 H Random Glucose Calcium Magnesium MTS Gel Crossmatch 12/20/17 12/20/17 12/20/17 10:05 11:50 14:10 Sodium 135 L Potassium 5.1 Chloride 100 Carbon Dioxide 24.1 Anion Gap 11 BUN 31 H Creatinine 1.45 H Estimated GFR 46 L POC Glucose 135 H 142 H Random Glucose 127 H Calcium 8.9 Magnesium 2.7 H MTS Gel Crossmatch - Procedures 12/14/2017 INDICATIONS FOR CATHETERIZATION: 1. Shortness of breath on exertion despite negative stress tests. 2. Prior history of atherosclerotic heart disease which was moderate. CONSENT: Fully informed consent was obtained prior to the procedure. The risks of , bleeding, myocardial infarction, perforation, aspiration, foreseen and unforeseen complications were reviewed. The patient appeared to fully understand. PROCEDURES: 1. Left heart catheterization. 2. Right heart catheterization. 3. Bilateral coronaries. 4. LV gram. 5. Sedation. PROCEDURAL STATEMENTS: The patient was draped and prepped in usual manner. Right femoral artery and vein were entered using a micropuncture technique using ultrasound. Via the 6-Algerian sheath, a full right heart catheterization was carried out. Via the 4-Algerian sheath, left heart and right coronary catheters were used to intubate the left and right coronary arteries, pigtail catheter to intubate the left ventricle. Multiple angiographic views were carried out. Care was taken to spare dye with hand-held LV gram being performed and minimal shots being taken. Creatinine was elevated at 1.5, but had been higher previously. FINDINGS: I. HEMODYNAMICS: The wedge pressure was 28/23 with a mean of 15. The pulmonary artery pressure was 59/20 with a mean of 38. RV pressure was 64 with a right ventricular end-diastolic pressure of 18. The RA pressure was 15/12 with a mean of 10. The left ventricular pressure was 161 with left ventricular end-diastolic pressure of 23. The aortic pressure was 163/71 with a mean aortic pressure of 115. II. LEFT VENTRICULOGRAM The overall left ventricular ejection fraction was estimated at 50%. This was a hand-held injection because of dye sparing with an elevated creatinine. III. CORONARIES: The left main was large and free of significant disease. The LAD was a large vessel that was diffusely diseased proximally with a diffuse long 75% stenosis. Distal to this it came up to a trifurcation with evidence of a large diagonal branch that bifurcated into 2 sub-branches. The upper branch was totally occluded at 100%. The lower branch was a medium-sized vessel. The LAD itself had some diffuse disease further in the vessel. The ramus/obtuse marginal-1 vessel had a 50% stenosis proximal. The distal circumflex was a small vessel. The right coronary artery was a large, dominant vessel with a large posterior descending artery and posterolateral branch. There was diffuse disease throughout the right coronary. In the proximal to mid-right was a 99% stenosis. In the distal right there was diffuse 50% disease. CONCLUSION: Severe three-vessel coronary artery disease with well preserved ejection fraction. Unfortunately, the patient's creatinine is elevated. PLAN: Bypass surgery to do the LAD, the diagonal, and the right coronary. One could consider also high risk angioplasty to the right coronary if the patient is not a candidate for surgery because of pulmonary reasons. Discussed with Dr Lay and pt and . Will consult Dr Jensen De Luna. Alejandro Ramos MD Assessment and Plan - Assessment (1) Coronary artery disease Code(s): I25.10 - Atherosclerotic heart disease of [place] coronary artery without angina pectoris Status: Chronic (2) COPD (chronic obstructive pulmonary disease) Code(s): J44.9 - Chronic obstructive pulmonary disease, unspecified Status: Chronic (2) COPD (chronic obstructive pulmonary disease) Qualifiers: COPD type: emphysema Emphysema type: unspecified Qualified Code(s): J43.9 - Emphysema, unspecified
--- NOTE | 2017-12-21 04:45 | XR ---
EXAM DATE: 12/21/2017 4:30 AM EDT AGE/SEX: 82 years / Male INDICATIONS: . Short of breath. CLINICAL DATA: This is the patient's subsequent encounter. Patient reports that signs and symptoms h ave been present for 4 - 6 days and indicates a pain score of 0/10. MEDICAL/SURGICAL HISTORY: Cardiovascular disease. obstructive pulmonary disease. Peripheral vas cular disease. Hypertension, Non-Hodgkin's Lymphoma, stroke. Pacemaker. COMPARISON: [facility], CHEST 1V SINGLE AP, 12/19/2017. . FINDINGS: Right central line in superior vena cava. Pacer leads unchanged. Bilateral mostly basilar airspace di sease and pleural effusion, left greater than right. CONCLUSION: Basilar airspace disease and pleural effusions, left greater than right without significant change fr om December 19. Electronically signed by: Monroe Galo MD 12/21/2017 4:44 AM EDT
[2017-12-21 05:23] LABS: Baso % (Auto) 0.3 % (0.0-2.0); Eos % (Auto) 0.3 % (0.0-4.0); Hematocrit 27.9 % (39.0-51.0); Hemoglobin 9.3 gm/dL (13.0-17.0); Lymph # (Auto) 1.4 th/mm3 (1.0-4.8); Lymph % (Auto) 11.1 % (9.0-44.0); Mean Corpuscular HGB Conc 33.2 % (32.0-36.0); Mean Corpuscular Hemoglobin 30.4 pg (27.0-34.0); Mean Corpuscular Volume 91.6 fL (80.0-100.0); Mean Platelet Volume 6.9 fL (7.0-11.0); Mono # (Auto) 1.1 th/mm3 (0.0-0.9); Mono % (Auto) 8.5 % (0.0-8.0); Neut % (Auto) 79.8 % (16.0-70.0); Platelet Count 151 th/mm3 (150-450); Red Blood Count 3.04 mil/mm3 (4.50-5.90); Red Cell Distribution Width 14.8 % (11.6-17.2); White Blood Count 12.5 th/mm3 (4.0-11.0)
[2017-12-21 05:51] LABS: Calcium 8.8 mg/dL (8.5-10.1); Carbon Dioxide 25.6 meq/L (21.0-32.0); Potassium 4.4 meq/L (3.5-5.1)
[2017-12-21] MEDS: Insulin NovoLOG Aspart Correctional Sugar Inj SQ SCH ×7 (05:53→23:24)
[2017-12-21] MEDS: Vitamins A,C,E/Lutein/Minerals Tablet PO SCH (08:56)
--- NOTE | 2017-12-21 08:56 | P.PN ---
Physical Exam Vital signs: Vital Signs 12/20/17 09:00 12/20/17 09:30 12/20/17 10:00 Temperature Pulse Rate 72 88 72 Respiratory Rate 20 Blood Pressure Pulse Oximetry 93 L 12/20/17 11:00 12/20/17 12:00 12/20/17 12:40 Temperature 97.7 F Pulse Rate 77 81 84 Respiratory Rate 18 18 Blood Pressure 123/58 L Pulse Oximetry 97 12/20/17 13:00 12/20/17 14:00 12/20/17 15:00 Temperature Pulse Rate 86 84 88 Respiratory Rate Blood Pressure Pulse Oximetry 12/20/17 16:00 12/20/17 17:00 12/20/17 18:00 Temperature 97.7 F Pulse Rate 81 78 80 Respiratory Rate 18 Blood Pressure 123/58 L Pulse Oximetry 97 12/20/17 19:00 12/20/17 20:00 12/20/17 20:08 Temperature Pulse Rate 86 82 83 Respiratory Rate 18 Blood Pressure Pulse Oximetry 96 12/20/17 21:00 12/20/17 22:00 12/20/17 23:00 Temperature Pulse Rate 86 88 84 Respiratory Rate Blood Pressure Pulse Oximetry 12/20/17 23:38 12/21/17 00:00 12/21/17 01:00 Temperature 97.7 F Pulse Rate 86 80 Respiratory Rate 16 18 Blood Pressure 123/58 L Pulse Oximetry 97 12/21/17 02:00 12/21/17 02:29 12/21/17 03:00 Temperature Pulse Rate 82 74 78 Respiratory Rate 22 Blood Pressure Pulse Oximetry 12/21/17 04:00 12/21/17 05:00 12/21/17 06:00 Temperature 98.1 F Pulse Rate 80 84 84 Respiratory Rate 18 Blood Pressure 112/56 L Pulse Oximetry 95 Intake & Output 12/20/17 12/21/17 12/21/17 18:59 06:59 18:59 Intake Total 720 / 720 320 / 320 Output Total 625 / 625 500 / 500 Balance 95 / 95 -180 / -180 Weight 105 kg Intake: IV 0 / 0 Oral 720 / 720 320 / 320 Output: Urine 625 / 625 500 / 500 Other: Date of Last Bowel Movement 12/17/17 12/17/17 Narrative: Subjective Interval history: Follow up s/p CABG. In the chair, appears in nad. Chest pain improved after chest tubes removed No fever or chills. No n/v/d/c. Physical Exam GENERAL: Elderly male chronically ill. SKIN: Warm and dry. HEART: surgical site with dressing c/d/i. Chest tubes removed. RRR , normal S2/ s2 LUNGS: CTAB ABDOMEN: +BS, soft, NT, ND. EXTREMITIES: No LE edema. 2+ pedal pulses. Assessment and Plan 82 YOWM with COPD, CAD, HTN, HLD, AFIB, PAD, CKD, pacemaker, macroglobulinemia, and history of endocarditis admitted on 12/14 for severe three-vessel CAD seen on cardiac catheterization by Dr. Ramos the same day. 1. Three-vessel CAD - Cardiac cath done 12/14 showing severe three-vessel coronary artery disease with well-preserved ejection fraction; Dr. Abraham and are recommending bypass surgery to do the LAD, the diagonal, and the right coronary - CT surgery consulted, s/p CABGx3 earlier today (BATISTA to LAD [fair], SVG to D1 [poor], and SVG to PDA [fair]) - Echo showing mildly dilated left ventricle with normal wall thickness, reduced EF of 40-45%, mitral annular calcification, aortic valve sclerosis, and moderate pulmonary hypertension - Post-op management per CT surgery - Continue heparin drip - Continue ASA, Imdur, and Ranexa, BB 2. COPD - On 2.5L continuous O2 - Continue bronchodilators and Mucinex - Incentive spirometry 3. HTN - BPs stable - Resume home metoprolol, terazosin, and Imdur 4. HLD - Resume home statin 5. Acute on CKD - Creatinine improving - Continue to monitor renal function closely - Avoid nephrotoxic agents and renally dose meds 6. History of CVA - Continue ASA 7. Essential tremor - Continue home primidone 8. Restless leg syndrome - Continue home Requip 9. Hypothyroidism - Continue home Synthroid DVT prophylaxis: On heparin gtt Discharge Planning: CABG 12/18 DC when improved and cleared by CTS PT recommends home with home health vs SNF Consult CM for DC plan Discussed with the patient, family at bedside, nurse, Anamaria SOSA CTS - Urinary Catheter Management Indwelling Temp Sensing Catheter Cath placed during this visit: yes, but has since been removed by the nurse Urethral indwelling: No Reason for continuing: Hourly intake/output Insertion date: 12/18/17 Insertion time: 07:34 Removal date: 12/19/17 Removal time: 13:20 Results - Labs CBC & Chem 7: 12/21/17 05:00 12/21/17 05:00 Laboratory Results - last 24 hr 12/20/17 12/20/17 12/20/17 10:05 11:50 14:10 WBC RBC Hgb Hct MCV MCH MCHC RDW Plt Count MPV Neut % (Auto) Lymph % (Auto) [place] % (Auto) Eos % (Auto) Baso % (Auto) Neut # (Auto) Lymph # (Auto) [place] # (Auto) Eos # (Auto) Baso # (Auto) WBC Differential Differential Comment Sodium 135 L Potassium 5.1 Chloride 100 Carbon Dioxide 24.1 Anion Gap 11 BUN 31 H Creatinine 1.45 H Estimated GFR 46 L POC Glucose 135 H 142 H Random Glucose 127 H Calcium 8.9 Magnesium 2.7 H 12/20/17 12/20/17 12/21/17 17:32 20:52 05:00 WBC 12.5 H RBC 3.04 L Hgb 9.3 L Hct 27.9 L MCV 91.6 MCH 30.4 MCHC 33.2 RDW 14.8 Plt Count 151 MPV 6.9 L Neut % (Auto) 79.8 H Lymph % (Auto) 11.1 [place] % (Auto) 8.5 H Eos % (Auto) 0.3 Baso % (Auto) 0.3 Neut # (Auto) 10.0 H Lymph # (Auto) 1.4 [place] # (Auto) 1.1 H Eos # (Auto) 0.0 Baso # (Auto) 0.0 WBC Differential . Differential Comment Auto diff final Sodium Potassium Chloride Carbon Dioxide Anion Gap BUN Creatinine Estimated GFR POC Glucose 142 H 131 H Random Glucose Calcium Magnesium 12/21/17 12/21/17 05:00 07:46 WBC RBC Hgb Hct MCV MCH MCHC RDW Plt Count MPV Neut % (Auto) Lymph % (Auto) [place] % (Auto) Eos % (Auto) Baso % (Auto) Neut # (Auto) Lymph # (Auto) [place] # (Auto) Eos # (Auto) Baso # (Auto) WBC Differential Differential Comment Sodium 135 L Potassium 4.4 Chloride 99 Carbon Dioxide 25.6 Anion Gap 10 BUN 35 H Creatinine 1.38 H Estimated GFR 49 L POC Glucose 147 H Random Glucose 114 H Calcium 8.8 Magnesium - Imaging Impressions Chest X-Ray 12/21/17 06:00 CONCLUSION: Basilar airspace disease and pleural effusions, left greater than right without significant change from December 19. - Procedures 12/14/2017 INDICATIONS FOR CATHETERIZATION: 1. Shortness of breath on exertion despite negative stress tests. 2. Prior history of atherosclerotic heart disease which was moderate. CONSENT: Fully informed consent was obtained prior to the procedure. The risks of , bleeding, myocardial infarction, perforation, aspiration, foreseen and unforeseen complications were reviewed. The patient appeared to fully understand. PROCEDURES: 1. Left heart catheterization. 2. Right heart catheterization. 3. Bilateral coronaries. 4. LV gram. 5. Sedation. PROCEDURAL STATEMENTS: The patient was draped and prepped in usual manner. Right femoral artery and vein were entered using a micropuncture technique using ultrasound. Via the 6-Vietnamese sheath, a full right heart catheterization was carried out. Via the 4-Vietnamese sheath, left heart and right coronary catheters were used to intubate the left and right coronary arteries, pigtail catheter to intubate the left ventricle. Multiple angiographic views were carried out. Care was taken to spare dye with hand-held LV gram being performed and minimal shots being taken. Creatinine was elevated at 1.5, but had been higher previously. FINDINGS: I. HEMODYNAMICS: The wedge pressure was 28/23 with a mean of 15. The pulmonary artery pressure was 59/20 with a mean of 38. RV pressure was 64 with a right ventricular end-diastolic pressure of 18. The RA pressure was 15/12 with a mean of 10. The left ventricular pressure was 161 with left ventricular end-diastolic pressure of 23. The aortic pressure was 163/71 with a mean aortic pressure of 115. II. LEFT VENTRICULOGRAM The overall left ventricular ejection fraction was estimated at 50%. This was a hand-held injection because of dye sparing with an elevated creatinine. III. CORONARIES: The left main was large and free of significant disease. The LAD was a large vessel that was diffusely diseased proximally with a diffuse long 75% stenosis. Distal to this it came up to a trifurcation with evidence of a large diagonal branch that bifurcated into 2 sub-branches. The upper branch was totally occluded at 100%. The lower branch was a medium-sized vessel. The LAD itself had some diffuse disease further in the vessel. The ramus/obtuse marginal-1 vessel had a 50% stenosis proximal. The distal circumflex was a small vessel. The right coronary artery was a large, dominant vessel with a large posterior descending artery and posterolateral branch. There was diffuse disease throughout the right coronary. In the proximal to mid-right was a 99% stenosis. In the distal right there was diffuse 50% disease. CONCLUSION: Severe three-vessel coronary artery disease with well preserved ejection fraction. Unfortunately, the patient's creatinine is elevated. PLAN: Bypass surgery to do the LAD, the diagonal, and the right coronary. One could consider also high risk angioplasty to the right coronary if the patient is not a candidate for surgery because of pulmonary reasons. Discussed with Dr Lay and pt and . Will consult Dr Jensen De Luna. Alejandro Ramos MD Assessment and Plan - Assessment (1) Coronary artery disease Code(s): I25.10 - Atherosclerotic heart disease of [place] coronary artery without angina pectoris Status: Chronic (2) COPD (chronic obstructive pulmonary disease) Code(s): J44.9 - Chronic obstructive pulmonary disease, unspecified Status: Chronic (2) COPD (chronic obstructive pulmonary disease) Qualifiers: COPD type: emphysema Emphysema type: unspecified Qualified Code(s): J43.9 - Emphysema, unspecified
[2017-12-21] MEDS: Docusate Sodium 100 MG Capsule PO SCH ×2 (08:57→23:24)
[2017-12-21] MEDS: Levothyroxine 50 MCG Tablet PO SCH (08:59)
[2017-12-21] MEDS: Amiodarone 200 MG Tablet PO SCH ×2 (08:59→23:23)
[2017-12-21] MEDS: Multivitamin/Minerals Therapeutic Tablet PO SCH (09:00)
[2017-12-21] MEDS: Metoprolol Tartrate 25 MG Tablet PO SCH ×2 (09:00→23:24)
[2017-12-21] MEDS: Primidone 50 MG Tablet PO SCH (09:01)
[2017-12-21] MEDS: Polyethylene Glycol 3350 17 GM Packet PO SCH (09:02)
--- NOTE | 2017-12-21 15:06 | P.PNCA ---
Subjective Interval history: Patient sitting up in chair, doing well. in room. No acute complaints. Physical Exam Vital signs: Vital Signs 12/20/17 16:00 12/20/17 17:00 12/20/17 18:00 Temperature 97.7 F Pulse Rate 81 78 80 Respiratory Rate 18 Blood Pressure 123/58 L Pulse Oximetry 97 12/20/17 19:00 12/20/17 20:00 12/20/17 20:08 Temperature Pulse Rate 86 82 83 Respiratory Rate 18 Blood Pressure Pulse Oximetry 96 12/20/17 21:00 12/20/17 22:00 12/20/17 23:00 Temperature Pulse Rate 86 88 84 Respiratory Rate Blood Pressure Pulse Oximetry 12/20/17 23:38 12/21/17 00:00 12/21/17 01:00 Temperature 97.7 F Pulse Rate 86 80 Respiratory Rate 16 18 Blood Pressure 123/58 L Pulse Oximetry 97 12/21/17 02:00 12/21/17 02:29 12/21/17 03:00 Temperature Pulse Rate 82 74 78 Respiratory Rate 22 Blood Pressure Pulse Oximetry 12/21/17 04:00 12/21/17 05:00 12/21/17 06:00 Temperature 98.1 F Pulse Rate 80 84 84 Respiratory Rate 18 Blood Pressure 112/56 L Pulse Oximetry 95 12/21/17 07:00 12/21/17 08:00 12/21/17 09:00 Temperature 98 F Pulse Rate 92 H 71 76 Respiratory Rate 18 Blood Pressure 122/58 L Pulse Oximetry 92 L 12/21/17 10:00 12/21/17 11:00 12/21/17 12:00 Temperature 98.1 F Pulse Rate 78 73 85 Respiratory Rate 16 Blood Pressure 119/56 L Pulse Oximetry 96 12/21/17 13:00 Temperature Pulse Rate 85 Respiratory Rate Blood Pressure Pulse Oximetry Intake & Output 12/20/17 12/21/17 12/21/17 18:59 06:59 18:59 Intake Total 720 / 720 320 / 320 Output Total 625 / 625 500 / 500 Balance 95 / 95 -180 / -180 Weight 105 kg Intake: IV 0 / 0 Oral 720 / 720 320 / 320 Output: Urine 625 / 625 500 / 500 Other: Date of Last Bowel Movement 12/17/17 12/17/17 - Urinary Catheter Management Indwelling Temp Sensing Catheter Cath placed during this visit: yes, but has since been removed by the nurse Urethral indwelling: No Reason for continuing: Hourly intake/output Insertion date: 12/18/17 Insertion time: 07:34 Removal date: 12/19/17 Removal time: 13:20 Assessment and Plan - Plan ASHD COPD HTN Hyperlipidemia Renal insufficiency Essential tremor Plan - S/P CABGx3 12/18/2017 (BATISTA to LAD [fair], SVG to D1 [poor], and SVG to PDA [ fair]) with Dr. Lay. Recovering well. - Echo showing mildly dilated left ventricle with normal wall thickness, reduced EF of 40-45%, mitral annular calcification, aortic valve sclerosis, and moderate pulmonary hypertension - Post-op management per CT surgery. - Productive cough noted - On 2.5L continuous O2 - Incentive spirometry encouraged - BPs stable - Continues on statin - Continue to monitor renal function closely - Avoid nephrotoxic agents and renally dose meds The patient was seen and evaluated by Dr. Ramos who participated in care, management and decision making. Discussed Condition With: Nurse and
--- NOTE | 2017-12-21 16:01 | P.PNCA ---
- Note Subjective/Hospital Course: An 82-year-old male patient of Dr. Dali Elias and Dr. Ramos. Other physicians Include Dr. Jensen De Luna, Dr. Graves. This patient has been complaining of some shortness of breath with some chest discomfort off and on for the past couple of months. He has been taking 2-3 nitro per day. He had a recent positive stress test for ischemia in October. Some anterior perfusion defects suggesting ischemia. Some abnormal septal motion. Apparently, he was to be worked up at [facility] in [place] 01/04/2018; however, due to the persistent chest discomfort, he underwent a cardiac catheterization which showed a 75% stenosis in the proximal LAD, 75%, mid distal LAD. The diagonal was 100% stenosed. The RCA 99% and the ramus 50%. We were consulted to evaluate for coronary artery bypass grafting. The patient has an extensive medical history including a recent admission in October from the to the where he was having some generalized weakness. Prior to that, he was admitted in July for similar complaints. In addition to the fever, he had positive blood cultures for Enterococcus faecalis. They did a CINDY in July with probable vegetation to the aortic valve and possible vegetation to the chordee. EF at the time was 40%. He was seen by infectious disease and had completed the long-term IV antibiotics with vancomycin and Rocephin. She followed up with Dr. Herndon for outpatient antibiotic therapy and then was placed on oral medication and had again a decline in his symptoms. They did a CTA in October which showed no pulmonary emboli, some emphysemic changes. There was a 6 mm right lower lobe lung nodule with recommendations to repeat in 6 months. PAST MEDICAL HISTORY: 1. Arteriosclerotic heart disease where supposedly he had a heart catheterization in 2013 in [place]. 2. 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 3. Hyperlipidemia. 4. COPD. He uses O2 at night only and now has been using 2 liters around the clock. 5. Gastroesophageal reflux disease. 6. Chronic kidney disease stage III. 7. Neuropathy. 8. Peripheral arterial disease. 9. Peripheral vascular disease. 10. Degenerative arthritis. 11. Benign prostatic hypertrophy. 12. History of non-Hodgkin's lymphoma with Waldenstrom's macroglobulinemia. He follows with Dr. Graves and has been in remission. 13. History of viral meningitis. 14. History of shingles. 15. B12 deficiency. 16. 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 17. Lacunar infarcts. 18. Essential tremors. 19. Recent sepsis. 20. Recent endocarditis. 12/17/17 Patient scheduled for CABG tomorrow. Non-contrast chest CT reviewed and there does not appear to be significant calcification in the ascending aorta. Creatinine is higher today 12/18 surgery: CABG x 3, BATISTA to LAD - fair, SVG to D1 - poor, SVG to PDA - fair , L EVH CPB time 77min, crystalloid 2000cc, 460cc cell saver extubated after surgery 12/19 up in chair, on nasal cannula weaned off insulin and dopamine gtt gentle diuresis started on BB, on statin and asa TRANSFER TO STEPDOWN UNIT 12/20 chest tubes dc without difficulty wean 02, gentle diuresis on BB , eval for rehab at discharge f/u labs today 12/21 CXR noted no PTX small left effusion, gentle diuresis dc percocet ( too sleepy) OOB ambulate, will need rehab in NSR Objective: Vital Signs - 24 hr 12/20/17 16:00 12/20/17 17:00 12/20/17 18:00 Temperature 97.7 F Pulse Rate 81 78 80 Respiratory Rate 18 Blood Pressure 123/58 L Pulse Oximetry 97 12/20/17 19:00 12/20/17 20:00 12/20/17 20:08 Temperature Pulse Rate 86 82 83 Respiratory Rate 18 Blood Pressure Pulse Oximetry 96 12/20/17 21:00 12/20/17 22:00 12/20/17 23:00 Temperature Pulse Rate 86 88 84 Respiratory Rate Blood Pressure Pulse Oximetry 12/20/17 23:38 12/21/17 00:00 12/21/17 01:00 Temperature 97.7 F Pulse Rate 86 80 Respiratory Rate 16 18 Blood Pressure 123/58 L Pulse Oximetry 97 12/21/17 02:00 12/21/17 02:29 12/21/17 03:00 Temperature Pulse Rate 82 74 78 Respiratory Rate 22 Blood Pressure Pulse Oximetry 12/21/17 04:00 12/21/17 05:00 12/21/17 06:00 Temperature 98.1 F Pulse Rate 80 84 84 Respiratory Rate 18 Blood Pressure 112/56 L Pulse Oximetry 95 12/21/17 07:00 12/21/17 08:00 12/21/17 09:00 Temperature 98 F Pulse Rate 92 H 71 76 Respiratory Rate 18 Blood Pressure 122/58 L Pulse Oximetry 92 L 12/21/17 10:00 12/21/17 11:00 12/21/17 12:00 Temperature 98.1 F Pulse Rate 78 73 85 Respiratory Rate 16 Blood Pressure 119/56 L Pulse Oximetry 96 12/21/17 13:00 12/21/17 14:00 12/21/17 15:00 Temperature Pulse Rate 85 70 68 Respiratory Rate Blood Pressure Pulse Oximetry GENERAL: A&O x 3 SKIN: Warm and dry. prevena dressing to chest HEAD: Normocephalic. EYES: No scleral icterus. No injection or drainage. NECK: Supple, trachea midline. No JVD or lymphadenopathy. CARDIOVASCULAR: Regular rate and rhythm without murmurs, gallops, or rubs. RESPIRATORY: Breath sounds equal bilaterally. No accessory muscle use. slightly diminished left lower lobe GASTROINTESTINAL: Abdomen soft, non-tender, nondistended. MUSCULOSKELETAL: No cyanosis, or edema. BACK: Nontender without obvious deformity. No CVA tenderness. Labs: Laboratory Results - last 12 hr 12/21/17 12/21/17 12/21/17 05:00 05:00 07:46 WBC 12.5 H RBC 3.04 L Hgb 9.3 L Hct 27.9 L MCV 91.6 MCH 30.4 MCHC 33.2 RDW 14.8 Plt Count 151 MPV 6.9 L Neut % (Auto) 79.8 H Lymph % (Auto) 11.1 [place] % (Auto) 8.5 H Eos % (Auto) 0.3 Baso % (Auto) 0.3 Neut # (Auto) 10.0 H Lymph # (Auto) 1.4 [place] # (Auto) 1.1 H Eos # (Auto) 0.0 Baso # (Auto) 0.0 WBC Differential . Differential Comment Auto diff final Sodium 135 L Potassium 4.4 Chloride 99 Carbon Dioxide 25.6 Anion Gap 10 BUN 35 H Creatinine 1.38 H Estimated GFR 49 L POC Glucose 147 H Random Glucose 114 H Calcium 8.8 12/21/17 10:32 WBC RBC Hgb Hct MCV MCH MCHC RDW Plt Count MPV Neut % (Auto) Lymph % (Auto) [place] % (Auto) Eos % (Auto) Baso % (Auto) Neut # (Auto) Lymph # (Auto) [place] # (Auto) Eos # (Auto) Baso # (Auto) WBC Differential Differential Comment Sodium Potassium Chloride Carbon Dioxide Anion Gap BUN Creatinine Estimated GFR POC Glucose 126 H Random Glucose Calcium Result Diagrams: 12/21/17 05:00 12/21/17 05:00 Telemetry: NSR - Plan (1) Chronic kidney disease Plan: no Toradol, no NSAIDS, creatinine stable at 1.34 f/u labs today (2) COPD (chronic obstructive pulmonary disease) Plan: nebs/ ezpap acapella ambulate (3) S/P CABG x 3 Plan: ASA, stain , BB OOB, ambulate pulm toileting gentle diuresis dc percocet eval for rehab vs HHC at DC OT/PT (1) Chronic kidney disease Qualifiers: Chronic kidney disease stage: stage 3 (moderate) Qualified Code(s): N18.3 - Chronic kidney disease, stage 3 (moderate) (2) COPD (chronic obstructive pulmonary disease) Qualifiers: COPD type: emphysema Emphysema type: unspecified Qualified Code(s): J43.9 - Emphysema, unspecified
[2017-12-22 05:41] LABS: Calcium 8.7 mg/dL (8.5-10.1); Carbon Dioxide 28.5 meq/L (21.0-32.0)
[2017-12-22] MEDS: Levothyroxine 50 MCG Tablet PO SCH (06:34)
[2017-12-22] MEDS: Polyethylene Glycol 3350 17 GM Packet PO SCH (08:27)
[2017-12-22] MEDS: Insulin NovoLOG Aspart Correctional Sugar Inj SQ SCH ×2 (08:27→11:43)
[2017-12-22] MEDS: Multivitamin/Minerals Therapeutic Tablet PO SCH (08:28)
[2017-12-22] MEDS: Metoprolol Tartrate 25 MG Tablet PO SCH (08:29)
[2017-12-22] MEDS: Primidone 50 MG Tablet PO SCH (08:30)
[2017-12-22] MEDS: Vitamins A,C,E/Lutein/Minerals Tablet PO SCH (08:30)
[2017-12-22] MEDS: Amiodarone 200 MG Tablet PO SCH (08:30)
[2017-12-22] MEDS: Docusate Sodium 100 MG Capsule PO SCH (08:30)
--- NOTE | 2017-12-22 11:32 | XR ---
EXAM DATE: 12/22/2017 11:12 AM EDT AGE/SEX: 82 years / Male INDICATIONS: Evaluate left effusion. CLINICAL DATA: This is the patient's subsequent encounter. Patient reports that signs and symptoms h ave been present for 1 week and indicates a pain score of 0/10. MEDICAL/SURGICAL HISTORY: Cardiovascular disease. Chronic obstructive pulmonary disease. Perip heral vascular disease. Hypertension, Non-Hodgkin's Lymphoma, stroke. Pacemaker. COMPARISON: [facility] – [place], [place], CHEST 1V SINGLE AP, 12/21/2017. . FINDINGS: Left lung base opacity is present may be due to a combination of consolidation and or pleural effusio n. There is evidence for prior median sternotomy. Left subclavian pacer wires are present with tips in the right atrium and right ventricle. There is also mild interstitial edema bilaterally. CONCLUSION: Left lung base opacity is present may be due to a combination of consolidation and or pleural effusio n with mild pulmonary edema not significantly changed. Electronically signed by: Soniya Aguero MD 12/22/2017 11:31 AM EDT
--- NOTE | 2017-12-22 14:37 | P.DS ---
Date of admission: 12/14/17 14:17 Primary care physician: Dali Elias MD Attending physician on discharge: Marian Lay Anticipated date of discharge: 12/22/17 Brief History from admission: Patient is a 82-year-old gentleman. Who underwent a cardiac catheterization today with Dr. RAMOS today. Patient underwent cardiac catheterization which showed severe three-vessel coronary artery disease with well-preserved ejection fraction and an elevated creatinine. Cardiology suggested coronary artery bypass and graft to do to the LAD, the diagonal and the right coronary artery. Cardiovascular surgery has been consulted as well as pulmonary medicine due to his severe pulmonary status Patient will be admitted and will await cardiovascular surgery's opinion. Patient's past medical history is significant for COPD severe angina, atherosclerotic heart disease, pacemaker in 2008, valvular heart disease, hyperlipidemia, chronic kidney disease, COPD, non-Hodgkin's lymphoma with Waldenstrm's macroglobulinemia followed by Dr. ANTOINE. Patient is also followed by Dr. De Luna of pulmonary medicine for his severe COPD. 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 vegetation on aortic valve Hypertension lymphoma history of falls history of lacunar infarcts Essential tremor Pneumonia Sepsis Restless leg syndrome Carotid stenosis History of nonsustained ventricular tachycardia Hypertension Hyperlipidemia Endocarditis Abnormal nuclear stress test Lung nodule Weakness Tremor DS: Diagnosis - Discharge Diagnosis (1) Chronic kidney disease Status: Chronic (2) COPD (chronic obstructive pulmonary disease) Status: Chronic (3) S/P CABG x 3 Status: Acute (4) Hx of non-Hodgkin's lymphoma Status: Chronic (5) History of CVA (cerebrovascular accident) Status: Chronic DS: Medications - Discharge Medications Prescriptions: tramadol [Ultram] 50 mg PO Q6H PRN #30 tab PRN Reason: PAIN 3-10 AND/OR FEVER >101F DS: Summary Hospital Course: 12/17/17 Patient scheduled for CABG tomorrow. Non-contrast chest CT reviewed and there does not appear to be significant calcification in the ascending aorta. Creatinine is higher today 12/18 surgery: CABG x 3, BATISTA to LAD - fair, SVG to D1 - poor, SVG to PDA - fair , L EVH CPB time 77min, crystalloid 2000cc, 460cc cell saver extubated after surgery 12/19 up in chair, on nasal cannula weaned off insulin and dopamine gtt gentle diuresis started on BB, on statin and asa TRANSFER TO STEPDOWN UNIT 12/20 chest tubes dc without difficulty wean 02, gentle diuresis on BB , eval for rehab at discharge f/u labs today 12/21 CXR noted no PTX small left effusion, gentle diuresis dc percocet ( too sleepy) OOB ambulate, will need rehab 12/22 + BM continue low dose diuresis x 5 days monitor creatinine continue BB statin ASA, plavix on 2 liter nasal cannula, wean as tolerated for sat >92% ok to dc to rehab - Time Spent with Patient Total time spent providing and/or coordinating discharge services: Greater than 30 minutes - Quality: AMI Clinical Trial Participant: No - Quality: VTE Deep Vein Thrombosis/Pulmonary Embolism Present on Admission: No Exam Vital signs: Vital Signs 12/21/17 15:00 12/21/17 16:00 12/21/17 17:00 Temperature 98 F Pulse Rate 68 70 70 Respiratory Rate 18 Blood Pressure 113/67 Pulse Oximetry 94 L 12/21/17 18:00 12/21/17 19:00 12/21/17 20:00 Temperature 97.5 F L Pulse Rate 78 76 86 Respiratory Rate 16 Blood Pressure 146/69 H Pulse Oximetry 96 12/21/17 21:00 12/21/17 22:00 12/21/17 23:00 Temperature Pulse Rate 82 78 82 Respiratory Rate Blood Pressure Pulse Oximetry 12/21/17 23:45 12/22/17 00:00 12/22/17 01:00 Temperature 97.5 F L Pulse Rate 76 72 Respiratory Rate 16 16 Blood Pressure 146/71 H Pulse Oximetry 96 12/22/17 01:53 12/22/17 02:00 12/22/17 03:00 Temperature Pulse Rate 71 84 74 Respiratory Rate 17 Blood Pressure Pulse Oximetry 12/22/17 04:00 12/22/17 05:00 12/22/17 06:00 Temperature 97.6 F Pulse Rate 70 84 84 Respiratory Rate 16 Blood Pressure 142/66 H Pulse Oximetry 12/22/17 07:00 12/22/17 08:00 12/22/17 09:00 Temperature 97.5 F L Pulse Rate 92 H 87 83 Respiratory Rate 14 Blood Pressure 139/64 Pulse Oximetry 95 12/22/17 09:40 12/22/17 10:00 12/22/17 11:00 Temperature Pulse Rate 91 H 87 79 Respiratory Rate 20 Blood Pressure Pulse Oximetry 97 12/22/17 11:45 Temperature 98 F Pulse Rate 71 Respiratory Rate 14 Blood Pressure 115/58 L Pulse Oximetry 93 L Intake & Output 12/21/17 12/22/17 12/22/17 18:59 06:59 18:59 Intake Total 1040 / 1040 480 / 480 Output Total 975 / 975 400 / 400 Balance 65 / 65 80 / 80 Weight 105 kg Intake: Oral 1040 / 1040 480 / 480 Output: Urine 975 / 975 400 / 400 Other: Date of Last Bowel Movement 12/17/17 - Constitutional no acute distress - Routine HEENT Exam Head: Present: normocephalic, atraumatic - Routine Neck Exam Present: supple, full ROM - Routine Chest/Breast/Axilla Exam Chest wall: Present: tenderness - Routine Respiratory Exam Comments: slightly diminished left lower lobe - Routine Abdominal Exam Present: soft, normoactive bowel sounds - Routine Extremities Exam Present: edema Comments: +1 - Routine Skin Exam Present: intact - Routine Neurological Exam Present: alert, oriented X3 Results Procedures completed during hospitalization: 12/14/2017 INDICATIONS FOR CATHETERIZATION: 1. Shortness of breath on exertion despite negative stress tests. 2. Prior history of atherosclerotic heart disease which was moderate. CONSENT: Fully informed consent was obtained prior to the procedure. The risks of , bleeding, myocardial infarction, perforation, aspiration, foreseen and unforeseen complications were reviewed. The patient appeared to fully understand. PROCEDURES: 1. Left heart catheterization. 2. Right heart catheterization. 3. Bilateral coronaries. 4. LV gram. 5. Sedation. PROCEDURAL STATEMENTS: The patient was draped and prepped in usual manner. Right femoral artery and vein were entered using a micropuncture technique using ultrasound. Via the 6-Maltese sheath, a full right heart catheterization was carried out. Via the 4-Maltese sheath, left heart and right coronary catheters were used to intubate the left and right coronary arteries, pigtail catheter to intubate the left ventricle. Multiple angiographic views were carried out. Care was taken to spare dye with hand-held LV gram being performed and minimal shots being taken. Creatinine was elevated at 1.5, but had been higher previously. FINDINGS: I. HEMODYNAMICS: The wedge pressure was 28/23 with a mean of 15. The pulmonary artery pressure was 59/20 with a mean of 38. RV pressure was 64 with a right ventricular end-diastolic pressure of 18. The RA pressure was 15/12 with a mean of 10. The left ventricular pressure was 161 with left ventricular end-diastolic pressure of 23. The aortic pressure was 163/71 with a mean aortic pressure of 115. II. LEFT VENTRICULOGRAM The overall left ventricular ejection fraction was estimated at 50%. This was a hand-held injection because of dye sparing with an elevated creatinine. III. CORONARIES: The left main was large and free of significant disease. The LAD was a large vessel that was diffusely diseased proximally with a diffuse long 75% stenosis. Distal to this it came up to a trifurcation with evidence of a large diagonal branch that bifurcated into 2 sub-branches. The upper branch was totally occluded at 100%. The lower branch was a medium-sized vessel. The LAD itself had some diffuse disease further in the vessel. The ramus/obtuse marginal-1 vessel had a 50% stenosis proximal. The distal circumflex was a small vessel. The right coronary artery was a large, dominant vessel with a large posterior descending artery and posterolateral branch. There was diffuse disease throughout the right coronary. In the proximal to mid-right was a 99% stenosis. In the distal right there was diffuse 50% disease. CONCLUSION: Severe three-vessel coronary artery disease with well preserved ejection fraction. Unfortunately, the patient's creatinine is elevated. PLAN: Bypass surgery to do the LAD, the diagonal, and the right coronary. One could consider also high risk angioplasty to the right coronary if the patient is not a candidate for surgery because of pulmonary reasons. Discussed with Dr Lay and pt and . Will consult Dr Jensen De Luna. Alejandro Ramos MD CABG x 3 12/19 BATISTA to LAD - fair SVG to D1 - poor SVG to PDA - fair EVH Labs on day of discharge: Labs from last 24 hours 12/22/17 12/22/17 12/22/17 11:06 08:25 04:59 Sodium 135 L Potassium 5.0 Chloride 100 Carbon Dioxide 28.5 Anion Gap 7 BUN 38 H Creatinine 1.43 H Estimated GFR 47 L POC Glucose 141 H 116 H Random Glucose 100 Calcium 8.7 12/21/17 12/21/17 19:41 17:05 Sodium Potassium Chloride Carbon Dioxide Anion Gap BUN Creatinine Estimated GFR POC Glucose 133 H 137 H Random Glucose Calcium - Impressions ITS Impressions Carotid Doppler Study 12/14/17 15:59 CONCLUSION: 1. Right Internal Carotid Artery: Findings indicate <50% stenosis. 2. Left Internal Carotid Artery: Findings indicate 50-69% stenosis. Lower Extremity Ultrasound 12/15/17 08:25 CONCLUSION: 1. Normal venous mapping study with measurements given above. Venous Doppler Study 12/15/17 08:25 CONCLUSION: 1. The study is negative for bilateral lower extremity deep venous thrombosis. Chest CT 12/16/17 00:00 CONCLUSION: No evidence of acute thoracic abnormality. No masses are identified. Small bilateral effusions Severe emphysema Stable 6 mm nodule right lower lobe. Followup CT scan in 6 months is recommended. Chest X-Ray 12/22/17 00:00 CONCLUSION: Left lung base opacity is present may be due to a combination of consolidation and or pleural effusion with mild pulmonary edema not significantly changed. Discharge Plan - Discharge Disposition Patient Disposition: [facility] Rehab Inpatient - Discharge Condition Condition: Good - Discharge Order Discharge Orders: Discharge Order (Routine); Ordered 12/22/17 Ordered By: Anamaria Ha - Discharge Details Anticipated Discharge Date: 12/22/17 - Physicians Team Primary Care Provider: Dali Elias Attending Provider: Marian Lay Other Providers: Marian Lay MD ; Jensen De Luna MD ; Alejandro Ramos MD ; [facility] - Rxs /Orders / Referrals /Forms Prescriptions: New acetaminophen 325 mg Tablet 650 mg PO Q6HR PRN (Reason: Pain Scale 1 To 2) RF: 0 amiodarone 200 mg Tablet 200 mg PO Q12HR 7 Days Qty: 14 RF: 0 clopidogrel [Plavix] 75 mg Tablet 75 mg PO DAILY RF: 0 docusate sodium [DOK] 100 mg Capsule 100 mg PO BID RF: 0 furosemide [Lasix] 20 mg Tablet 40 mg PO DAILY Qty: 5 RF: 0 metoprolol tartrate 25 mg Tablet 12.5 mg PO BID Qty: 0 RF: 0 mctwysyf-bwhl-PN-calcium-mins [Thera M Plus (ferrous fumarat)] 9 mg iron-400 mcg Tablet 1 tab PO DAILY RF: 0 pantoprazole 40 mg Tablet,Delayed Release (Dr/Ec) 40 mg PO DAILY@06 RF: 0 polyethylene glycol 3350 17 gram Powder In Packet 17 gm PO DAILY RF: 0 primidone [Mysoline] 50 mg Tablet 50 mg PO DAILY RF: 0 tramadol [Ultram] 50 mg Tablet 50 mg PO Q6H PRN (Reason: PAIN 3-10 AND/OR FEVER >101F) Qty: 30 RF: 0 Continue albuterol sulfate 2.5 mg /3 mL (0.083 %) Solution For Nebulization 2.5 mg INHALATION Q4H PRN (Reason: FLUID RETENTION) aspirin [Aspir-81] 81 mg Tablet,Delayed Release (Dr/Ec) 81 mg PO DAILY esomeprazole magnesium [Nexium] 20 mg Capsule,Delayed Release(Dr/Ec) 20 mg PO DAILY levothyroxine 50 mcg Capsule 50 mcg PO DAILY mometasone [Nasonex] 50 mcg/actuation [place],Non-Aerosol 2 spray INTRANASAL DAILY ropinirole 0.5 mg Tablet 0.5 mg PO HS rosuvastatin 20 mg Tablet 20 mg PO DAILY terazosin 1 mg Capsule 1 mg PO DAILY vitamins A,C,Y-zsho-lsgwuo [PreserVision AREDS] [id number],160-113-100 jlin-ok-[id number] Tablet 1 tab PO DAILY Discontinued isosorbide mononitrate 60 mg Tablet Extended Release 24 Hr 60 mg PO DAILY nitroglycerin [Nitrostat] 0.4 mg Tablet, Sublingual 0.4 mg SUBLINGUAL Q5-15M PRN (Reason: Hypertension) ranolazine [Ranexa] 1,000 mg Tablet Extended Release 12 Hr 1,000 mg PO Q12H torsemide 10 mg Tablet 10 mg PO DIRECTED PRN (Reason: Urinary Retention) No Action albuterol sulfate [ProAir HFA] 90 mcg/actuation Hfa Aerosol Inhaler 2 puff INHALATION Q4H PRN (Reason: FLUID RETENTION) metoprolol tartrate 25 mg Tablet 25 mg PO DAILY PRN (Reason: Hypertension) Ambulatory Orders / Order Sets / DME: XR chest 2V PA&LAT (Routine) Timeframe: 2 Days Location: Determined by Patient Ordered By: Anamaria Ha Basic Metabolic Panel (Routine) Timeframe: 2 Weeks Location: Determined by Patient Ordered By: Anamaria Ha Complete Blood Count NO Diff (Routine) Timeframe: 2 Weeks Location: Determined by Patient Ordered By: Anamaria Ha Referrals: Marian Lay MD [Physician] - See Instructions ( Your appointment has been scheduled for [January 04] at [11:45am] If you cannot make this appointment, please call the office to reschedule ) Alejandro Ramos MD [Physician] - See Instructions ( Your appointment has been scheduled for [January 01] at [3:15pm] If you cannot make this appointment, please call the office to reschedule ) Dali Elias MD [Primary Care Provider] - See Instructions - Discharge Instructions Additional Instructions: PREVENA Single Use Negative Wound Therapy System Caregiver Instruction Sheet 1. A Prevena dressing system was applied to the chest incision during surgery , to promote wound healing. It works via a suction device (negative pressure wound therapy) to remove low to moderate levels of exudate (drainage) and infectious materials. We recommend that the device stay in place for up to seven days, from day of surgery. 2. Day of Surgery____/ Day of Removal ____/ 3. The dressing should only be removed by a health director of career services. Please arrange removal of device to coincide with Home Health visit and or with Nursing staff at Rehab 4. If skin reddening or irritation of skin occurs, or excessive drainage, please notify the Cardiovascular Surgeons office at [phone]. 5. Light showering is permissible; however the pump should be disconnected and placed in safe location, where it will not get wet. The dressing should not be exposed to direct spray or submerged in water. No bath tub / shower only. Ensure the end of the tubing attached to the dressing is facing down so that water does not enter the top of the tube. 6. To remove Prevena dressing: press purple button to turn off device / remove the suction. Then disconnect the tubing from the pump. The fixation strips should be stretched away from the skin and the dressing lifted at one corner and peeled back until it has been fully removed. 7. After removal, it is ok to shower daily using liquid dial soap and clean wash cloth, rinse and pat dry, and leave incision open to air dry. For any concerns regarding Prevena dressing, and or wounds, please contact Minerva Knight, patient navigator at [phone] or notify the Cardiovascular Surgeons office at [phone]. Incentive spirometry Q1 hr x 10, while awake, also use acapella device hourly whole awake Sternal Breast Bone Precautions: NO pushing or pulling, ( pt must use sternal pillow to support chest with all activities and with coughing ( takes up to 3 months breast bone to heal ) All females to wear sternal bra , launder as needed Daily incision care: ok to shower daily, no tub bath. Wash all incisions with liquid dial soap, clean wash cloth to each site, rinse and pat dry. Observe for any signs of infection, such as drainage which is dark yellow, lim, green or foul smelling. Immediately report to the surgeon any drainage from the chest incision, or legs, and for any abnormal drainage from the chest tube sites. Notify surgeon if any temp >101.5 degrees F. When specialty dressing removed/ or if you do not have one, continue to shower daily as above, then rinse and pat incision dry and paint with betadine daily x 5 days. Allow steri strips to fall off if you have any. Avoid lotions, creams, salves, oils, etc. for the first month Please see attached forms for additional instructions regarding post Open Heart specialty wound vacuum dressings. HANS or Prevena , Dressing to be removed by Nursing staff on __12/25/[address] Lay patients , please obtain CBC, BMP, PA & Lat CXR in 2 weeks, results to Dr. Lay ( prescription will be given) ( ) (Tele: [phone]) , F/U appointment: as per DC instructions: PCP in 2 weeks, CV surgeon 2 weeks, [employer] Technician 3-4 weeks For any questions regarding incisions/ dressing / meds / post op care or above Symptoms, Monday 8am-5pm Heart & Vascular Surgery Office ( Dr. Arreaga & Dr. Lay), After Hours / Nights (5pm -8am) Weekends and Holidays Please call [facility] Cardiac [facility] Unit (C[facility]) Charge Nurse
== END 2017-12-22 16:48 ==
LOC: HDOC 10:13 → HDIC 10:18 → HCVI 14:17 → HCIS 16:11 → HCPC 12-17 19:50 → HCVI 12-18 11:48 → HCPC 12-19 17:30
PROVIDERS: ADMIT Thoracic Surgery (Cardiothoracic Vascular Surgery); ATTEND Thoracic Surgery (Cardiothoracic Vascular Surgery)